=== PATIENT | male | born 1965 | race Asian ===

== ENCOUNTER 2018-05-20 01:58 | Inpatient (IN) | payer MEDICARE, OTHER ==
[~2018-05-20] VITALS: Ht 167.6 cm; Wt 86.2 kg
[2018-05-20] VITALS (21 sets, daily range): BP systolic 79–141; BP diastolic 48–70
[2018-05-20 01:53] LABS: HEMATOCRIT 21.5 % (42.0-52.0); MEAN CORPUSCULAR VOLUME 95 FL (80-99); PLATELET COUNT 179 K/UL (150-450); RED BLOOD COUNT 2.26 M/UL (4.70-6.10); RED CELL DISTRIBUTION WIDTH 13.1 % (11.6-14.8); WHITE BLOOD COUNT 13.6 K/UL (4.8-10.8)
[~2018-05-20 01:58] MED LIST: Morphine Sulfate 4mg/ml Inj (IV/IM USE ONLY) IVP ONE
[2018-05-20 02:07] LABS: ANION GAP 6 mmol/L (5-15); BLOOD UREA NITROGEN 24 mg/dL (7-18); CALCIUM 8.8 MG/DL (8.5-10.1); CARBON DIOXIDE 30 MMOL/L (21-32); CHLORIDE 103 MMOL/L (98-107); CREATININE 5.1 MG/DL (0.55-1.30); POTASSIUM 3.5 MMOL/L (3.5-5.1); SODIUM 139 MMOL/L (136-145)
[2018-05-20 02:11] LABS: ALANINE AMINOTRANSFERASE 11 U/L (12-78); ALBUMIN/GLOBULIN RATIO 0.8 (1.0-2.7); ALKALINE PHOSPHATASE 55 U/L (46-116); ASPARTATE AMINO TRANSFERASE 17 U/L (15-37); BILIRUBIN,TOTAL 0.5 MG/DL (0.2-1.0)
--- NOTE | 2018-05-20 03:28 | Diagnostic Imaging Report ---
EXAM: CT Abdomen and Pelvis Without Intravenous Contrast CLINICAL HISTORY: PAIN TECHNIQUE: Axial computed tomography images of the abdomen and pelvis without intravenous contrast. CTDI is 13.68 mGy and DLP is 1247 mGy-cm. One or more of the following dose reduction techniques were used: automated exposure control, adjustment of the mA and/or kV according to patient size, use of iterative reconstruction technique. COMPARISON: No relevant prior studies available. FINDINGS: Limitations: Absent IV and oral contrast limit evaluation. Lung bases: Right basilar airspace disease. Pleural space: Small bilateral pleural effusions, right greater than left. Mediastinum: Small hiatal hernia. ABDOMEN: Liver: Unremarkable. Gallbladder and bile ducts: Cholelithiasis. No CT evidence for acute cholecystitis. No ductal dilation. Pancreas: Unremarkable. No ductal dilation. Spleen: Unremarkable. No splenomegaly. Adrenals: Left adrenal gland appear within normal limits. Right adrenal gland is suboptimally visualized due to overall soft tissue stranding in perinephric abnormality. Kidneys and ureters: Small left renal lesions, some of which are isodense to the renal parenchyma and may reflect complex cyst. Close follow-up recommended to exclude isodense mass. Nonobstructing left renal calculus suspected. No left ureteral calculus. Right ureter is difficult to follow due to the extent of fluid and abnormality in the retroperitoneum. Complex heterogeneously hyperdense abnormality in the right kidney extending into the right perinephric space which may represent a large hemorrhagic mass. Note that in the setting of trauma, posttraumatic change can give this appearance. Some scattered rounded cystic lesions within this complex cystic mass which may reflect underlying cysts. Recommend clinical correlation and close follow-up. Few punctate calcifications in the lower right kidney which may reflect nonobstructing calculi. Stomach and bowel: Thickening of the rectosigmoid colon which may reflect under distention. Scattered diverticula in the right colon with fecaliths. Surrounding soft tissue stranding/fluid may reflect changes related to the right kidney and perinephric space rather than focal inflammatory changes/diverticulitis. Marked thickening of the descending and transverse portion of the duodenum which may reflect focal inflammatory/infectious process. In the setting of trauma, hematoma within the wall of the duodenum difficult to exclude. PELVIS: Appendix: No CT evidence for appendicitis. Bladder: Thickening of the bladder wall likely due to underdistention. No stones. Reproductive: Unremarkable as visualized. Subperitoneal space: Soft tissue stranding in the presacral space and along the right pelvic sidewall likely large hematoma extending inferiorly. ABDOMEN and PELVIS: Intraperitoneal space: Small scattered free fluid in the pelvis and upper abdomen in the samina-splenic and perihepatic distribution. Extensive soft tissue stranding along the right anterior lateral mesentery which may reflect focal mesenteric hematoma/injury. This may alternatively represent infiltrative abnormality versus edema. Recommend clinical correlation and follow-up. No free air. Bones/joints: No acute fracture. No dislocation. Soft tissues: Small fat-containing inguinal hernias bilaterally, left greater than right. Vasculature: Unremarkable. No abdominal aortic aneurysm. Lymph nodes: Unremarkable. No enlarged lymph nodes. Other findings: Suspect mild congestion. Recommend clinical correlation and close follow-up. IMPRESSION: Large complex hemorrhage/hemorrhagic mass occupying majority of the right kidney with extensive perinephric fluid/blood extending into the retroperitoneum and pelvis. Possible focal mesenteric edema/hematoma/abnormality. Recommend clinical correlation with history for trauma. Abnormal thickening in the duodenum which may reflect inflammatory/infectious process versus hematoma versus underlying infiltrative abnormality. Small free fluid seen throughout the abdomen and pelvis. Nonspecific bowel gas pattern. No free air. Small bilateral pleural effusions and right basilar airspace disease. [employer] 05/20/18 03:32 Call Doctor Regarding Above results, called Dr. Andrade on 05/20 03:32 (-08:00)
[2018-05-20] MEDS ORDERED: Morphine Sulfate 2mg/ml Inj IVP PRN (03:30)
[2018-05-20] MEDS ORDERED: Sodium Chloride 500ML 500 ML IV ONE (04:30)
[2018-05-20] MEDS: Norco 5mg/325mg tab ORAL PRN ×3 (04:33→19:43)
[2018-05-20] MEDS: D5NS 1,000 ML IV SCH ×2 (04:37→23:45)
--- NOTE | 2018-05-20 04:37 | Emergency Room Report ---
History of Present Illness General Chief Complaint: Abdominal Pain Source: Patient Present Illness [facility] This patient c/o right sided abdominal pain started suddenly ~6 pm, no trauma. Constant since onset, fairly severe, not improving. No similar history. No trauma. No vomiting, no diarrhea. Pt. is T/T/S dialysis with no complication today's dialysis. No cp, sob, no headache, no syncope. Allergies: Coded Allergies: No Known Allergies (Unverified , 05/20/18) Nursing Documentation-[facility] Past Medical History: No History, Except For Hx Diabetes: Yes Hx Dialysis: Yes - L arm shunt, T, TH, SAT Review of Systems Constitutional: Reports: see HPI Eye: Reports: no symptoms ENT: Reports: no symptoms Respiratory: Reports: no symptoms Cardiovascular: Reports: no symptoms Gastrointestinal: Reports: abdominal pain Genitourinary: Reports: no symptoms Musculoskeletal: Reports: no symptoms Skin: Reports: no symptoms Psychiatric: Reports: no symptoms Neurological: Reports: no symptoms Endocrine: Reports: no symptoms Hematologic/Lymphatic: Reports: no symptoms Allergic: Reports: no symptoms All Other Systems: negative except mentioned in HPI Physical Exam Vital Signs Date Time Temp Pulse Resp B/P (MAP) Pulse Ox O2 Delivery O2 Flow Rate FiO2 05/20/18 01:12 64 17 Room Air 05/20/18 01:15 132/67 98 05/20/18 01:59 97.5 Sp02 EP Interpretation: reviewed, normal General Appearance: normal inspection, well appearing, no apparent distress, alert, GCS 15, non-toxic Head: normocephalic, atraumatic Eyes: bilateral eye normal inspection, bilateral eye PERRL, bilateral eye EOMI ENT: normal ENT inspection, hearing grossly normal, normal pharynx, no angioedema, normal voice, moist mucus membranes Neck: normal inspection, full range of motion, supple, no meningismus, no bony tend Respiratory: normal inspection, lungs clear, normal breath sounds, no rhonchi, no respiratory distress, no retraction, no accessory muscle use, no wheezing Cardiovascular #1: normal inspection, regular rate, rhythm, no edema Gastrointestinal: normal inspection, normal bowel sounds, soft, no mass, non- distended, other - severe tenderness right lower abdomen, more diffuse than McBurney's, and no surgical signs, seems to have some right CVA tenderness too Musculoskeletal: gait/station normal, normal range of motion Neurologic: normal inspection, alert, oriented x3, responsive, motor strength/ tone normal Psychiatric: normal inspection, judgement/insight normal, memory normal Suicide Risk Assessment: Suicidal Ideation: No Had intent to initiate attempt: No Pt's plan for suicide attempt: No Has means to complete attempt: No Skin: normal inspection, normal color, no rash, warm/dry Medical Decision Making Diagnostic Impression: Primary Impression: Retroperitoneal hemorrhage Additional Impressions: ESRD (end stage renal disease) on dialysis Anemia ER Course No old labs here to compare hgb 7. While in ED patient is uncomfortable but he is able to walk to the bathroom on his own. (He does not have any urine output chronically, just bm.) CT result noted. I d/w Dr. Collazo who requested serial h/h bid and bed rest. I d/w Dr. Flores who is aware and will f/u in ICU. Surgeon Dr. Nur declined consult. Critical care time: I spent 35 minutes critical care time managing potentially life threatening conditions and coordinating care between physicians. EKG Diagnostic Results Rate: tachycardiac Rhythm Strip Diag. Results Rhythm Strip Time: 04:36 Rate: 101 Rhythm: NSR Last Vital Signs Date Time Temp Pulse Resp B/P (MAP) Pulse Ox O2 Delivery O2 Flow Rate FiO2 05/20/18 01:59 97.5 55 18 96/54 93 Room Air Status: unchanged Disposition: ADMITTED INPATIENT Condition: Serious Referrals: NOT CHOSEN IPA/,REFERRING (PCP) Angel Andrade M.D. May 20, 2018 04:36
[2018-05-20 05:47] LABS: INR 1.1 (0.9-1.1)
[2018-05-20] MEDS: NovoLOG Insulin Flexpen SUBQ SCH ×4 (06:09→20:33)
[2018-05-20 06:12] LABS: HEMATOCRIT 19.2 % (42.0-52.0); MEAN CORPUSCULAR VOLUME 96 FL (80-99); PLATELET COUNT 147 K/UL (150-450); RED BLOOD COUNT 2.01 M/UL (4.70-6.10); RED CELL DISTRIBUTION WIDTH 13.1 % (11.6-14.8); WHITE BLOOD COUNT 12.9 K/UL (4.8-10.8)
[2018-05-20 06:15] LABS: HEMOGLOBIN 6.2 G/DL (14.2-18.0)
[2018-05-20] MEDS ORDERED: Sodium Chloride 500ML 500 ML IV PRN (07:30)
--- NOTE | 2018-05-20 08:43 | History & Physical ---
History and Physical History & Physicial seen and examined. Full Dictation is completed. Baljit Flores MD May 20, 2018 08:43
--- NOTE | 2018-05-20 08:46 | General Progress Note ---
Assessment/Plan Assessment/Plan Full Dictation in progress 1- Acute Right Perinephric Hemorrhage 2- Hypovolemic Shock 3- Acute Anemia 4- Abdominal Pain secondary to #1 Plan: Ok to proceed with central line Ok to start Vaso Pressor Discussed the care with urologist, Dr Damon, continue to stabilize patient hypodynamically . No Surgical intervention at this time ID, Nephro, Endo, Critical specialist are consulted and notified Patient remains in serious medical cnd Subjective Allergies: Coded Allergies: No Known Allergies (Unverified , 05/20/18) Objective Last 24 Hour Vital Signs Date Time Temp Pulse Resp B/P (MAP) Pulse Ox O2 Delivery O2 Flow Rate FiO2 05/20/18 07:00 62 13 79/48 (58) 94 05/20/18 06:00 66 20 128/63 (84) 99 05/20/18 05:00 63 22 124/59 (80) 97 05/20/18 04:00 97.6 66 23 124/58 (80) 95 05/20/18 04:00 63 05/20/18 04:00 Nasal Cannula 2.0 05/20/18 02:47 97.5 65 18 125/67 93 Nasal Cannula 2.0 65 05/20/18 02:01 97.6 05/20/18 01:59 97.5 55 18 96/54 93 Room Air 05/20/18 01:15 64 18 132/67 98 Room Air 05/20/18 01:12 64 17 Room Air Intake and Output 05/19/18 05/20/18 18:59 06:59 Intake Total 70 ml Balance 70 ml Intake Oral 0 ml IV Total 70 ml Laboratory Tests 05/20/18 01:42: White Blood Count 13.6H, Red Blood Count 2.26L, Hemoglobin 7.0L, Hematocrit 21.5L, Mean Corpuscular Volume 95, Mean Corpuscular Hemoglobin 31.1H, Mean Corpuscular Hemoglobin Concent 32.7, Red Cell Distribution Width 13.1, Platelet Count 179, Mean Platelet Volume 10.7H, Neutrophils (%) (Auto) , Lymphocytes (%) (Auto) , Monocytes (%) (Auto) , Eosinophils (%) (Auto) , Basophils (%) (Auto) , Differential Total Cells Counted 100, Neutrophils % (Manual) 84H, Lymphocytes % (Manual) 12L, Monocytes % (Manual) 2, Eosinophils % (Manual) 2, Basophils % ( Manual) 0, Band Neutrophils 0, Platelet Estimate Adequate, Platelet Morphology Normal, Hypochromasia 2+, Sodium Level 139, Potassium Level 3.5, Chloride Level 103, Carbon Dioxide Level 30, Anion Gap 6, Blood Urea Nitrogen 24H, Creatinine 5.1H, Estimat Glomerular Filtration Rate 12.0, Glucose Level 376H, Calcium Level 8.8, Total Bilirubin 0.5, Aspartate Amino Transf (AST/SGOT) 17, Alanine Aminotransferase (ALT/SGPT) 11L, Alkaline Phosphatase 55, Total Protein 6.7, Albumin 3.0L, Globulin 3.7, Albumin/Globulin Ratio 0.8L, Lipase 375 05/20/18 05:10: White Blood Count 12.9H, Red Blood Count 2.01L, Hemoglobin 6.2*L, Hematocrit 19.2L, Mean Corpuscular Volume 96, Mean Corpuscular Hemoglobin 30.9, Mean Corpuscular Hemoglobin Concent 32.3, Red Cell Distribution Width 13.1, Platelet Count 147L, Mean Platelet Volume 10.8H, Neutrophils (%) (Auto) , Lymphocytes (% ) (Auto) , Monocytes (%) (Auto) , Eosinophils (%) (Auto) , Basophils (%) (Auto) , Differential Total Cells Counted 100, Neutrophils % (Manual) 88H, Lymphocytes % (Manual) 8L, Monocytes % (Manual) 4, Eosinophils % (Manual) 0, Basophils % ( Manual) 0, Band Neutrophils 0, Platelet Estimate DecreasedL, Platelet Morphology Normal, Hypochromasia 2+, Prothrombin Time 11.3, Prothromb Time International Ratio 1.1, Hemoglobin A1c 6.3H Height (Feet): 5 Height (Inches): 6.00 Weight (Pounds): 174 Baljit Flores MD May 20, 2018 08:46
[2018-05-20] MEDS ORDERED: Heparin 5000 units/ml inj SUBQ SCH (09:00)
--- NOTE | 2018-05-20 10:13 | Consultation ---
Consult Note Consult Note asked to eval for dialysis management This patient c/o right sided abdominal pain started suddenly ~6 pm, no trauma. Constant since onset, fairly severe, not improving. No similar history. No trauma. No vomiting, no diarrhea. Pt. is T/T/S dialysis with no complication today's dialysis. No cp, sob, no headache, no syncope. No Known Allergies (Unverified , 05/20/18) Past Medical History: No History, Except For Hx Diabetes: Yes Hx Dialysis: Yes - L arm shunt, T, TH, SAT Physical Exam Vital Signs Date Time Temp Pulse Resp B/P (MAP) Pulse Ox O2 Delivery O2 Flow Rate FiO2 05/20/18 01:12 64 17 Room Air 05/20/18 01:15 132/67 98 05/20/18 01:59 97.5 Sp02 EP Interpretation: reviewed, normal General Appearance: normal inspection, well appearing, no apparent distress, alert, GCS 15, non-toxic Head: normocephalic, atraumatic Eyes: bilateral eye normal inspection, bilateral eye PERRL, bilateral eye EOMI ENT: normal ENT inspection, hearing grossly normal, normal pharynx, no angioedema, normal voice, moist mucus membranes Neck: normal inspection, full range of motion, supple, no meningismus, no bony tend Respiratory: normal inspection, lungs clear, normal breath sounds, no rhonchi, no respiratory distress, no retraction, no accessory muscle use, no wheezing Cardiovascular #1: normal inspection, regular rate, rhythm, no edema Gastrointestinal: normal inspection, normal bowel sounds, soft, no mass, non- distended, other - severe tenderness right lower abdomen, more diffuse than McBurney's, and no surgical signs, seems to have some right CVA tenderness too Musculoskeletal: gait/station normal, normal range of motion Neurologic: normal inspection, alert, oriented x3, responsive, motor strength/ tone normal Psychiatric: normal inspection, judgement/insight normal, memory normal Suicide Risk Assessment: Suicidal Ideation: No Had intent to initiate attempt: No Pt's plan for suicide attempt: No Has means to complete attempt: No Skin: normal inspection, normal color, no rash, warm/dry Assessment/Plan hemorrhagic shock- Retro Peritoneal bleed Low BP ESRD DM HTN No Need for HD Transfuse Observe in ICU manage pain Per consultants discussed with Dm Ledesma MD May 20, 2018 10:13
--- NOTE | 2018-05-20 10:16 | Critical Care Progress Note ---
Assessment/Plan Problem List: (1) Shock (2) Diabetes (3) ESRD (end stage renal disease) on dialysis (4) Retroperitoneal hemorrhage (5) Anemia Status: stable Assessment/Plan ABG CBC q6, monitor HH, transfuse PRN Hb < 7 Monitor hemodynamics, PRN NE Place CVC Continue D5NS@50 cautiously, once luis PO will D/C HD per renal eval appreciated, no plan for operation at this time Observe off Abx for signs of an infectious process DVT Px: SCD's SSI Pain control/supportive care CCT60 Critical Care - Subjective Interval Events: 52 M h/o ESRD on HD TTS, HTN p/w acute R sided abdominal pain, Hb 7.0 --> 6.2, CT A/P with large R perinephric hemm vs hemm mass, admitted to the ICU for observation. + pain + N no V no DC no FC no CP no SOB ROS Limited/Unobtainable: Yes Condition: critical IV Access: peripheral, dialysis access - fistula EKG Rhythm: Sinus Rhythm IV Fluids: D51/2NS@50 Drips: NA I&O: Intake and Output 05/19/18 05/20/18 18:59 06:59 Intake Total 70 ml Balance 70 ml Intake Oral 0 ml IV Total 70 ml Critical Care - Objective Last 24 Hour Vital Signs Date Time Temp Pulse Resp B/P (MAP) Pulse Ox O2 Delivery O2 Flow Rate FiO2 05/20/18 07:00 62 13 79/48 (58) 94 05/20/18 06:00 66 20 128/63 (84) 99 05/20/18 05:00 63 22 124/59 (80) 97 05/20/18 04:00 97.6 66 23 124/58 (80) 95 05/20/18 04:00 63 05/20/18 04:00 Nasal Cannula 2.0 05/20/18 02:47 97.5 65 18 125/67 93 Nasal Cannula 2.0 65 05/20/18 02:01 97.6 05/20/18 01:59 97.5 55 18 96/54 93 Room Air 05/20/18 01:15 64 18 132/67 98 Room Air 05/20/18 01:12 64 17 Room Air Status: awake Condition: critical HEENT: atraumatic, normocephalic Neck: full ROM Lungs: normal breath sounds, clear Heart: normal peripheral pulses, normal rate, regular rhythm Abdomen: active bowel sounds, other - R > L diffuse TTP Extremities: no C/C/E Micro: Microbiology Date/Time Source Procedure Growth Status 05/20/18 03:07 Rectum Received Accucheck: 280 Blood Sugars: BS not controlled Bay Marte MD May 20, 2018 10:16
[2018-05-20] MEDS: Docusate 100mg cap ORAL SCH ×2 (12:21→18:18)
[2018-05-20 16:07] LABS: HEMATOCRIT 21.7 % (42.0-52.0); HEMOGLOBIN 7.5 G/DL (14.2-18.0); MEAN CORPUSCULAR VOLUME 92 FL (80-99); PLATELET COUNT 116 K/UL (150-450); RED BLOOD COUNT 2.36 M/UL (4.70-6.10); RED CELL DISTRIBUTION WIDTH 13.7 % (11.6-14.8); WHITE BLOOD COUNT 14.4 K/UL (4.8-10.8)
--- NOTE | 2018-05-20 16:15 | Consultation ---
DATE OF CONSULTATION: 05/20/2018 UROLOGY CONSULTATION CONSULTING PHYSICIAN: Ambrosio Fernandez M.D. ATTENDING/CONSULTING PHYSICIAN: Baljit Flores M.D. CHIEF COMPLAINT/HISTORY OF PRESENT ILLNESS: I was asked by Dr. Flores to evaluate this very pleasant 52-year-old Indonesian gentleman regarding a history of a right renal bleed in the setting of dialysis with significant hematocrit drop and brief instability. Briefly, the patient is a dialysis patient, who undergoes hemodialysis three times a week. He presented to the hospital with right-sided abdominal and flank pain without any preceding trauma. There is no history of anticoagulation in this patient. He has no other urologic issue or problem. A CT scan revealed a large retroperitoneal bleed. The patient was somewhat unstable and placed in the ICU for management of the same. Given the above, I was asked to evaluate the patient. PAST MEDICAL HISTORY: 1. Diabetes mellitus. 2. ESRD likely secondary to the same. PAST SURGICAL HISTORY: Left arm shunt for hemodialysis. MEDICATIONS: Please see the chart for current medications administration details. ALLERGIES: No known drug allergies. SOCIAL HISTORY: Unremarkable for tobacco, alcohol, or drug use. FAMILY HISTORY: Noncontributory. REVIEW OF SYSTEMS: A 14-system review of systems essentially unremarkable outside of what is described above. PHYSICAL EXAMINATION: GENERAL: The patient is a middle-aged Indonesian gentleman, awake, alert, and oriented x4, pleasant, no obvious distress. HEENT: NC/AT. EOMI. Oropharynx clear. NECK: Supple. Full range of motion. CHEST: Within normal limits. ABDOMEN: Soft, nontender, nondistended. EXTREMITIES: Warm and well perfused. No cyanosis, clubbing, or edema. BACK: Right CVA and flank tenderness in the setting of the bleed. NEUROLOGIC: Grossly nonfocal. GENITOURINARY: Normal male external genitalia. LABORATORY DATA: White blood cell count 12.9, hematocrit 19.2, platelets 147. PT 11.3, INR 1.1. Sodium 139, potassium 3.5, chloride 103, bicarbonate 30, BUN 24, creatinine 5.1, glucose 376, calcium 8.8. LFTs within normal limits. Lipase 375. DIAGNOSTIC IMAGING: CT scan of the abdomen and pelvis reveals large complex hemorrhage/hemorrhagic mass occupying the majority of right kidney with extensive perinephric blood and fluid extending into the retroperitoneum and pelvis. There is some possible focal mesenteric edema/hematoma. There is abnormal thickening in the duodenum. There is small free fluid throughout the abdomen and pelvis. There is no free air. The bowel gas pattern is nonspecific. ASSESSMENT AND PLAN: In summary, the patient is a 52-year-old gentleman with a history of ESRD on hemodialysis. He presents to the hospital with right kidney and retroperitoneal bleed. Physical exam reveals tenderness over the right flank consistent with the same. Laboratory data is notable for anemia in the setting of bleed and evidence of renal failure and uncontrolled diabetes. Diagnostic imaging reveals findings consistent with a bleed as described above. I discussed these findings today with the patient and the nurse at the bedside. Retroperitoneal hemorrhage is typically managed conservatively as he will eventually tamponade itself. We should support the patient with blood transfusion and supportive measures as necessary. He has already been taken off of pressors as his blood pressure has stabilized. He should be kept on bed rest and serial hematocrits should be done b.i.d. Absolutely, no anticoagulation should be used in this patient. A repeat CT scan should be done in two to three days time to assess for any change in the hematoma. If the patient remain stable at that point, we can consider getting him off of bed rest and moving him to a lower level of care. We do not typically operate on this patient as removing the pressure from the retroperitoneal bleed and whatever tamponade effect may be giving us can be dangerous and life threatening. Additionally, if any continued bleed occurs despite these conservative measures, consideration for angio embolization for the same with Interventional Radiology is a better approach to take as it is less invasive and more likely too quickly and readily identified the source of the bleeding. Thank you for allowing me to participate in the care of this nice man. Please do not hesitate to contact me with any questions that you may further have regarding his care. I will see him with you as needed. Ambrosio Fernandez M.D. DR: MIKEY JOB#: [id number] CC:
[2018-05-20] MEDS: Pantoprazole Inj IVP SCH (20:32)
--- NOTE | 2018-05-20 21:14 | History and Physical Report ---
DATE OF ADMISSION: 05/20/2018 SOURCE OF INFORMATION: The patient and EMR. HISTORY OF PRESENT ILLNESS: The patient is a pleasant 52-year-old male with a history of end-stage renal disease, on hemodialysis, who presented with pain in the right side of the tummy for the last one day. The patient reported the pain as sharp, severe. Now, the patient denies any trauma. The patient is Romanian speaking. Therefore, I received assistance from our ICU nurse for translation. At the time of my evaluation, the patient denies having any nausea or vomitus. No fever. No chills. No dizziness. No head trauma. No abnormal bleeding. The patient successfully completed the hemodialysis yesterday through the left upper extremity shunt. PAST SURGICAL HISTORY: Left arm AV graft placement. FAMILY HISTORY: Reviewed and noncontributory. SOCIAL HISTORY: The patient denies history of illicit drug abuse, smoking, or alcohol abuse. ALLERGIES: NKDA. PAST SURGICAL HISTORY: Denies. PAST MEDICAL HISTORY: End-stage renal disease, on hemodialysis and diabetes. PHYSICAL EXAMINATION: VITAL SIGNS: Blood pressure 130/80, temperature 98.2 degrees, pulse oximetry 98% on room air, and pulse rate 64. HEAD AND NECK: Atraumatic and normocephalic. CHEST: Clear to auscultation. No wheezing. No crackles. HEART: S1 and S2. Regular rate and rhythm. ABDOMEN: Tender noted. Negative for rebound tenderness. NEUROLOGIC: The patient is awake, alert, and oriented x3. PSYCHIATRIC: Mood and affect are appropriate and normal. MUSCULOSKELETAL: No gross lateralized motor deficit. LABORATORY AND DIAGNOSTIC DATA: Labs dated May 20, 2018 shows WBC 13.6, hemoglobin of 7, and platelet of 179,000. Sodium 139, potassium 3.5, BUN 24, creatinine 5.1, and glucose of 376. IMAGING: CT scan of abdomen and pelvis dated May 20, 2018 reviewed showing the right perinephric hematoma. ASSESSMENT AND PLAN: 1. Sepsis sources including, but not limited to graft infection and abdominal nonspecific infection. 2. Right-sided perinephric hemorrhage. 3. Acute anemia. 4. Diabetes type 2. 5. GI and DVT prophylaxis. PLAN OF CARE: Infectious Disease, Dr. Garcia, the urologist Dr. Fernandez, and Nephrology Dr. Lopez have already been notified and consulted. We will initiate this supportive treatment. Pending cultures have been sent secondary to the low likelihood of the active infection as a cause of this leukocytosis. I will cover with the antibiotic and we will monitor. The patient is in guarded medical condition. We will admit the patient to the ICU. Baljit Flores M.D. DR: KRISTY JOB#: [id number] CC:
[2018-05-20 22:05] LABS: HEMATOCRIT 19.3 % (42.0-52.0); MEAN CORPUSCULAR VOLUME 92 FL (80-99); PLATELET COUNT 122 K/UL (150-450); RED BLOOD COUNT 2.09 M/UL (4.70-6.10); RED CELL DISTRIBUTION WIDTH 14.5 % (11.6-14.8); WHITE BLOOD COUNT 14.8 K/UL (4.8-10.8)
[2018-05-20 22:06] LABS: HEMOGLOBIN 6.6 G/DL (14.2-18.0)
--- NOTE | 2018-05-20 22:14 | Consultation ---
DATE OF CONSULTATION: 05/20/2018 GASTROENTEROLOGY CONSULTATION CONSULTING PHYSICIAN: Eriberto Pitts M.D. REFERRING PHYSICIAN: Baljit Flores M.D. CHIEF COMPLAINT: I was asked to see this patient by Dr. Flores for evaluation of abdominal pain. HISTORY OF PRESENT ILLNESS: The patient is a pleasant 52-year-old Hungarian-speaking man who came to the emergency room due to right upper abdominal pain which was severe and acute. The patient was admitted to the hospital and subsequently transferred to intensive care unit. CT scan of the abdomen had shown right-sided large complex hemorrhagic mass occupying majority of the right kidney with extensive perinephric fluid and blood extending to the peritoneum and pelvis. There is also some focal mesenteric edema, hematoma, and also thickening of the duodenum. The patient states he has never had an endoscopy or colonoscopy before. The patient has significant degree of anemia on admission, but it is known that he is a dialysis patient and also has this acute bleeding which likely has resulted in further drop in his blood level. PAST MEDICAL HISTORY: History of diabetes, history of end-stage renal disease, on dialysis. PAST SURGICAL HISTORY: Status post left arm dialysis shunt. ALLERGIES: None. FAMILY HISTORY: Noncontributory. SOCIAL HISTORY: The patient is Hungarian-speaking and lives in [facility]. REVIEW OF SYSTEMS: Otherwise negative. MEDICATIONS: See the chart list for details. PHYSICAL EXAMINATION: GENERAL: This is a pleasant Hungarian man seen in ICU with the nurse at bedside. HEENT: Normocephalic and atraumatic. Sclerae anicteric. Oropharynx clear. NECK: Supple. CHEST: Clear to auscultation. CARDIOVASCULAR: Revealed regular rate. ABDOMEN: Soft with some right lower quadrant abdominal distention and tenderness to palpation with guarding. EXTREMITIES: Revealed no edema. LABORATORY AND DIAGNOSTIC DATA: Noted. CT scan was noted. ASSESSMENT: This patient presents with a right-sided renal hemorrhage with retroperitoneal extension. His symptoms could all be attributed to the finding on CT scan. He does have severe anemia, but this is likely partially due to his long-term renal failure and also to acute bleeding. Should there be evidence of acute gastrointestinal bleeding, then GI workup can be indicated, otherwise focus can be made at this time towards the renal site. I would defer dietary management to the surgical team. Stress ulcer prophylaxis should be given. RECOMMENDATIONS: Per above discussion and per orders written in the chart. Thank you for asking me to participate in the care of this patient. Eriberto Pitts M.D. DR: Carolyn JOB#: [id number] CC:
[2018-05-20] MEDS: Morphine Sulfate 4mg/ml Inj (IV/IM USE ONLY) IVP PRN (23:46)
[2018-05-21] VITALS (23 sets, daily range): BP systolic 64–145; BP diastolic 49–79
[2018-05-21] MEDS: Norco 5mg/325mg tab ORAL PRN ×3 (03:54→13:13)
[2018-05-21 05:54] LABS: HEMATOCRIT 21.2 % (42.0-52.0); HEMOGLOBIN 7.5 G/DL (14.2-18.0); MEAN CORPUSCULAR VOLUME 91 FL (80-99); PLATELET COUNT 123 K/UL (150-450); RED BLOOD COUNT 2.34 M/UL (4.70-6.10); RED CELL DISTRIBUTION WIDTH 14.3 % (11.6-14.8); WHITE BLOOD COUNT 17.5 K/UL (4.8-10.8)
[2018-05-21] MEDS ORDERED: LORazepam 0.5mg tab ORAL PRN (06:00)
[2018-05-21] MEDS ORDERED: Lactulose 20gm/30ml UDC ORAL SCH (06:00)
[2018-05-21] MEDS: Lactulose 20gm/30ml UDC ORAL SCH ×2 (06:12→16:55)
[2018-05-21] MEDS: NovoLOG Insulin Flexpen SUBQ SCH ×4 (06:16→21:00)
[2018-05-21 06:19] LABS: ALANINE AMINOTRANSFERASE 78 U/L (12-78); ALBUMIN 2.9 G/DL (3.4-5.0); ALBUMIN/GLOBULIN RATIO 0.7 (1.0-2.7); ALKALINE PHOSPHATASE 59 U/L (46-116); ANION GAP 12 mmol/L (5-15); ASPARTATE AMINO TRANSFERASE 115 U/L (15-37); BILIRUBIN,TOTAL 0.4 MG/DL (0.2-1.0); BLOOD UREA NITROGEN 39 mg/dL (7-18); CALCIUM 8.2 MG/DL (8.5-10.1); CARBON DIOXIDE 24 MMOL/L (21-32); CHLORIDE 101 MMOL/L (98-107); CHOLESTEROL 103 MG/DL (< 200); CREATINE KINASE 113 U/L (26-308); CREATININE 6.9 MG/DL (0.55-1.30); FERRITIN 698 NG/ML (8-388); GAMMA GLUTAMYL TRANSPEPTIDASE 5 U/L (5-85); HDL CHOLESTEROL 19 MG/DL (40-60); PHOSPHORUS 5.8 MG/DL (2.5-4.9); POTASSIUM 3.5 MMOL/L (3.5-5.1); SODIUM 137 MMOL/L (136-145); TRIGLYCERIDES 187 MG/DL (30-150)
[2018-05-21] MEDS: Docusate 100mg cap ORAL SCH ×3 (09:00→16:55)
[2018-05-21] MEDS: Pantoprazole Inj IVP SCH ×2 (09:00→21:28)
--- NOTE | 2018-05-21 09:03 | Nephrology Progress Note ---
Assessment/Plan Problem List: (1) ESRD (end stage renal disease) on dialysis (2) Retroperitoneal hemorrhage (3) Shock (4) Anemia (5) Abdominal pain (6) Diabetes Assessment hemorrhagic shock- Retro Peritoneal bleed Low BP ESRD DM HTN transfused 3 units since admit Plan HD today- no heparin Transfuse as needed Observe in ICU manage pain Per consultants discussed with RN Subjective ROS Limited/Unobtainable: No Constitutional: Reports: malaise Objective Objective Last 24 Hour Vital Signs Date Time Temp Pulse Resp B/P (MAP) Pulse Ox O2 Delivery O2 Flow Rate FiO2 05/21/18 08:00 Nasal Cannula 2.0 05/21/18 08:00 98.4 81 26 137/61 (86) 95 05/21/18 07:08 97 Nasal Cannula 2.0 28 05/21/18 07:08 Nasal Cannula 2.0 28 05/21/18 07:00 78 20 140/64 (89) 97 05/21/18 06:00 77 24 111/72 (85) 96 05/21/18 05:00 73 24 100/52 (68) 98 05/21/18 04:02 74 05/21/18 04:00 Nasal Cannula 2.0 05/21/18 04:00 98.0 74 21 138/59 (85) 98 05/21/18 03:00 74 21 145/57 (86) 98 05/21/18 02:00 74 21 145/57 (86) 98 05/21/18 01:00 73 16 116/79 (91) 100 05/21/18 00:00 Nasal Cannula 2.0 05/21/18 00:00 98.5 77 19 140/49 (79) 97 05/20/18 23:04 77 05/20/18 23:00 77 20 141/57 (85) 96 05/20/18 22:00 73 18 115/48 (70) 99 05/20/18 21:00 78 19 120/56 (77) 96 05/20/18 20:00 Nasal Cannula 2.0 05/20/18 20:00 98.1 78 20 135/70 (91) 97 05/20/18 19:45 Nasal Cannula 2.0 28 05/20/18 19:45 98 Nasal Cannula 2.0 05/20/18 19:12 74 05/20/18 19:00 68 13 131/57 (81) 99 05/20/18 18:00 65 13 108/53 (71) 99 05/20/18 17:00 62 13 116/58 (77) 99 05/20/18 16:00 66 05/20/18 16:00 98.2 68 23 112/55 (74) 95 05/20/18 16:00 Nasal Cannula 2.0 05/20/18 15:00 63 13 120/58 (78) 99 05/20/18 14:00 65 13 133/66 (88) 99 05/20/18 13:00 70 13 125/59 (81) 99 05/20/18 12:00 97.9 68 23 110/55 (73) 97 05/20/18 12:00 Nasal Cannula 2.0 05/20/18 12:00 65 05/20/18 11:15 98.0 05/20/18 11:00 68 13 120/62 (81) 99 05/20/18 10:00 65 13 127/58 (81) 99 Intake and Output 05/20/18 05/21/18 19:00 07:00 Intake Total 50 ml 850 ml Output Total 0 ml 0 ml Balance 50 ml 850 ml IV Total 50 ml 450 ml Blood Product 250 ml Other 150 ml Output Urine Total 0 ml 0 ml Laboratory Tests 05/20/18 10:51: Arterial Blood pH 7.410, Arterial Blood Partial Pressure CO2 42.8, Arterial Blood Partial Pressure O2 79.0, Arterial Blood HCO3 26.7H, Arterial Blood Oxygen Saturation 94.5L, Arterial Blood Base Excess 1.96, David Test Positive 05/20/18 15:45: White Blood Count 14.4H, Red Blood Count 2.36L, Hemoglobin 7.5L, Hematocrit 21.7L, Mean Corpuscular Volume 92, Mean Corpuscular Hemoglobin 31.6H, Mean Corpuscular Hemoglobin Concent 34.4, Red Cell Distribution Width 13.7, Platelet Count 116L, Mean Platelet Volume 9.7, Neutrophils (%) (Auto) , Lymphocytes (%) ( Auto) , Monocytes (%) (Auto) , Eosinophils (%) (Auto) , Basophils (%) (Auto) , Differential Total Cells Counted 100, Neutrophils % (Manual) 95H, Lymphocytes % (Manual) 1L, Monocytes % (Manual) 4, Eosinophils % (Manual) 0, Basophils % ( Manual) 0, Band Neutrophils 0, Platelet Estimate DecreasedL, Platelet Morphology Normal, Polychromasia 1+ 05/20/18 21:55: White Blood Count 14.8H, Red Blood Count 2.09L, Hemoglobin 6.6*L, Hematocrit 19.3L, Mean Corpuscular Volume 92, Mean Corpuscular Hemoglobin 31.8H, Mean Corpuscular Hemoglobin Concent 34.4, Red Cell Distribution Width 14.5, Platelet Count 122L, Mean Platelet Volume 9.0, Neutrophils (%) (Auto) , Lymphocytes (%) ( Auto) , Monocytes (%) (Auto) , Eosinophils (%) (Auto) , Basophils (%) (Auto) , Differential Total Cells Counted 100, Neutrophils % (Manual) 94H, Lymphocytes % (Manual) 5L, Monocytes % (Manual) 1, Eosinophils % (Manual) 0, Basophils % ( Manual) 0, Band Neutrophils 0, Platelet Estimate DecreasedL, Platelet Morphology Normal, Polychromasia 1+ 05/21/18 04:40: White Blood Count 17.5H, Red Blood Count 2.34L, Hemoglobin 7.5L, Hematocrit 21.2L, Mean Corpuscular Volume 91, Mean Corpuscular Hemoglobin 32.2H, Mean Corpuscular Hemoglobin Concent 35.6, Red Cell Distribution Width 14.3, Platelet Count 123L, Mean Platelet Volume 10.2H, Neutrophils (%) (Auto) , Lymphocytes (% ) (Auto) , Monocytes (%) (Auto) , Eosinophils (%) (Auto) , Basophils (%) (Auto) , Differential Total Cells Counted 100, Neutrophils % (Manual) 93H, Lymphocytes % (Manual) 1L, Monocytes % (Manual) 6, Eosinophils % (Manual) 0, Basophils % ( Manual) 0, Band Neutrophils 0, Platelet Estimate DecreasedL, Platelet Morphology Normal, Hypochromasia 3+, Anisocytosis 1+, Spherocytes 1+, Sodium Level 137, Potassium Level 3.5, Chloride Level 101, Carbon Dioxide Level 24, Anion Gap 12, Blood Urea Nitrogen 39H, Creatinine 6.9H, Estimat Glomerular Filtration Rate 8.4, Glucose Level 267#H, Uric Acid 5.6, Calcium Level 8.2L, Phosphorus Level 5.8H, Magnesium Level 2.3, Ferritin 698H, Total Bilirubin 0.4, Gamma Glutamyl Transpeptidase 5, Aspartate Amino Transf (AST/SGOT) 115H, Alanine Aminotransferase (ALT/SGPT) 78, Alkaline Phosphatase 59, Total Creatine Kinase 113, Troponin I 0.000, Pro-B-Type Natriuretic Peptide 29754Q, Total Protein 6.8, Albumin 2.9L, Globulin 3.9, Albumin/Globulin Ratio 0.7L, Triglycerides Level 187H, Cholesterol Level 103, LDL Cholesterol 43, HDL Cholesterol 19L, Cholesterol/HDL Ratio 5.4H, Lipase 268, Vitamin B12 Level 1189H Height (Feet): 5 Height (Inches): 6.00 Weight (Pounds): 178 General Appearance: no apparent distress Cardiovascular: normal rate Respiratory/Chest: decreased breath sounds Abdomen: distended Dm Lopez MD May 21, 2018 09:03
--- NOTE | 2018-05-21 11:06 | General Progress Note ---
Assessment/Plan Assessment/Plan S: I am ok O: appears comfortable. Denies any pain PHYSICAL EXAMINATION: HEAD AND NECK: Atraumatic and normocephalic. CHEST: Clear to auscultation. No wheezing. No crackles. HEART: S1 and S2. Regular rate and rhythm. ABDOMEN: Tender noted. Negative for rebound tenderness. NEUROLOGIC: The patient is awake, alert, and oriented x3. PSYCHIATRIC: Mood and affect are appropriate and normal. MUSCULOSKELETAL: No gross lateralized motor deficit. Meds: reviewed and reconciled, including NovoLog 5 u tid IMAGING: CT scan of abdomen and pelvis dated May 20, 2018 reviewed showing the right perinephric hematoma. ASSESSMENT AND PLAN: 1. Acute Right Perinephric Hemorrhage 3. Acute anemia. 4. Diabetes type 2. 5 Hypovolemic Shock : Stable 6. GI-DVT prophylaxia Plan: will monitor HH Notes from Urology , Nephro, Endo, Critical specialist are reviewed will start low dose Lantus, will consult Endo Patient remains in serious medical cnd Subjective Allergies: Coded Allergies: No Known Allergies (Unverified , 05/20/18) Objective Last 24 Hour Vital Signs Date Time Temp Pulse Resp B/P (MAP) Pulse Ox O2 Delivery O2 Flow Rate FiO2 05/21/18 10:00 82 22 131/56 (81) 80 05/21/18 09:00 82 22 129/57 (81) 83 05/21/18 08:00 Nasal Cannula 2.0 05/21/18 08:00 82 05/21/18 08:00 98.4 81 26 137/61 (86) 95 05/21/18 07:08 97 Nasal Cannula 2.0 28 05/21/18 07:08 Nasal Cannula 2.0 28 05/21/18 07:00 78 20 140/64 (89) 97 05/21/18 06:00 77 24 111/72 (85) 96 05/21/18 05:00 73 24 100/52 (68) 98 05/21/18 04:02 74 05/21/18 04:00 Nasal Cannula 2.0 05/21/18 04:00 98.0 74 21 138/59 (85) 98 05/21/18 03:00 74 21 145/57 (86) 98 05/21/18 02:00 74 21 145/57 (86) 98 05/21/18 01:00 73 16 116/79 (91) 100 05/21/18 00:00 Nasal Cannula 2.0 05/21/18 00:00 98.5 77 19 140/49 (79) 97 05/20/18 23:04 77 05/20/18 23:00 77 20 141/57 (85) 96 05/20/18 22:00 73 18 115/48 (70) 99 05/20/18 21:00 78 19 120/56 (77) 96 05/20/18 20:00 Nasal Cannula 2.0 05/20/18 20:00 98.1 78 20 135/70 (91) 97 05/20/18 19:45 Nasal Cannula 2.0 28 05/20/18 19:45 98 Nasal Cannula 2.0 05/20/18 19:12 74 05/20/18 19:00 68 13 131/57 (81) 99 05/20/18 18:00 65 13 108/53 (71) 99 05/20/18 17:00 62 13 116/58 (77) 99 05/20/18 16:00 66 05/20/18 16:00 98.2 68 23 112/55 (74) 95 05/20/18 16:00 Nasal Cannula 2.0 05/20/18 15:00 63 13 120/58 (78) 99 05/20/18 14:00 65 13 133/66 (88) 99 05/20/18 13:00 70 13 125/59 (81) 99 05/20/18 12:00 97.9 68 23 110/55 (73) 97 05/20/18 12:00 Nasal Cannula 2.0 05/20/18 12:00 65 05/20/18 11:15 98.0 Intake and Output 05/20/18 05/21/18 19:00 07:00 Intake Total 50 ml 850 ml Output Total 0 ml 0 ml Balance 50 ml 850 ml IV Total 50 ml 450 ml Blood Product 250 ml Other 150 ml Output Urine Total 0 ml 0 ml Laboratory Tests 05/20/18 15:45: White Blood Count 14.4H, Red Blood Count 2.36L, Hemoglobin 7.5L, Hematocrit 21.7L, Mean Corpuscular Volume 92, Mean Corpuscular Hemoglobin 31.6H, Mean Corpuscular Hemoglobin Concent 34.4, Red Cell Distribution Width 13.7, Platelet Count 116L, Mean Platelet Volume 9.7, Neutrophils (%) (Auto) , Lymphocytes (%) ( Auto) , Monocytes (%) (Auto) , Eosinophils (%) (Auto) , Basophils (%) (Auto) , Differential Total Cells Counted 100, Neutrophils % (Manual) 95H, Lymphocytes % (Manual) 1L, Monocytes % (Manual) 4, Eosinophils % (Manual) 0, Basophils % ( Manual) 0, Band Neutrophils 0, Platelet Estimate DecreasedL, Platelet Morphology Normal, Polychromasia 1+ 05/20/18 21:55: White Blood Count 14.8H, Red Blood Count 2.09L, Hemoglobin 6.6*L, Hematocrit 19.3L, Mean Corpuscular Volume 92, Mean Corpuscular Hemoglobin 31.8H, Mean Corpuscular Hemoglobin Concent 34.4, Red Cell Distribution Width 14.5, Platelet Count 122L, Mean Platelet Volume 9.0, Neutrophils (%) (Auto) , Lymphocytes (%) ( Auto) , Monocytes (%) (Auto) , Eosinophils (%) (Auto) , Basophils (%) (Auto) , Differential Total Cells Counted 100, Neutrophils % (Manual) 94H, Lymphocytes % (Manual) 5L, Monocytes % (Manual) 1, Eosinophils % (Manual) 0, Basophils % ( Manual) 0, Band Neutrophils 0, Platelet Estimate DecreasedL, Platelet Morphology Normal, Polychromasia 1+ 05/21/18 04:40: White Blood Count 17.5H, Red Blood Count 2.34L, Hemoglobin 7.5L, Hematocrit 21.2L, Mean Corpuscular Volume 91, Mean Corpuscular Hemoglobin 32.2H, Mean Corpuscular Hemoglobin Concent 35.6, Red Cell Distribution Width 14.3, Platelet Count 123L, Mean Platelet Volume 10.2H, Neutrophils (%) (Auto) , Lymphocytes (% ) (Auto) , Monocytes (%) (Auto) , Eosinophils (%) (Auto) , Basophils (%) (Auto) , Differential Total Cells Counted 100, Neutrophils % (Manual) 93H, Lymphocytes % (Manual) 1L, Monocytes % (Manual) 6, Eosinophils % (Manual) 0, Basophils % ( Manual) 0, Band Neutrophils 0, Platelet Estimate DecreasedL, Platelet Morphology Normal, Hypochromasia 3+, Anisocytosis 1+, Spherocytes 1+, Sodium Level 137, Potassium Level 3.5, Chloride Level 101, Carbon Dioxide Level 24, Anion Gap 12, Blood Urea Nitrogen 39H, Creatinine 6.9H, Estimat Glomerular Filtration Rate 8.4, Glucose Level 267#H, Uric Acid 5.6, Calcium Level 8.2L, Phosphorus Level 5.8H, Magnesium Level 2.3, Ferritin 698H, Total Bilirubin 0.4, Gamma Glutamyl Transpeptidase 5, Aspartate Amino Transf (AST/SGOT) 115H, Alanine Aminotransferase (ALT/SGPT) 78, Alkaline Phosphatase 59, Total Creatine Kinase 113, Troponin I 0.000, Pro-B-Type Natriuretic Peptide 18743I, Total Protein 6.8, Albumin 2.9L, Globulin 3.9, Albumin/Globulin Ratio 0.7L, Triglycerides Level 187H, Cholesterol Level 103, LDL Cholesterol 43, HDL Cholesterol 19L, Cholesterol/HDL Ratio 5.4H, Lipase 268, Vitamin B12 Level 1189H Height (Feet): 5 Height (Inches): 6.00 Weight (Pounds): 178 Baljit Flores MD May 21, 2018 11:06
--- NOTE | 2018-05-21 11:59 | GI Progress Note ---
Assessment/Plan Problems: (1) Retroperitoneal hemorrhage ICD Codes: R58 - Hemorrhage, not elsewhere classified SNOMED: 95501627 (2) Anemia ICD Codes: D64.9 - Anemia, unspecified SNOMED: 524034786 (3) Diabetes ICD Codes: E11.9 - Type 2 diabetes mellitus without complications SNOMED: 60178545 (4) Abdominal pain ICD Codes: R10.9 - Unspecified abdominal pain SNOMED: 22141499 (5) Shock ICD Codes: R57.9 - Shock, unspecified SNOMED: 50217538 (6) ESRD (end stage renal disease) on dialysis ICD Codes: N18.6 - End stage renal disease; Z99.2 - Dependence on renal dialysis SNOMED: 409336911 Status: unchanged Status Narrative Discussed with Dr. Mcgee. Assessment/Plan CT AP reviewed >> - Large complex hemorrhage/hemorrhagic mass occupying majority of the right kidney with extensive perinephric fluid/blood extending into the retroperitoneum and pelvis. - Possible focal mesenteric edema/hematoma/abnormality. - Abnormal thickening in the duodenum which may reflect inflammatory/ infectious process versus hematoma versus underlying infiltrative abnormality. Anemia, most likely due to chronic disease >> OB stool r/o GI bleeding diet per surgery ppi BID prn transfusions abx fu surgical recommendations fu labs The patient was seen and examined at bedside and all new and available data was reviewed in the patients chart. I agree with the above findings, impression and plan. (Patient seen earlier today. Signature stamp does not reflect patient encounter time.). - Elvis Mcgee MD Subjective Subjective limited Objective Last 24 Hour Vital Signs Date Time Temp Pulse Resp B/P (MAP) Pulse Ox O2 Delivery O2 Flow Rate FiO2 05/21/18 11:00 84 21 106/64 (78) 85 05/21/18 10:00 82 22 131/56 (81) 80 05/21/18 09:00 82 22 129/57 (81) 83 05/21/18 08:00 Nasal Cannula 2.0 05/21/18 08:00 82 05/21/18 08:00 98.4 81 26 137/61 (86) 95 05/21/18 07:08 97 Nasal Cannula 2.0 28 05/21/18 07:08 Nasal Cannula 2.0 28 05/21/18 07:00 78 20 140/64 (89) 97 05/21/18 06:00 77 24 111/72 (85) 96 05/21/18 05:00 73 24 100/52 (68) 98 05/21/18 04:02 74 05/21/18 04:00 Nasal Cannula 2.0 05/21/18 04:00 98.0 74 21 138/59 (85) 98 05/21/18 03:00 74 21 145/57 (86) 98 05/21/18 02:00 74 21 145/57 (86) 98 05/21/18 01:00 73 16 116/79 (91) 100 05/21/18 00:00 Nasal Cannula 2.0 05/21/18 00:00 98.5 77 19 140/49 (79) 97 05/20/18 23:04 77 05/20/18 23:00 77 20 141/57 (85) 96 05/20/18 22:00 73 18 115/48 (70) 99 05/20/18 21:00 78 19 120/56 (77) 96 05/20/18 20:00 Nasal Cannula 2.0 05/20/18 20:00 98.1 78 20 135/70 (91) 97 05/20/18 19:45 Nasal Cannula 2.0 28 05/20/18 19:45 98 Nasal Cannula 2.0 05/20/18 19:12 74 05/20/18 19:00 68 13 131/57 (81) 99 05/20/18 18:00 65 13 108/53 (71) 99 05/20/18 17:00 62 13 116/58 (77) 99 05/20/18 16:00 66 05/20/18 16:00 98.2 68 23 112/55 (74) 95 05/20/18 16:00 Nasal Cannula 2.0 05/20/18 15:00 63 13 120/58 (78) 99 05/20/18 14:00 65 13 133/66 (88) 99 05/20/18 13:00 70 13 125/59 (81) 99 05/20/18 12:00 97.9 68 23 110/55 (73) 97 05/20/18 12:00 Nasal Cannula 2.0 05/20/18 12:00 65 Intake and Output 05/20/18 05/21/18 19:00 07:00 Intake Total 50 ml 850 ml Output Total 0 ml 0 ml Balance 50 ml 850 ml IV Total 50 ml 450 ml Blood Product 250 ml Other 150 ml Output Urine Total 0 ml 0 ml Laboratory Tests Test 05/20/18 15:45 05/20/18 21:55 05/21/18 04:40 White Blood Count 14.4 K/UL (4.8-10.8) H 14.8 K/UL (4.8-10.8) H 17.5 K/UL (4.8-10.8) H Red Blood Count 2.36 M/UL (4.70-6.10) L 2.09 M/UL (4.70-6.10) L 2.34 M/UL (4.70-6.10) L Hemoglobin 7.5 G/DL (14.2-18.0) L 6.6 G/DL (14.2-18.0) *L 7.5 G/DL (14.2-18.0) L Hematocrit 21.7 % (42.0-52.0) L 19.3 % (42.0-52.0) L 21.2 % (42.0-52.0) L Mean Corpuscular Volume 92 FL (80-99) 92 FL (80-99) 91 FL (80-99) Mean Corpuscular Hemoglobin 31.6 PG (27.0-31.0) H 31.8 PG (27.0-31.0) H 32.2 PG (27.0-31.0) H Mean Corpuscular Hemoglobin Concent 34.4 G/DL (32.0-36.0) 34.4 G/DL (32.0-36.0) 35.6 G/DL (32.0-36.0) Red Cell Distribution Width 13.7 % (11.6-14.8) 14.5 % (11.6-14.8) 14.3 % (11.6-14.8) Platelet Count 116 K/UL (150-450) L 122 K/UL (150-450) L 123 K/UL (150-450) L Mean Platelet Volume 9.7 FL (6.5-10.1) 9.0 FL (6.5-10.1) 10.2 FL (6.5-10.1) H Neutrophils (%) (Auto) % (45.0-75.0) % (45.0-75.0) % (45.0-75.0) Lymphocytes (%) (Auto) % (20.0-45.0) % (20.0-45.0) % (20.0-45.0) Monocytes (%) (Auto) % (1.0-10.0) % (1.0-10.0) % (1.0-10.0) Eosinophils (%) (Auto) % (0.0-3.0) % (0.0-3.0) % (0.0-3.0) Basophils (%) (Auto) % (0.0-2.0) % (0.0-2.0) % (0.0-2.0) Differential Total Cells Counted 100 100 100 Neutrophils % (Manual) 95 % (45-75) H 94 % (45-75) H 93 % (45-75) H Lymphocytes % (Manual) 1 % (20-45) L 5 % (20-45) L 1 % (20-45) L Monocytes % (Manual) 4 % (1-10) 1 % (1-10) 6 % (1-10) Eosinophils % (Manual) 0 % (0-3) 0 % (0-3) 0 % (0-3) Basophils % (Manual) 0 % (0-2) 0 % (0-2) 0 % (0-2) Band Neutrophils 0 % (0-8) 0 % (0-8) 0 % (0-8) Platelet Estimate Decreased L Decreased L Decreased L Platelet Morphology Normal Normal Normal Polychromasia 1+ 1+ Hypochromasia 3+ Anisocytosis 1+ Spherocytes 1+ Sodium Level 137 MMOL/L (136-145) Potassium Level 3.5 MMOL/L (3.5-5.1) Chloride Level 101 MMOL/L (98-107) Carbon Dioxide Level 24 MMOL/L (21-32) Anion Gap 12 mmol/L (5-15) Blood Urea Nitrogen 39 mg/dL (7-18) H Creatinine 6.9 MG/DL (0.55-1.30) H Estimat Glomerular Filtration Rate 8.4 mL/min (>60) Glucose Level 267 MG/DL (74-106) #H Uric Acid 5.6 MG/DL (2.6-7.2) Calcium Level 8.2 MG/DL (8.5-10.1) L Phosphorus Level 5.8 MG/DL (2.5-4.9) H Magnesium Level 2.3 MG/DL (1.8-2.4) Ferritin 698 NG/ML (8-388) H Total Bilirubin 0.4 MG/DL (0.2-1.0) Gamma Glutamyl Transpeptidase 5 U/L (5-85) Aspartate Amino Transf (AST/SGOT) 115 U/L (15-37) H Alanine Aminotransferase (ALT/SGPT) 78 U/L (12-78) Alkaline Phosphatase 59 U/L (46-116) Total Creatine Kinase 113 U/L (26-308) Troponin I 0.000 ng/mL (0.000-0.056) Pro-B-Type Natriuretic Peptide 00867 pg/mL (0-125) H Total Protein 6.8 G/DL (6.4-8.2) Albumin 2.9 G/DL (3.4-5.0) L Globulin 3.9 g/dL Albumin/Globulin Ratio 0.7 (1.0-2.7) L Triglycerides Level 187 MG/DL (30-150) H Cholesterol Level 103 MG/DL (< 200) LDL Cholesterol 43 mg/dL (<100) HDL Cholesterol 19 MG/DL (40-60) L Cholesterol/HDL Ratio 5.4 (3.3-4.4) H Lipase 268 U/L (73-393) Vitamin B12 Level 1189 PG/ML (193-986) H Height (Feet): 5 Height (Inches): 6.00 Weight (Pounds): 178 General Appearance: alert Cardiovascular: normal rate Abdominal Exam: soft Extremities: non-tender Mansoor Allen NP May 21, 2018 11:59
[2018-05-21] MEDS ORDERED: Levemir Flexpen SUBQ SCH ×2 (12:00)
--- NOTE | 2018-05-21 13:28 | Critical Care Progress Note ---
Assessment/Plan Problem List: (1) Shock (2) Diabetes (3) ESRD (end stage renal disease) on dialysis (4) Retroperitoneal hemorrhage (5) Anemia Assessment/Plan CBC q6, monitor HH, transfuse PRN Hb < 7 Monitor hemodynamics D/C IVF HD per renal eval appreciated, no plan for operation at this time Observe off Abx for signs of an infectious process DVT Px: SCD's SSI Pain control/supportive care [id number] Tx to NICK Critical Care - Subjective Interval Events: S/P 3 U PRBC No F/C + pain + BM HD today Lobo PO ROS Limited/Unobtainable: Yes Condition: stable IV Access: peripheral, dialysis access - fistula EKG Rhythm: Sinus Rhythm IV Fluids: D5NS@50 I&O: Intake and Output 05/20/18 05/21/18 18:59 06:59 Intake Total 50 ml 800 ml Output Total 0 ml 0 ml Balance 50 ml 800 ml IV Total 50 ml 450 ml Blood Product 250 ml Other 100 ml Output Urine Total 0 ml 0 ml Critical Care - Objective Last 24 Hour Vital Signs Date Time Temp Pulse Resp B/P (MAP) Pulse Ox O2 Delivery O2 Flow Rate FiO2 05/21/18 13:00 92 25 108/69 (82) 81 05/21/18 12:00 91 22 86 05/21/18 12:00 Nasal Cannula 2.0 05/21/18 11:00 84 21 106/64 (78) 85 05/21/18 10:00 82 22 131/56 (81) 80 05/21/18 09:00 82 22 129/57 (81) 83 05/21/18 08:00 Nasal Cannula 2.0 05/21/18 08:00 82 05/21/18 08:00 98.4 81 26 137/61 (86) 95 05/21/18 07:08 97 Nasal Cannula 2.0 28 05/21/18 07:08 Nasal Cannula 2.0 28 05/21/18 07:00 78 20 140/64 (89) 97 05/21/18 06:00 77 24 111/72 (85) 96 05/21/18 05:00 73 24 100/52 (68) 98 05/21/18 04:02 74 05/21/18 04:00 Nasal Cannula 2.0 05/21/18 04:00 98.0 74 21 138/59 (85) 98 05/21/18 03:00 74 21 145/57 (86) 98 05/21/18 02:00 74 21 145/57 (86) 98 05/21/18 01:00 73 16 116/79 (91) 100 05/21/18 00:00 Nasal Cannula 2.0 05/21/18 00:00 98.5 77 19 140/49 (79) 97 05/20/18 23:04 77 05/20/18 23:00 77 20 141/57 (85) 96 05/20/18 22:00 73 18 115/48 (70) 99 05/20/18 21:00 78 19 120/56 (77) 96 05/20/18 20:00 Nasal Cannula 2.0 05/20/18 20:00 98.1 78 20 135/70 (91) 97 05/20/18 19:45 Nasal Cannula 2.0 28 05/20/18 19:45 98 Nasal Cannula 2.0 05/20/18 19:12 74 05/20/18 19:00 68 13 131/57 (81) 99 05/20/18 18:00 65 13 108/53 (71) 99 05/20/18 17:00 62 13 116/58 (77) 99 05/20/18 16:00 66 05/20/18 16:00 98.2 68 23 112/55 (74) 95 05/20/18 16:00 Nasal Cannula 2.0 05/20/18 15:00 63 13 120/58 (78) 99 05/20/18 14:00 65 13 133/66 (88) 99 Status: awake, alert Condition: improving HEENT: atraumatic, normocephalic Neck: full ROM, no JVD, no mass Lungs: normal breath sounds, clear, chest wall tender Heart: normal peripheral pulses, normal rate, regular rhythm Abdomen: soft, non-tender, active bowel sounds Extremities: edema Micro: Microbiology Date/Time Source Procedure Growth Status 05/20/18 03:07 Rectum - Preliminary Resulted Accucheck: 206 Blood Sugars: BS controlled Bay Marte MD May 21, 2018 13:28
--- NOTE | 2018-05-21 14:02 | Diagnostic Imaging Report ---
Indication:Abdominal pain Technique: Grayscale and duplex Doppler imaging of the abdomen performed. Comparison: None Findings: There is a large hematoma in the right kidney involving the central part of the kidney and the perinephric region. This is better demonstrated on CT which was also obtained. Please refer to the CT report for more information. On this examination the kidney and hematoma measures about 16 x 10 cm There are bilateral renal cysts. Pancreas and aorta are not seen well. The gallbladder is unremarkable. Bilateral pleural effusions are present. The liver and spleen are unremarkable. CBD measures 5 mm. IMPRESSION: Large heterogeneous hematoma involving the right kidney. Please refer to the CT report for more information. Bilateral renal cysts.
[2018-05-21] MEDS ORDERED: NS 500ML ONE (15:19)
[2018-05-21] MEDS ORDERED: Tubing Blood Filter IV ONE (15:19)
[2018-05-21] MEDS ORDERED: NS 275ml ONE ×2 (15:19→18:06)
[2018-05-21] MEDS ORDERED: D5 1/2NS 1000ml IV ONE (15:19)
[2018-05-21] MEDS ORDERED: Tubing IV Secondary IV ONE (18:06)
[2018-05-21] MEDS ORDERED: D5NS 1000ml IV ONE (18:06)
[2018-05-21] MEDS ORDERED: Tubing IV Blood Pump IV ONE (18:06)
--- NOTE | 2018-05-21 22:47 | Consultation ---
History of Present Illness General Date patient seen: May 21, 2018 Chief Complaint: Abdominal Pain Present Illness HPI 52-year-old male with a history of end-stage renal disease, on hemodialysis, who presented with pain in the right side of the abdomen. the pt pw anxiety and fatigue the pt has been on ativan prn the pt denied depressive sxs. no si/hi Allergies: Coded Allergies: No Known Allergies (Unverified , 05/20/18) Patient History History Provided By: Patient, Medical Record, PMD Healthcare decision maker self Resuscitation status Full Code Advanced Directive on File No Past Medical/Surgical History Past Medical/Surgical History: (1) Anemia (2) Retroperitoneal hemorrhage (3) ESRD (end stage renal disease) on dialysis (4) Diabetes (5) Shock (6) Abdominal pain Review of Systems Psychiatric: Reports: prior hx, anxiety Physical Exam General Appearance: alert, moderate distress Neurologic: oriented x 3, responsive, depressed affect Last 24 Hour Vital Signs Date Time Temp Pulse Resp B/P (MAP) Pulse Ox O2 Delivery O2 Flow Rate FiO2 05/21/18 22:00 85 15 118/63 (81) 96 05/21/18 21:00 89 18 133/58 (83) 99 05/21/18 20:00 98.7 89 16 127/53 (77) 95 05/21/18 20:00 Nasal Cannula 2.0 05/21/18 20:00 88 05/21/18 19:42 Nasal Cannula 2.0 05/21/18 19:14 96 Nasal Cannula 2.0 28 05/21/18 19:14 Nasal Cannula 2.0 28 05/21/18 19:00 90 18 130/54 (79) 97 05/21/18 19:00 93 18 130/54 (79) 95 05/21/18 18:00 88 16 129/56 (80) 95 05/21/18 17:25 Nasal Cannula 2.0 05/21/18 17:00 89 19 122/53 (76) 83 05/21/18 16:00 89 05/21/18 16:00 98.2 88 23 118/63 (81) 88 05/21/18 16:00 Nasal Cannula 2.0 05/21/18 15:00 89 18 119/58 (78) 80 05/21/18 14:00 85 16 123/54 (77) 72 05/21/18 13:00 92 25 108/69 (82) 81 05/21/18 12:00 91 05/21/18 12:00 98.0 91 22 86 05/21/18 12:00 Nasal Cannula 2.0 05/21/18 11:00 84 21 106/64 (78) 85 05/21/18 10:00 82 22 131/56 (81) 80 05/21/18 09:00 82 22 129/57 (81) 83 05/21/18 08:00 Nasal Cannula 2.0 05/21/18 08:00 82 05/21/18 08:00 98.4 81 26 137/61 (86) 95 05/21/18 07:08 97 Nasal Cannula 2.0 28 05/21/18 07:08 Nasal Cannula 2.0 28 05/21/18 07:00 78 20 140/64 (89) 97 05/21/18 06:00 77 24 111/72 (85) 96 05/21/18 05:00 73 24 100/52 (68) 98 05/21/18 04:02 74 05/21/18 04:00 Nasal Cannula 2.0 05/21/18 04:00 98.0 74 21 138/59 (85) 98 05/21/18 03:00 74 21 145/57 (86) 98 05/21/18 02:00 74 21 145/57 (86) 98 05/21/18 01:00 73 16 116/79 (91) 100 05/21/18 00:00 Nasal Cannula 2.0 05/21/18 00:00 98.5 77 19 140/49 (79) 97 05/20/18 23:04 77 05/20/18 23:00 77 20 141/57 (85) 96 Intake and Output 05/20/18 05/21/18 19:00 07:00 Intake Total 50 ml 850 ml Output Total 0 ml 0 ml Balance 50 ml 850 ml IV Total 50 ml 450 ml Blood Product 250 ml Other 150 ml Output Urine Total 0 ml 0 ml Laboratory Tests Test 05/21/18 04:40 White Blood Count 17.5 K/UL (4.8-10.8) H Red Blood Count 2.34 M/UL (4.70-6.10) L Hemoglobin 7.5 G/DL (14.2-18.0) L Hematocrit 21.2 % (42.0-52.0) L Mean Corpuscular Volume 91 FL (80-99) Mean Corpuscular Hemoglobin 32.2 PG (27.0-31.0) H Mean Corpuscular Hemoglobin Concent 35.6 G/DL (32.0-36.0) Red Cell Distribution Width 14.3 % (11.6-14.8) Platelet Count 123 K/UL (150-450) L Mean Platelet Volume 10.2 FL (6.5-10.1) H Neutrophils (%) (Auto) % (45.0-75.0) Lymphocytes (%) (Auto) % (20.0-45.0) Monocytes (%) (Auto) % (1.0-10.0) Eosinophils (%) (Auto) % (0.0-3.0) Basophils (%) (Auto) % (0.0-2.0) Differential Total Cells Counted 100 Neutrophils % (Manual) 93 % (45-75) H Lymphocytes % (Manual) 1 % (20-45) L Monocytes % (Manual) 6 % (1-10) Eosinophils % (Manual) 0 % (0-3) Basophils % (Manual) 0 % (0-2) Band Neutrophils 0 % (0-8) Platelet Estimate Decreased L Platelet Morphology Normal Hypochromasia 3+ Anisocytosis 1+ Spherocytes 1+ Sodium Level 137 MMOL/L (136-145) Potassium Level 3.5 MMOL/L (3.5-5.1) Chloride Level 101 MMOL/L (98-107) Carbon Dioxide Level 24 MMOL/L (21-32) Anion Gap 12 mmol/L (5-15) Blood Urea Nitrogen 39 mg/dL (7-18) H Creatinine 6.9 MG/DL (0.55-1.30) H Estimat Glomerular Filtration Rate 8.4 mL/min (>60) Glucose Level 267 MG/DL (74-106) #H Uric Acid 5.6 MG/DL (2.6-7.2) Calcium Level 8.2 MG/DL (8.5-10.1) L Phosphorus Level 5.8 MG/DL (2.5-4.9) H Magnesium Level 2.3 MG/DL (1.8-2.4) Ferritin 698 NG/ML (8-388) H Total Bilirubin 0.4 MG/DL (0.2-1.0) Gamma Glutamyl Transpeptidase 5 U/L (5-85) Aspartate Amino Transf (AST/SGOT) 115 U/L (15-37) H Alanine Aminotransferase (ALT/SGPT) 78 U/L (12-78) Alkaline Phosphatase 59 U/L (46-116) Total Creatine Kinase 113 U/L (26-308) Troponin I 0.000 ng/mL (0.000-0.056) Pro-B-Type Natriuretic Peptide 12393 pg/mL (0-125) H Total Protein 6.8 G/DL (6.4-8.2) Albumin 2.9 G/DL (3.4-5.0) L Globulin 3.9 g/dL Albumin/Globulin Ratio 0.7 (1.0-2.7) L Triglycerides Level 187 MG/DL (30-150) H Cholesterol Level 103 MG/DL (< 200) LDL Cholesterol 43 mg/dL (<100) HDL Cholesterol 19 MG/DL (40-60) L Cholesterol/HDL Ratio 5.4 (3.3-4.4) H Lipase 268 U/L (73-393) Vitamin B12 Level 1189 PG/ML (193-986) H Height (Feet): 5 Height (Inches): 6.00 Weight (Pounds): 178 Medications Current Medications Medications (Trade) Dose Ordered Sig/Santos Route PRN Reason Start Time Stop Time Status Last Admin Dose Admin Acetaminophen/ Hydrocodone Bitart ([place] 5/325) 1 tab TID PRN ORAL Moderate Pain (Pain Scale 4-6) 05/20/18 04:15 05/27/18 04:14 05/21/18 13:13 Dextrose (Dextrose 50%) 25 ml Q30M PRN IV Hypoglycemia 05/20/18 04:15 06/19/18 04:14 Dextrose (Dextrose 50%) 50 ml Q30M PRN IV Hypoglycemia 05/20/18 04:15 06/19/18 04:14 Docusate Sodium (Colace) 100 mg THREE TIMES A DAY ORAL 05/20/18 13:00 06/19/18 12:59 05/21/18 13:13 Insulin Aspart (NovoLOG) BEFORE MEALS AND HS SUBQ 05/20/18 06:30 06/19/18 06:29 05/21/18 16:57 Insulin Detemir (Levemir) 4 units DAILY SUBQ 05/21/18 12:00 06/20/18 11:59 05/21/18 12:53 Lactulose (Cephulac) 20 gm TWICE A DAY ORAL 05/21/18 09:00 06/20/18 05:59 05/21/18 06:12 Lorazepam (Ativan) 0.5 mg TIDPRN PRN ORAL For Anxiety 05/21/18 06:00 05/28/18 05:59 05/21/18 06:12 Morphine Sulfate (Morphine Sulfate) 3 mg QID PRN IVP Severe Pain (Pain Scale 7-10) 05/20/18 04:00 05/27/18 03:59 05/20/18 23:46 Norepinephrine Bitartrate 4 mg/ Dextrose 250 ml @ 0 mls/hr Q24H PRN IV For hypotension 05/20/18 09:00 06/19/18 08:59 Ondansetron HCl (Zofran) 4 mg TID PRN IVP Nausea & Vomiting 05/21/18 06:00 06/20/18 05:59 05/21/18 06:12 Pantoprazole (Protonix) 40 mg EVERY 12 HOURS IVP 05/20/18 21:00 06/19/18 20:59 05/21/18 21:28 Sevelamer Carbonate (Renvela) 800 mg THREE TIMES A DAY ORAL 05/21/18 13:00 06/20/18 12:59 05/21/18 13:13 Sodium Chloride 500 ml @ 999 mls/hr Q4H PRN IV SBP less than 100mmhg 05/20/18 07:30 06/19/18 07:29 Assessment/Plan Assessment/Plan anxiety d/o ativan prn provided lillie/Chris Purdy MD May 21, 2018 22:47
[2018-05-22] VITALS (12 sets, daily range): BP systolic 107–150; BP diastolic 52–74
[2018-05-22] MEDS: Morphine Sulfate 4mg/ml Inj (IV/IM USE ONLY) IVP PRN (00:05)
[2018-05-22 05:14] LABS: HEMATOCRIT 18.6 % (42.0-52.0); MEAN CORPUSCULAR VOLUME 91 FL (80-99); PLATELET COUNT 118 K/UL (150-450); RED BLOOD COUNT 2.04 M/UL (4.70-6.10); RED CELL DISTRIBUTION WIDTH 13.9 % (11.6-14.8); WHITE BLOOD COUNT 16.3 K/UL (4.8-10.8)
[2018-05-22 05:27] LABS: HEMOGLOBIN 6.3 G/DL (14.2-18.0)
[2018-05-22 06:02] LABS: % IRON SATURATION 7 % (15-50); IRON 14 ug/dL (50-175); TOTAL IRON BINDING CAPACITY 205 ug/dL (250-450)
[2018-05-22 06:04] LABS: ALANINE AMINOTRANSFERASE 60 U/L (12-78); ALBUMIN 2.8 G/DL (3.4-5.0); ALBUMIN/GLOBULIN RATIO 0.6 (1.0-2.7); ALKALINE PHOSPHATASE 60 U/L (46-116); ANION GAP 10 mmol/L (5-15); ASPARTATE AMINO TRANSFERASE 76 U/L (15-37); BILIRUBIN,TOTAL 0.5 MG/DL (0.2-1.0); BLOOD UREA NITROGEN 32 mg/dL (7-18); CALCIUM 8.3 MG/DL (8.5-10.1); CARBON DIOXIDE 30 MMOL/L (21-32); CHLORIDE 100 MMOL/L (98-107); CREATINE KINASE 225 U/L (26-308); CREATININE 5.7 MG/DL (0.55-1.30); GAMMA GLUTAMYL TRANSPEPTIDASE 6 U/L (5-85); PHOSPHORUS 5.2 MG/DL (2.5-4.9); POTASSIUM 3.6 MMOL/L (3.5-5.1); SODIUM 140 MMOL/L (136-145)
[2018-05-22] MEDS: NovoLOG Insulin Flexpen SUBQ SCH ×4 (06:26→20:58)
--- NOTE | 2018-05-22 08:00 | Cardiology Report ---
APPROVED REPORT EXAM: Two-dimensional and M-mode echocardiogram with Doppler and color Doppler. INDICATION Congestive Heart Failure M-Mode DIMENSIONS IVSd1.5 (0.7-1.1cm)Left Atrium (MM)3.6 (1.6-4.0cm) LVDd5.1 (3.5-5.6cm)Aortic Root3.4 (2.0-3.7cm) PWd1.6 (0.7-1.1cm)Aortic Cusp Exc.2.0 (1.5-2.0cm) IVSs3.2 cm LVDs1.2 (2.5-4.0cm) Normal left ventricular chamber size, systolic function and wall motion. Left ventricular ejection fraction estimated to be 65-70 %. Mild left ventricular hypertrophy by 2-D. Small pericardial effusion. Mild Left atrial enlargement. Right cardiac chamber sizes are within normal limits. Focal aortic valve sclerosis with adequate cusp excursion. Mildly Thickened mitral valve leaflets with normal excursion. Mildy Mitral annulus and aortic root calcification. Pulmonic valve not well visualized. Normal tricuspid valve structure. IVC at 1.9 cm with physiologic collapse. A color flow and spectral Doppler study was performed and revealed: No aortic insufficiency . Mild mitral regurgitation. Mitral diastolic velocities suggest reduced left ventricular relaxation c/w mild LV diastolic dysfunction (Grade I ). Mild tricuspid regurgitation. Tricuspid systolic velocities suggests peak right ventricular systolic pressure of 56 mmHg,consistent with moderate pulmonary hypertension.
[2018-05-22] MEDS ORDERED: Levemir Flexpen SUBQ SCH (09:00)
[2018-05-22] MEDS ORDERED: Morphine Sulfate 4mg/ml Inj (IV/IM USE ONLY) IVP PRN (09:00)
[2018-05-22] MEDS ORDERED: Sodium Chloride 500ML 500 ML IV PRN (09:00)
[2018-05-22] MEDS: Pantoprazole Inj IVP SCH ×2 (09:22→20:56)
[2018-05-22] MEDS: Lactulose 20gm/30ml UDC ORAL SCH ×2 (09:23→18:23)
[2018-05-22] MEDS: Docusate 100mg cap ORAL SCH ×3 (09:23→18:23)
[2018-05-22] MEDS: Levemir Flexpen SUBQ SCH (09:50)
[2018-05-22] MEDS ORDERED: Iron Sucrose 200 MG in NS 110 ML IV SCH (10:00)
--- NOTE | 2018-05-22 12:15 | Consultation ---
DATE OF CONSULTATION: 05/22/2018 ENDOCRINOLOGY CONSULTATION CONSULTING PHYSICIAN: Willard Bonds M.D. REFERRING PHYSICIAN: Baljit Flores M.D. REASON FOR CONSULTATION: Diabetes management. HISTORY OF PRESENT ILLNESS: The patient is a 52-year-old male with a history of diabetes and end-stage renal disease, on hemodialysis, who presented to the hospital with acute lower abdominal pain with radiation to the back and anemia. CT imaging revealed acute retroperitoneal bleeding, evaluated by urologist and conservative management was opted. The patient was admitted to the ICU and received transfusion. I was called to manage diabetes yesterday. He received Levemir 4 units and NovoLog sliding scale. On this morning, the glucose is 139. PAST MEDICAL HISTORY: 1. End-stage renal disease, on hemodialysis. 2. Diabetes. PAST SURGICAL HISTORY: AV graft placement. FAMILY HISTORY: Noncontributory. SOCIAL HISTORY: No smoking, alcohol, or drug use. REVIEW OF SYSTEMS: As per HPI. MEDICATIONS: Reviewed and reconciled. LABORATORY DATA: WBC 16, hemoglobin 6, hematocrit 18, and platelets of 118. PHYSICAL EXAMINATION: GENERAL: He is alert. VITAL SIGNS: Blood pressure 133/59, pulse of 86, temperature of 98, and respiratory rate of 13. HEENT: Pupils are equal and reactive to light. Sclerae are anicteric. NECK: No JVD. HEART: Regular. LUNGS: Clear. ABDOMEN: Positive for bowel sounds. EXTREMITIES: No clubbing, cyanosis, or edema. DIAGNOSES: 1. Retroperitoneal bleeding. 2. Anemia. 3. Diabetes. 4. End-stage renal disease. PLAN: 1. Conservative management in the ICU. 2. The patient is being transfused. 3. Increase Levemir to 6 units daily. 4. Continue NovoLog sliding scale low-dose. 5. We will follow the patient during hospitalization. Thank you, Dr. Flores, for the courtesy of this consultation. Willard Bonds M.D. DR: KIRK/ANDREA JOB#: [id number] CC: RUTHIE
--- NOTE | 2018-05-22 12:17 | General Progress Note ---
Assessment/Plan Assessment/Plan S: I am ok O: appears comfortable. Complains of right sided abdominal pain . PHYSICAL EXAMINATION: HEAD AND NECK: Atraumatic and normocephalic. CHEST: Clear to auscultation. No wheezing. No crackles. HEART: S1 and S2. Regular rate and rhythm. ABDOMEN: Tender noted. Negative for rebound tenderness. NEUROLOGIC: The patient is awake, alert, and oriented x3. PSYCHIATRIC: Mood and affect are appropriate and normal. MUSCULOSKELETAL: No gross lateralized motor deficit. Meds: reviewed and reconciled, including NovoLog 5 u tid IMAGING: CT scan of abdomen and pelvis dated May 20, 2018 reviewed showing the right perinephric hematoma. ASSESSMENT AND PLAN: 1. Acute Right Perinephric Hemorrhage 3. Acute anemia. 4. Diabetes type 5 Hypovolemic Shock : Stable 6. GI-DVT prophylaxis Plan: will monitor HH, Will proceed with PRBC transfusion with Hgb < 7.3 Notes from Urology , Nephro, Endo, Critical specialist are reviewed will start low dose Lantus, will consult Endo Patient remains in serious medical cnd D/w urology. Will proceed with serial imaging to monitor the size of Hematoma Subjective Allergies: Coded Allergies: No Known Allergies (Unverified , 05/20/18) Objective Last 24 Hour Vital Signs Date Time Temp Pulse Resp B/P (MAP) Pulse Ox O2 Delivery O2 Flow Rate FiO2 05/22/18 09:14 84 05/22/18 08:00 99.0 84 15 123/61 (81) 95 05/22/18 06:00 86 13 133/59 (83) 98 05/22/18 05:00 85 16 107/54 (71) 98 05/22/18 05:00 86 05/22/18 04:00 Nasal Cannula 2.0 05/22/18 04:00 98.6 76 16 142/64 (90) 98 05/22/18 03:00 79 15 117/52 (73) 96 05/22/18 02:00 80 14 138/62 (87) 95 05/22/18 01:00 90 21 131/63 (85) 97 05/22/18 00:00 99.1 89 14 109/70 (83) 95 05/22/18 00:00 90 05/22/18 00:00 Nasal Cannula 2.0 05/21/18 23:00 87 16 64/63 (63) 97 05/21/18 22:00 85 15 118/63 (81) 96 05/21/18 21:00 89 18 133/58 (83) 99 05/21/18 20:00 98.7 89 16 127/53 (77) 95 05/21/18 20:00 Nasal Cannula 2.0 05/21/18 20:00 88 05/21/18 19:42 Nasal Cannula 2.0 05/21/18 19:14 96 Nasal Cannula 2.0 28 05/21/18 19:14 Nasal Cannula 2.0 28 05/21/18 19:00 90 18 130/54 (79) 97 05/21/18 19:00 93 18 130/54 (79) 95 05/21/18 18:00 88 16 129/56 (80) 95 05/21/18 17:25 Nasal Cannula 2.0 05/21/18 17:00 89 19 122/53 (76) 83 05/21/18 16:00 89 05/21/18 16:00 98.2 88 23 118/63 (81) 88 05/21/18 16:00 Nasal Cannula 2.0 05/21/18 15:00 89 18 119/58 (78) 80 05/21/18 14:00 85 16 123/54 (77) 72 05/21/18 13:00 92 25 108/69 (82) 81 Intake and Output 05/21/18 05/22/18 19:00 07:00 Intake Total 100 ml Output Total 0 ml 1500 ml Balance 100 ml -1500 ml Other 100 ml Output Urine Total 0 ml 0 ml Hemodialysis UF 1500 ml Laboratory Tests 05/22/18 04:00: White Blood Count 16.3H, Red Blood Count 2.04L, Hemoglobin 6.3*L, Hematocrit 18.6L, Mean Corpuscular Volume 91, Mean Corpuscular Hemoglobin 30.9, Mean Corpuscular Hemoglobin Concent 33.9, Red Cell Distribution Width 13.9, Platelet Count 118L, Mean Platelet Volume 10.6H, Neutrophils (%) (Auto) , Lymphocytes (% ) (Auto) , Monocytes (%) (Auto) , Eosinophils (%) (Auto) , Basophils (%) (Auto) , Differential Total Cells Counted 100, Neutrophils % (Manual) 90H, Lymphocytes % (Manual) 6L, Monocytes % (Manual) 4, Eosinophils % (Manual) 0, Basophils % ( Manual) 0, Band Neutrophils 0, Platelet Estimate DecreasedL, Platelet Morphology Normal, Hypochromasia 4+, Anisocytosis 1+, Spherocytes 2+, Sodium Level 140, Potassium Level 3.6, Chloride Level 100, Carbon Dioxide Level 30, Anion Gap 10, Blood Urea Nitrogen 32H, Creatinine 5.7H, Estimat Glomerular Filtration Rate 10.5, Glucose Level 143#H, Calcium Level 8.3L, Phosphorus Level 5.2H, Magnesium Level 2.3, Iron Level 14L, Total Iron Binding Capacity 205L, Percent Iron Saturation 7L, Unsaturated Iron Binding 191, Total Bilirubin 0.5, Gamma Glutamyl Transpeptidase 6, Aspartate Amino Transf (AST/SGOT) 76H, Alanine Aminotransferase (ALT/SGPT) 60, Alkaline Phosphatase 60, Total Creatine Kinase 225, C-Reactive Protein, Quantitative 33.6H, Pro-B-Type Natriuretic Peptide 42264R, Total Protein 7.3, Albumin 2.8L, Globulin 4.5, Albumin/Globulin Ratio 0.6L, Folate 14.6 Height (Feet): 5 Height (Inches): 6.00 Weight (Pounds): 170 Baljit Flores MD May 22, 2018 12:17
--- NOTE | 2018-05-22 13:58 | General Progress Note ---
Assessment/Plan Status: stable, progressing Assessment/Plan anxiety d/o ativan prn provided ro/st Subjective Date patient seen: May 22, 2018 Neurologic/Psychiatric: Reports: anxiety, depressed Allergies: Coded Allergies: No Known Allergies (Unverified , 05/20/18) Subjective the pt is irritable and anxiety lost her cell phone Objective Last 24 Hour Vital Signs Date Time Temp Pulse Resp B/P (MAP) Pulse Ox O2 Delivery O2 Flow Rate FiO2 05/22/18 12:41 98.2 85 18 147/69 (95) 98 05/22/18 09:14 84 05/22/18 08:00 99.0 84 15 123/61 (81) 95 05/22/18 06:00 86 13 133/59 (83) 98 05/22/18 05:00 85 16 107/54 (71) 98 05/22/18 05:00 86 05/22/18 04:00 Nasal Cannula 2.0 05/22/18 04:00 98.6 76 16 142/64 (90) 98 05/22/18 03:00 79 15 117/52 (73) 96 05/22/18 02:00 80 14 138/62 (87) 95 05/22/18 01:00 90 21 131/63 (85) 97 05/22/18 00:00 99.1 89 14 109/70 (83) 95 05/22/18 00:00 90 05/22/18 00:00 Nasal Cannula 2.0 05/21/18 23:00 87 16 64/63 (63) 97 05/21/18 22:00 85 15 118/63 (81) 96 05/21/18 21:00 89 18 133/58 (83) 99 05/21/18 20:00 98.7 89 16 127/53 (77) 95 05/21/18 20:00 Nasal Cannula 2.0 05/21/18 20:00 88 05/21/18 19:42 Nasal Cannula 2.0 05/21/18 19:14 96 Nasal Cannula 2.0 28 05/21/18 19:14 Nasal Cannula 2.0 28 05/21/18 19:00 90 18 130/54 (79) 97 05/21/18 19:00 93 18 130/54 (79) 95 05/21/18 18:00 88 16 129/56 (80) 95 05/21/18 17:25 Nasal Cannula 2.0 05/21/18 17:00 89 19 122/53 (76) 83 05/21/18 16:00 89 05/21/18 16:00 98.2 88 23 118/63 (81) 88 05/21/18 16:00 Nasal Cannula 2.0 05/21/18 15:00 89 18 119/58 (78) 80 05/21/18 14:00 85 16 123/54 (77) 72 Intake and Output 05/21/18 05/22/18 18:59 06:59 Intake Total 200 ml Output Total 0 ml 1500 ml Balance 200 ml -1500 ml IV Total 50 ml Other 150 ml Output Urine Total 0 ml 0 ml Hemodialysis UF 1500 ml Laboratory Tests 05/22/18 04:00: White Blood Count 16.3H, Red Blood Count 2.04L, Hemoglobin 6.3*L, Hematocrit 18.6L, Mean Corpuscular Volume 91, Mean Corpuscular Hemoglobin 30.9, Mean Corpuscular Hemoglobin Concent 33.9, Red Cell Distribution Width 13.9, Platelet Count 118L, Mean Platelet Volume 10.6H, Neutrophils (%) (Auto) , Lymphocytes (% ) (Auto) , Monocytes (%) (Auto) , Eosinophils (%) (Auto) , Basophils (%) (Auto) , Differential Total Cells Counted 100, Neutrophils % (Manual) 90H, Lymphocytes % (Manual) 6L, Monocytes % (Manual) 4, Eosinophils % (Manual) 0, Basophils % ( Manual) 0, Band Neutrophils 0, Platelet Estimate DecreasedL, Platelet Morphology Normal, Hypochromasia 4+, Anisocytosis 1+, Spherocytes 2+, Sodium Level 140, Potassium Level 3.6, Chloride Level 100, Carbon Dioxide Level 30, Anion Gap 10, Blood Urea Nitrogen 32H, Creatinine 5.7H, Estimat Glomerular Filtration Rate 10.5, Glucose Level 143#H, Calcium Level 8.3L, Phosphorus Level 5.2H, Magnesium Level 2.3, Iron Level 14L, Total Iron Binding Capacity 205L, Percent Iron Saturation 7L, Unsaturated Iron Binding 191, Total Bilirubin 0.5, Gamma Glutamyl Transpeptidase 6, Aspartate Amino Transf (AST/SGOT) 76H, Alanine Aminotransferase (ALT/SGPT) 60, Alkaline Phosphatase 60, Total Creatine Kinase 225, C-Reactive Protein, Quantitative 33.6H, Pro-B-Type Natriuretic Peptide 43705P, Total Protein 7.3, Albumin 2.8L, Globulin 4.5, Albumin/Globulin Ratio 0.6L, Folate 14.6 Height (Feet): 5 Height (Inches): 6.00 Weight (Pounds): 170 General Appearance: alert, moderate distress Neurologic: oriented x 3, responsive, depressed affect Chris Driscoll MD May 22, 2018 13:58
--- NOTE | 2018-05-22 14:17 | Infectious Diseases Prog Note ---
Assessment/Plan Problems: (1) Renal hematoma, right Assessment & Plan: with extension to the retroperitoneal area , continue close monitor or H/H and serial images for follow up, watch out for abscess formation (2) Sepsis Assessment & Plan: with leukocytosis , due to the above, will send blood culture and start zosyn empirically , close monitor of WBC (3) Shock Assessment & Plan: suspect hemorrhagic due to the above, continue hydration with blood transfusion as needed , will send blood culture to rule out sepsis (4) Retroperitoneal hemorrhage Assessment & Plan: continue H/H monitoring with blood transfusion , and serial imaging for follow up, avoid anticoagulation (5) ESRD (end stage renal disease) on dialysis Assessment & Plan: on HD, renal is following (6) Diabetes Assessment & Plan: recommend tight glycemic control to keep blood glucose between 100-140 Subjective Allergies: Coded Allergies: No Known Allergies (Unverified , 05/20/18) Objective Vital Signs Last 24 Hour Vital Signs Date Time Temp Pulse Resp B/P (MAP) Pulse Ox O2 Delivery O2 Flow Rate FiO2 05/22/18 12:41 98.2 85 18 147/69 (95) 98 05/22/18 09:14 84 05/22/18 08:00 99.0 84 15 123/61 (81) 95 05/22/18 06:00 86 13 133/59 (83) 98 05/22/18 05:00 85 16 107/54 (71) 98 05/22/18 05:00 86 05/22/18 04:00 Nasal Cannula 2.0 05/22/18 04:00 98.6 76 16 142/64 (90) 98 05/22/18 03:00 79 15 117/52 (73) 96 05/22/18 02:00 80 14 138/62 (87) 95 05/22/18 01:00 90 21 131/63 (85) 97 05/22/18 00:00 99.1 89 14 109/70 (83) 95 05/22/18 00:00 90 05/22/18 00:00 Nasal Cannula 2.0 05/21/18 23:00 87 16 64/63 (63) 97 05/21/18 22:00 85 15 118/63 (81) 96 05/21/18 21:00 89 18 133/58 (83) 99 05/21/18 20:00 98.7 89 16 127/53 (77) 95 05/21/18 20:00 Nasal Cannula 2.0 05/21/18 20:00 88 05/21/18 19:42 Nasal Cannula 2.0 05/21/18 19:14 96 Nasal Cannula 2.0 28 05/21/18 19:14 Nasal Cannula 2.0 28 05/21/18 19:00 90 18 130/54 (79) 97 05/21/18 19:00 93 18 130/54 (79) 95 05/21/18 18:00 88 16 129/56 (80) 95 18 17:25 Nasal Cannula 2.0 05/21/18 17:00 89 19 122/53 (76) 83 05/21/18 16:00 89 05/21/18 16:00 98.2 88 23 118/63 (81) 88 05/21/18 16:00 Nasal Cannula 2.0 05/21/18 15:00 89 18 119/58 (78) 80 Height (Feet): 5 Height (Inches): 6.00 Weight (Pounds): 170 Microbiology Date/Time Source Procedure Growth Status 05/20/18 03:07 Nasal Nares MRSA Culture - Final NO METHICILLIN RESISTANT STAPH AUREUS... Complete 05/20/18 03:27 Rectum VRE Culture - Final NO VANCOMYCIN RESISTANT ENTEROCOCCUS ... Complete 05/20/18 03:07 Rectum - Preliminary Resulted Laboratory Tests Test 05/22/18 04:00 White Blood Count 16.3 K/UL (4.8-10.8) H Red Blood Count 2.04 M/UL (4.70-6.10) L Hemoglobin 6.3 G/DL (14.2-18.0) *L Hematocrit 18.6 % (42.0-52.0) L Mean Corpuscular Volume 91 FL (80-99) Mean Corpuscular Hemoglobin 30.9 PG (27.0-31.0) Mean Corpuscular Hemoglobin Concent 33.9 G/DL (32.0-36.0) Red Cell Distribution Width 13.9 % (11.6-14.8) Platelet Count 118 K/UL (150-450) L Mean Platelet Volume 10.6 FL (6.5-10.1) H Neutrophils (%) (Auto) % (45.0-75.0) Lymphocytes (%) (Auto) % (20.0-45.0) Monocytes (%) (Auto) % (1.0-10.0) Eosinophils (%) (Auto) % (0.0-3.0) Basophils (%) (Auto) % (0.0-2.0) Differential Total Cells Counted 100 Neutrophils % (Manual) 90 % (45-75) H Lymphocytes % (Manual) 6 % (20-45) L Monocytes % (Manual) 4 % (1-10) Eosinophils % (Manual) 0 % (0-3) Basophils % (Manual) 0 % (0-2) Band Neutrophils 0 % (0-8) Platelet Estimate Decreased L Platelet Morphology Normal Hypochromasia 4+ Anisocytosis 1+ Spherocytes 2+ Sodium Level 140 MMOL/L (136-145) Potassium Level 3.6 MMOL/L (3.5-5.1) Chloride Level 100 MMOL/L (98-107) Carbon Dioxide Level 30 MMOL/L (21-32) Anion Gap 10 mmol/L (5-15) Blood Urea Nitrogen 32 mg/dL (7-18) H Creatinine 5.7 MG/DL (0.55-1.30) H Estimat Glomerular Filtration Rate 10.5 mL/min (>60) Glucose Level 143 MG/DL (74-106) #H Calcium Level 8.3 MG/DL (8.5-10.1) L Phosphorus Level 5.2 MG/DL (2.5-4.9) H Magnesium Level 2.3 MG/DL (1.8-2.4) Iron Level 14 ug/dL (50-175) L Total Iron Binding Capacity 205 ug/dL (250-450) L Percent Iron Saturation 7 % (15-50) L Unsaturated Iron Binding 191 ug/dL (112-346) Total Bilirubin 0.5 MG/DL (0.2-1.0) Gamma Glutamyl Transpeptidase 6 U/L (5-85) Aspartate Amino Transf (AST/SGOT) 76 U/L (15-37) H Alanine Aminotransferase (ALT/SGPT) 60 U/L (12-78) Alkaline Phosphatase 60 U/L (46-116) Total Creatine Kinase 225 U/L (26-308) C-Reactive Protein, Quantitative 33.6 mg/dL (0.00-0.90) H Pro-B-Type Natriuretic Peptide 74120 pg/mL (0-125) H Total Protein 7.3 G/DL (6.4-8.2) Albumin 2.8 G/DL (3.4-5.0) L Globulin 4.5 g/dL Albumin/Globulin Ratio 0.6 (1.0-2.7) L Folate 14.6 NG/ML (8.6-58.9) Current Medications Medications (Trade) Dose Ordered Sig/Santos Route PRN Reason Start Time Stop Time Status Last Admin Dose Admin Acetaminophen/ Hydrocodone Bitart ([place] 5/325) 1 tab TIDPRN PRN ORAL Moderate Pain (Pain Scale 4-6) 05/22/18 09:00 05/29/18 08:59 Barium Sulfate (Readi-Cat 2) 450 ml NOW PRN ORAL Radiology Procedure 05/22/18 12:00 05/24/18 11:59 Dextrose (Dextrose 50%) 25 ml Q30M PRN IV Hypoglycemia 05/22/18 09:00 06/19/18 08:59 Dextrose (Dextrose 50%) 50 ml Q30M PRN IV Hypoglycemia 05/22/18 09:00 06/19/18 08:59 Docusate Sodium (Colace) 100 mg THREE TIMES A DAY ORAL 05/22/18 09:00 06/19/18 12:59 05/22/18 09:23 Epoetin Jayme (Procrit (for ESRD on dialysis)) 10,000 units MON-WED-FRI SUBQ 05/23/18 21:00 06/22/18 20:59 Insulin Aspart (NovoLOG) BEFORE MEALS AND HS SUBQ 05/22/18 11:30 06/19/18 06:29 05/22/18 12:39 Insulin Detemir (Levemir) 6 units DAILY SUBQ 05/22/18 09:00 06/20/18 11:59 05/22/18 09:50 Lactulose (Cephulac) 20 gm TWICE A DAY ORAL 05/22/18 09:00 06/20/18 05:59 05/22/18 09:23 Lorazepam (Ativan) 0.5 mg TIDPRN PRN ORAL For Anxiety 05/22/18 09:00 05/29/18 08:59 Morphine Sulfate (Morphine Sulfate) 3 mg QIDPRN PRN IVP Severe Pain (Pain Scale 7-10) 05/22/18 09:00 05/29/18 08:59 Ondansetron HCl (Zofran) 4 mg TIDPRN PRN IVP Nausea & Vomiting 05/22/18 09:00 06/21/18 08:59 Pantoprazole (Protonix) 40 mg EVERY 12 HOURS IVP 05/22/18 09:00 06/19/18 20:59 05/22/18 09:22 Sevelamer Carbonate (Renvela) 800 mg THREE TIMES A DAY ORAL 05/22/18 09:00 06/20/18 12:59 05/22/18 09:23 Sodium Chloride 500 ml @ 999 mls/hr Q4H PRN IV SBP less than 100mmhg 05/22/18 09:00 06/19/18 08:59 Rowena Garcia M.D. May 22, 2018 14:17
--- NOTE | 2018-05-22 14:22 | Pulmonology Progress Note ---
Assessment/Plan Problems: (1) Shock (2) Diabetes (3) ESRD (end stage renal disease) on dialysis (4) Retroperitoneal hemorrhage (5) Anemia Assessment/Plan Monitor CBC, transfuse as needed Monitor hemodynamics and volumes HD per renal eval appreciated, no plan for operation at this time F/U repeat CT Zosyn per ID, F/U Cx's DVT Px: SCD's SSI Pain control/supportive care Subjective Allergies: Coded Allergies: No Known Allergies (Unverified , 05/20/18) Subjective Tx to NICK Hb 6.3 getting PRBC AFVSS on 2L + flank abd pain No cough, no SOB no F/C Objective Last 24 Hour Vital Signs Date Time Temp Pulse Resp B/P (MAP) Pulse Ox O2 Delivery O2 Flow Rate FiO2 05/22/18 12:41 98.2 85 18 147/69 (95) 98 05/22/18 09:14 84 05/22/18 08:00 99.0 84 15 123/61 (81) 95 05/22/18 06:00 86 13 133/59 (83) 98 05/22/18 05:00 85 16 107/54 (71) 98 05/22/18 05:00 86 05/22/18 04:00 Nasal Cannula 2.0 05/22/18 04:00 98.6 76 16 142/64 (90) 98 05/22/18 03:00 79 15 117/52 (73) 96 05/22/18 02:00 80 14 138/62 (87) 95 05/22/18 01:00 90 21 131/63 (85) 97 05/22/18 00:00 99.1 89 14 109/70 (83) 95 05/22/18 00:00 90 05/22/18 00:00 Nasal Cannula 2.0 05/21/18 23:00 87 16 64/63 (63) 97 05/21/18 22:00 85 15 118/63 (81) 96 05/21/18 21:00 89 18 133/58 (83) 99 05/21/18 20:00 98.7 89 16 127/53 (77) 95 05/21/18 20:00 Nasal Cannula 2.0 05/21/18 20:00 88 05/21/18 19:42 Nasal Cannula 2.0 05/21/18 19:14 96 Nasal Cannula 2.0 28 05/21/18 19:14 Nasal Cannula 2.0 28 05/21/18 19:00 90 18 130/54 (79) 97 05/21/18 19:00 93 18 130/54 (79) 95 05/21/18 18:00 88 16 129/56 (80) 95 05/21/18 17:25 Nasal Cannula 2.0 05/21/18 17:00 89 19 122/53 (76) 83 05/21/18 16:00 89 05/21/18 16:00 98.2 88 23 118/63 (81) 88 05/21/18 16:00 Nasal Cannula 2.0 05/21/18 15:00 89 18 119/58 (78) 80 Intake and Output 05/21/18 05/22/18 18:59 06:59 Intake Total 200 ml Output Total 0 ml 1500 ml Balance 200 ml -1500 ml IV Total 50 ml Other 150 ml Output Urine Total 0 ml 0 ml Hemodialysis UF 1500 ml General Appearance: WD/WN, no acute distress HEENT: normocephalic, atraumatic, anicteric, mucous membranes moist Respiratory/Chest: chest wall non-tender, lungs clear, normal breath sounds, no respiratory distress, no accessory muscle use Cardiovascular: normal peripheral pulses, normal rate, regular rhythm Abdomen: normal bowel sounds, soft, non tender, no organomegaly, non distended , no mass Extremities: no cyanosis, no clubbing, no edema Microbiology Date/Time Source Procedure Growth Status 05/20/18 03:07 Nasal Nares MRSA Culture - Final NO METHICILLIN RESISTANT STAPH AUREUS... Complete 05/20/18 03:27 Rectum VRE Culture - Final NO VANCOMYCIN RESISTANT ENTEROCOCCUS ... Complete 05/20/18 03:07 Rectum - Preliminary Resulted Laboratory Tests 05/22/18 04:00: White Blood Count 16.3H, Red Blood Count 2.04L, Hemoglobin 6.3*L, Hematocrit 18.6L, Mean Corpuscular Volume 91, Mean Corpuscular Hemoglobin 30.9, Mean Corpuscular Hemoglobin Concent 33.9, Red Cell Distribution Width 13.9, Platelet Count 118L, Mean Platelet Volume 10.6H, Neutrophils (%) (Auto) , Lymphocytes (% ) (Auto) , Monocytes (%) (Auto) , Eosinophils (%) (Auto) , Basophils (%) (Auto) , Differential Total Cells Counted 100, Neutrophils % (Manual) 90H, Lymphocytes % (Manual) 6L, Monocytes % (Manual) 4, Eosinophils % (Manual) 0, Basophils % ( Manual) 0, Band Neutrophils 0, Platelet Estimate DecreasedL, Platelet Morphology Normal, Hypochromasia 4+, Anisocytosis 1+, Spherocytes 2+, Sodium Level 140, Potassium Level 3.6, Chloride Level 100, Carbon Dioxide Level 30, Anion Gap 10, Blood Urea Nitrogen 32H, Creatinine 5.7H, Estimat Glomerular Filtration Rate 10.5, Glucose Level 143#H, Calcium Level 8.3L, Phosphorus Level 5.2H, Magnesium Level 2.3, Iron Level 14L, Total Iron Binding Capacity 205L, Percent Iron Saturation 7L, Unsaturated Iron Binding 191, Total Bilirubin 0.5, Gamma Glutamyl Transpeptidase 6, Aspartate Amino Transf (AST/SGOT) 76H, Alanine Aminotransferase (ALT/SGPT) 60, Alkaline Phosphatase 60, Total Creatine Kinase 225, C-Reactive Protein, Quantitative 33.6H, Pro-B-Type Natriuretic Peptide 15008Y, Total Protein 7.3, Albumin 2.8L, Globulin 4.5, Albumin/Globulin Ratio 0.6L, Folate 14.6 Current Medications Medications (Trade) Dose Ordered Sig/Santos Route PRN Reason Start Time Stop Time Status Last Admin Dose Admin Acetaminophen/ Hydrocodone Bitart (Sandy 5/325) 1 tab TIDPRN PRN ORAL Moderate Pain (Pain Scale 4-6) 05/22/18 09:00 05/29/18 08:59 Barium Sulfate (Readi-Cat 2) 450 ml NOW PRN ORAL Radiology Procedure 05/22/18 12:00 05/24/18 11:59 Dextrose (Dextrose 50%) 25 ml Q30M PRN IV Hypoglycemia 05/22/18 09:00 06/19/18 08:59 Dextrose (Dextrose 50%) 50 ml Q30M PRN IV Hypoglycemia 05/22/18 09:00 06/19/18 08:59 Docusate Sodium (Colace) 100 mg THREE TIMES A DAY ORAL 05/22/18 09:00 06/19/18 12:59 05/22/18 09:23 Epoetin Jayme (Procrit (for ESRD on dialysis)) 10,000 units MON-MON-MON SUBQ 05/23/18 21:00 06/22/18 20:59 Insulin Aspart (NovoLOG) BEFORE MEALS AND HS SUBQ 05/22/18 11:30 06/19/18 06:29 05/22/18 12:39 Insulin Detemir (Levemir) 6 units DAILY SUBQ 05/22/18 09:00 06/20/18 11:59 05/22/18 09:50 Lactulose (Cephulac) 20 gm TWICE A DAY ORAL 05/22/18 09:00 06/20/18 05:59 05/22/18 09:23 Lorazepam (Ativan) 0.5 mg TIDPRN PRN ORAL For Anxiety 05/22/18 09:00 05/29/18 08:59 Morphine Sulfate (Morphine Sulfate) 3 mg QIDPRN PRN IVP Severe Pain (Pain Scale 7-10) 05/22/18 09:00 05/29/18 08:59 Ondansetron HCl (Zofran) 4 mg TIDPRN PRN IVP Nausea & Vomiting 05/22/18 09:00 06/21/18 08:59 Pantoprazole (Protonix) 40 mg EVERY 12 HOURS IVP 05/22/18 09:00 06/19/18 20:59 05/22/18 09:22 Piperacillin Sod/ Tazobactam Sod 2.25 gm/Dextrose 55 ml @ 110 mls/hr Q8HR IVPB 05/22/18 15:00 05/27/18 14:59 Sevelamer Carbonate (Renvela) 800 mg THREE TIMES A DAY ORAL 05/22/18 09:00 06/20/18 12:59 05/22/18 09:23 Sodium Chloride 500 ml @ 999 mls/hr Q4H PRN IV SBP less than 100mmhg 05/22/18 09:00 06/19/18 08:59 Bay Marte MD May 22, 2018 14:22
--- NOTE | 2018-05-22 15:05 | GI Progress Note ---
Assessment/Plan Problems: (1) Retroperitoneal hemorrhage ICD Codes: R58 - Hemorrhage, not elsewhere classified SNOMED: 88373353 (2) Anemia ICD Codes: D64.9 - Anemia, unspecified SNOMED: 504668288 (3) Diabetes ICD Codes: E11.9 - Type 2 diabetes mellitus without complications SNOMED: 83561544 (4) Abdominal pain ICD Codes: R10.9 - Unspecified abdominal pain SNOMED: 25479107 (5) Shock ICD Codes: R57.9 - Shock, unspecified SNOMED: 36809695 (6) ESRD (end stage renal disease) on dialysis ICD Codes: N18.6 - End stage renal disease; Z99.2 - Dependence on renal dialysis SNOMED: 138447445 Status: unchanged Status Narrative Discussed with Dr. Mcgee. Assessment/Plan CT AP reviewed >> - Large complex hemorrhage/hemorrhagic mass occupying majority of the right kidney with extensive perinephric fluid/blood extending into the retroperitoneum and pelvis. - Possible focal mesenteric edema/hematoma/abnormality. - Abnormal thickening in the duodenum which may reflect inflammatory/ infectious process versus hematoma versus underlying infiltrative abnormality. iron deficiency Anemia, most likely due to chronic disease >> OB stool r/o GI bleeding venofer diet per surgery ppi BID prn transfusions abx fu surgical recommendations fu labs The patient was seen and examined at bedside and all new and available data was reviewed in the patients chart. I agree with the above findings, impression and plan. (Patient seen earlier today. Signature stamp does not reflect patient encounter time.). - Elvis Mcgee MD Subjective Subjective limited Objective Last 24 Hour Vital Signs Date Time Temp Pulse Resp B/P (MAP) Pulse Ox O2 Delivery O2 Flow Rate FiO2 05/22/18 12:41 98.2 85 18 147/69 (95) 98 05/22/18 09:14 84 05/22/18 08:00 99.0 84 15 123/61 (81) 95 05/22/18 06:00 86 13 133/59 (83) 98 05/22/18 05:00 85 16 107/54 (71) 98 05/22/18 05:00 86 05/22/18 04:00 Nasal Cannula 2.0 05/22/18 04:00 98.6 76 16 142/64 (90) 98 05/22/18 03:00 79 15 117/52 (73) 96 11/6/18 02:00 80 14 138/62 (87) 95 05/22/18 01:00 90 21 131/63 (85) 97 05/22/18 00:00 99.1 89 14 109/70 (83) 95 05/22/18 00:00 90 05/22/18 00:00 Nasal Cannula 2.0 05/21/18 23:00 87 16 64/63 (63) 97 05/21/18 22:00 85 15 118/63 (81) 96 05/21/18 21:00 89 18 133/58 (83) 99 05/21/18 20:00 98.7 89 16 127/53 (77) 95 05/21/18 20:00 Nasal Cannula 2.0 05/21/18 20:00 88 05/21/18 19:42 Nasal Cannula 2.0 05/21/18 19:14 96 Nasal Cannula 2.0 28 05/21/18 19:14 Nasal Cannula 2.0 28 05/21/18 19:00 90 18 130/54 (79) 97 05/21/18 19:00 93 18 130/54 (79) 95 05/21/18 18:00 88 16 129/56 (80) 95 05/21/18 17:25 Nasal Cannula 2.0 05/21/18 17:00 89 19 122/53 (76) 83 05/21/18 16:00 89 05/21/18 16:00 98.2 88 23 118/63 (81) 88 05/21/18 16:00 Nasal Cannula 2.0 Intake and Output 05/21/18 05/22/18 19:00 07:00 Intake Total 100 ml 8 ml Output Total 0 ml 1500 ml Balance 100 ml -1492 ml Intake Oral 8 ml Other 100 ml Output Urine Total 0 ml 0 ml Hemodialysis UF 1500 ml Laboratory Tests Test 05/22/18 04:00 White Blood Count 16.3 K/UL (4.8-10.8) H Red Blood Count 2.04 M/UL (4.70-6.10) L Hemoglobin 6.3 G/DL (14.2-18.0) *L Hematocrit 18.6 % (42.0-52.0) L Mean Corpuscular Volume 91 FL (80-99) Mean Corpuscular Hemoglobin 30.9 PG (27.0-31.0) Mean Corpuscular Hemoglobin Concent 33.9 G/DL (32.0-36.0) Red Cell Distribution Width 13.9 % (11.6-14.8) Platelet Count 118 K/UL (150-450) L Mean Platelet Volume 10.6 FL (6.5-10.1) H Neutrophils (%) (Auto) % (45.0-75.0) Lymphocytes (%) (Auto) % (20.0-45.0) Monocytes (%) (Auto) % (1.0-10.0) Eosinophils (%) (Auto) % (0.0-3.0) Basophils (%) (Auto) % (0.0-2.0) Differential Total Cells Counted 100 Neutrophils % (Manual) 90 % (45-75) H Lymphocytes % (Manual) 6 % (20-45) L Monocytes % (Manual) 4 % (1-10) Eosinophils % (Manual) 0 % (0-3) Basophils % (Manual) 0 % (0-2) Band Neutrophils 0 % (0-8) Platelet Estimate Decreased L Platelet Morphology Normal Hypochromasia 4+ Anisocytosis 1+ Spherocytes 2+ Sodium Level 140 MMOL/L (136-145) Potassium Level 3.6 MMOL/L (3.5-5.1) Chloride Level 100 MMOL/L (98-107) Carbon Dioxide Level 30 MMOL/L (21-32) Anion Gap 10 mmol/L (5-15) Blood Urea Nitrogen 32 mg/dL (7-18) H Creatinine 5.7 MG/DL (0.55-1.30) H Estimat Glomerular Filtration Rate 10.5 mL/min (>60) Glucose Level 143 MG/DL (74-106) #H Calcium Level 8.3 MG/DL (8.5-10.1) L Phosphorus Level 5.2 MG/DL (2.5-4.9) H Magnesium Level 2.3 MG/DL (1.8-2.4) Iron Level 14 ug/dL (50-175) L Total Iron Binding Capacity 205 ug/dL (250-450) L Percent Iron Saturation 7 % (15-50) L Unsaturated Iron Binding 191 ug/dL (112-346) Total Bilirubin 0.5 MG/DL (0.2-1.0) Gamma Glutamyl Transpeptidase 6 U/L (5-85) Aspartate Amino Transf (AST/SGOT) 76 U/L (15-37) H Alanine Aminotransferase (ALT/SGPT) 60 U/L (12-78) Alkaline Phosphatase 60 U/L (46-116) Total Creatine Kinase 225 U/L (26-308) C-Reactive Protein, Quantitative 33.6 mg/dL (0.00-0.90) H Pro-B-Type Natriuretic Peptide 00056 pg/mL (0-125) H Total Protein 7.3 G/DL (6.4-8.2) Albumin 2.8 G/DL (3.4-5.0) L Globulin 4.5 g/dL Albumin/Globulin Ratio 0.6 (1.0-2.7) L Folate 14.6 NG/ML (8.6-58.9) Height (Feet): 5 Height (Inches): 6.00 Weight (Pounds): 170 General Appearance: WD/WN, no apparent distress, alert Cardiovascular: normal rate Respiratory/Chest: normal breath sounds, no respiratory distress Abdominal Exam: normal bowel sounds, non tender, soft Extremities: normal range of motion, non-tender Masnoor Allen NP May 22, 2018 15:05
--- NOTE | 2018-05-22 15:18 | Nephrology Progress Note ---
Assessment/Plan Problem List: (1) ESRD (end stage renal disease) on dialysis (2) Retroperitoneal hemorrhage (3) Shock (4) Anemia (5) Abdominal pain (6) Diabetes Assessment hemorrhagic shock- Retro Peritoneal bleed Low BP ESRD DM HTN transfused 3 units since , more if needed Plan HD 05/21- no heparin next 05/23 Transfuse as needed in [place] now manage pain Per consultants discussed with RN Subjective ROS Limited/Unobtainable: No Constitutional: Reports: malaise, weakness Objective Objective Last 24 Hour Vital Signs Date Time Temp Pulse Resp B/P (MAP) Pulse Ox O2 Delivery O2 Flow Rate FiO2 05/22/18 12:41 98.2 85 18 147/69 (95) 98 05/22/18 09:14 84 05/22/18 08:00 99.0 84 15 123/61 (81) 95 05/22/18 06:00 86 13 133/59 (83) 98 05/22/18 05:00 85 16 107/54 (71) 98 05/22/18 05:00 86 05/22/18 04:00 Nasal Cannula 2.0 05/22/18 04:00 98.6 76 16 142/64 (90) 98 05/22/18 03:00 79 15 117/52 (73) 96 05/22/18 02:00 80 14 138/62 (87) 95 05/22/18 01:00 90 21 131/63 (85) 97 05/22/18 00:00 99.1 89 14 109/70 (83) 95 05/22/18 00:00 90 05/22/18 00:00 Nasal Cannula 2.0 05/21/18 23:00 87 16 64/63 (63) 97 05/21/18 22:00 85 15 118/63 (81) 96 05/21/18 21:00 89 18 133/58 (83) 99 05/21/18 20:00 98.7 89 16 127/53 (77) 95 05/21/18 20:00 Nasal Cannula 2.0 05/21/18 20:00 88 05/21/18 19:42 Nasal Cannula 2.0 05/21/18 19:14 96 Nasal Cannula 2.0 28 05/21/18 19:14 Nasal Cannula 2.0 28 05/21/18 19:00 90 18 130/54 (79) 97 05/21/18 19:00 93 18 130/54 (79) 95 05/21/18 18:00 88 16 129/56 (80) 95 05/21/18 17:25 Nasal Cannula 2.0 05/21/18 17:00 89 19 122/53 (76) 83 05/21/18 16:00 89 05/21/18 16:00 98.2 88 23 118/63 (81) 88 05/21/18 16:00 Nasal Cannula 2.0 Intake and Output 05/21/18 05/22/18 19:00 07:00 Intake Total 100 ml 8 ml Output Total 0 ml 1500 ml Balance 100 ml -1492 ml Intake Oral 8 ml Other 100 ml Output Urine Total 0 ml 0 ml Hemodialysis UF 1500 ml Laboratory Tests 05/22/18 04:00: White Blood Count 16.3H, Red Blood Count 2.04L, Hemoglobin 6.3*L, Hematocrit 18.6L, Mean Corpuscular Volume 91, Mean Corpuscular Hemoglobin 30.9, Mean Corpuscular Hemoglobin Concent 33.9, Red Cell Distribution Width 13.9, Platelet Count 118L, Mean Platelet Volume 10.6H, Neutrophils (%) (Auto) , Lymphocytes (% ) (Auto) , Monocytes (%) (Auto) , Eosinophils (%) (Auto) , Basophils (%) (Auto) , Differential Total Cells Counted 100, Neutrophils % (Manual) 90H, Lymphocytes % (Manual) 6L, Monocytes % (Manual) 4, Eosinophils % (Manual) 0, Basophils % ( Manual) 0, Band Neutrophils 0, Platelet Estimate DecreasedL, Platelet Morphology Normal, Hypochromasia 4+, Anisocytosis 1+, Spherocytes 2+, Sodium Level 140, Potassium Level 3.6, Chloride Level 100, Carbon Dioxide Level 30, Anion Gap 10, Blood Urea Nitrogen 32H, Creatinine 5.7H, Estimat Glomerular Filtration Rate 10.5, Glucose Level 143#H, Calcium Level 8.3L, Phosphorus Level 5.2H, Magnesium Level 2.3, Iron Level 14L, Total Iron Binding Capacity 205L, Percent Iron Saturation 7L, Unsaturated Iron Binding 191, Total Bilirubin 0.5, Gamma Glutamyl Transpeptidase 6, Aspartate Amino Transf (AST/SGOT) 76H, Alanine Aminotransferase (ALT/SGPT) 60, Alkaline Phosphatase 60, Total Creatine Kinase 225, C-Reactive Protein, Quantitative 33.6H, Pro-B-Type Natriuretic Peptide 83997X, Total Protein 7.3, Albumin 2.8L, Globulin 4.5, Albumin/Globulin Ratio 0.6L, Folate 14.6 Height (Feet): 5 Height (Inches): 6.00 Weight (Pounds): 170 General Appearance: no apparent distress Cardiovascular: regular rhythm Respiratory/Chest: decreased breath sounds Abdomen: distended Dm Lopez MD May 22, 2018 15:18
[2018-05-22] MEDS: Piperacillin/Tazobactam 2.25 GM in D5W 55 ML IVPB SCH ×2 (15:34→21:03)
--- NOTE | 2018-05-22 16:41 | Diagnostic Imaging Report ---
Indication: Right kidney hematoma. Follow-up Technique: Continuous helical transaxial imaging of the abdomen and pelvis was obtained from the lung bases to the pubic symphysis. No intravenous contrast was administered. Coronal 2-D reformats were also obtained. Automatic Exposure Control was utilized. Total Dose length Product (DLP): 913.[address] Dose Index Volume (CTDIvol): 15.03 mGy Comparison: 05/20/2018 CT Findings: Large right renal hematoma again demonstrated with heterogeneous slightly hyperdense attenuation. The hematoma measures about 16 x 12 cm x 7 cm. Associated perinephric stranding with the reticulation extending throughout the retroperitoneum bilaterally noted. Some nonobstructive stones demonstrated within the kidneys. Gallstones are noted. Small right pleural effusion demonstrated. Trace left pleural effusion noted. Generalized cardiomegaly is present. Aortoiliac calcifications are again demonstrated. Generalized anasarca noted. IMPRESSION: Large right renal hematoma with perinephric and retroperitoneal extension without significant change from the previous exam done 05/20/2018. Nonobstructive stones within the kidneys. Gallstones Small right pleural effusion and trace left pleural effusion. Generalized cardiomegaly and arterial vascular disease Anasarca The CT scanner at [facility] is accredited by the [employer] and the scans are performed using dose optimization techniques as appropriate to a performed exam including Automatic Exposure control.
[2018-05-22 18:01] LABS: HEMATOCRIT 20.4 % (42.0-52.0); HEMOGLOBIN 7.2 G/DL (14.2-18.0); MEAN CORPUSCULAR VOLUME 91 FL (80-99); PLATELET COUNT 133 K/UL (150-450); RED BLOOD COUNT 2.24 M/UL (4.70-6.10); RED CELL DISTRIBUTION WIDTH 13.7 % (11.6-14.8); WHITE BLOOD COUNT 15.8 K/UL (4.8-10.8)
[2018-05-22 18:02] LABS: NEUTROPHILS % (AUTO) 86.7 % (45.0-75.0)
[2018-05-22 18:03] LABS: BASOPHILS % (AUTO) 0.4 % (0.0-2.0); EOSINOPHILS % (AUTO) 0.2 % (0.0-3.0); LYMPHOCYTES % (AUTO) 4.8 % (20.0-45.0)
--- NOTE | 2018-05-22 21:00 | Consultation ---
DATE OF CONSULTATION: 05/22/2018 INFECTIOUS DISEASE CONSULTATION CONSULTING PHYSICIAN: Rowena Garcia M.D. REQUESTING PHYSICIAN: Baljit Flores M.D. REASON FOR CONSULTATION: Sepsis, leukocytosis, perinephric fluid with hematoma, possible infection, and recommendation for antibiotics treatment. HISTORY OF PRESENT ILLNESS: The patient is a 52-year-old male with a history of end-stage renal disease, on hemodialysis and diabetes, developed sudden onset of right flank pain, Monday night after he finished hemodialysis that day. His pain was severe localized on the right flank area and sometimes radiate to the front. He had some nausea, but no vomiting. His pain was persistent 10/10 all night Monday what prompted him to come to the emergency room next day on Monday when he presented to [facility] emergency room for evaluation. The patient had a CT scan of the abdomen and pelvis, which showed right renal hematoma with extension into the retroperitoneal area, which explained the patient's symptoms. He also was found to have some leukocytosis, so he was admitted to the hospital for further observation and management. The patient received blood transfusion and he was evaluated and seen by multiple specialists including Urology. The patient's WBC continued to rise with CT scan showing perinephric fluid, which might be infected, so Infectious Disease consultation was requested for antibiotics treatment and further management. As of note, the patient is English speaker. History was mainly obtained by a nurse corrugated fastener driver at the bedside. REVIEW OF SYSTEMS: A 14-point of systems reviewed were all negative apart from the one I mentioned above in my H and P. PAST MEDICAL HISTORY: Significant for end-stage renal disease, on hemodialysis and diabetes. PAST SURGICAL HISTORY: He had left arm AV fistula placement. FAMILY HISTORY: Not contributory. SOCIAL HISTORY: The patient lives at home with family. Denied using any drugs, tobacco, or alcohol. ALLERGIES: No known drug allergy. MEDICATIONS: He is on insulin, hydrocodone, acetaminophen, lactulose, lorazepam, morphine sulfate, and pantoprazole. LABORATORY DATA: Labs showed white count of 16.3, hemoglobin of 6.3, and platelet count of 118,000. BUN of 32 and creatinine of 5.7. AST of 76 and ALT of 60. MICROBIOLOGY: MRSA screening and VRE, both are negative. IMAGING: CT scan of abdomen and pelvis without contrast on admission showed large complex hemorrhagic mass occupying majority of the right kidney with extensive perinephric fluid, blood extension into the retroperitoneum and pelvis, possible focal eccentric edema, hematoma abnormality, and abnormal thickening in the duodenum may reflect inflammatory infectious process versus hematoma versus underlying infiltrative abnormalities and right basilar airspace disease. Abdominal ultrasound showed large heterogeneous hematoma involving the right kidney. PHYSICAL EXAMINATION: VITAL SIGNS: Temperature 98.2 degrees, pulse 85, respirations 18, blood pressure 147/69, pulse ox 98% on 2 L nasal cannula. GENERAL: Middle-aged male, up in bed, awake, alert, English speaker, and not in acute distress. HEENT: Normocephalic and atraumatic. Pupils are reactive to light equally. Pale sclerae. Moist oral mucosa. No exudate. NECK: Supple. No lymphadenopathy. CARDIOVASCULAR: Regular rate and rhythm. No murmur. No gallop. LUNGS: He had diminished breathing sound on the right lower lobe with crackles. ABDOMEN: Soft, distended, obese, tender in the right posterior aspect mainly on the right flank area with rebound in the flank area, and minimal skin bruises. EXTREMITIES: No edema or cyanosis. ASSESSMENT AND RECOMMENDATIONS: 1. Renal hematoma on the right with extension into the retroperitoneal area. Continue close monitor of H and H and serial image for followup. Watch out for abscess formation. We will cover the patient empirically with Zosyn for now to prevent hematoma infection. 2. Sepsis with leukocytosis due to the above. We will send blood culture and start Zosyn empirically. Close monitor of WBC. 3. Shock suspect hemorrhagic due to the above. Continue hydration with blood transfusion as needed. We will send blood culture to rule out sepsis. 4. Retroperitoneal hemorrhage, rule out renal artery aneurysm. Continue H and H monitor with blood transfusion and serial imaging for followup. Avoid anticoagulation. Consider renal arterial ultrasound or Doppler. 5. End-stage renal disease, on hemodialysis. Renal service is following. 6. Diabetes. Recommend tight glycemic control to keep blood glucose between 100 to 140. Thank you for the consult. ID will continue to follow. Please feel free to call with any question. Rowena Garcia M.D. DR: JÚNIOR JOB#: [id number] CC:
[2018-05-23] VITALS: BP 139/74
[2018-05-23 04:00] VITALS: BP 144/79
[2018-05-23] MEDS: Piperacillin/Tazobactam 2.25 GM in D5W 55 ML IVPB SCH ×3 (05:49→21:25)
[2018-05-23 06:25] LABS: HEMOGLOBIN 8.4 G/DL (14.2-18.0); MEAN CORPUSCULAR VOLUME 90 FL (80-99); PLATELET COUNT 141 K/UL (150-450); RED BLOOD COUNT 2.78 M/UL (4.70-6.10); RED CELL DISTRIBUTION WIDTH 13.7 % (11.6-14.8); WHITE BLOOD COUNT 12.3 K/UL (4.8-10.8)
[2018-05-23 06:35] LABS: ANION GAP 15 mmol/L (5-15); BLOOD UREA NITROGEN 58 mg/dL (7-18); CALCIUM 7.8 MG/DL (8.5-10.1); CARBON DIOXIDE 24 MMOL/L (21-32); CHLORIDE 98 MMOL/L (98-107); POTASSIUM 3.9 MMOL/L (3.5-5.1); SODIUM 137 MMOL/L (136-145)
--- NOTE | 2018-05-23 06:52 | General Progress Note ---
Assessment/Plan Problem List: (1) Retroperitoneal hemorrhage ICD Codes: R58 - Hemorrhage, not elsewhere classified SNOMED: 11459938 (2) ESRD (end stage renal disease) on dialysis ICD Codes: N18.6 - End stage renal disease; Z99.2 - Dependence on renal dialysis SNOMED: 309065781 (3) Diabetes ICD Codes: E11.9 - Type 2 diabetes mellitus without complications SNOMED: 60134206 Assessment/Plan continue Levemir 6 units qam continue NISS ac / hs Subjective Allergies: Coded Allergies: No Known Allergies (Unverified , 05/20/18) All Systems: reviewed and negative except above Subjective events noted transferred out of ICU Objective Last 24 Hour Vital Signs Date Time Temp Pulse Resp B/P (MAP) Pulse Ox O2 Delivery O2 Flow Rate FiO2 05/23/18 04:30 79 05/23/18 04:00 98.1 76 18 144/79 (100) 94 05/23/18 04:00 Nasal Cannula 2.0 05/23/18 00:00 98.7 78 19 139/74 (95) 98 05/23/18 00:00 Nasal Cannula 2.0 05/23/18 00:00 79 05/22/18 20:00 Nasal Cannula 2.0 05/22/18 20:00 98.1 88 20 135/74 (94) 95 05/22/18 19:30 83 05/22/18 16:45 82 05/22/18 16:00 Nasal Cannula 2.0 05/22/18 16:00 98.9 85 16 150/72 (98) 98 05/22/18 16:00 82 05/22/18 12:41 98.2 85 18 147/69 (95) 98 05/22/18 09:14 84 05/22/18 08:00 99.0 84 15 123/61 (81) 95 Intake and Output 05/22/18 05/23/18 19:00 07:00 Intake Total 305 ml 555 ml Balance 305 ml 555 ml Intake Oral 250 ml IV Total 55 ml 55 ml Blood Product 250 ml 250 ml Laboratory Tests 05/22/18 17:50: White Blood Count 15.8H, Red Blood Count 2.24L, Hemoglobin 7.2L, Hematocrit 20.4L, Mean Corpuscular Volume 91, Mean Corpuscular Hemoglobin 32.1H, Mean Corpuscular Hemoglobin Concent 35.2, Red Cell Distribution Width 13.7, Platelet Count 133L, Mean Platelet Volume 9.8, Neutrophils (%) (Auto) 86.7H, Lymphocytes (%) (Auto) 4.8L, Monocytes (%) (Auto) 8.0, Eosinophils (%) (Auto) 0.2, Basophils (%) (Auto) 0.4 05/23/18 06:05: White Blood Count 12.3H, Red Blood Count 2.78L, Hemoglobin 8.4L, Hematocrit 25.0L, Mean Corpuscular Volume 90, Mean Corpuscular Hemoglobin 30.2, Mean Corpuscular Hemoglobin Concent 33.6, Red Cell Distribution Width 13.7, Platelet Count 141L, Mean Platelet Volume 9.1, Neutrophils (%) (Auto) , Lymphocytes (%) ( Auto) , Monocytes (%) (Auto) , Eosinophils (%) (Auto) , Basophils (%) (Auto) , Neutrophils % (Manual) [Pending], Lymphocytes % (Manual) [Pending], Platelet Estimate [Pending], Platelet Morphology [Pending], Sodium Level 137, Potassium Level 3.9, Chloride Level 98, Carbon Dioxide Level 24, Anion Gap 15, Blood Urea Nitrogen 58H, Creatinine 8.0H, Estimat Glomerular Filtration Rate 7.1, Glucose Level 127H, Calcium Level 7.8L Height (Feet): 5 Height (Inches): 6.00 Weight (Pounds): 170 General Appearance: no apparent distress Neck: normal alignment Cardiovascular: normal rate Respiratory/Chest: lungs clear Abdomen: normal bowel sounds Pelvis: normal external exam Objective Current Medications Medications (Trade) Dose Ordered Sig/Santos Route PRN Reason Start Time Stop Time Status Last Admin Dose Admin Acetaminophen/ Hydrocodone Bitart ([place] 5/325) 1 tab TIDPRN PRN ORAL Moderate Pain (Pain Scale 4-6) 05/22/18 09:00 05/29/18 08:59 Barium Sulfate (Readi-Cat 2) 450 ml NOW PRN ORAL Radiology Procedure 05/22/18 12:00 05/24/18 11:59 Dextrose (Dextrose 50%) 25 ml Q30M PRN IV Hypoglycemia 05/22/18 09:00 06/19/18 08:59 Dextrose (Dextrose 50%) 50 ml Q30M PRN IV Hypoglycemia 05/22/18 09:00 06/19/18 08:59 Docusate Sodium (Colace) 100 mg THREE TIMES A DAY ORAL 05/22/18 09:00 06/19/18 12:59 05/22/18 18:23 Epoetin Jayme (Procrit (for ESRD on dialysis)) 10,000 units MON-MON-MON SUBQ 05/23/18 21:00 06/22/18 20:59 Insulin Aspart (NovoLOG) BEFORE MEALS AND HS SUBQ 05/22/18 11:30 06/19/18 06:29 05/22/18 20:58 Insulin Detemir (Levemir) 6 units DAILY SUBQ 05/22/18 09:00 06/20/18 11:59 05/22/18 09:50 Iron Sucrose 200 mg/Sodium Chloride 120 ml @ 240 mls/hr ONCE IV 05/23/18 09:00 05/23/18 09:30 Lactulose (Cephulac) 20 gm TWICE A DAY ORAL 05/22/18 09:00 06/20/18 05:59 05/22/18 18:23 Lorazepam (Ativan) 0.5 mg TIDPRN PRN ORAL For Anxiety 05/22/18 09:00 05/29/18 08:59 Morphine Sulfate (Morphine Sulfate) 3 mg QIDPRN PRN IVP Severe Pain (Pain Scale 7-10) 05/22/18 09:00 05/29/18 08:59 Ondansetron HCl (Zofran) 4 mg TIDPRN PRN IVP Nausea & Vomiting 05/22/18 09:00 06/21/18 08:59 Pantoprazole (Protonix) 40 mg EVERY 12 HOURS IVP 05/22/18 09:00 06/19/18 20:59 05/22/18 20:56 Piperacillin Sod/ Tazobactam Sod 2.25 gm/Dextrose 55 ml @ 110 mls/hr Q8HR IVPB 05/22/18 15:00 05/27/18 14:59 05/23/18 05:49 Sevelamer Carbonate (Renvela) 800 mg THREE TIMES A DAY ORAL 05/22/18 09:00 06/20/18 12:59 05/22/18 18:23 Sodium Chloride 500 ml @ 999 mls/hr Q4H PRN IV SBP less than 100mmhg 05/22/18 09:00 06/19/18 08:59 Item Value Date Time Bedside Blood Glucose 136 mg/dl H 05/23/18 0600 Bedside Blood Glucose 144 mg/dl H 05/22/18 2058 Bedside Blood Glucose 143 mg/dl H 05/22/18 1650 Bedside Blood Glucose 175 mg/dl H 05/22/18 1239 Bedside Blood Glucose 139 mg/dl H 05/22/18 0950 Bedside Blood Glucose 139 mg/dl H 05/22/18 0630 Willard Bonds MD May 23, 2018 06:52
[2018-05-23] MEDS: NovoLOG Insulin Flexpen SUBQ SCH ×4 (06:58→21:26)
[2018-05-23 08:00] VITALS: BP 147/75
[2018-05-23] MEDS ORDERED: Iron Sucrose 200 MG in NS 110 ML IV SCH (09:00)
[2018-05-23] MEDS: Lactulose 20gm/30ml UDC ORAL SCH ×3 (09:00→17:52)
[2018-05-23] MEDS: Docusate 100mg cap ORAL SCH ×4 (09:00→17:52)
[2018-05-23] MEDS: Pantoprazole Inj IVP SCH (09:06)
[2018-05-23] MEDS: Levemir Flexpen SUBQ SCH (09:07)
--- NOTE | 2018-05-23 10:21 | General Progress Note ---
Assessment/Plan Assessment/Plan S: I am ok O: appears comfortable. Complains of right sided abdominal pain . PHYSICAL EXAMINATION: HEAD AND NECK: Atraumatic and normocephalic. CHEST: Clear to auscultation. No wheezing. No crackles. HEART: S1 and S2. Regular rate and rhythm. ABDOMEN: Tender noted. Negative for rebound tenderness. NEUROLOGIC: The patient is awake, alert, and oriented x3. PSYCHIATRIC: Mood and affect are appropriate and normal. MUSCULOSKELETAL: No gross lateralized motor deficit. Meds: reviewed and reconciled, including NovoLog 5 u tid IMAGING: CT scan of abdomen and pelvis dated May 20, 2018 reviewed showing the right perinephric hematoma. ASSESSMENT AND PLAN: 1. Acute Right Perinephric Hemorrhage 3. Acute anemia. 4. Diabetes type 5 Hypovolemic Shock : Stable 6. GI-DVT prophylaxis Plan: will monitor HH, Will proceed with PRBC transfusion with Hgb < 7.3 Notes from Urology , Nephro, Endo, Critical specialist are reviewed will start low dose Lantus, will consult Endo Patient remains in stable medical cnd Stable appearance of right perinephric hematoma by l imaging Subjective Allergies: Coded Allergies: No Known Allergies (Unverified , 05/20/18) Objective Last 24 Hour Vital Signs Date Time Temp Pulse Resp B/P (MAP) Pulse Ox O2 Delivery O2 Flow Rate FiO2 05/23/18 08:41 71 05/23/18 08:00 Nasal Cannula 2.0 05/23/18 08:00 98.2 77 18 147/75 (99) 94 05/23/18 07:18 97 Nasal Cannula 2.0 28 05/23/18 07:18 Nasal Cannula 2.0 28 05/23/18 04:30 79 05/23/18 04:00 98.1 76 18 144/79 (100) 94 05/23/18 04:00 Nasal Cannula 2.0 05/23/18 00:00 98.7 78 19 139/74 (95) 98 05/23/18 00:00 Nasal Cannula 2.0 05/23/18 00:00 79 05/22/18 20:00 Nasal Cannula 2.0 05/22/18 20:00 98.1 88 20 135/74 (94) 95 05/22/18 19:30 83 05/22/18 16:45 82 05/22/18 16:00 Nasal Cannula 2.0 05/22/18 16:00 98.9 85 16 150/72 (98) 98 05/22/18 16:00 82 05/22/18 12:41 98.2 85 18 147/69 (95) 98 Intake and Output 05/22/18 05/23/18 19:00 07:00 Intake Total 305 ml 555 ml Balance 305 ml 555 ml Intake Oral 250 ml IV Total 55 ml 55 ml Blood Product 250 ml 250 ml Laboratory Tests 05/22/18 17:50: White Blood Count 15.8H, Red Blood Count 2.24L, Hemoglobin 7.2L, Hematocrit 20.4L, Mean Corpuscular Volume 91, Mean Corpuscular Hemoglobin 32.1H, Mean Corpuscular Hemoglobin Concent 35.2, Red Cell Distribution Width 13.7, Platelet Count 133L, Mean Platelet Volume 9.8, Neutrophils (%) (Auto) 86.7H, Lymphocytes (%) (Auto) 4.8L, Monocytes (%) (Auto) 8.0, Eosinophils (%) (Auto) 0.2, Basophils (%) (Auto) 0.4 05/23/18 06:05: White Blood Count 12.3H, Red Blood Count 2.78L, Hemoglobin 8.4L, Hematocrit 25.0L, Mean Corpuscular Volume 90, Mean Corpuscular Hemoglobin 30.2, Mean Corpuscular Hemoglobin Concent 33.6, Red Cell Distribution Width 13.7, Platelet Count 141L, Mean Platelet Volume 9.1, Neutrophils (%) (Auto) , Lymphocytes (%) ( Auto) , Monocytes (%) (Auto) , Eosinophils (%) (Auto) , Basophils (%) (Auto) , Differential Total Cells Counted 100, Neutrophils % (Manual) 83H, Lymphocytes % (Manual) 11L, Monocytes % (Manual) 5, Eosinophils % (Manual) 1, Basophils % ( Manual) 0, Band Neutrophils 0, Platelet Estimate DecreasedL, Platelet Morphology Normal, Hypochromasia 1+, Sodium Level 137, Potassium Level 3.9, Chloride Level 98, Carbon Dioxide Level 24, Anion Gap 15, Blood Urea Nitrogen 58H, Creatinine 8.0H, Estimat Glomerular Filtration Rate 7.1, Glucose Level 127H , Calcium Level 7.8L Height (Feet): 5 Height (Inches): 6.00 Weight (Pounds): 195 Baljit Flores MD May 23, 2018 10:21
--- NOTE | 2018-05-23 11:39 | Pulmonology Progress Note ---
Assessment/Plan Problems: (1) Shock (2) Diabetes (3) ESRD (end stage renal disease) on dialysis (4) Retroperitoneal hemorrhage (5) Anemia Assessment/Plan Monitor CBC, transfuse as needed Monitor hemodynamics and volumes HD per renal F/U recs, no plan for operation at this time Zosyn per ID, F/U Cx's DVT Px: SCD's SSI Pain control/supportive care Subjective Allergies: Coded Allergies: No Known Allergies (Unverified , 05/20/18) Subjective CT unchanged Hb stable after PRBC AFVSS on 2L, getting HD + flank abd pain No cough, no SOB no F/C Objective Last 24 Hour Vital Signs Date Time Temp Pulse Resp B/P (MAP) Pulse Ox O2 Delivery O2 Flow Rate FiO2 05/23/18 08:41 71 05/23/18 08:00 Nasal Cannula 2.0 05/23/18 08:00 98.2 77 18 147/75 (99) 94 05/23/18 07:18 97 Nasal Cannula 2.0 28 05/23/18 07:18 Nasal Cannula 2.0 28 05/23/18 04:30 79 05/23/18 04:00 98.1 76 18 144/79 (100) 94 05/23/18 04:00 Nasal Cannula 2.0 05/23/18 00:00 98.7 78 19 139/74 (95) 98 05/23/18 00:00 Nasal Cannula 2.0 05/23/18 00:00 79 05/22/18 20:00 Nasal Cannula 2.0 05/22/18 20:00 98.1 88 20 135/74 (94) 95 05/22/18 19:30 83 05/22/18 16:45 82 05/22/18 16:00 Nasal Cannula 2.0 05/22/18 16:00 98.9 85 16 150/72 (98) 98 05/22/18 16:00 82 05/22/18 12:41 98.2 85 18 147/69 (95) 98 Intake and Output 05/22/18 05/23/18 19:00 07:00 Intake Total 305 ml 555 ml Balance 305 ml 555 ml Intake Oral 250 ml IV Total 55 ml 55 ml Blood Product 250 ml 250 ml General Appearance: WD/WN, no acute distress HEENT: normocephalic, atraumatic, anicteric, mucous membranes moist Respiratory/Chest: chest wall non-tender, lungs clear, normal breath sounds, no respiratory distress, no accessory muscle use Cardiovascular: normal peripheral pulses, normal rate, regular rhythm Abdomen: normal bowel sounds, soft, non tender, no organomegaly, non distended Extremities: no cyanosis, no clubbing, no edema Laboratory Tests 05/22/18 17:50: White Blood Count 15.8H, Red Blood Count 2.24L, Hemoglobin 7.2L, Hematocrit 20.4L, Mean Corpuscular Volume 91, Mean Corpuscular Hemoglobin 32.1H, Mean Corpuscular Hemoglobin Concent 35.2, Red Cell Distribution Width 13.7, Platelet Count 133L, Mean Platelet Volume 9.8, Neutrophils (%) (Auto) 86.7H, Lymphocytes (%) (Auto) 4.8L, Monocytes (%) (Auto) 8.0, Eosinophils (%) (Auto) 0.2, Basophils (%) (Auto) 0.4 05/23/18 06:05: White Blood Count 12.3H, Red Blood Count 2.78L, Hemoglobin 8.4L, Hematocrit 25.0L, Mean Corpuscular Volume 90, Mean Corpuscular Hemoglobin 30.2, Mean Corpuscular Hemoglobin Concent 33.6, Red Cell Distribution Width 13.7, Platelet Count 141L, Mean Platelet Volume 9.1, Neutrophils (%) (Auto) , Lymphocytes (%) ( Auto) , Monocytes (%) (Auto) , Eosinophils (%) (Auto) , Basophils (%) (Auto) , Differential Total Cells Counted 100, Neutrophils % (Manual) 83H, Lymphocytes % (Manual) 11L, Monocytes % (Manual) 5, Eosinophils % (Manual) 1, Basophils % ( Manual) 0, Band Neutrophils 0, Platelet Estimate DecreasedL, Platelet Morphology Normal, Hypochromasia 1+, Sodium Level 137, Potassium Level 3.9, Chloride Level 98, Carbon Dioxide Level 24, Anion Gap 15, Blood Urea Nitrogen 58H, Creatinine 8.0H, Estimat Glomerular Filtration Rate 7.1, Glucose Level 127H , Calcium Level 7.8L Current Medications Medications (Trade) Dose Ordered Sig/Santos Route PRN Reason Start Time Stop Time Status Last Admin Dose Admin Acetaminophen/ Hydrocodone Bitart ([place] 5/325) 1 tab TIDPRN PRN ORAL Moderate Pain (Pain Scale 4-6) 05/22/18 09:00 05/29/18 08:59 Barium Sulfate (Readi-Cat 2) 450 ml NOW PRN ORAL Radiology Procedure 05/22/18 12:00 05/24/18 11:59 Dextrose (Dextrose 50%) 25 ml Q30M PRN IV Hypoglycemia 05/22/18 09:00 06/19/18 08:59 Dextrose (Dextrose 50%) 50 ml Q30M PRN IV Hypoglycemia 05/22/18 09:00 06/19/18 08:59 Docusate Sodium (Colace) 100 mg THREE TIMES A DAY ORAL 05/22/18 09:00 06/19/18 12:59 05/22/18 18:23 Epoetin Jayme (Procrit (for ESRD on dialysis)) 10,000 units MON-MON-MON SUBQ 05/23/18 21:00 06/22/18 20:59 Insulin Aspart (NovoLOG) BEFORE MEALS AND HS SUBQ 05/22/18 11:30 06/19/18 06:29 05/23/18 06:58 Insulin Detemir (Levemir) 6 units DAILY SUBQ 05/22/18 09:00 06/20/18 11:59 05/23/18 09:07 Lactulose (Cephulac) 20 gm TWICE A DAY ORAL 05/22/18 09:00 06/20/18 05:59 05/22/18 18:23 Lorazepam (Ativan) 0.5 mg TIDPRN PRN ORAL For Anxiety 05/22/18 09:00 05/29/18 08:59 Morphine Sulfate (Morphine Sulfate) 3 mg QIDPRN PRN IVP Severe Pain (Pain Scale 7-10) 05/22/18 09:00 05/29/18 08:59 Ondansetron HCl (Zofran) 4 mg TIDPRN PRN IVP Nausea & Vomiting 05/22/18 09:00 06/21/18 08:59 Pantoprazole (Protonix) 40 mg EVERY 12 HOURS IVP 05/22/18 09:00 06/19/18 20:59 05/23/18 09:06 Piperacillin Sod/ Tazobactam Sod 2.25 gm/Dextrose 55 ml @ 110 mls/hr Q8HR IVPB 05/22/18 15:00 05/27/18 14:59 05/23/18 05:49 Sevelamer Carbonate (Renvela) 800 mg THREE TIMES A DAY ORAL 05/22/18 09:00 06/20/18 12:59 05/23/18 09:06 Sodium Chloride 500 ml @ 999 mls/hr Q4H PRN IV SBP less than 100mmhg 05/22/18 09:00 06/19/18 08:59 Bay Marte MD May 23, 2018 11:39
[2018-05-23 12:00] VITALS: BP 141/73
--- NOTE | 2018-05-23 12:22 | GI Progress Note ---
Assessment/Plan Problems: (1) Retroperitoneal hemorrhage ICD Codes: R58 - Hemorrhage, not elsewhere classified SNOMED: 14138771 (2) Anemia ICD Codes: D64.9 - Anemia, unspecified SNOMED: 407774491 (3) Diabetes ICD Codes: E11.9 - Type 2 diabetes mellitus without complications SNOMED: 70630963 (4) Abdominal pain ICD Codes: R10.9 - Unspecified abdominal pain SNOMED: 24554890 (5) Shock ICD Codes: R57.9 - Shock, unspecified SNOMED: 86177797 (6) ESRD (end stage renal disease) on dialysis ICD Codes: N18.6 - End stage renal disease; Z99.2 - Dependence on renal dialysis SNOMED: 484827166 Status: unchanged Status Narrative Discussed with Dr. Mcgee. Assessment/Plan CT AP reviewed >> Large complex hemorrhage/hemorrhagic mass occupying majority of the right kidney with extensive perinephric fluid/blood extending into the retroperitoneum and pelvis. iron deficiency Anemia, most likely due to chronic disease >> OB stool r/o GI bleeding venofer diet per surgery ppi BID prn transfusions abx fu surgical recommendations fu labs The patient was seen and examined at bedside and all new and available data was reviewed in the patients chart. I agree with the above findings, impression and plan. (Patient seen earlier today. Signature stamp does not reflect patient encounter time.). - Elvis Mcgee MD Subjective Gastrointestinal/Abdominal: Reports: abdominal pain Subjective limited Objective Last 24 Hour Vital Signs Date Time Temp Pulse Resp B/P (MAP) Pulse Ox O2 Delivery O2 Flow Rate FiO2 05/23/18 12:00 Nasal Cannula 2.0 05/23/18 08:41 71 05/23/18 08:00 Nasal Cannula 2.0 05/23/18 08:00 98.2 77 18 147/75 (99) 94 05/23/18 07:18 97 Nasal Cannula 2.0 28 05/23/18 07:18 Nasal Cannula 2.0 28 05/23/18 04:30 79 05/23/18 04:00 98.1 76 18 144/79 (100) 94 05/23/18 04:00 Nasal Cannula 2.0 05/23/18 00:00 98.7 78 19 139/74 (95) 98 05/23/18 00:00 Nasal Cannula 2.0 05/23/18 00:00 79 05/22/18 20:00 Nasal Cannula 2.0 05/22/18 20:00 98.1 88 20 135/74 (94) 95 05/22/18 19:30 83 05/22/18 16:45 82 05/22/18 16:00 Nasal Cannula 2.0 05/22/18 16:00 98.9 85 16 150/72 (98) 98 05/22/18 16:00 82 05/22/18 12:41 98.2 85 18 147/69 (95) 98 Intake and Output 05/22/18 05/23/18 19:00 07:00 Intake Total 305 ml 555 ml Balance 305 ml 555 ml Intake Oral 250 ml IV Total 55 ml 55 ml Blood Product 250 ml 250 ml Laboratory Tests Test 05/22/18 17:50 05/23/18 06:05 White Blood Count 15.8 K/UL (4.8-10.8) H 12.3 K/UL (4.8-10.8) H Red Blood Count 2.24 M/UL (4.70-6.10) L 2.78 M/UL (4.70-6.10) L Hemoglobin 7.2 G/DL (14.2-18.0) L 8.4 G/DL (14.2-18.0) L Hematocrit 20.4 % (42.0-52.0) L 25.0 % (42.0-52.0) L Mean Corpuscular Volume 91 FL (80-99) 90 FL (80-99) Mean Corpuscular Hemoglobin 32.1 PG (27.0-31.0) H 30.2 PG (27.0-31.0) Mean Corpuscular Hemoglobin Concent 35.2 G/DL (32.0-36.0) 33.6 G/DL (32.0-36.0) Red Cell Distribution Width 13.7 % (11.6-14.8) 13.7 % (11.6-14.8) Platelet Count 133 K/UL (150-450) L 141 K/UL (150-450) L Mean Platelet Volume 9.8 FL (6.5-10.1) 9.1 FL (6.5-10.1) Neutrophils (%) (Auto) 86.7 % (45.0-75.0) H % (45.0-75.0) Lymphocytes (%) (Auto) 4.8 % (20.0-45.0) L % (20.0-45.0) Monocytes (%) (Auto) 8.0 % (1.0-10.0) % (1.0-10.0) Eosinophils (%) (Auto) 0.2 % (0.0-3.0) % (0.0-3.0) Basophils (%) (Auto) 0.4 % (0.0-2.0) % (0.0-2.0) Differential Total Cells Counted 100 Neutrophils % (Manual) 83 % (45-75) H Lymphocytes % (Manual) 11 % (20-45) L Monocytes % (Manual) 5 % (1-10) Eosinophils % (Manual) 1 % (0-3) Basophils % (Manual) 0 % (0-2) Band Neutrophils 0 % (0-8) Platelet Estimate Decreased L Platelet Morphology Normal Hypochromasia 1+ Sodium Level 137 MMOL/L (136-145) Potassium Level 3.9 MMOL/L (3.5-5.1) Chloride Level 98 MMOL/L (98-107) Carbon Dioxide Level 24 MMOL/L (21-32) Anion Gap 15 mmol/L (5-15) Blood Urea Nitrogen 58 mg/dL (7-18) H Creatinine 8.0 MG/DL (0.55-1.30) H Estimat Glomerular Filtration Rate 7.1 mL/min (>60) Glucose Level 127 MG/DL (74-106) H Calcium Level 7.8 MG/DL (8.5-10.1) L Height (Feet): 5 Height (Inches): 6.00 Weight (Pounds): 195 General Appearance: no apparent distress Cardiovascular: normal rate Respiratory/Chest: normal breath sounds, no respiratory distress Abdominal Exam: normal bowel sounds, non tender, soft Extremities: non-tender Mansoor Allen [employer] HISTORIAN May 23, 2018 12:22
--- NOTE | 2018-05-23 12:50 | Nephrology Progress Note ---
Assessment/Plan Problem List: (1) ESRD (end stage renal disease) on dialysis (2) Retroperitoneal hemorrhage (3) Shock (4) Anemia (5) Abdominal pain (6) Diabetes Assessment hemorrhagic shock- Retro Peritoneal bleed Low BP ESRD DM HTN transfused 3 units since , more if needed Plan HD 05/21- no heparin next 05/23 Transfuse as needed in [facility] now manage pain Per consultants discussed with RN Subjective ROS Limited/Unobtainable: No Constitutional: Reports: malaise Objective Objective Last 24 Hour Vital Signs Date Time Temp Pulse Resp B/P (MAP) Pulse Ox O2 Delivery O2 Flow Rate FiO2 05/23/18 12:00 Nasal Cannula 2.0 05/23/18 08:41 71 05/23/18 08:00 Nasal Cannula 2.0 05/23/18 08:00 98.2 77 18 147/75 (99) 94 05/23/18 07:18 97 Nasal Cannula 2.0 28 05/23/18 07:18 Nasal Cannula 2.0 28 05/23/18 04:30 79 05/23/18 04:00 98.1 76 18 144/79 (100) 94 05/23/18 04:00 Nasal Cannula 2.0 05/23/18 00:00 98.7 78 19 139/74 (95) 98 05/23/18 00:00 Nasal Cannula 2.0 05/23/18 00:00 79 05/22/18 20:00 Nasal Cannula 2.0 05/22/18 20:00 98.1 88 20 135/74 (94) 95 05/22/18 19:30 83 05/22/18 16:45 82 05/22/18 16:00 Nasal Cannula 2.0 05/22/18 16:00 98.9 85 16 150/72 (98) 98 05/22/18 16:00 82 Intake and Output 05/22/18 05/23/18 19:00 07:00 Intake Total 305 ml 555 ml Balance 305 ml 555 ml Intake Oral 250 ml IV Total 55 ml 55 ml Blood Product 250 ml 250 ml Laboratory Tests 05/22/18 17:50: White Blood Count 15.8H, Red Blood Count 2.24L, Hemoglobin 7.2L, Hematocrit 20.4L, Mean Corpuscular Volume 91, Mean Corpuscular Hemoglobin 32.1H, Mean Corpuscular Hemoglobin Concent 35.2, Red Cell Distribution Width 13.7, Platelet Count 133L, Mean Platelet Volume 9.8, Neutrophils (%) (Auto) 86.7H, Lymphocytes (%) (Auto) 4.8L, Monocytes (%) (Auto) 8.0, Eosinophils (%) (Auto) 0.2, Basophils (%) (Auto) 0.4 05/23/18 06:05: White Blood Count 12.3H, Red Blood Count 2.78L, Hemoglobin 8.4L, Hematocrit 25.0L, Mean Corpuscular Volume 90, Mean Corpuscular Hemoglobin 30.2, Mean Corpuscular Hemoglobin Concent 33.6, Red Cell Distribution Width 13.7, Platelet Count 141L, Mean Platelet Volume 9.1, Neutrophils (%) (Auto) , Lymphocytes (%) ( Auto) , Monocytes (%) (Auto) , Eosinophils (%) (Auto) , Basophils (%) (Auto) , Differential Total Cells Counted 100, Neutrophils % (Manual) 83H, Lymphocytes % (Manual) 11L, Monocytes % (Manual) 5, Eosinophils % (Manual) 1, Basophils % ( Manual) 0, Band Neutrophils 0, Platelet Estimate DecreasedL, Platelet Morphology Normal, Hypochromasia 1+, Sodium Level 137, Potassium Level 3.9, Chloride Level 98, Carbon Dioxide Level 24, Anion Gap 15, Blood Urea Nitrogen 58H, Creatinine 8.0H, Estimat Glomerular Filtration Rate 7.1, Glucose Level 127H , Calcium Level 7.8L Height (Feet): 5 Height (Inches): 6.00 Weight (Pounds): 195 General Appearance: no apparent distress Cardiovascular: regular rhythm Respiratory/Chest: decreased breath sounds Abdomen: distended Objective no change Dm Lopez MD May 23, 2018 12:50
--- NOTE | 2018-05-23 15:45 | General Progress Note ---
Assessment/Plan Status: unchanged Assessment/Plan anxiety d/o ativan prn provided ro/st Subjective Date patient seen: May 23, 2018 Neurologic/Psychiatric: Reports: anxiety, depressed, emotional problems Allergies: Coded Allergies: No Known Allergies (Unverified , 05/20/18) Objective Last 24 Hour Vital Signs Date Time Temp Pulse Resp B/P (MAP) Pulse Ox O2 Delivery O2 Flow Rate FiO2 05/23/18 12:00 98.5 77 18 141/73 (95) 95 05/23/18 12:00 Nasal Cannula 2.0 05/23/18 12:00 88 05/23/18 08:41 71 05/23/18 08:00 Nasal Cannula 2.0 05/23/18 08:00 98.2 77 18 147/75 (99) 94 05/23/18 07:18 97 Nasal Cannula 2.0 28 05/23/18 07:18 Nasal Cannula 2.0 28 05/23/18 04:30 79 05/23/18 04:00 98.1 76 18 144/79 (100) 94 05/23/18 04:00 Nasal Cannula 2.0 05/23/18 00:00 98.7 78 19 139/74 (95) 98 05/23/18 00:00 Nasal Cannula 2.0 05/23/18 00:00 79 05/22/18 20:00 Nasal Cannula 2.0 05/22/18 20:00 98.1 88 20 135/74 (94) 95 05/22/18 19:30 83 05/22/18 16:45 82 05/22/18 16:00 Nasal Cannula 2.0 05/22/18 16:00 98.9 85 16 150/72 (98) 98 05/22/18 16:00 82 Intake and Output 05/22/18 05/23/18 19:00 07:00 Intake Total 305 ml 555 ml Balance 305 ml 555 ml Intake Oral 250 ml IV Total 55 ml 55 ml Blood Product 250 ml 250 ml Laboratory Tests 05/22/18 17:50: White Blood Count 15.8H, Red Blood Count 2.24L, Hemoglobin 7.2L, Hematocrit 20.4L, Mean Corpuscular Volume 91, Mean Corpuscular Hemoglobin 32.1H, Mean Corpuscular Hemoglobin Concent 35.2, Red Cell Distribution Width 13.7, Platelet Count 133L, Mean Platelet Volume 9.8, Neutrophils (%) (Auto) 86.7H, Lymphocytes (%) (Auto) 4.8L, Monocytes (%) (Auto) 8.0, Eosinophils (%) (Auto) 0.2, Basophils (%) (Auto) 0.4 05/23/18 06:05: White Blood Count 12.3H, Red Blood Count 2.78L, Hemoglobin 8.4L, Hematocrit 25.0L, Mean Corpuscular Volume 90, Mean Corpuscular Hemoglobin 30.2, Mean Corpuscular Hemoglobin Concent 33.6, Red Cell Distribution Width 13.7, Platelet Count 141L, Mean Platelet Volume 9.1, Neutrophils (%) (Auto) , Lymphocytes (%) ( Auto) , Monocytes (%) (Auto) , Eosinophils (%) (Auto) , Basophils (%) (Auto) , Differential Total Cells Counted 100, Neutrophils % (Manual) 83H, Lymphocytes % (Manual) 11L, Monocytes % (Manual) 5, Eosinophils % (Manual) 1, Basophils % ( Manual) 0, Band Neutrophils 0, Platelet Estimate DecreasedL, Platelet Morphology Normal, Hypochromasia 1+, Sodium Level 137, Potassium Level 3.9, Chloride Level 98, Carbon Dioxide Level 24, Anion Gap 15, Blood Urea Nitrogen 58H, Creatinine 8.0H, Estimat Glomerular Filtration Rate 7.1, Glucose Level 127H , Calcium Level 7.8L Height (Feet): 5 Height (Inches): 6.00 Weight (Pounds): 195 General Appearance: alert Neurologic: oriented x 3, responsive, depressed affect Chris Driscoll MD May 23, 2018 15:45
[2018-05-23 16:00] VITALS: BP 162/82
--- NOTE | 2018-05-23 16:27 | Infectious Diseases Prog Note ---
Assessment/Plan Problems: (1) Renal hematoma, right Assessment & Plan: with extension to the retroperitoneal area , continue close monitor or H/H and serial images for follow up, watch out for abscess formation (2) Sepsis Assessment & Plan: with leukocytosis , due to the above, await blood culture and continue zosyn empirically , close monitor of WBC (3) Shock Assessment & Plan: suspect hemorrhagic due to the above, continue hydration with blood transfusion as needed , will send blood culture to rule out sepsis (4) Retroperitoneal hemorrhage Assessment & Plan: continue H/H monitoring with blood transfusion , and serial imaging for follow up, avoid anticoagulation (5) ESRD (end stage renal disease) on dialysis Assessment & Plan: on HD, renal is following (6) Diabetes Assessment & Plan: recommend tight glycemic control to keep blood glucose between 100-140 Subjective Constitutional: Reports: no symptoms HEENT: Reports: no symptoms Respiratory: Reports: no symptoms Breasts: Reports: no symptoms Cardiovascular: Reports: no symptoms Gastrointestinal/Abdominal: Reports: bloating, other - right flank pain Genitourinary: Reports: no symptoms Neurologic: Reports: no symptoms Psychiatric: Reports: no symptoms Skin: Reports: no symptoms Endocrine: Reports: no symptoms Hematologic: Reports: no symptoms Musculoskeletal: Reports: no symptoms Allergies: Coded Allergies: No Known Allergies (Unverified , 05/20/18) Objective Vital Signs Last 24 Hour Vital Signs Date Time Temp Pulse Resp B/P (MAP) Pulse Ox O2 Delivery O2 Flow Rate FiO2 05/23/18 12:00 98.5 77 18 141/73 (95) 95 05/23/18 12:00 Nasal Cannula 2.0 05/23/18 12:00 88 05/23/18 08:41 71 05/23/18 08:00 Nasal Cannula 2.0 05/23/18 08:00 98.2 77 18 147/75 (99) 94 05/23/18 07:18 97 Nasal Cannula 2.0 28 05/23/18 07:18 Nasal Cannula 2.0 28 05/23/18 04:30 79 05/23/18 04:00 98.1 76 18 144/79 (100) 94 05/23/18 04:00 Nasal Cannula 2.0 05/23/18 00:00 98.7 78 19 139/74 (95) 98 05/23/18 00:00 Nasal Cannula 2.0 05/23/18 00:00 79 05/22/18 20:00 Nasal Cannula 2.0 05/22/18 20:00 98.1 88 20 135/74 (94) 95 05/22/18 19:30 83 05/22/18 16:45 82 Height (Feet): 5 Height (Inches): 6.00 Weight (Pounds): 195 General Appearance: WD/WN, no acute distress HEENT: normocephalic, atraumatic, anicteric, mucous membranes moist, PERRL, EOMI, pharynx normal, supple, no JVD Respiratory/Chest: chest wall non-tender, lungs clear, normal breath sounds, no respiratory distress, no accessory muscle use Cardiovascular: normal peripheral pulses, normal rate, regular rhythm, no gallop/murmur, no JVD Abdomen: normal bowel sounds, no organomegaly, no mass, no scars, distended, tender Extremities: no cyanosis, no clubbing Skin: no rash, no lesions, no ulcers Neurologic/Psychiatric: alert, oriented x 3, responsive Lymphatic: no neck adenopathy, no groin adenopathy Laboratory Tests Test 05/22/18 17:50 05/23/18 06:05 White Blood Count 15.8 K/UL (4.8-10.8) H 12.3 K/UL (4.8-10.8) H Red Blood Count 2.24 M/UL (4.70-6.10) L 2.78 M/UL (4.70-6.10) L Hemoglobin 7.2 G/DL (14.2-18.0) L 8.4 G/DL (14.2-18.0) L Hematocrit 20.4 % (42.0-52.0) L 25.0 % (42.0-52.0) L Mean Corpuscular Volume 91 FL (80-99) 90 FL (80-99) Mean Corpuscular Hemoglobin 32.1 PG (27.0-31.0) H 30.2 PG (27.0-31.0) Mean Corpuscular Hemoglobin Concent 35.2 G/DL (32.0-36.0) 33.6 G/DL (32.0-36.0) Red Cell Distribution Width 13.7 % (11.6-14.8) 13.7 % (11.6-14.8) Platelet Count 133 K/UL (150-450) L 141 K/UL (150-450) L Mean Platelet Volume 9.8 FL (6.5-10.1) 9.1 FL (6.5-10.1) Neutrophils (%) (Auto) 86.7 % (45.0-75.0) H % (45.0-75.0) Lymphocytes (%) (Auto) 4.8 % (20.0-45.0) L % (20.0-45.0) Monocytes (%) (Auto) 8.0 % (1.0-10.0) % (1.0-10.0) Eosinophils (%) (Auto) 0.2 % (0.0-3.0) % (0.0-3.0) Basophils (%) (Auto) 0.4 % (0.0-2.0) % (0.0-2.0) Differential Total Cells Counted 100 Neutrophils % (Manual) 83 % (45-75) H Lymphocytes % (Manual) 11 % (20-45) L Monocytes % (Manual) 5 % (1-10) Eosinophils % (Manual) 1 % (0-3) Basophils % (Manual) 0 % (0-2) Band Neutrophils 0 % (0-8) Platelet Estimate Decreased L Platelet Morphology Normal Hypochromasia 1+ Sodium Level 137 MMOL/L (136-145) Potassium Level 3.9 MMOL/L (3.5-5.1) Chloride Level 98 MMOL/L (98-107) Carbon Dioxide Level 24 MMOL/L (21-32) Anion Gap 15 mmol/L (5-15) Blood Urea Nitrogen 58 mg/dL (7-18) H Creatinine 8.0 MG/DL (0.55-1.30) H Estimat Glomerular Filtration Rate 7.1 mL/min (>60) Glucose Level 127 MG/DL (74-106) H Calcium Level 7.8 MG/DL (8.5-10.1) L Current Medications Medications (Trade) Dose Ordered Sig/Santos Route PRN Reason Start Time Stop Time Status Last Admin Dose Admin Acetaminophen/ Hydrocodone Bitart ([place] 5/325) 1 tab TIDPRN PRN ORAL Moderate Pain (Pain Scale 4-6) 05/22/18 09:00 11/13/18 08:59 Barium Sulfate (Readi-Cat 2) 450 ml NOW PRN ORAL Radiology Procedure 05/22/18 12:00 05/24/18 11:59 Dextrose (Dextrose 50%) 25 ml Q30M PRN IV Hypoglycemia 05/22/18 09:00 06/19/18 08:59 Dextrose (Dextrose 50%) 50 ml Q30M PRN IV Hypoglycemia 05/22/18 09:00 06/19/18 08:59 Docusate Sodium (Colace) 100 mg THREE TIMES A DAY ORAL 05/22/18 09:00 06/19/18 12:59 05/22/18 18:23 Epoetin Jayme (Procrit (for ESRD on dialysis)) 10,000 units MON-MON-MON SUBQ 05/23/18 21:00 06/22/18 20:59 Insulin Aspart (NovoLOG) BEFORE MEALS AND HS SUBQ 05/22/18 11:30 06/19/18 06:29 05/23/18 12:07 Insulin Detemir (Levemir) 6 units DAILY SUBQ 05/22/18 09:00 06/20/18 11:59 05/23/18 09:07 Lactulose (Cephulac) 20 gm TWICE A DAY ORAL 05/22/18 09:00 06/20/18 05:59 05/22/18 18:23 Lorazepam (Ativan) 0.5 mg TIDPRN PRN ORAL For Anxiety 05/22/18 09:00 05/29/18 08:59 Morphine Sulfate (Morphine Sulfate) 3 mg QIDPRN PRN IVP Severe Pain (Pain Scale 7-10) 05/22/18 09:00 05/29/18 08:59 Ondansetron HCl (Zofran) 4 mg TIDPRN PRN IVP Nausea & Vomiting 05/22/18 09:00 06/21/18 08:59 Pantoprazole (Protonix) 40 mg BID ORAL 05/23/18 18:00 06/22/18 17:59 Piperacillin Sod/ Tazobactam Sod 2.25 gm/Dextrose 55 ml @ 110 mls/hr Q8HR IVPB 05/22/18 15:00 05/27/18 14:59 05/23/18 14:03 Sevelamer Carbonate (Renvela) 1,600 mg THREE TIMES A DAY ORAL 05/23/18 13:00 06/20/18 12:59 05/23/18 12:56 Sodium Chloride 500 ml @ 999 mls/hr Q4H PRN IV SBP less than 100mmhg 05/22/18 09:00 06/19/18 08:59 Rowena Garcia M.D. May 23, 2018 16:27
[2018-05-23] MEDS ORDERED: Tubing IV Blood Pump IV ONE (16:39)
[2018-05-23] MEDS ORDERED: Tubing IV Secondary IV ONE (16:39)
[2018-05-23 20:00] VITALS: BP 164/82
[2018-05-23] MEDS: Epogen (for ESRD on dialysis) SUBQ SCH (21:25)
[2018-05-24] VITALS: BP 164/81
--- NOTE | 2018-05-24 03:16 | Progress Note ---
DATE: 05/23/2018 REASON FOR FOLLOW UP: Right retroperitoneal hematoma. I was seeing this patient to follow up with Dr. Fernandez who was concerned about hematoma in the right retroperitoneum. The patient had a CT scan yesterday which showed no extension of hematoma compared to the CT scan done on the 05/20/2018. No evidence of increasing hematoma. His hematocrit yesterday was 20 and today is 25 after one unit of blood transfusion. He is currently on dialysis because his baseline creatinine yesterday was 8. PHYSICAL EXAMINATION: ABDOMEN: Soft, and nontender. I would recommend to just continue observing patient with periodic hematocrit checks and he will need a CT scan to follow hematoma in 2 to 3 weeks if hematocrit is stable. If hematocrit continues to drop, he will need a repeat CT scan and possible embolization of the renal artery. Amado Webb M.D. DR: Franchesca JOB#: [id number] CC:
[2018-05-24 04:00] VITALS: BP 161/81
[2018-05-24 04:38] LABS: BASOPHILS % (AUTO) 0.6 % (0.0-2.0); EOSINOPHILS % (AUTO) 1.7 % (0.0-3.0); HEMATOCRIT 23.7 % (42.0-52.0); HEMOGLOBIN 8.1 G/DL (14.2-18.0); LYMPHOCYTES % (AUTO) 6.7 % (20.0-45.0); MEAN CORPUSCULAR VOLUME 90 FL (80-99); MONOCYTES % (AUTO) 7.6 % (1.0-10.0); NEUTROPHILS % (AUTO) 83.4 % (45.0-75.0); PLATELET COUNT 139 K/UL (150-450); RED BLOOD COUNT 2.62 M/UL (4.70-6.10); RED CELL DISTRIBUTION WIDTH 13.6 % (11.6-14.8); WHITE BLOOD COUNT 9.6 K/UL (4.8-10.8)
[2018-05-24 04:51] LABS: ALANINE AMINOTRANSFERASE 35 U/L (12-78); ALBUMIN 2.6 G/DL (3.4-5.0); ALBUMIN/GLOBULIN RATIO 0.5 (1.0-2.7); ALKALINE PHOSPHATASE 61 U/L (46-116); ANION GAP 12 mmol/L (5-15); ASPARTATE AMINO TRANSFERASE 31 U/L (15-37); BILIRUBIN,TOTAL 0.9 MG/DL (0.2-1.0); BLOOD UREA NITROGEN 50 mg/dL (7-18); CARBON DIOXIDE 30 MMOL/L (21-32); CHLORIDE 97 MMOL/L (98-107); CREATININE 6.8 MG/DL (0.55-1.30); POTASSIUM 3.6 MMOL/L (3.5-5.1); SODIUM 139 MMOL/L (136-145)
[2018-05-24] MEDS: Piperacillin/Tazobactam 2.25 GM in D5W 55 ML IVPB SCH ×3 (05:33→22:02)
[2018-05-24] MEDS: NovoLOG Insulin Flexpen SUBQ SCH ×4 (05:35→21:00)
--- NOTE | 2018-05-24 07:45 | General Progress Note ---
Assessment/Plan Problem List: (1) Retroperitoneal hemorrhage ICD Codes: R58 - Hemorrhage, not elsewhere classified SNOMED: 46296350 (2) ESRD (end stage renal disease) on dialysis ICD Codes: N18.6 - End stage renal disease; Z99.2 - Dependence on renal dialysis SNOMED: 328142449 (3) Diabetes ICD Codes: E11.9 - Type 2 diabetes mellitus without complications SNOMED: 57658963 Assessment/Plan continue Levemir 6 units qam continue NISS ac / hs Subjective Allergies: Coded Allergies: No Known Allergies (Unverified , 05/20/18) All Systems: reviewed and negative except above Subjective events noted glucose values are stable Objective Last 24 Hour Vital Signs Date Time Temp Pulse Resp B/P (MAP) Pulse Ox O2 Delivery O2 Flow Rate FiO2 05/24/18 04:00 97.7 90 24 161/81 (107) 92 05/24/18 04:00 Nasal Cannula 2.0 05/24/18 03:30 86 05/24/18 00:00 97.7 84 20 164/81 (108) 97 05/24/18 00:00 Nasal Cannula 2.0 05/23/18 23:20 83 05/23/18 20:00 Nasal Cannula 2.0 05/23/18 20:00 98.8 94 20 164/82 (109) 97 05/23/18 19:30 Nasal Cannula 2.0 28 05/23/18 19:30 97 Nasal Cannula 2.0 28 05/23/18 19:09 96 05/23/18 16:00 Nasal Cannula 2.0 05/23/18 16:00 98.7 71 20 162/82 (108) 99 05/23/18 16:00 94 05/23/18 12:00 98.5 77 18 141/73 (95) 95 05/23/18 12:00 Nasal Cannula 2.0 05/23/18 12:00 88 05/23/18 08:41 71 05/23/18 08:00 Nasal Cannula 2.0 05/23/18 08:00 98.2 77 18 147/75 (99) 94 Intake and Output 05/23/18 05/24/18 19:00 07:00 Intake Total 715 ml 300 ml Output Total 1000 ml Balance -285 ml 300 ml Intake Oral 660 ml 300 ml IV Total 55 ml Hemodialysis UF 1000 ml # Voids 1 Laboratory Tests 05/24/18 03:00: White Blood Count 9.6, Red Blood Count 2.62L, Hemoglobin 8.1L, Hematocrit 23.7L , Mean Corpuscular Volume 90, Mean Corpuscular Hemoglobin 30.9, Mean Corpuscular Hemoglobin Concent 34.1, Red Cell Distribution Width 13.6, Platelet Count 139L, Mean Platelet Volume 10.5H, Neutrophils (%) (Auto) 83.4H, Lymphocytes (%) (Auto) 6.7L, Monocytes (%) (Auto) 7.6, Eosinophils (%) (Auto) 1.7, Basophils (%) (Auto) 0.6, Sodium Level 139, Potassium Level 3.6, Chloride Level 97L, Carbon Dioxide Level 30, Anion Gap 12, Blood Urea Nitrogen 50H, Creatinine 6.8H, Estimat Glomerular Filtration Rate 8.6, Glucose Level 138H, Calcium Level 8.0L, Phosphorus Level 3.0, Magnesium Level 2.5H, Total Bilirubin 0.9, Aspartate Amino Transf (AST/SGOT) 31, Alanine Aminotransferase (ALT/SGPT) 35, Alkaline Phosphatase 61, Total Protein 7.6, Albumin 2.6L, Globulin 5.0, Albumin/Globulin Ratio 0.5L Height (Feet): 5 Height (Inches): 6.00 Weight (Pounds): 160 General Appearance: no apparent distress Neck: normal alignment Cardiovascular: normal rate Respiratory/Chest: lungs clear Abdomen: normal bowel sounds Pelvis: normal external exam Objective Current Medications Medications (Trade) Dose Ordered Sig/Santos Route PRN Reason Start Time Stop Time Status Last Admin Dose Admin Acetaminophen/ Hydrocodone Bitart ([place] 5/325) 1 tab TIDPRN PRN ORAL Moderate Pain (Pain Scale 4-6) 05/22/18 09:00 05/29/18 08:59 Barium Sulfate (Readi-Cat 2) 450 ml NOW PRN ORAL Radiology Procedure 05/22/18 12:00 05/24/18 11:59 Dextrose (Dextrose 50%) 25 ml Q30M PRN IV Hypoglycemia 05/22/18 09:00 06/19/18 08:59 Dextrose (Dextrose 50%) 50 ml Q30M PRN IV Hypoglycemia 05/22/18 09:00 06/19/18 08:59 Docusate Sodium (Colace) 100 mg THREE TIMES A DAY ORAL 05/22/18 09:00 06/19/18 12:59 05/22/18 18:23 Epoetin Jayme (Procrit (for ESRD on dialysis)) 10,000 units MON-MON-MON SUBQ 05/23/18 21:00 06/22/18 20:59 05/23/18 21:25 Insulin Aspart (NovoLOG) BEFORE MEALS AND HS SUBQ 05/22/18 11:30 06/19/18 06:29 05/24/18 05:35 Insulin Detemir (Levemir) 6 units DAILY SUBQ 05/22/18 09:00 06/20/18 11:59 05/23/18 09:07 Lactulose (Cephulac) 20 gm TWICE A DAY ORAL 05/22/18 09:00 06/20/18 05:59 05/22/18 18:23 Lorazepam (Ativan) 0.5 mg TIDPRN PRN ORAL For Anxiety 05/22/18 09:00 05/29/18 08:59 Morphine Sulfate (Morphine Sulfate) 3 mg QIDPRN PRN IVP Severe Pain (Pain Scale 7-10) 05/22/18 09:00 05/29/18 08:59 Ondansetron HCl (Zofran) 4 mg TIDPRN PRN IVP Nausea & Vomiting 05/22/18 09:00 06/21/18 08:59 Pantoprazole (Protonix) 40 mg BID ORAL 05/23/18 18:00 06/22/18 17:59 05/23/18 17:50 Piperacillin Sod/ Tazobactam Sod 2.25 gm/Dextrose 55 ml @ 110 mls/hr Q8HR IVPB 05/22/18 15:00 05/27/18 14:59 05/24/18 05:33 Sevelamer Carbonate (Renvela) 1,600 mg THREE TIMES A DAY ORAL 05/23/18 13:00 06/20/18 12:59 05/23/18 17:50 Sodium Chloride 500 ml @ 999 mls/hr Q4H PRN IV SBP less than 100mmhg 05/22/18 09:00 06/19/18 08:59 Item Value Date Time Bedside Blood Glucose 139 mg/dl H 05/24/18 0630 Bedside Blood Glucose 241 mg/dl H 11/7/18 2126 Bedside Blood Glucose 192 mg/dl H 05/23/18 1654 Bedside Blood Glucose 152 mg/dl H 05/23/18 1207 Bedside Blood Glucose 136 mg/dl H 05/23/18 0907 Willard Bonds MD May 24, 2018 07:45
[2018-05-24 08:00] VITALS: BP 160/78
[2018-05-24] MEDS: Lactulose 20gm/30ml UDC ORAL SCH ×4 (08:55→20:15)
[2018-05-24] MEDS: Docusate 100mg cap ORAL SCH ×3 (08:56→17:20)
[2018-05-24] MEDS: Levemir Flexpen SUBQ SCH (09:03)
--- NOTE | 2018-05-24 10:23 | Nephrology Progress Note ---
Assessment/Plan Problem List: (1) ESRD (end stage renal disease) on dialysis (2) Retroperitoneal hemorrhage (3) Shock (4) Anemia (5) Abdominal pain (6) Diabetes Assessment stable- presented with: hemorrhagic shock- Retro Peritoneal bleed Low BP ESRD DM HTN transfused 3 units since , more if needed Plan HD next 05/25 Transfuse as needed in [place] now manage pain Per consultants discussed with RN meds adjusted Subjective ROS Limited/Unobtainable: No Constitutional: Reports: malaise Objective Objective Last 24 Hour Vital Signs Date Time Temp Pulse Resp B/P (MAP) Pulse Ox O2 Delivery O2 Flow Rate FiO2 05/24/18 08:00 97.9 89 20 160/78 (105) 97 05/24/18 04:00 97.7 90 24 161/81 (107) 92 05/24/18 04:00 Nasal Cannula 2.0 05/24/18 03:30 86 05/24/18 00:00 97.7 84 20 164/81 (108) 97 05/24/18 00:00 Nasal Cannula 2.0 05/23/18 23:20 83 05/23/18 20:00 Nasal Cannula 2.0 05/23/18 20:00 98.8 94 20 164/82 (109) 97 05/23/18 19:30 Nasal Cannula 2.0 28 05/23/18 19:30 97 Nasal Cannula 2.0 28 05/23/18 19:09 96 05/23/18 16:00 Nasal Cannula 2.0 05/23/18 16:00 98.7 71 20 162/82 (108) 99 05/23/18 16:00 94 05/23/18 12:00 98.5 77 18 141/73 (95) 95 05/23/18 12:00 Nasal Cannula 2.0 05/23/18 12:00 88 Intake and Output 05/23/18 05/24/18 19:00 07:00 Intake Total 715 ml 300 ml Output Total 1000 ml Balance -285 ml 300 ml Intake Oral 660 ml 300 ml IV Total 55 ml Hemodialysis UF 1000 ml # Voids 1 Laboratory Tests 05/24/18 03:00: White Blood Count 9.6, Red Blood Count 2.62L, Hemoglobin 8.1L, Hematocrit 23.7L , Mean Corpuscular Volume 90, Mean Corpuscular Hemoglobin 30.9, Mean Corpuscular Hemoglobin Concent 34.1, Red Cell Distribution Width 13.6, Platelet Count 139L, Mean Platelet Volume 10.5H, Neutrophils (%) (Auto) 83.4H, Lymphocytes (%) (Auto) 6.7L, Monocytes (%) (Auto) 7.6, Eosinophils (%) (Auto) 1.7, Basophils (%) (Auto) 0.6, Sodium Level 139, Potassium Level 3.6, Chloride Level 97L, Carbon Dioxide Level 30, Anion Gap 12, Blood Urea Nitrogen 50H, Creatinine 6.8H, Estimat Glomerular Filtration Rate 8.6, Glucose Level 138H, Calcium Level 8.0L, Phosphorus Level 3.0, Magnesium Level 2.5H, Total Bilirubin 0.9, Aspartate Amino Transf (AST/SGOT) 31, Alanine Aminotransferase (ALT/SGPT) 35, Alkaline Phosphatase 61, Total Protein 7.6, Albumin 2.6L, Globulin 5.0, Albumin/Globulin Ratio 0.5L Height (Feet): 5 Height (Inches): 6.00 Weight (Pounds): 160 General Appearance: no apparent distress Cardiovascular: tachycardia Respiratory/Chest: decreased breath sounds Abdomen: distended Objective no change Dm Lopez MD May 24, 2018 10:23
[2018-05-24] MEDS ORDERED: Metoprolol Tartrate 12.5mg TAB ORAL SCH (10:30)
--- NOTE | 2018-05-24 10:50 | General Progress Note ---
Assessment/Plan Status: stable Assessment/Plan S: I am ok O: appears comfortable. Complains of right sided abdominal pain . PHYSICAL EXAMINATION: HEAD AND NECK: Atraumatic and normocephalic. CHEST: Clear to auscultation. No wheezing. No crackles. HEART: S1 and S2. Regular rate and rhythm. ABDOMEN: Tender noted. Negative for rebound tenderness. NEUROLOGIC: The patient is awake, alert, and oriented x3. PSYCHIATRIC: Mood and affect are appropriate and normal. MUSCULOSKELETAL: No gross lateralized motor deficit. Meds: reviewed and reconciled, including NovoLog 5 u tid IMAGING: CT scan of abdomen and pelvis dated May 20, 2018 reviewed showing the right perinephric hematoma. ASSESSMENT AND PLAN: 1. Acute Right Perinephric Hemorrhage 3. Acute anemia. 4. Diabetes type 5 Hypovolemic Shock : Stable 6. GI-DVT prophylaxis 7. HTN: uncontrolled Plan: will monitor HH, Will proceed with PRBC transfusion with Hgb < 7.3 Notes from Urology , Nephro, Endo, Critical specialist are reviewed will start low dose Lantus, Stable appearance of right perinephric hematoma by l imaging Optimization of BP meds Subjective Allergies: Coded Allergies: No Known Allergies (Unverified , 05/20/18) Objective Last 24 Hour Vital Signs Date Time Temp Pulse Resp B/P (MAP) Pulse Ox O2 Delivery O2 Flow Rate FiO2 05/24/18 08:00 97.9 89 20 160/78 (105) 97 05/24/18 04:00 97.7 90 24 161/81 (107) 92 05/24/18 04:00 Nasal Cannula 2.0 05/24/18 03:30 86 05/24/18 00:00 97.7 84 20 164/81 (108) 97 05/24/18 00:00 Nasal Cannula 2.0 05/23/18 23:20 83 05/23/18 20:00 Nasal Cannula 2.0 05/23/18 20:00 98.8 94 20 164/82 (109) 97 05/23/18 19:30 Nasal Cannula 2.0 28 05/23/18 19:30 97 Nasal Cannula 2.0 28 05/23/18 19:09 96 05/23/18 16:00 Nasal Cannula 2.0 05/23/18 16:00 98.7 71 20 162/82 (108) 99 05/23/18 16:00 94 05/23/18 12:00 98.5 77 18 141/73 (95) 95 05/23/18 12:00 Nasal Cannula 2.0 05/23/18 12:00 88 Intake and Output 05/23/18 05/24/18 19:00 07:00 Intake Total 715 ml 300 ml Output Total 1000 ml Balance -285 ml 300 ml Intake Oral 660 ml 300 ml IV Total 55 ml Hemodialysis UF 1000 ml # Voids 1 Laboratory Tests 05/24/18 03:00: White Blood Count 9.6, Red Blood Count 2.62L, Hemoglobin 8.1L, Hematocrit 23.7L , Mean Corpuscular Volume 90, Mean Corpuscular Hemoglobin 30.9, Mean Corpuscular Hemoglobin Concent 34.1, Red Cell Distribution Width 13.6, Platelet Count 139L, Mean Platelet Volume 10.5H, Neutrophils (%) (Auto) 83.4H, Lymphocytes (%) (Auto) 6.7L, Monocytes (%) (Auto) 7.6, Eosinophils (%) (Auto) 1.7, Basophils (%) (Auto) 0.6, Sodium Level 139, Potassium Level 3.6, Chloride Level 97L, Carbon Dioxide Level 30, Anion Gap 12, Blood Urea Nitrogen 50H, Creatinine 6.8H, Estimat Glomerular Filtration Rate 8.6, Glucose Level 138H, Calcium Level 8.0L, Phosphorus Level 3.0, Magnesium Level 2.5H, Total Bilirubin 0.9, Aspartate Amino Transf (AST/SGOT) 31, Alanine Aminotransferase (ALT/SGPT) 35, Alkaline Phosphatase 61, Total Protein 7.6, Albumin 2.6L, Globulin 5.0, Albumin/Globulin Ratio 0.5L Height (Feet): 5 Height (Inches): 6.00 Weight (Pounds): 160 Baljit Flores MD May 24, 2018 10:50
--- NOTE | 2018-05-24 11:56 | GI Progress Note ---
Assessment/Plan Problems: (1) Retroperitoneal hemorrhage ICD Codes: R58 - Hemorrhage, not elsewhere classified SNOMED: 77620290 (2) Anemia ICD Codes: D64.9 - Anemia, unspecified SNOMED: 640282772 (3) Diabetes ICD Codes: E11.9 - Type 2 diabetes mellitus without complications SNOMED: 09773340 (4) Abdominal pain ICD Codes: R10.9 - Unspecified abdominal pain SNOMED: 36595143 (5) Shock ICD Codes: R57.9 - Shock, unspecified SNOMED: 94248356 (6) ESRD (end stage renal disease) on dialysis ICD Codes: N18.6 - End stage renal disease; Z99.2 - Dependence on renal dialysis SNOMED: 441875334 Status: stable Status Narrative Discussed with Dr. Mcgee. Assessment/Plan CT AP reviewed >> Large complex hemorrhage/hemorrhagic mass occupying majority of the right kidney with extensive perinephric fluid/blood extending into the retroperitoneum and pelvis. iron deficiency Anemia, most likely due to chronic disease >> OB stool r/o GI bleeding venofer renal diet ppi BID prn transfusions abx fu surgical recommendations fu labs The patient was seen and examined at bedside and all new and available data was reviewed in the patients chart. I agree with the above findings, impression and plan. (Patient seen earlier today. Signature stamp does not reflect patient encounter time.). - Elvis Mcgee MD Subjective Gastrointestinal/Abdominal: Reports: abdominal pain Subjective limited Objective Last 24 Hour Vital Signs Date Time Temp Pulse Resp B/P (MAP) Pulse Ox O2 Delivery O2 Flow Rate FiO2 05/24/18 10:56 88 175/90 05/24/18 08:00 85 05/24/18 08:00 97.9 89 20 160/78 (105) 97 05/24/18 08:00 Nasal Cannula 2.0 05/24/18 04:00 97.7 90 24 161/81 (107) 92 05/24/18 04:00 Nasal Cannula 2.0 05/24/18 03:30 86 05/24/18 00:00 97.7 84 20 164/81 (108) 97 05/24/18 00:00 Nasal Cannula 2.0 05/23/18 23:20 83 05/23/18 20:00 Nasal Cannula 2.0 05/23/18 20:00 98.8 94 20 164/82 (109) 97 05/23/18 19:30 Nasal Cannula 2.0 28 05/23/18 19:30 97 Nasal Cannula 2.0 28 05/23/18 19:09 96 05/23/18 16:00 Nasal Cannula 2.0 05/23/18 16:00 98.7 71 20 162/82 (108) 99 05/23/18 16:00 94 05/23/18 12:00 98.5 77 18 141/73 (95) 95 05/23/18 12:00 Nasal Cannula 2.0 05/23/18 12:00 88 Intake and Output 05/23/18 05/24/18 19:00 07:00 Intake Total 715 ml 300 ml Output Total 1000 ml Balance -285 ml 300 ml Intake Oral 660 ml 300 ml IV Total 55 ml Hemodialysis UF 1000 ml # Voids 1 Laboratory Tests Test 05/24/18 03:00 White Blood Count 9.6 K/UL (4.8-10.8) Red Blood Count 2.62 M/UL (4.70-6.10) L Hemoglobin 8.1 G/DL (14.2-18.0) L Hematocrit 23.7 % (42.0-52.0) L Mean Corpuscular Volume 90 FL (80-99) Mean Corpuscular Hemoglobin 30.9 PG (27.0-31.0) Mean Corpuscular Hemoglobin Concent 34.1 G/DL (32.0-36.0) Red Cell Distribution Width 13.6 % (11.6-14.8) Platelet Count 139 K/UL (150-450) L Mean Platelet Volume 10.5 FL (6.5-10.1) H Neutrophils (%) (Auto) 83.4 % (45.0-75.0) H Lymphocytes (%) (Auto) 6.7 % (20.0-45.0) L Monocytes (%) (Auto) 7.6 % (1.0-10.0) Eosinophils (%) (Auto) 1.7 % (0.0-3.0) Basophils (%) (Auto) 0.6 % (0.0-2.0) Sodium Level 139 MMOL/L (136-145) Potassium Level 3.6 MMOL/L (3.5-5.1) Chloride Level 97 MMOL/L (98-107) L Carbon Dioxide Level 30 MMOL/L (21-32) Anion Gap 12 mmol/L (5-15) Blood Urea Nitrogen 50 mg/dL (7-18) H Creatinine 6.8 MG/DL (0.55-1.30) H Estimat Glomerular Filtration Rate 8.6 mL/min (>60) Glucose Level 138 MG/DL (74-106) H Calcium Level 8.0 MG/DL (8.5-10.1) L Phosphorus Level 3.0 MG/DL (2.5-4.9) Magnesium Level 2.5 MG/DL (1.8-2.4) H Total Bilirubin 0.9 MG/DL (0.2-1.0) Aspartate Amino Transf (AST/SGOT) 31 U/L (15-37) Alanine Aminotransferase (ALT/SGPT) 35 U/L (12-78) Alkaline Phosphatase 61 U/L (46-116) Total Protein 7.6 G/DL (6.4-8.2) Albumin 2.6 G/DL (3.4-5.0) L Globulin 5.0 g/dL Albumin/Globulin Ratio 0.5 (1.0-2.7) L Height (Feet): 5 Height (Inches): 6.00 Weight (Pounds): 160 General Appearance: WD/WN, no apparent distress, alert Cardiovascular: normal rate Respiratory/Chest: normal breath sounds, no respiratory distress Abdominal Exam: normal bowel sounds, non tender, soft Extremities: normal range of motion, non-tender Mansoor Allen NP May 24, 2018 11:56
[2018-05-24 12:00] VITALS: BP 167/80
[2018-05-24] MEDS ORDERED: Promethazine/DM 6.25mg/5ml ORAL PRN (12:00)
[2018-05-24] MEDS: HydrALAZINE 25mg tab ORAL PRN (12:57)
--- NOTE | 2018-05-24 14:24 | Infectious Diseases Prog Note ---
Assessment/Plan Problems: (1) Renal hematoma, right Assessment & Plan: with extension to the retroperitoneal area , continue close monitor or H/H and serial images for follow up, watch out for abscess formation (2) Sepsis Assessment & Plan: with leukocytosis , due to the above, monitor blood culture and continue zosyn empirically , close monitor of WBC (3) Shock Assessment & Plan: suspect hemorrhagic due to the above, continue hydration with blood transfusion as needed , will send blood culture to rule out sepsis (4) Retroperitoneal hemorrhage Assessment & Plan: continue H/H monitoring with blood transfusion , and serial imaging for follow up, avoid anticoagulation (5) ESRD (end stage renal disease) on dialysis Assessment & Plan: on HD, renal is following (6) Diabetes Assessment & Plan: recommend tight glycemic control to keep blood glucose between 100-140 Subjective Constitutional: Reports: no symptoms HEENT: Reports: no symptoms Respiratory: Reports: no symptoms Breasts: Reports: no symptoms Cardiovascular: Reports: no symptoms Gastrointestinal/Abdominal: Reports: other - right side mild pain Genitourinary: Reports: no symptoms Neurologic: Reports: no symptoms Psychiatric: Reports: no symptoms Skin: Reports: no symptoms Endocrine: Reports: no symptoms Hematologic: Reports: no symptoms Musculoskeletal: Reports: no symptoms Allergies: Coded Allergies: No Known Allergies (Unverified , 05/20/18) Objective Vital Signs Last 24 Hour Vital Signs Date Time Temp Pulse Resp B/P (MAP) Pulse Ox O2 Delivery O2 Flow Rate FiO2 05/24/18 12:57 167/80 05/24/18 12:00 85 05/24/18 12:00 97.9 81 21 167/80 (109) 97 05/24/18 12:00 Nasal Cannula 2.0 05/24/18 10:56 88 175/90 05/24/18 08:00 85 05/24/18 08:00 97.9 89 20 160/78 (105) 97 05/24/18 08:00 Nasal Cannula 2.0 05/24/18 04:00 97.7 90 24 161/81 (107) 92 05/24/18 04:00 Nasal Cannula 2.0 05/24/18 03:30 86 05/24/18 00:00 97.7 84 20 164/81 (108) 97 05/24/18 00:00 Nasal Cannula 2.0 05/23/18 23:20 83 05/23/18 20:00 Nasal Cannula 2.0 05/23/18 20:00 98.8 94 20 164/82 (109) 97 05/23/18 19:30 Nasal Cannula 2.0 28 05/23/18 19:30 97 Nasal Cannula 2.0 28 05/23/18 19:09 96 05/23/18 16:00 Nasal Cannula 2.0 05/23/18 16:00 98.7 71 20 162/82 (108) 99 05/23/18 16:00 94 Height (Feet): 5 Height (Inches): 6.00 Weight (Pounds): 160 General Appearance: WD/WN, no acute distress HEENT: normocephalic, atraumatic, anicteric, mucous membranes moist, PERRL Respiratory/Chest: chest wall non-tender, lungs clear, normal breath sounds, no respiratory distress, no accessory muscle use Cardiovascular: normal peripheral pulses, normal rate, regular rhythm, no gallop/murmur, no JVD Abdomen: normal bowel sounds, soft, non tender, no organomegaly, non distended , no mass, no scars Extremities: no cyanosis, no clubbing Skin: no rash, no lesions, no ulcers Neurologic/Psychiatric: alert, oriented x 3, responsive Lymphatic: no neck adenopathy, no groin adenopathy Musculoskeletal: normal muscle bulk, no effusion Microbiology Date/Time Source Procedure Growth Status 05/22/18 17:50 Blood Blood Culture - Preliminary NO GROWTH AFTER 24 HOURS Resulted Laboratory Tests Test 05/24/18 03:00 05/24/18 11:10 White Blood Count 9.6 K/UL (4.8-10.8) Red Blood Count 2.62 M/UL (4.70-6.10) L Hemoglobin 8.1 G/DL (14.2-18.0) L Hematocrit 23.7 % (42.0-52.0) L Mean Corpuscular Volume 90 FL (80-99) Mean Corpuscular Hemoglobin 30.9 PG (27.0-31.0) Mean Corpuscular Hemoglobin Concent 34.1 G/DL (32.0-36.0) Red Cell Distribution Width 13.6 % (11.6-14.8) Platelet Count 139 K/UL (150-450) L Mean Platelet Volume 10.5 FL (6.5-10.1) H Neutrophils (%) (Auto) 83.4 % (45.0-75.0) H Lymphocytes (%) (Auto) 6.7 % (20.0-45.0) L Monocytes (%) (Auto) 7.6 % (1.0-10.0) Eosinophils (%) (Auto) 1.7 % (0.0-3.0) Basophils (%) (Auto) 0.6 % (0.0-2.0) Sodium Level 139 MMOL/L (136-145) Potassium Level 3.6 MMOL/L (3.5-5.1) Chloride Level 97 MMOL/L (98-107) L Carbon Dioxide Level 30 MMOL/L (21-32) Anion Gap 12 mmol/L (5-15) Blood Urea Nitrogen 50 mg/dL (7-18) H Creatinine 6.8 MG/DL (0.55-1.30) H Estimat Glomerular Filtration Rate 8.6 mL/min (>60) Glucose Level 138 MG/DL (74-106) H Calcium Level 8.0 MG/DL (8.5-10.1) L Phosphorus Level 3.0 MG/DL (2.5-4.9) Magnesium Level 2.5 MG/DL (1.8-2.4) H Total Bilirubin 0.9 MG/DL (0.2-1.0) Aspartate Amino Transf (AST/SGOT) 31 U/L (15-37) Alanine Aminotransferase (ALT/SGPT) 35 U/L (12-78) Alkaline Phosphatase 61 U/L (46-116) Total Protein 7.6 G/DL (6.4-8.2) Albumin 2.6 G/DL (3.4-5.0) L Globulin 5.0 g/dL Albumin/Globulin Ratio 0.5 (1.0-2.7) L Stool Occult Blood Pending Current Medications Medications (Trade) Dose Ordered Sig/Santos Route PRN Reason Start Time Stop Time Status Last Admin Dose Admin Acetaminophen/ Hydrocodone Bitart ([place] 5/325) 1 tab TIDPRN PRN ORAL Moderate Pain (Pain Scale 4-6) 05/22/18 09:00 05/29/18 08:59 Dextrose (Dextrose 50%) 25 ml Q30M PRN IV Hypoglycemia 05/22/18 09:00 12/4/18 08:59 Dextrose (Dextrose 50%) 50 ml Q30M PRN IV Hypoglycemia 05/22/18 09:00 06/19/18 08:59 Docusate Sodium (Colace) 100 mg THREE TIMES A DAY ORAL 05/22/18 09:00 06/19/18 12:59 05/24/18 12:57 Epoetin Jayme (Procrit (for ESRD on dialysis)) 10,000 units MON-MON-MON SUBQ 05/23/18 21:00 06/22/18 20:59 05/23/18 21:25 Hydralazine HCl (Apresoline) 25 mg Q4H PRN ORAL BP 160 and above 05/24/18 10:30 06/23/18 10:29 05/24/18 12:57 Insulin Aspart (NovoLOG) BEFORE MEALS AND HS SUBQ 05/22/18 11:30 06/19/18 06:29 05/24/18 12:10 Insulin Detemir (Levemir) 6 units DAILY SUBQ 05/22/18 09:00 06/20/18 11:59 05/24/18 09:03 Iron Sucrose 100 mg/Sodium Chloride 55 ml @ 200 mls/hr BEDTIME IV 05/24/18 21:00 05/27/18 21:17 Lactulose (Cephulac) 20 gm TWICE A DAY ORAL 05/22/18 09:00 06/20/18 05:59 05/24/18 08:55 Lorazepam (Ativan) 0.5 mg TIDPRN PRN ORAL For Anxiety 05/22/18 09:00 05/29/18 08:59 Metoprolol Tartrate (Lopressor) 12.5 mg Q12HR ORAL 05/24/18 21:00 06/23/18 20:59 Ondansetron HCl (Zofran) 4 mg TIDPRN PRN IVP Nausea & Vomiting 05/22/18 09:00 06/21/18 08:59 Pantoprazole (Protonix) 40 mg BID ORAL 05/23/18 18:00 06/22/18 17:59 05/24/18 08:58 Piperacillin Sod/ Tazobactam Sod 2.25 gm/Dextrose 55 ml @ 110 mls/hr Q8HR IVPB 05/22/18 15:00 05/27/18 14:59 05/24/18 13:59 Promethazine HCl/ Dextromethorphan (Phenergan DM) 6.25 mg Q6H PRN ORAL For Cough 05/24/18 12:00 06/23/18 11:59 05/24/18 12:16 Sevelamer Carbonate (Renvela) 1,600 mg THREE TIMES A DAY ORAL 05/23/18 13:00 06/20/18 12:59 05/24/18 12:57 Sodium Chloride 500 ml @ 999 mls/hr Q4H PRN IV SBP less than 100mmhg 05/22/18 09:00 06/19/18 08:59 Rowena Garcia M.D. May 24, 2018 14:24
[2018-05-24] MEDS: Norco 5mg/325mg tab ORAL PRN ×2 (16:35→19:49)
[2018-05-24] MEDS ORDERED: Albuterol/Ipratropium 3ml neb HHN PRN (16:45)
--- NOTE | 2018-05-24 16:47 | Pulmonology Progress Note ---
Assessment/Plan Problems: (1) Shock (2) Diabetes (3) ESRD (end stage renal disease) on dialysis (4) Retroperitoneal hemorrhage (5) Anemia Assessment/Plan CXR PRN anti-tussives PRN HHN's Monitor CBC, transfuse as needed Monitor hemodynamics and volumes HD per renal F/U recs, no plan for operation at this time Zosyn per ID, F/U Cx's DVT Px: SCD's SSI Pain control/supportive care Subjective Allergies: Coded Allergies: No Known Allergies (Unverified , 05/20/18) Subjective HH stable AFVSS on 2L, getting HD Less flank abd pain + cough, no SOB no F/C Objective Last 24 Hour Vital Signs Date Time Temp Pulse Resp B/P (MAP) Pulse Ox O2 Delivery O2 Flow Rate FiO2 05/24/18 16:00 86 05/24/18 12:57 167/80 05/24/18 12:00 85 05/24/18 12:00 97.9 81 21 167/80 (109) 97 05/24/18 12:00 Nasal Cannula 2.0 05/24/18 10:56 88 175/90 05/24/18 08:13 Nasal Cannula 2.0 28 05/24/18 08:12 96 Nasal Cannula 2.0 28 05/24/18 08:00 85 05/24/18 08:00 97.9 89 20 160/78 (105) 97 05/24/18 08:00 Nasal Cannula 2.0 05/24/18 04:00 97.7 90 24 161/81 (107) 92 05/24/18 04:00 Nasal Cannula 2.0 05/24/18 03:30 86 05/24/18 00:00 97.7 84 20 164/81 (108) 97 05/24/18 00:00 Nasal Cannula 2.0 05/23/18 23:20 83 05/23/18 20:00 Nasal Cannula 2.0 05/23/18 20:00 98.8 94 20 164/82 (109) 97 05/23/18 19:30 Nasal Cannula 2.0 28 05/23/18 19:30 97 Nasal Cannula 2.0 28 05/23/18 19:09 96 Intake and Output 05/23/18 05/24/18 19:00 07:00 Intake Total 715 ml 300 ml Output Total 1000 ml Balance -285 ml 300 ml Intake Oral 660 ml 300 ml IV Total 55 ml Hemodialysis UF 1000 ml # Voids 1 General Appearance: WD/WN, no acute distress HEENT: normocephalic, atraumatic, anicteric, mucous membranes moist Respiratory/Chest: chest wall non-tender, lungs clear, normal breath sounds, no respiratory distress, no accessory muscle use Cardiovascular: normal peripheral pulses, normal rate, regular rhythm Abdomen: normal bowel sounds, soft, non tender, no organomegaly, non distended , no mass Extremities: no cyanosis, no clubbing, no edema Microbiology Date/Time Source Procedure Growth Status 05/22/18 17:50 Blood Blood Culture - Preliminary NO GROWTH AFTER 24 HOURS Resulted Laboratory Tests 05/24/18 03:00: White Blood Count 9.6, Red Blood Count 2.62L, Hemoglobin 8.1L, Hematocrit 23.7L , Mean Corpuscular Volume 90, Mean Corpuscular Hemoglobin 30.9, Mean Corpuscular Hemoglobin Concent 34.1, Red Cell Distribution Width 13.6, Platelet Count 139L, Mean Platelet Volume 10.5H, Neutrophils (%) (Auto) 83.4H, Lymphocytes (%) (Auto) 6.7L, Monocytes (%) (Auto) 7.6, Eosinophils (%) (Auto) 1.7, Basophils (%) (Auto) 0.6, Sodium Level 139, Potassium Level 3.6, Chloride Level 97L, Carbon Dioxide Level 30, Anion Gap 12, Blood Urea Nitrogen 50H, Creatinine 6.8H, Estimat Glomerular Filtration Rate 8.6, Glucose Level 138H, Calcium Level 8.0L, Phosphorus Level 3.0, Magnesium Level 2.5H, Total Bilirubin 0.9, Aspartate Amino Transf (AST/SGOT) 31, Alanine Aminotransferase (ALT/SGPT) 35, Alkaline Phosphatase 61, Total Protein 7.6, Albumin 2.6L, Globulin 5.0, Albumin/Globulin Ratio 0.5L 05/24/18 11:10: Stool Occult Blood [Pending] 05/24/18 15:00: Stool Occult Blood [Pending] Current Medications Medications (Trade) Dose Ordered Sig/Santos Route PRN Reason Start Time Stop Time Status Last Admin Dose Admin Acetaminophen/ Hydrocodone Bitart ([place] 5/325) 1 tab TIDPRN PRN ORAL Moderate Pain (Pain Scale 4-6) 05/22/18 09:00 05/29/18 08:59 05/24/18 16:35 Dextrose (Dextrose 50%) 25 ml Q30M PRN IV Hypoglycemia 05/22/18 09:00 06/19/18 08:59 Dextrose (Dextrose 50%) 50 ml Q30M PRN IV Hypoglycemia 05/22/18 09:00 06/19/18 08:59 Docusate Sodium (Colace) 100 mg THREE TIMES A DAY ORAL 05/22/18 09:00 06/19/18 12:59 05/24/18 12:57 Epoetin Jayme (Procrit (for ESRD on dialysis)) 10,000 units MON-MON-MON SUBQ 05/23/18 21:00 06/22/18 20:59 05/23/18 21:25 Hydralazine HCl (Apresoline) 25 mg Q4H PRN ORAL BP 160 and above 05/24/18 10:30 06/23/18 10:29 05/24/18 12:57 Insulin Aspart (NovoLOG) BEFORE MEALS AND HS SUBQ 05/22/18 11:30 06/19/18 06:29 05/24/18 12:10 Insulin Detemir (Levemir) 6 units DAILY SUBQ 05/22/18 09:00 06/20/18 11:59 05/24/18 09:03 Iron Sucrose 100 mg/Sodium Chloride 55 ml @ 200 mls/hr BEDTIME IV 05/24/18 21:00 05/27/18 21:17 Lactulose (Cephulac) 20 gm TWICE A DAY ORAL 05/22/18 09:00 06/20/18 05:59 05/24/18 08:55 Lorazepam (Ativan) 0.5 mg TIDPRN PRN ORAL For Anxiety 05/22/18 09:00 05/29/18 08:59 Metoprolol Tartrate (Lopressor) 12.5 mg Q12HR ORAL 05/24/18 21:00 06/23/18 20:59 Ondansetron HCl (Zofran) 4 mg TIDPRN PRN IVP Nausea & Vomiting 05/22/18 09:00 06/21/18 08:59 Pantoprazole (Protonix) 40 mg BID ORAL 05/23/18 18:00 06/22/18 17:59 11/8/18 08:58 Piperacillin Sod/ Tazobactam Sod 2.25 gm/Dextrose 55 ml @ 110 mls/hr Q8HR IVPB 05/22/18 15:00 05/27/18 14:59 05/24/18 13:59 Promethazine HCl/ Dextromethorphan (Phenergan DM) 6.25 mg Q6H PRN ORAL For Cough 05/24/18 12:00 06/23/18 11:59 05/24/18 12:16 Sevelamer Carbonate (Renvela) 1,600 mg THREE TIMES A DAY ORAL 05/23/18 13:00 06/20/18 12:59 05/24/18 12:57 Sodium Chloride 500 ml @ 999 mls/hr Q4H PRN IV SBP less than 100mmhg 05/22/18 09:00 06/19/18 08:59 Bay Marte MD May 24, 2018 16:47
[2018-05-24] MEDS: Morphine Sulfate 2mg/ml Inj IVP PRN ×3 (17:19→22:40)
[2018-05-24] MEDS: LORazepam 0.5mg tab ORAL PRN ×2 (18:19→22:02)
[2018-05-24 18:47] LABS: HEMATOCRIT 26.4 % (42.0-52.0); HEMOGLOBIN 9.2 G/DL (14.2-18.0); MEAN CORPUSCULAR VOLUME 92 FL (80-99); PLATELET COUNT 167 K/UL (150-450); RED BLOOD COUNT 2.87 M/UL (4.70-6.10); RED CELL DISTRIBUTION WIDTH 13.8 % (11.6-14.8); WHITE BLOOD COUNT 12.1 K/UL (4.8-10.8)
--- NOTE | 2018-05-24 19:45 | Progress Note ---
DATE: 05/24/2018 SUBJECTIVE: The patient is doing better today. Less irritable. Less anxious. Able to answer questions and interactive. He has episodes of anxiety. MENTAL STATUS EXAMINATION: The patient is alert and oriented times self, place, and situation. Mood is dysphoric, at times anxious. Affect is constricted. Congruent with mood. Thought process is concrete. Thought content, no suicidal or homicidal ideation. PLAN: We will continue to provide the patient with reality orientation and continue with the current medications. Raise the head 30 degrees to avoid aspiration. Chrsi Driscoll M.D. DR: LARY JOB#: [id number] CC:
[2018-05-24 20:00] VITALS: BP 160/83
[2018-05-24] MEDS: Metoprolol Tartrate 12.5mg TAB ORAL SCH (20:58)
[2018-05-25] VITALS: BP 143/81
[2018-05-25] MEDS: LORazepam 0.5mg tab ORAL PRN (00:47)
[2018-05-25] MEDS: Norco 5mg/325mg tab ORAL PRN ×3 (03:54→19:24)
[2018-05-25 04:00] VITALS: BP 150/86
[2018-05-25 05:04] LABS: HEMATOCRIT 24.7 % (42.0-52.0); HEMOGLOBIN 8.3 G/DL (14.2-18.0); MEAN CORPUSCULAR VOLUME 90 FL (80-99); PLATELET COUNT 219 K/UL (150-450); RED BLOOD COUNT 2.74 M/UL (4.70-6.10); RED CELL DISTRIBUTION WIDTH 13.4 % (11.6-14.8); WHITE BLOOD COUNT 18.7 K/UL (4.8-10.8)
[2018-05-25 05:38] LABS: ALANINE AMINOTRANSFERASE 32 U/L (12-78); ALBUMIN 2.8 G/DL (3.4-5.0); ALBUMIN/GLOBULIN RATIO 0.5 (1.0-2.7); ALKALINE PHOSPHATASE 60 U/L (46-116); ANION GAP 15 mmol/L (5-15); ASPARTATE AMINO TRANSFERASE 34 U/L (15-37); BILIRUBIN,TOTAL 1.7 MG/DL (0.2-1.0); BLOOD UREA NITROGEN 69 mg/dL (7-18); CALCIUM 7.6 MG/DL (8.5-10.1); CARBON DIOXIDE 28 MMOL/L (21-32); CHLORIDE 95 MMOL/L (98-107); CREATININE 8.6 MG/DL (0.55-1.30); PHOSPHORUS 3.7 MG/DL (2.5-4.9); SODIUM 137 MMOL/L (136-145)
[2018-05-25] MEDS: Piperacillin/Tazobactam 2.25 GM in D5W 55 ML IVPB SCH ×3 (05:53→21:36)
[2018-05-25 05:58] LABS: BILIRUBIN,DIRECT 0.7 MG/DL (0.0-0.3)
[2018-05-25] MEDS: NovoLOG Insulin Flexpen SUBQ SCH ×4 (06:42→21:06)
--- NOTE | 2018-05-25 07:54 | General Progress Note ---
Assessment/Plan Problem List: (1) Retroperitoneal hemorrhage ICD Codes: R58 - Hemorrhage, not elsewhere classified SNOMED: 90382666 (2) ESRD (end stage renal disease) on dialysis ICD Codes: N18.6 - End stage renal disease; Z99.2 - Dependence on renal dialysis SNOMED: 998848610 (3) Diabetes ICD Codes: E11.9 - Type 2 diabetes mellitus without complications SNOMED: 89918603 Assessment/Plan continue Levemir 6 units qam continue NISS ac / hs Subjective Allergies: Coded Allergies: No Known Allergies (Unverified , 05/20/18) All Systems: reviewed and negative except above Subjective events noted Objective Last 24 Hour Vital Signs Date Time Temp Pulse Resp B/P (MAP) Pulse Ox O2 Delivery O2 Flow Rate FiO2 05/25/18 07:40 Nasal Cannula 2.0 28 05/25/18 07:40 97 Nasal Cannula 2.0 28 05/25/18 04:00 Nasal Cannula 2.0 05/25/18 04:00 82 05/25/18 04:00 97.8 80 21 150/86 (107) 97 05/25/18 00:00 Nasal Cannula 2.0 28 05/25/18 00:00 Nasal Cannula 2.0 05/25/18 00:00 97.8 76 21 143/81 (101) 98 05/24/18 23:57 97 Nasal Cannula 2.0 28 05/24/18 20:58 85 160/83 05/24/18 20:00 97.9 84 21 160/83 (108) 98 05/24/18 20:00 87 05/24/18 20:00 Nasal Cannula 2.0 05/24/18 18:40 97.9 05/24/18 16:00 86 05/24/18 16:00 Nasal Cannula 2.0 05/24/18 12:57 167/80 05/24/18 12:00 85 05/24/18 12:00 97.9 81 21 167/80 (109) 97 05/24/18 12:00 Nasal Cannula 2.0 05/24/18 10:56 88 175/90 05/24/18 08:13 Nasal Cannula 2.0 28 05/24/18 08:12 96 Nasal Cannula 2.0 28 05/24/18 08:00 85 05/24/18 08:00 97.9 89 20 160/78 (105) 97 05/24/18 08:00 Nasal Cannula 2.0 Intake and Output 05/24/18 05/25/18 19:00 07:00 Intake Total 295 ml 310 ml Output Total 0 ml Balance 295 ml 310 ml Intake Oral 240 ml 200 ml IV Total 55 ml 110 ml Output Urine Total 0 ml # Voids 2 3 # Bowel Movements 4 1 Laboratory Tests 05/24/18 11:10: Stool Occult Blood [Pending] 05/24/18 15:00: Stool Occult Blood [Pending] 05/24/18 18:35: White Blood Count 12.1H, Red Blood Count 2.87L, Hemoglobin 9.2L, Hematocrit 26.4L, Mean Corpuscular Volume 92, Mean Corpuscular Hemoglobin 32.0H, Mean Corpuscular Hemoglobin Concent 34.8, Red Cell Distribution Width 13.8, Platelet Count 167, Mean Platelet Volume 9.3, Neutrophils (%) (Auto) , Lymphocytes (%) ( Auto) , Monocytes (%) (Auto) , Eosinophils (%) (Auto) , Basophils (%) (Auto) , Differential Total Cells Counted 100, Neutrophils % (Manual) 82H, Lymphocytes % (Manual) 8L, Monocytes % (Manual) 7, Eosinophils % (Manual) 2, Basophils % ( Manual) 1, Band Neutrophils 0, Platelet Estimate Adequate, Platelet Morphology Normal, Hypochromasia 1+, Anisocytosis 1+ 05/25/18 03:40: White Blood Count 18.7#H, Red Blood Count 2.74L, Hemoglobin 8.3L, Hematocrit 24.7L, Mean Corpuscular Volume 90, Mean Corpuscular Hemoglobin 30.3, Mean Corpuscular Hemoglobin Concent 33.5, Red Cell Distribution Width 13.4, Platelet Count 219, Mean Platelet Volume 9.5, Neutrophils (%) (Auto) , Lymphocytes (%) ( Auto) , Monocytes (%) (Auto) , Eosinophils (%) (Auto) , Basophils (%) (Auto) , Neutrophils % (Manual) [Pending], Lymphocytes % (Manual) [Pending], Platelet Estimate [Pending], Platelet Morphology [Pending], Sodium Level 137, Potassium Level 4.0, Chloride Level 95L, Carbon Dioxide Level 28, Anion Gap 15, Blood Urea Nitrogen 69H, Creatinine 8.6H, Estimat Glomerular Filtration Rate 6.6, Glucose Level 192H, Calcium Level 7.6L, Phosphorus Level 3.7, Total Bilirubin 1.7H, Direct Bilirubin 0.7H, Aspartate Amino Transf (AST/SGOT) 34, Alanine Aminotransferase (ALT/SGPT) 32, Alkaline Phosphatase 60, C-Reactive Protein, Quantitative 26.4H, Pro-B-Type Natriuretic Peptide 35308G, Total Protein 8.2, Albumin 2.8L, Globulin 5.4, Albumin/Globulin Ratio 0.5L Height (Feet): 5 Height (Inches): 6.00 Weight (Pounds): 186 General Appearance: no apparent distress Neck: normal alignment Cardiovascular: normal rate Respiratory/Chest: lungs clear Abdomen: normal bowel sounds Pelvis: normal external exam Objective Laboratory Tests Test 05/24/18 03:00 05/24/18 11:10 05/24/18 15:00 05/24/18 18:35 White Blood Count 9.6 K/UL (4.8-10.8) 12.1 K/UL (4.8-10.8) H Red Blood Count 2.62 M/UL (4.70-6.10) L 2.87 M/UL (4.70-6.10) L Hemoglobin 8.1 G/DL (14.2-18.0) L 9.2 G/DL (14.2-18.0) L Hematocrit 23.7 % (42.0-52.0) L 26.4 % (42.0-52.0) L Mean Corpuscular Volume 90 FL (80-99) 92 FL (80-99) Mean Corpuscular Hemoglobin 30.9 PG (27.0-31.0) 32.0 PG (27.0-31.0) H Mean Corpuscular Hemoglobin Concent 34.1 G/DL (32.0-36.0) 34.8 G/DL (32.0-36.0) Red Cell Distribution Width 13.6 % (11.6-14.8) 13.8 % (11.6-14.8) Platelet Count 139 K/UL (150-450) L 167 K/UL (150-450) Mean Platelet Volume 10.5 FL (6.5-10.1) H 9.3 FL (6.5-10.1) Neutrophils (%) (Auto) 83.4 % (45.0-75.0) H % (45.0-75.0) Lymphocytes (%) (Auto) 6.7 % (20.0-45.0) L % (20.0-45.0) Monocytes (%) (Auto) 7.6 % (1.0-10.0) % (1.0-10.0) Eosinophils (%) (Auto) 1.7 % (0.0-3.0) % (0.0-3.0) Basophils (%) (Auto) 0.6 % (0.0-2.0) % (0.0-2.0) Sodium Level 139 MMOL/L (136-145) Potassium Level 3.6 MMOL/L (3.5-5.1) Chloride Level 97 MMOL/L (98-107) L Carbon Dioxide Level 30 MMOL/L (21-32) Anion Gap 12 mmol/L (5-15) Blood Urea Nitrogen 50 mg/dL (7-18) H Creatinine 6.8 MG/DL (0.55-1.30) H Estimate Glomerular Filtration Rate 8.6 mL/min (>60) Glucose Level 138 MG/DL (74-106) H Calcium Level 8.0 MG/DL (8.5-10.1) L Phosphorus Level 3.0 MG/DL (2.5-4.9) Magnesium Level 2.5 MG/DL (1.8-2.4) H Total Bilirubin 0.9 MG/DL (0.2-1.0) Aspartate Amino Transferase (AST) 31 U/L (15-37) Alanine Aminotransferase (ALT) 35 U/L (12-78) Alkaline Phosphatase 61 U/L (46-116) Total Protein 7.6 G/DL (6.4-8.2) Albumin 2.6 G/DL (3.4-5.0) L Globulin 5.0 g/dL Albumin/Globulin Ratio 0.5 (1.0-2.7) L Stool Occult Blood Pending Pending Differential Total Cells Counted 100 Neutrophils % (Manual) 82 % (45-75) H Lymphocytes % (Manual) 8 % (20-45) L Monocytes % (Manual) 7 % (1-10) Eosinophils % (Manual) 2 % (0-3) Basophils % (Manual) 1 % (0-2) Band Neutrophils 0 % (0-8) Platelet Estimate Adequate Platelet Morphology Normal Hypochromasia 1+ Anisocytosis 1+ Test 05/25/18 03:40 White Blood Count 18.7 K/UL (4.8-10.8) #H Red Blood Count 2.74 M/UL (4.70-6.10) L Hemoglobin 8.3 G/DL (14.2-18.0) L Hematocrit 24.7 % (42.0-52.0) L Mean Corpuscular Volume 90 FL (80-99) Mean Corpuscular Hemoglobin 30.3 PG (27.0-31.0) Mean Corpuscular Hemoglobin Concent 33.5 G/DL (32.0-36.0) Red Cell Distribution Width 13.4 % (11.6-14.8) Platelet Count 219 K/UL (150-450) Mean Platelet Volume 9.5 FL (6.5-10.1) Neutrophils (%) (Auto) % (45.0-75.0) Lymphocytes (%) (Auto) % (20.0-45.0) Monocytes (%) (Auto) % (1.0-10.0) Eosinophils (%) (Auto) % (0.0-3.0) Basophils (%) (Auto) % (0.0-2.0) Neutrophils % (Manual) Pending Lymphocytes % (Manual) Pending Platelet Estimate Pending Platelet Morphology Pending Sodium Level 137 MMOL/L (136-145) Potassium Level 4.0 MMOL/L (3.5-5.1) Chloride Level 95 MMOL/L (98-107) L Carbon Dioxide Level 28 MMOL/L (21-32) Anion Gap 15 mmol/L (5-15) Blood Urea Nitrogen 69 mg/dL (7-18) H Creatinine 8.6 MG/DL (0.55-1.30) H Estimate Glomerular Filtration Rate 6.6 mL/min (>60) Glucose Level 192 MG/DL (74-106) H Calcium Level 7.6 MG/DL (8.5-10.1) L Phosphorus Level 3.7 MG/DL (2.5-4.9) Total Bilirubin 1.7 MG/DL (0.2-1.0) H Direct Bilirubin 0.7 MG/DL (0.0-0.3) H Aspartate Amino Transferase (AST) 34 U/L (15-37) Alanine Aminotransferase (ALT) 32 U/L (12-78) Alkaline Phosphatase 60 U/L (46-116) C-Reactive Protein, Quantitative 26.4 mg/dL (0.00-0.90) H Pro-B-Type Natriuretic Peptide 39110 pg/mL (0-125) H Total Protein 8.2 G/DL (6.4-8.2) Albumin 2.8 G/DL (3.4-5.0) L Globulin 5.4 g/dL Albumin/Globulin Ratio 0.5 (1.0-2.7) L Laboratory Tests Test 05/24/18 03:00 05/24/18 11:10 05/24/18 15:00 05/24/18 18:35 White Blood Count 9.6 K/UL (4.8-10.8) 12.1 K/UL (4.8-10.8) H Red Blood Count 2.62 M/UL (4.70-6.10) L 2.87 M/UL (4.70-6.10) L Hemoglobin 8.1 G/DL (14.2-18.0) L 9.2 G/DL (14.2-18.0) L Hematocrit 23.7 % (42.0-52.0) L 26.4 % (42.0-52.0) L Mean Corpuscular Volume 90 FL (80-99) 92 FL (80-99) Mean Corpuscular Hemoglobin 30.9 PG (27.0-31.0) 32.0 PG (27.0-31.0) H Mean Corpuscular Hemoglobin Concent 34.1 G/DL (32.0-36.0) 34.8 G/DL (32.0-36.0) Red Cell Distribution Width 13.6 % (11.6-14.8) 13.8 % (11.6-14.8) Platelet Count 139 K/UL (150-450) L 167 K/UL (150-450) Mean Platelet Volume 10.5 FL (6.5-10.1) H 9.3 FL (6.5-10.1) Neutrophils (%) (Auto) 83.4 % (45.0-75.0) H % (45.0-75.0) Lymphocytes (%) (Auto) 6.7 % (20.0-45.0) L % (20.0-45.0) Monocytes (%) (Auto) 7.6 % (1.0-10.0) % (1.0-10.0) Eosinophils (%) (Auto) 1.7 % (0.0-3.0) % (0.0-3.0) Basophils (%) (Auto) 0.6 % (0.0-2.0) % (0.0-2.0) Sodium Level 139 MMOL/L (136-145) Potassium Level 3.6 MMOL/L (3.5-5.1) Chloride Level 97 MMOL/L (98-107) L Carbon Dioxide Level 30 MMOL/L (21-32) Anion Gap 12 mmol/L (5-15) Blood Urea Nitrogen 50 mg/dL (7-18) H Creatinine 6.8 MG/DL (0.55-1.30) H Estimate Glomerular Filtration Rate 8.6 mL/min (>60) Glucose Level 138 MG/DL (74-106) H Calcium Level 8.0 MG/DL (8.5-10.1) L Phosphorus Level 3.0 MG/DL (2.5-4.9) Magnesium Level 2.5 MG/DL (1.8-2.4) H Total Bilirubin 0.9 MG/DL (0.2-1.0) Aspartate Amino Transferase (AST) 31 U/L (15-37) Alanine Aminotransferase (ALT) 35 U/L (12-78) Alkaline Phosphatase 61 U/L (46-116) Total Protein 7.6 G/DL (6.4-8.2) Albumin 2.6 G/DL (3.4-5.0) L Globulin 5.0 g/dL Albumin/Globulin Ratio 0.5 (1.0-2.7) L Stool Occult Blood Pending Pending Differential Total Cells Counted 100 Neutrophils % (Manual) 82 % (45-75) H Lymphocytes % (Manual) 8 % (20-45) L Monocytes % (Manual) 7 % (1-10) Eosinophils % (Manual) 2 % (0-3) Basophils % (Manual) 1 % (0-2) Band Neutrophils 0 % (0-8) Platelet Estimate Adequate Platelet Morphology Normal Hypochromasia 1+ Anisocytosis 1+ Test 05/25/18 03:40 White Blood Count 18.7 K/UL (4.8-10.8) #H Red Blood Count 2.74 M/UL (4.70-6.10) L Hemoglobin 8.3 G/DL (14.2-18.0) L Hematocrit 24.7 % (42.0-52.0) L Mean Corpuscular Volume 90 FL (80-99) Mean Corpuscular Hemoglobin 30.3 PG (27.0-31.0) Mean Corpuscular Hemoglobin Concent 33.5 G/DL (32.0-36.0) Red Cell Distribution Width 13.4 % (11.6-14.8) Platelet Count 219 K/UL (150-450) Mean Platelet Volume 9.5 FL (6.5-10.1) Neutrophils (%) (Auto) % (45.0-75.0) Lymphocytes (%) (Auto) % (20.0-45.0) Monocytes (%) (Auto) % (1.0-10.0) Eosinophils (%) (Auto) % (0.0-3.0) Basophils (%) (Auto) % (0.0-2.0) Neutrophils % (Manual) Pending Lymphocytes % (Manual) Pending Platelet Estimate Pending Platelet Morphology Pending Sodium Level 137 MMOL/L (136-145) Potassium Level 4.0 MMOL/L (3.5-5.1) Chloride Level 95 MMOL/L (98-107) L Carbon Dioxide Level 28 MMOL/L (21-32) Anion Gap 15 mmol/L (5-15) Blood Urea Nitrogen 69 mg/dL (7-18) H Creatinine 8.6 MG/DL (0.55-1.30) H Estimate Glomerular Filtration Rate 6.6 mL/min (>60) Glucose Level 192 MG/DL (74-106) H Calcium Level 7.6 MG/DL (8.5-10.1) L Phosphorus Level 3.7 MG/DL (2.5-4.9) Total Bilirubin 1.7 MG/DL (0.2-1.0) H Direct Bilirubin 0.7 MG/DL (0.0-0.3) H Aspartate Amino Transferase (AST) 34 U/L (15-37) Alanine Aminotransferase (ALT) 32 U/L (12-78) Alkaline Phosphatase 60 U/L (46-116) C-Reactive Protein, Quantitative 26.4 mg/dL (0.00-0.90) H Pro-B-Type Natriuretic Peptide 34627 pg/mL (0-125) H Total Protein 8.2 G/DL (6.4-8.2) Albumin 2.8 G/DL (3.4-5.0) L Globulin 5.4 g/dL Albumin/Globulin Ratio 0.5 (1.0-2.7) L Item Value Date Time Bedside Blood Glucose 218 mg/dl H 05/25/18 0642 Bedside Blood Glucose 172 mg/dl H 05/24/18 2100 Bedside Blood Glucose 161 mg/dl H 05/24/18 1652 Bedside Blood Glucose 176 mg/dl H 05/24/18 1210 Bedside Blood Glucose 139 mg/dl H 05/24/18 0630 Bedside Blood Glucose 156 mg/dl H 05/24/18 0903 Willard Bonds MD May 25, 2018 07:53
[2018-05-25 08:00] VITALS: BP 170/85
[2018-05-25] MEDS: Metoprolol Tartrate 12.5mg TAB ORAL SCH (08:13)
[2018-05-25] MEDS: Docusate 100mg cap ORAL SCH ×3 (08:14→17:04)
[2018-05-25] MEDS: Levemir Flexpen SUBQ SCH (08:14)
--- NOTE | 2018-05-25 09:00 | Nephrology Progress Note ---
Assessment/Plan Problem List: (1) ESRD (end stage renal disease) on dialysis (2) Retroperitoneal hemorrhage (3) Shock (4) Anemia (5) Abdominal pain (6) Diabetes Assessment WBC rising presented with: hemorrhagic shock- Retro Peritoneal bleed Low BP on admission ESRD DM HTN transfused 3 units since , more if needed Plan HD next 05/25 MS contin for pain control Transfuse as needed in NICK now manage pain Per consultants discussed with RN meds adjusted Subjective ROS Limited/Unobtainable: No Constitutional: Reports: malaise, other - flank pain Objective Objective Last 24 Hour Vital Signs Date Time Temp Pulse Resp B/P (MAP) Pulse Ox O2 Delivery O2 Flow Rate FiO2 05/25/18 08:13 87 170/85 05/25/18 08:00 97.0 87 20 170/85 (113) 97 05/25/18 07:40 Nasal Cannula 2.0 28 05/25/18 07:40 97 Nasal Cannula 2.0 28 05/25/18 04:00 Nasal Cannula 2.0 05/25/18 04:00 82 05/25/18 04:00 97.8 80 21 150/86 (107) 97 05/25/18 00:00 Nasal Cannula 2.0 28 05/25/18 00:00 Nasal Cannula 2.0 05/25/18 00:00 97.8 76 21 143/81 (101) 98 05/24/18 23:57 97 Nasal Cannula 2.0 28 05/24/18 20:58 85 160/83 05/24/18 20:00 97.9 84 21 160/83 (108) 98 05/24/18 20:00 87 05/24/18 20:00 Nasal Cannula 2.0 05/24/18 18:40 97.9 05/24/18 16:00 86 05/24/18 16:00 Nasal Cannula 2.0 05/24/18 12:57 167/80 05/24/18 12:00 85 05/24/18 12:00 97.9 81 21 167/80 (109) 97 05/24/18 12:00 Nasal Cannula 2.0 05/24/18 10:56 88 175/90 Intake and Output 05/24/18 05/25/18 19:00 07:00 Intake Total 295 ml 310 ml Output Total 0 ml Balance 295 ml 310 ml Intake Oral 240 ml 200 ml IV Total 55 ml 110 ml Output Urine Total 0 ml # Voids 2 3 # Bowel Movements 4 1 Laboratory Tests 05/24/18 11:10: Stool Occult Blood [Pending] 05/24/18 15:00: Stool Occult Blood [Pending] 05/24/18 18:35: White Blood Count 12.1H, Red Blood Count 2.87L, Hemoglobin 9.2L, Hematocrit 26.4L, Mean Corpuscular Volume 92, Mean Corpuscular Hemoglobin 32.0H, Mean Corpuscular Hemoglobin Concent 34.8, Red Cell Distribution Width 13.8, Platelet Count 167, Mean Platelet Volume 9.3, Neutrophils (%) (Auto) , Lymphocytes (%) ( Auto) , Monocytes (%) (Auto) , Eosinophils (%) (Auto) , Basophils (%) (Auto) , Differential Total Cells Counted 100, Neutrophils % (Manual) 82H, Lymphocytes % (Manual) 8L, Monocytes % (Manual) 7, Eosinophils % (Manual) 2, Basophils % ( Manual) 1, Band Neutrophils 0, Platelet Estimate Adequate, Platelet Morphology Normal, Hypochromasia 1+, Anisocytosis 1+ 05/25/18 03:40: White Blood Count 18.7#H, Red Blood Count 2.74L, Hemoglobin 8.3L, Hematocrit 24.7L, Mean Corpuscular Volume 90, Mean Corpuscular Hemoglobin 30.3, Mean Corpuscular Hemoglobin Concent 33.5, Red Cell Distribution Width 13.4, Platelet Count 219, Mean Platelet Volume 9.5, Neutrophils (%) (Auto) , Lymphocytes (%) ( Auto) , Monocytes (%) (Auto) , Eosinophils (%) (Auto) , Basophils (%) (Auto) , Differential Total Cells Counted 100, Neutrophils % (Manual) 92H, Lymphocytes % (Manual) 2L, Monocytes % (Manual) 6, Eosinophils % (Manual) 0, Basophils % ( Manual) 0, Band Neutrophils 0, Platelet Estimate Adequate, Platelet Morphology Normal, Hypochromasia 2+, Anisocytosis 1+, Spherocytes 1+, Sodium Level 137, Potassium Level 4.0, Chloride Level 95L, Carbon Dioxide Level 28, Anion Gap 15, Blood Urea Nitrogen 69H, Creatinine 8.6H, Estimat Glomerular Filtration Rate 6.6 , Glucose Level 192H, Calcium Level 7.6L, Phosphorus Level 3.7, Total Bilirubin 1.7H, Direct Bilirubin 0.7H, Aspartate Amino Transf (AST/SGOT) 34, Alanine Aminotransferase (ALT/SGPT) 32, Alkaline Phosphatase 60, C-Reactive Protein, Quantitative 26.4H, Pro-B-Type Natriuretic Peptide 04948R, Total Protein 8.2, Albumin 2.8L, Globulin 5.4, Albumin/Globulin Ratio 0.5L Height (Feet): 5 Height (Inches): 6.00 Weight (Pounds): 186 General Appearance: mild distress Cardiovascular: normal rate Respiratory/Chest: decreased breath sounds Abdomen: distended Objective no change Dm Lopez MD May 25, 2018 09:00
[2018-05-25] MEDS: Morphine Sulfate 2mg/ml Inj IVP PRN (09:29)
[2018-05-25] MEDS ORDERED: MS Contin 15mg tab ORAL SCH (10:00)
[2018-05-25] MEDS ORDERED: Vancomycin 1 GM in D5W 275 ML IVPB SCH (10:00)
--- NOTE | 2018-05-25 11:37 | GI Progress Note ---
Assessment/Plan Problems: (1) Retroperitoneal hemorrhage ICD Codes: R58 - Hemorrhage, not elsewhere classified SNOMED: 52770670 (2) Anemia ICD Codes: D64.9 - Anemia, unspecified SNOMED: 880154806 (3) Diabetes ICD Codes: E11.9 - Type 2 diabetes mellitus without complications SNOMED: 45938603 (4) Abdominal pain ICD Codes: R10.9 - Unspecified abdominal pain SNOMED: 49734011 (5) Shock ICD Codes: R57.9 - Shock, unspecified SNOMED: 71062014 (6) ESRD (end stage renal disease) on dialysis ICD Codes: N18.6 - End stage renal disease; Z99.2 - Dependence on renal dialysis SNOMED: 090168942 Status: stable Status Narrative Discussed with Dr. Mcgee. Assessment/Plan CT AP reviewed >> Large complex hemorrhage/hemorrhagic mass occupying majority of the right kidney with extensive perinephric fluid/blood extending into the retroperitoneum and pelvis. iron deficiency Anemia, most likely due to chronic disease >> OB stool r/o GI bleedingn pending venofer renal diet ppi BID prn transfusions abx fu surgical recommendations fu labs The patient was seen and examined at bedside and all new and available data was reviewed in the patients chart. I agree with the above findings, impression and plan. (Patient seen earlier today. Signature stamp does not reflect patient encounter time.). - Elvis Mcgee MD Subjective Subjective limited Objective Last 24 Hour Vital Signs Date Time Temp Pulse Resp B/P (MAP) Pulse Ox O2 Delivery O2 Flow Rate FiO2 05/25/18 08:13 87 170/85 05/25/18 08:00 97.0 87 20 170/85 (113) 97 05/25/18 08:00 Nasal Cannula 2.0 05/25/18 07:49 85 05/25/18 07:40 Nasal Cannula 2.0 28 05/25/18 07:40 97 Nasal Cannula 2.0 28 05/25/18 04:00 Nasal Cannula 2.0 05/25/18 04:00 82 05/25/18 04:00 97.8 80 21 150/86 (107) 97 05/25/18 00:00 Nasal Cannula 2.0 28 05/25/18 00:00 Nasal Cannula 2.0 05/25/18 00:00 97.8 76 21 143/81 (101) 98 11/8/18 23:57 97 Nasal Cannula 2.0 28 05/24/18 20:58 85 160/83 05/24/18 20:00 97.9 84 21 160/83 (108) 98 05/24/18 20:00 87 05/24/18 20:00 Nasal Cannula 2.0 05/24/18 18:40 97.9 05/24/18 16:00 86 05/24/18 16:00 Nasal Cannula 2.0 05/24/18 12:57 167/80 05/24/18 12:00 85 05/24/18 12:00 97.9 81 21 167/80 (109) 97 05/24/18 12:00 Nasal Cannula 2.0 Intake and Output 05/24/18 05/25/18 19:00 07:00 Intake Total 295 ml 310 ml Output Total 0 ml Balance 295 ml 310 ml Intake Oral 240 ml 200 ml IV Total 55 ml 110 ml Output Urine Total 0 ml # Voids 2 3 # Bowel Movements 4 1 Laboratory Tests Test 05/24/18 15:00 05/24/18 18:35 05/25/18 03:40 Stool Occult Blood Pending White Blood Count 12.1 K/UL (4.8-10.8) H 18.7 K/UL (4.8-10.8) #H Red Blood Count 2.87 M/UL (4.70-6.10) L 2.74 M/UL (4.70-6.10) L Hemoglobin 9.2 G/DL (14.2-18.0) L 8.3 G/DL (14.2-18.0) L Hematocrit 26.4 % (42.0-52.0) L 24.7 % (42.0-52.0) L Mean Corpuscular Volume 92 FL (80-99) 90 FL (80-99) Mean Corpuscular Hemoglobin 32.0 PG (27.0-31.0) H 30.3 PG (27.0-31.0) Mean Corpuscular Hemoglobin Concent 34.8 G/DL (32.0-36.0) 33.5 G/DL (32.0-36.0) Red Cell Distribution Width 13.8 % (11.6-14.8) 13.4 % (11.6-14.8) Platelet Count 167 K/UL (150-450) 219 K/UL (150-450) Mean Platelet Volume 9.3 FL (6.5-10.1) 9.5 FL (6.5-10.1) Neutrophils (%) (Auto) % (45.0-75.0) % (45.0-75.0) Lymphocytes (%) (Auto) % (20.0-45.0) % (20.0-45.0) Monocytes (%) (Auto) % (1.0-10.0) % (1.0-10.0) Eosinophils (%) (Auto) % (0.0-3.0) % (0.0-3.0) Basophils (%) (Auto) % (0.0-2.0) % (0.0-2.0) Differential Total Cells Counted 100 100 Neutrophils % (Manual) 82 % (45-75) H 92 % (45-75) H Lymphocytes % (Manual) 8 % (20-45) L 2 % (20-45) L Monocytes % (Manual) 7 % (1-10) 6 % (1-10) Eosinophils % (Manual) 2 % (0-3) 0 % (0-3) Basophils % (Manual) 1 % (0-2) 0 % (0-2) Band Neutrophils 0 % (0-8) 0 % (0-8) Platelet Estimate Adequate Adequate Platelet Morphology Normal Normal Hypochromasia 1+ 2+ Anisocytosis 1+ 1+ Spherocytes 1+ Sodium Level 137 MMOL/L (136-145) Potassium Level 4.0 MMOL/L (3.5-5.1) Chloride Level 95 MMOL/L (98-107) L Carbon Dioxide Level 28 MMOL/L (21-32) Anion Gap 15 mmol/L (5-15) Blood Urea Nitrogen 69 mg/dL (7-18) H Creatinine 8.6 MG/DL (0.55-1.30) H Estimat Glomerular Filtration Rate 6.6 mL/min (>60) Glucose Level 192 MG/DL (74-106) H Calcium Level 7.6 MG/DL (8.5-10.1) L Phosphorus Level 3.7 MG/DL (2.5-4.9) Total Bilirubin 1.7 MG/DL (0.2-1.0) H Direct Bilirubin 0.7 MG/DL (0.0-0.3) H Aspartate Amino Transf (AST/SGOT) 34 U/L (15-37) Alanine Aminotransferase (ALT/SGPT) 32 U/L (12-78) Alkaline Phosphatase 60 U/L (46-116) C-Reactive Protein, Quantitative 26.4 mg/dL (0.00-0.90) H Pro-B-Type Natriuretic Peptide 39216 pg/mL (0-125) H Total Protein 8.2 G/DL (6.4-8.2) Albumin 2.8 G/DL (3.4-5.0) L Globulin 5.4 g/dL Albumin/Globulin Ratio 0.5 (1.0-2.7) L Height (Feet): 5 Height (Inches): 6.00 Weight (Pounds): 186 General Appearance: WD/WN, no apparent distress, alert Cardiovascular: normal rate Respiratory/Chest: normal breath sounds, no respiratory distress Abdominal Exam: normal bowel sounds, non tender, soft Extremities: normal range of motion, non-tender Mansoor Allen [employer]TE[employer] TECH[employer]IAN May 25, 2018 11:37
[2018-05-25 12:00] VITALS: BP 124/82
--- NOTE | 2018-05-25 12:04 | General Progress Note ---
Assessment/Plan Assessment/Plan S: I am ok O: appears comfortable. Complains of right sided abdominal pain . PHYSICAL EXAMINATION: HEAD AND NECK: Atraumatic and normocephalic. CHEST: Clear to auscultation. No wheezing. No crackles. HEART: S1 and S2. Regular rate and rhythm. ABDOMEN: Tender noted. Negative for rebound tenderness. NEUROLOGIC: The patient is awake, alert, and oriented x3. PSYCHIATRIC: Mood and affect are appropriate and normal. MUSCULOSKELETAL: No gross lateralized motor deficit. Meds: reviewed and reconciled, including NovoLog 5 u tid IMAGING: CT scan of abdomen and pelvis dated May 20, 2018 reviewed showing the right perinephric hematoma. ASSESSMENT AND PLAN: 1. Acute Right Perinephric Hemorrhage 3. Acute anemia. 4. Diabetes type 5 Hypovolemic Shock : Stable 6. GI-DVT prophylaxis 7. HTN: uncontrolled 8. Leukocytosis: with no evidence of acute Active infection Plan: will monitor HH, Will proceed with PRBC transfusion with Hgb < 7.3 Notes from Urology , Nephro, Endo, Critical specialist are reviewed will start low dose Lantus, Stable appearance of right perinephric hematoma by l imaging Optimization of BP meds WIll monitor WBC count. Subjective Allergies: Coded Allergies: No Known Allergies (Unverified , 05/20/18) Objective Last 24 Hour Vital Signs Date Time Temp Pulse Resp B/P (MAP) Pulse Ox O2 Delivery O2 Flow Rate FiO2 05/25/18 08:13 87 170/85 05/25/18 08:00 97.0 87 20 170/85 (113) 97 05/25/18 08:00 Nasal Cannula 2.0 05/25/18 07:49 85 05/25/18 07:40 Nasal Cannula 2.0 28 05/25/18 07:40 97 Nasal Cannula 2.0 28 05/25/18 04:00 Nasal Cannula 2.0 05/25/18 04:00 82 05/25/18 04:00 97.8 80 21 150/86 (107) 97 05/25/18 00:00 Nasal Cannula 2.0 28 05/25/18 00:00 Nasal Cannula 2.0 05/25/18 00:00 97.8 76 21 143/81 (101) 98 05/24/18 23:57 97 Nasal Cannula 2.0 28 05/24/18 20:58 85 160/83 05/24/18 20:00 97.9 84 21 160/83 (108) 98 05/24/18 20:00 87 05/24/18 20:00 Nasal Cannula 2.0 05/24/18 18:40 97.9 05/24/18 16:00 86 05/24/18 16:00 Nasal Cannula 2.0 05/24/18 12:57 167/80 Intake and Output 05/24/18 05/25/18 19:00 07:00 Intake Total 295 ml 310 ml Output Total 0 ml Balance 295 ml 310 ml Intake Oral 240 ml 200 ml IV Total 55 ml 110 ml Output Urine Total 0 ml # Voids 2 3 # Bowel Movements 4 1 Laboratory Tests 05/24/18 15:00: Stool Occult Blood [Pending] 05/24/18 18:35: White Blood Count 12.1H, Red Blood Count 2.87L, Hemoglobin 9.2L, Hematocrit 26.4L, Mean Corpuscular Volume 92, Mean Corpuscular Hemoglobin 32.0H, Mean Corpuscular Hemoglobin Concent 34.8, Red Cell Distribution Width 13.8, Platelet Count 167, Mean Platelet Volume 9.3, Neutrophils (%) (Auto) , Lymphocytes (%) ( Auto) , Monocytes (%) (Auto) , Eosinophils (%) (Auto) , Basophils (%) (Auto) , Differential Total Cells Counted 100, Neutrophils % (Manual) 82H, Lymphocytes % (Manual) 8L, Monocytes % (Manual) 7, Eosinophils % (Manual) 2, Basophils % ( Manual) 1, Band Neutrophils 0, Platelet Estimate Adequate, Platelet Morphology Normal, Hypochromasia 1+, Anisocytosis 1+ 05/25/18 03:40: White Blood Count 18.7#H, Red Blood Count 2.74L, Hemoglobin 8.3L, Hematocrit 24.7L, Mean Corpuscular Volume 90, Mean Corpuscular Hemoglobin 30.3, Mean Corpuscular Hemoglobin Concent 33.5, Red Cell Distribution Width 13.4, Platelet Count 219, Mean Platelet Volume 9.5, Neutrophils (%) (Auto) , Lymphocytes (%) ( Auto) , Monocytes (%) (Auto) , Eosinophils (%) (Auto) , Basophils (%) (Auto) , Differential Total Cells Counted 100, Neutrophils % (Manual) 92H, Lymphocytes % (Manual) 2L, Monocytes % (Manual) 6, Eosinophils % (Manual) 0, Basophils % ( Manual) 0, Band Neutrophils 0, Platelet Estimate Adequate, Platelet Morphology Normal, Hypochromasia 2+, Anisocytosis 1+, Spherocytes 1+, Sodium Level 137, Potassium Level 4.0, Chloride Level 95L, Carbon Dioxide Level 28, Anion Gap 15, Blood Urea Nitrogen 69H, Creatinine 8.6H, Estimat Glomerular Filtration Rate 6.6 , Glucose Level 192H, Calcium Level 7.6L, Phosphorus Level 3.7, Total Bilirubin 1.7H, Direct Bilirubin 0.7H, Aspartate Amino Transf (AST/SGOT) 34, Alanine Aminotransferase (ALT/SGPT) 32, Alkaline Phosphatase 60, C-Reactive Protein, Quantitative 26.4H, Pro-B-Type Natriuretic Peptide 98346E, Total Protein 8.2, Albumin 2.8L, Globulin 5.4, Albumin/Globulin Ratio 0.5L Height (Feet): 5 Height (Inches): 6.00 Weight (Pounds): 186 Baljit Flores MD May 25, 2018 12:03
--- NOTE | 2018-05-25 13:45 | Pulmonology Progress Note ---
Assessment/Plan Assessment/Plan Pulmonary Progress Note Patient with: (1) Shock (2) Diabetes (3) ESRD (end stage renal disease) on dialysis (4) Retroperitoneal hemorrhage involving right kidney (5) Anemia Assessment/Plan CXR noted PRN anti-tussives PRN HHN's Monitor CBC, transfuse as needed Monitor hemodynamics and volumes HD per renal F/U recs, no plan for operation at this time Zosyn per ID, F/U Cx's DVT Px: SCD's SSI Pain control/supportive care Subjective Allergies: Coded Allergies: No Known Allergies (Unverified , 05/20/18) Subjective HH stable AFVSS on 2L, getting HD Less flank abd pain + cough, no SOB no F/C Objective Vital Signs Noted Laboratory Tests 05/24/18 03:00: White Blood Count 9.6, Red Blood Count 2.62L, Hemoglobin 8.1L, Hematocrit 23.7L , Mean Corpuscular Volume 90, Mean Corpuscular Hemoglobin 30.9, Mean Corpuscular Hemoglobin Concent 34.1, Red Cell Distribution Width 13.6, Platelet Count 139L, Mean Platelet Volume 10.5H, Neutrophils (%) (Auto) 83.4H, Lymphocytes (%) (Auto) 6.7L, Monocytes (%) (Auto) 7.6, Eosinophils (%) (Auto) 1.7, Basophils (%) (Auto) 0.6, Sodium Level 139, Potassium Level 3.6, Chloride Level 97L, Carbon Dioxide Level 30, Anion Gap 12, Blood Urea Nitrogen 50H, Creatinine 6.8H, Estimat Glomerular Filtration Rate 8.6, Glucose Level 138H, Calcium Level 8.0L, Phosphorus Level 3.0, Magnesium Level 2.5H, Total Bilirubin 0.9, Aspartate Amino Transf (AST/SGOT) 31, Alanine Aminotransferase (ALT/SGPT) 35, Alkaline Phosphatase 61, Total Protein 7.6, Albumin 2.6L, Globulin 5.0, Albumin/Globulin Ratio 0.5L 05/24/18 11:10: Stool Occult Blood [Pending] 05/24/18 15:00: Stool Occult Blood [Pending] Current Medications Medications (Trade) Dose Ordered Sig/Santos Route PRN Reason Start Time Stop Time Status Last Admin Dose Admin Acetaminophen/ Hydrocodone Bitart ([place] 5/325) 1 tab TIDPRN PRN ORAL Moderate Pain (Pain Scale 4-6) 05/22/18 09:00 05/29/18 08:59 05/24/18 16:35 Dextrose (Dextrose 50%) 25 ml Q30M PRN IV Hypoglycemia 05/22/18 09:00 06/19/18 08:59 Dextrose (Dextrose 50%) 50 ml Q30M PRN IV Hypoglycemia 05/22/18 09:00 06/19/18 08:59 Docusate Sodium (Colace) 100 mg THREE TIMES A DAY ORAL 05/22/18 09:00 06/19/18 12:59 05/24/18 12:57 Epoetin Jayme (Procrit (for ESRD on dialysis)) 10,000 units MON-MON-MON SUBQ 05/23/18 21:00 06/22/18 20:59 05/23/18 21:25 Hydralazine HCl (Apresoline) 25 mg Q4H PRN ORAL BP 160 and above 05/24/18 10:30 06/23/18 10:29 05/24/18 12:57 Insulin Aspart (NovoLOG) BEFORE MEALS AND HS SUBQ 05/22/18 11:30 06/19/18 06:29 05/24/18 12:10 Insulin Detemir (Levemir) 6 units DAILY SUBQ 05/22/18 09:00 06/20/18 11:59 05/24/18 09:03 Iron Sucrose 100 mg/Sodium Chloride 55 ml @ 200 mls/hr BEDTIME IV 05/24/18 21:00 05/27/18 21:17 Lactulose (Cephulac) 20 gm TWICE A DAY ORAL 05/22/18 09:00 06/20/18 05:59 05/24/18 08:55 Lorazepam (Ativan) 0.5 mg TIDPRN PRN ORAL For Anxiety 05/22/18 09:00 05/29/18 08:59 Metoprolol Tartrate (Lopressor) 12.5 mg Q12HR ORAL 05/24/18 21:00 06/23/18 20:59 Ondansetron HCl (Zofran) 4 mg TIDPRN PRN IVP Nausea & Vomiting 05/22/18 09:00 06/21/18 08:59 Pantoprazole (Protonix) 40 mg BID ORAL 05/23/18 18:00 06/22/18 17:59 05/24/18 08:58 Piperacillin Sod/ Tazobactam Sod 2.25 gm/Dextrose 55 ml @ 110 mls/hr Q8HR IVPB 05/22/18 15:00 05/27/18 14:59 05/24/18 13:59 Promethazine HCl/ Dextromethorphan (Phenergan DM) 6.25 mg Q6H PRN ORAL For Cough 05/24/18 12:00 06/23/18 11:59 05/24/18 12:16 Sevelamer Carbonate (Renvela) 1,600 mg THREE TIMES A DAY ORAL 05/23/18 13:00 06/20/18 12:59 05/24/18 12:57 Sodium Chloride 500 ml @ 999 mls/hr Q4H PRN IV SBP less than 100mmhg 05/22/18 09:00 06/19/18 08:59 Subjective ROS Limited/Unobtainable: No Allergies: Coded Allergies: No Known Allergies (Unverified , 05/20/18) Objective Last 24 Hour Vital Signs Date Time Temp Pulse Resp B/P (MAP) Pulse Ox O2 Delivery O2 Flow Rate FiO2 05/25/18 12:17 81 05/25/18 12:00 97.9 72 19 124/82 (96) 97 05/25/18 12:00 Nasal Cannula 2.0 05/25/18 08:13 87 170/85 05/25/18 08:00 97.0 87 20 170/85 (113) 97 05/25/18 08:00 Nasal Cannula 2.0 05/25/18 07:49 85 05/25/18 07:40 Nasal Cannula 2.0 28 05/25/18 07:40 97 Nasal Cannula 2.0 28 05/25/18 04:00 Nasal Cannula 2.0 05/25/18 04:00 82 05/25/18 04:00 97.8 80 21 150/86 (107) 97 05/25/18 00:00 Nasal Cannula 2.0 28 05/25/18 00:00 Nasal Cannula 2.0 05/25/18 00:00 97.8 76 21 143/81 (101) 98 05/24/18 23:57 97 Nasal Cannula 2.0 28 05/24/18 20:58 85 160/83 05/24/18 20:00 97.9 84 21 160/83 (108) 98 05/24/18 20:00 87 05/24/18 20:00 Nasal Cannula 2.0 05/24/18 18:40 97.9 05/24/18 16:00 86 05/24/18 16:00 Nasal Cannula 2.0 Intake and Output 05/24/18 05/25/18 19:00 07:00 Intake Total 295 ml 310 ml Output Total 0 ml Balance 295 ml 310 ml Intake Oral 240 ml 200 ml IV Total 55 ml 110 ml Output Urine Total 0 ml # Voids 2 3 # Bowel Movements 4 1 Microbiology Date/Time Source Procedure Growth Status 05/22/18 17:50 Blood Blood Culture - Preliminary NO GROWTH AFTER 48 HOURS Resulted Laboratory Tests 05/24/18 15:00: Stool Occult Blood Negative 05/24/18 18:35: White Blood Count 12.1H, Red Blood Count 2.87L, Hemoglobin 9.2L, Hematocrit 26.4L, Mean Corpuscular Volume 92, Mean Corpuscular Hemoglobin 32.0H, Mean Corpuscular Hemoglobin Concent 34.8, Red Cell Distribution Width 13.8, Platelet Count 167, Mean Platelet Volume 9.3, Neutrophils (%) (Auto) , Lymphocytes (%) ( Auto) , Monocytes (%) (Auto) , Eosinophils (%) (Auto) , Basophils (%) (Auto) , Differential Total Cells Counted 100, Neutrophils % (Manual) 82H, Lymphocytes % (Manual) 8L, Monocytes % (Manual) 7, Eosinophils % (Manual) 2, Basophils % ( Manual) 1, Band Neutrophils 0, Platelet Estimate Adequate, Platelet Morphology Normal, Hypochromasia 1+, Anisocytosis 1+ 05/25/18 03:40: White Blood Count 18.7#H, Red Blood Count 2.74L, Hemoglobin 8.3L, Hematocrit 24.7L, Mean Corpuscular Volume 90, Mean Corpuscular Hemoglobin 30.3, Mean Corpuscular Hemoglobin Concent 33.5, Red Cell Distribution Width 13.4, Platelet Count 219, Mean Platelet Volume 9.5, Neutrophils (%) (Auto) , Lymphocytes (%) ( Auto) , Monocytes (%) (Auto) , Eosinophils (%) (Auto) , Basophils (%) (Auto) , Differential Total Cells Counted 100, Neutrophils % (Manual) 92H, Lymphocytes % (Manual) 2L, Monocytes % (Manual) 6, Eosinophils % (Manual) 0, Basophils % ( Manual) 0, Band Neutrophils 0, Platelet Estimate Adequate, Platelet Morphology Normal, Hypochromasia 2+, Anisocytosis 1+, Spherocytes 1+, Sodium Level 137, Potassium Level 4.0, Chloride Level 95L, Carbon Dioxide Level 28, Anion Gap 15, Blood Urea Nitrogen 69H, Creatinine 8.6H, Estimat Glomerular Filtration Rate 6.6 , Glucose Level 192H, Calcium Level 7.6L, Phosphorus Level 3.7, Total Bilirubin 1.7H, Direct Bilirubin 0.7H, Aspartate Amino Transf (AST/SGOT) 34, Alanine Aminotransferase (ALT/SGPT) 32, Alkaline Phosphatase 60, C-Reactive Protein, Quantitative 26.4H, Pro-B-Type Natriuretic Peptide 18425C, Total Protein 8.2, Albumin 2.8L, Globulin 5.4, Albumin/Globulin Ratio 0.5L Current Medications Medications (Trade) Dose Ordered Sig/Santos Route PRN Reason Start Time Stop Time Status Last Admin Dose Admin Acetaminophen/ Hydrocodone Bitart ([place] 5/325) 1 tab Q4H PRN ORAL Moderate Pain (Pain Scale 4-6) 05/25/18 13:15 06/01/18 13:14 Albuterol/ Ipratropium (Albuterol/ Ipratropium) 3 ml Q4H PRN HHN Shortness of Breath 05/24/18 16:45 05/29/18 16:44 Dextrose (Dextrose 50%) 25 ml Q30M PRN IV Hypoglycemia 05/22/18 09:00 06/19/18 08:59 Dextrose (Dextrose 50%) 50 ml Q30M PRN IV Hypoglycemia 05/22/18 09:00 06/19/18 08:59 Docusate Sodium (Colace) 100 mg THREE TIMES A DAY ORAL 05/22/18 09:00 06/19/18 12:59 05/25/18 13:40 Epoetin Jayme (Procrit (for ESRD on dialysis)) 10,000 units MON-WED-MON SUBQ 05/23/18 21:00 06/22/18 20:59 05/23/18 21:25 Hydralazine HCl (Apresoline) 25 mg Q4H PRN ORAL BP 160 and above 05/24/18 10:30 06/23/18 10:29 05/24/18 12:57 Insulin Aspart (NovoLOG) BEFORE MEALS AND HS SUBQ 05/22/18 11:30 06/19/18 06:29 05/25/18 06:42 Insulin Detemir (Levemir) 6 units DAILY SUBQ 05/22/18 09:00 06/20/18 11:59 05/25/18 08:14 Iron Sucrose 100 mg/Sodium Chloride 55 ml @ 200 mls/hr BEDTIME IV 05/24/18 21:00 05/27/18 21:17 05/24/18 20:57 Lactulose (Cephulac) 20 gm TWICE A DAY ORAL 05/22/18 09:00 06/20/18 05:59 05/24/18 20:15 Lorazepam (Ativan) 0.5 mg TIDPRN PRN ORAL For Anxiety 05/22/18 09:00 05/29/18 08:59 05/25/18 00:47 Metoprolol Tartrate (Lopressor) 25 mg Q12HR ORAL 05/25/18 21:00 06/23/18 20:59 Morphine Sulfate (Morphine Sulfate) 1 mg Q4H PRN IVP Severe Pain (Pain Scale 7-10) 05/24/18 17:15 05/31/18 17:14 05/25/18 09:29 Ondansetron HCl (Zofran) 4 mg TIDPRN PRN IVP Nausea & Vomiting 05/22/18 09:00 06/21/18 08:59 Pantoprazole (Protonix) 40 mg BID ORAL 05/23/18 18:00 06/22/18 17:59 05/25/18 08:13 Piperacillin Sod/ Tazobactam Sod 2.25 gm/Dextrose 55 ml @ 110 mls/hr Q8HR IVPB 05/22/18 15:00 05/27/18 14:59 05/25/18 13:41 Promethazine HCl/ Dextromethorphan (Phenergan DM) 6.25 mg Q6H PRN ORAL For Cough 05/24/18 12:00 06/23/18 11:59 05/24/18 12:16 Sevelamer Carbonate (Renvela) 1,600 mg THREE TIMES A DAY ORAL 05/23/18 13:00 06/20/18 12:59 05/25/18 13:40 Sodium Chloride 500 ml @ 999 mls/hr Q4H PRN IV SBP less than 100mmhg 05/22/18 09:00 06/19/18 08:59 Tae Velazco MD May 25, 2018 13:45
--- NOTE | 2018-05-25 13:51 | Diagnostic Imaging Report ---
Indication: Abdominal pain Comparison: None Single view of the abdomen obtained Findings: Bowel gas pattern is nonspecific. No mass, ectopic calcifications, or abnormal gas collections are identified. The bones are unremarkable. Impression: No acute findings
--- NOTE | 2018-05-25 13:56 | Diagnostic Imaging Report ---
Indication: Cough Comparison: None A single view chest radiograph was obtained. Findings: Interstitial edema and prominent vascularity demonstrated. There may be a right pleural effusion. Heart is enlarged. IMPRESSION: Suspected CHF and a right pleural effusion
--- NOTE | 2018-05-25 15:06 | Infectious Diseases Prog Note ---
Assessment/Plan Problems: (1) Renal hematoma, right Assessment & Plan: with extension to the retroperitoneal area , continue close monitor of H/H and serial images for follow up, watch out for abscess formation (2) Sepsis Assessment & Plan: with leukocytosis , due to the above, will repeat blood culture and continue zosyn empirically for now will reimage the abdomen if WBC continue to rise (3) Retroperitoneal hemorrhage Assessment & Plan: continue H/H monitoring with blood transfusion , and serial imaging for follow up, avoid anticoagulation (4) ESRD (end stage renal disease) on dialysis Assessment & Plan: on HD, renal is following (5) Diabetes Assessment & Plan: recommend tight glycemic control to keep blood glucose between 100-140 Subjective Constitutional: Reports: no symptoms HEENT: Reports: no symptoms Respiratory: Reports: no symptoms Breasts: Reports: no symptoms Cardiovascular: Reports: no symptoms Gastrointestinal/Abdominal: Reports: no symptoms Genitourinary: Reports: no symptoms Neurologic: Reports: no symptoms Psychiatric: Reports: no symptoms Skin: Reports: no symptoms Endocrine: Reports: no symptoms Hematologic: Reports: no symptoms Musculoskeletal: Reports: pain Allergies: Coded Allergies: No Known Allergies (Unverified , 05/20/18) Objective Vital Signs Last 24 Hour Vital Signs Date Time Temp Pulse Resp B/P (MAP) Pulse Ox O2 Delivery O2 Flow Rate FiO2 05/25/18 12:17 81 05/25/18 12:00 97.9 72 19 124/82 (96) 97 05/25/18 12:00 Nasal Cannula 2.0 05/25/18 08:13 87 170/85 05/25/18 08:00 97.0 87 20 170/85 (113) 97 05/25/18 08:00 Nasal Cannula 2.0 05/25/18 07:49 85 05/25/18 07:40 Nasal Cannula 2.0 28 05/25/18 07:40 97 Nasal Cannula 2.0 28 05/25/18 04:00 Nasal Cannula 2.0 05/25/18 04:00 82 05/25/18 04:00 97.8 80 21 150/86 (107) 97 05/25/18 00:00 Nasal Cannula 2.0 28 05/25/18 00:00 Nasal Cannula 2.0 05/25/18 00:00 97.8 76 21 143/81 (101) 98 05/24/18 23:57 97 Nasal Cannula 2.0 28 05/24/18 20:58 85 160/83 05/24/18 20:00 97.9 84 21 160/83 (108) 98 05/24/18 20:00 87 05/24/18 20:00 Nasal Cannula 2.0 05/24/18 18:40 97.9 05/24/18 16:00 86 05/24/18 16:00 Nasal Cannula 2.0 Height (Feet): 5 Height (Inches): 6.00 Weight (Pounds): 186 General Appearance: WD/WN, no acute distress HEENT: normocephalic, atraumatic, anicteric, mucous membranes moist, PERRL Respiratory/Chest: chest wall non-tender, lungs clear, normal breath sounds, no respiratory distress, no accessory muscle use Cardiovascular: normal peripheral pulses, normal rate, regular rhythm, no gallop/murmur, no JVD Abdomen: normal bowel sounds, soft, non tender, no organomegaly, non distended , no mass, no scars Genitourinary: normal external genitalia Extremities: no cyanosis, no clubbing Skin: no rash, no lesions, no ulcers Neurologic/Psychiatric: alert, oriented x 3, responsive Lymphatic: no neck adenopathy, no groin adenopathy Musculoskeletal: normal muscle bulk, no effusion Microbiology Date/Time Source Procedure Growth Status 05/22/18 17:50 Blood Blood Culture - Preliminary NO GROWTH AFTER 48 HOURS Resulted Laboratory Tests Test 05/24/18 18:35 05/25/18 03:40 White Blood Count 12.1 K/UL (4.8-10.8) H 18.7 K/UL (4.8-10.8) #H Red Blood Count 2.87 M/UL (4.70-6.10) L 2.74 M/UL (4.70-6.10) L Hemoglobin 9.2 G/DL (14.2-18.0) L 8.3 G/DL (14.2-18.0) L Hematocrit 26.4 % (42.0-52.0) L 24.7 % (42.0-52.0) L Mean Corpuscular Volume 92 FL (80-99) 90 FL (80-99) Mean Corpuscular Hemoglobin 32.0 PG (27.0-31.0) H 30.3 PG (27.0-31.0) Mean Corpuscular Hemoglobin Concent 34.8 G/DL (32.0-36.0) 33.5 G/DL (32.0-36.0) Red Cell Distribution Width 13.8 % (11.6-14.8) 13.4 % (11.6-14.8) Platelet Count 167 K/UL (150-450) 219 K/UL (150-450) Mean Platelet Volume 9.3 FL (6.5-10.1) 9.5 FL (6.5-10.1) Neutrophils (%) (Auto) % (45.0-75.0) % (45.0-75.0) Lymphocytes (%) (Auto) % (20.0-45.0) % (20.0-45.0) Monocytes (%) (Auto) % (1.0-10.0) % (1.0-10.0) Eosinophils (%) (Auto) % (0.0-3.0) % (0.0-3.0) Basophils (%) (Auto) % (0.0-2.0) % (0.0-2.0) Differential Total Cells Counted 100 100 Neutrophils % (Manual) 82 % (45-75) H 92 % (45-75) H Lymphocytes % (Manual) 8 % (20-45) L 2 % (20-45) L Monocytes % (Manual) 7 % (1-10) 6 % (1-10) Eosinophils % (Manual) 2 % (0-3) 0 % (0-3) Basophils % (Manual) 1 % (0-2) 0 % (0-2) Band Neutrophils 0 % (0-8) 0 % (0-8) Platelet Estimate Adequate Adequate Platelet Morphology Normal Normal Hypochromasia 1+ 2+ Anisocytosis 1+ 1+ Spherocytes 1+ Sodium Level 137 MMOL/L (136-145) Potassium Level 4.0 MMOL/L (3.5-5.1) Chloride Level 95 MMOL/L (98-107) L Carbon Dioxide Level 28 MMOL/L (21-32) Anion Gap 15 mmol/L (5-15) Blood Urea Nitrogen 69 mg/dL (7-18) H Creatinine 8.6 MG/DL (0.55-1.30) H Estimat Glomerular Filtration Rate 6.6 mL/min (>60) Glucose Level 192 MG/DL (74-106) H Calcium Level 7.6 MG/DL (8.5-10.1) L Phosphorus Level 3.7 MG/DL (2.5-4.9) Total Bilirubin 1.7 MG/DL (0.2-1.0) H Direct Bilirubin 0.7 MG/DL (0.0-0.3) H Aspartate Amino Transf (AST/SGOT) 34 U/L (15-37) Alanine Aminotransferase (ALT/SGPT) 32 U/L (12-78) Alkaline Phosphatase 60 U/L (46-116) C-Reactive Protein, Quantitative 26.4 mg/dL (0.00-0.90) H Pro-B-Type Natriuretic Peptide 60646 pg/mL (0-125) H Total Protein 8.2 G/DL (6.4-8.2) Albumin 2.8 G/DL (3.4-5.0) L Globulin 5.4 g/dL Albumin/Globulin Ratio 0.5 (1.0-2.7) L Current Medications Medications (Trade) Dose Ordered Sig/Santos Route PRN Reason Start Time Stop Time Status Last Admin Dose Admin Acetaminophen/ Hydrocodone Bitart ([place] 5/325) 1 tab Q4H PRN ORAL Moderate Pain (Pain Scale 4-6) 05/25/18 13:15 06/01/18 13:14 Albuterol/ Ipratropium (Albuterol/ Ipratropium) 3 ml Q4H PRN HHN Shortness of Breath 05/24/18 16:45 05/29/18 16:44 Dextrose (Dextrose 50%) 25 ml Q30M PRN IV Hypoglycemia 05/22/18 09:00 06/19/18 08:59 Dextrose (Dextrose 50%) 50 ml Q30M PRN IV Hypoglycemia 05/22/18 09:00 06/19/18 08:59 Docusate Sodium (Colace) 100 mg THREE TIMES A DAY ORAL 05/22/18 09:00 06/19/18 12:59 05/25/18 13:40 Epoetin Jayme (Procrit (for ESRD on dialysis)) 10,000 units MON-MON-MON SUBQ 05/23/18 21:00 127/18 20:59 05/23/18 21:25 Hydralazine HCl (Apresoline) 25 mg Q4H PRN ORAL BP 160 and above 05/24/18 10:30 06/23/18 10:29 05/24/18 12:57 Insulin Aspart (NovoLOG) BEFORE MEALS AND HS SUBQ 05/22/18 11:30 06/19/18 06:29 05/25/18 13:55 Insulin Detemir (Levemir) 6 units DAILY SUBQ 05/22/18 09:00 06/20/18 11:59 05/25/18 08:14 Iron Sucrose 100 mg/Sodium Chloride 55 ml @ 200 mls/hr BEDTIME IV 05/24/18 21:00 05/27/18 21:17 05/24/18 20:57 Lactulose (Cephulac) 20 gm TWICE A DAY ORAL 05/22/18 09:00 06/20/18 05:59 05/24/18 20:15 Lorazepam (Ativan) 0.5 mg TIDPRN PRN ORAL For Anxiety 05/22/18 09:00 05/29/18 08:59 05/25/18 00:47 Metoprolol Tartrate (Lopressor) 25 mg Q12HR ORAL 05/25/18 21:00 06/23/18 20:59 Morphine Sulfate (Morphine Sulfate) 1 mg Q4H PRN IVP Severe Pain (Pain Scale 7-10) 05/24/18 17:15 05/31/18 17:14 05/25/18 09:29 Ondansetron HCl (Zofran) 4 mg TIDPRN PRN IVP Nausea & Vomiting 05/22/18 09:00 06/21/18 08:59 Pantoprazole (Protonix) 40 mg BID ORAL 05/23/18 18:00 06/22/18 17:59 05/25/18 08:13 Piperacillin Sod/ Tazobactam Sod 2.25 gm/Dextrose 55 ml @ 110 mls/hr Q8HR IVPB 05/22/18 15:00 05/27/18 14:59 05/25/18 13:41 Promethazine HCl/ Dextromethorphan (Phenergan DM) 6.25 mg Q6H PRN ORAL For Cough 05/24/18 12:00 06/23/18 11:59 05/24/18 12:16 Sevelamer Carbonate (Renvela) 1,600 mg THREE TIMES A DAY ORAL 05/23/18 13:00 06/20/18 12:59 05/25/18 13:40 Sodium Chloride 500 ml @ 999 mls/hr Q4H PRN IV SBP less than 100mmhg 05/22/18 09:00 06/19/18 08:59 Rowena Garcia M.D. May 25, 2018 15:06
[2018-05-25 16:00] VITALS: BP 155/81
[2018-05-25] MEDS: Lactulose 20gm/30ml UDC ORAL SCH (17:03)
--- NOTE | 2018-05-25 19:17 | Progress Note ---
DATE: 05/25/2018 SUBJECTIVE: The patient is doing well. He still has anxiety, however, his mood is improved. He stated that he still has right-sided abdominal pain, which has decreased. MENTAL STATUS EXAMINATION: The patient is alert and oriented times self, place, and situation he is in. Mood is dysphoric. Affect is constricted. Congruent with mood. Thought process is concrete. Thought content, no suicidal or homicidal ideation. ASSESSMENT: Anxiety disorder. PLAN: 1. We will continue the Ativan. 2. Provide the patient with reality orientation and supportive therapy. Chris Driscoll M.D. DR: LARY JOB#: [id number] CC:
[2018-05-25 20:00] VITALS: BP 156/82
[2018-05-25] MEDS: Metoprolol 25mg tab ORAL SCH (21:02)
[2018-05-25] MEDS: Epogen (for ESRD on dialysis) SUBQ SCH (21:36)
[2018-05-26] VITALS: BP 145/73
[2018-05-26] MEDS: Norco 5mg/325mg tab ORAL PRN ×4 (02:05→23:02)
[2018-05-26 04:00] VITALS: BP 153/77
[2018-05-26] MEDS: Piperacillin/Tazobactam 2.25 GM in D5W 55 ML IVPB SCH ×3 (05:28→21:32)
[2018-05-26 05:43] LABS: HEMATOCRIT 17.3 % (42.0-52.0); MEAN CORPUSCULAR VOLUME 91 FL (80-99); PLATELET COUNT 169 K/UL (150-450); RED BLOOD COUNT 1.89 M/UL (4.70-6.10); RED CELL DISTRIBUTION WIDTH 13.4 % (11.6-14.8); WHITE BLOOD COUNT 11.1 K/UL (4.8-10.8)
[2018-05-26 06:02] LABS: ALANINE AMINOTRANSFERASE 41 U/L (12-78); ALBUMIN 2.7 G/DL (3.4-5.0); ALBUMIN/GLOBULIN RATIO 0.5 (1.0-2.7); ALKALINE PHOSPHATASE 59 U/L (46-116); ANION GAP 15 mmol/L (5-15); ASPARTATE AMINO TRANSFERASE 51 U/L (15-37); BILIRUBIN,TOTAL 1.8 MG/DL (0.2-1.0); BLOOD UREA NITROGEN 56 mg/dL (7-18); CALCIUM 8.3 MG/DL (8.5-10.1); CARBON DIOXIDE 28 MMOL/L (21-32); CHLORIDE 95 MMOL/L (98-107); CREATININE 6.9 MG/DL (0.55-1.30); PHOSPHORUS 3.7 MG/DL (2.5-4.9); POTASSIUM 4.4 MMOL/L (3.5-5.1); SODIUM 138 MMOL/L (136-145)
[2018-05-26 06:09] LABS: BILIRUBIN,DIRECT 0.9 MG/DL (0.0-0.3)
[2018-05-26] MEDS: NovoLOG Insulin Flexpen SUBQ SCH ×4 (06:14→20:57)
[2018-05-26 08:00] VITALS: BP 160/70
[2018-05-26] MEDS: Docusate 100mg cap ORAL SCH ×4 (08:29→17:35)
[2018-05-26] MEDS: Lactulose 20gm/30ml UDC ORAL SCH ×3 (08:29→17:34)
[2018-05-26] MEDS: Metoprolol 25mg tab ORAL SCH ×2 (08:30→20:24)
[2018-05-26] MEDS: HydrALAZINE 25mg tab ORAL PRN ×2 (08:30→20:25)
[2018-05-26] MEDS: Levemir Flexpen SUBQ SCH (08:33)
--- NOTE | 2018-05-26 09:31 | Nephrology Progress Note ---
Assessment/Plan Problem List: (1) ESRD (end stage renal disease) on dialysis (2) Retroperitoneal hemorrhage (3) Shock (4) Anemia (5) Abdominal pain (6) Diabetes Assessment WBC rising presented with: hemorrhagic shock- Retro Peritoneal bleed Low BP on admission ESRD DM HTN transfused 3 units since , more if needed Plan HD 05/25 next 05/28 Transfuse as needed in [place] now manage pain Per consultants discussed with RN meds adjusted Subjective ROS Limited/Unobtainable: No Objective Objective Last 24 Hour Vital Signs Date Time Temp Pulse Resp B/P (MAP) Pulse Ox O2 Delivery O2 Flow Rate FiO2 05/26/18 09:00 82 05/26/18 08:30 82 160/70 05/26/18 08:30 160/70 05/26/18 08:00 98.0 82 20 160/70 (100) 97 05/26/18 06:35 97 Nasal Cannula 2.0 28 05/26/18 06:35 Nasal Cannula 2.0 28 05/26/18 04:00 97.7 80 20 153/77 (102) 96 05/26/18 04:00 Nasal Cannula 3.0 05/26/18 03:39 81 05/26/18 00:01 Nasal Cannula 2.0 28 05/26/18 00:01 96 Nasal Cannula 2.0 28 05/26/18 00:00 Nasal Cannula 3.0 05/26/18 00:00 98.6 77 20 145/73 (97) 97 05/26/18 00:00 90 05/25/18 21:02 87 155/81 05/25/18 20:00 Nasal Cannula 3.0 05/25/18 20:00 98.0 84 17 156/82 (106) 97 05/25/18 19:45 90 05/25/18 16:00 87 05/25/18 16:00 97.8 88 17 155/81 (105) 97 05/25/18 16:00 Nasal Cannula 2.0 05/25/18 12:17 81 05/25/18 12:00 97.9 72 19 124/82 (96) 97 05/25/18 12:00 Nasal Cannula 2.0 Intake and Output 05/25/18 05/26/18 19:00 07:00 Intake Total 1050.000 ml 405 ml Balance 1050.000 ml 405 ml Intake Oral 720 ml 240 ml IV Total 330.000 ml 165 ml # Voids 2 # Bowel Movements 2 2 Laboratory Tests 05/26/18 04:00: White Blood Count 11.1H, Red Blood Count 1.89L, Hemoglobin 6.0*L, Hematocrit 17.3L, Mean Corpuscular Volume 91, Mean Corpuscular Hemoglobin 32.0H, Mean Corpuscular Hemoglobin Concent 35.0, Red Cell Distribution Width 13.4, Platelet Count 169, Mean Platelet Volume 9.4, Neutrophils (%) (Auto) , Lymphocytes (%) ( Auto) , Monocytes (%) (Auto) , Eosinophils (%) (Auto) , Basophils (%) (Auto) , Differential Total Cells Counted 100, Neutrophils % (Manual) 89H, Lymphocytes % (Manual) 4L, Monocytes % (Manual) 7, Eosinophils % (Manual) 0, Basophils % ( Manual) 0, Band Neutrophils 0, Platelet Estimate Adequate, Platelet Morphology Normal, Polychromasia 1+, Hypochromasia 4+, Anisocytosis 1+, Spherocytes 2+, Sodium Level 138, Potassium Level 4.4, Chloride Level 95L, Carbon Dioxide Level 28, Anion Gap 15, Blood Urea Nitrogen 56H, Creatinine 6.9H, Estimat Glomerular Filtration Rate 8.4, Glucose Level 201H, Calcium Level 8.3L, Phosphorus Level 3.7, Magnesium Level 2.4, Total Bilirubin 1.8H, Direct Bilirubin 0.9H, Aspartate Amino Transf (AST/SGOT) 51H, Alanine Aminotransferase (ALT/SGPT) 41, Alkaline Phosphatase 59, C-Reactive Protein, Quantitative 37.9H, Pro-B-Type Natriuretic Peptide 18887Q, Total Protein 8.0, Albumin 2.7L, Globulin 5.3, Albumin/Globulin Ratio 0.5L Height (Feet): 5 Height (Inches): 6.00 Weight (Pounds): 184 General Appearance: no apparent distress Respiratory/Chest: decreased breath sounds Abdomen: distended Objective no change Dm Lopez MD May 26, 2018 09:31
--- NOTE | 2018-05-26 09:54 | General Progress Note ---
Assessment/Plan Problem List: (1) Retroperitoneal hemorrhage ICD Codes: R58 - Hemorrhage, not elsewhere classified SNOMED: 46861892 (2) Anemia ICD Codes: D64.9 - Anemia, unspecified SNOMED: 229905732 (3) ESRD (end stage renal disease) on dialysis ICD Codes: N18.6 - End stage renal disease; Z99.2 - Dependence on renal dialysis SNOMED: 382101229 (4) Diabetes ICD Codes: E11.9 - Type 2 diabetes mellitus without complications SNOMED: 70207838 (5) Abdominal pain ICD Codes: R10.9 - Unspecified abdominal pain SNOMED: 57958850 Assessment/Plan CT AP reviewed >> Large complex hemorrhage/hemorrhagic mass occupying majority of the right kidney with extensive perinephric fluid/blood extending into the retroperitoneum and pelvis. iron deficiency Anemia, most likely due to chronic disease >> OB stool r/o GI bleedingn pending venofer renal diet ppi BID prn transfusions abx fu surgical recommendations fu labs Subjective ROS Limited/Unobtainable: Yes Allergies: Coded Allergies: No Known Allergies (Unverified , 05/20/18) Subjective no event Objective Last 24 Hour Vital Signs Date Time Temp Pulse Resp B/P (MAP) Pulse Ox O2 Delivery O2 Flow Rate FiO2 05/26/18 09:00 82 05/26/18 08:30 82 160/70 05/26/18 08:30 160/70 05/26/18 08:00 98.0 82 20 160/70 (100) 97 05/26/18 06:35 97 Nasal Cannula 2.0 28 05/26/18 06:35 Nasal Cannula 2.0 28 05/26/18 04:00 97.7 80 20 153/77 (102) 96 05/26/18 04:00 Nasal Cannula 3.0 05/26/18 03:39 81 05/26/18 00:01 Nasal Cannula 2.0 28 05/26/18 00:01 96 Nasal Cannula 2.0 28 05/26/18 00:00 Nasal Cannula 3.0 05/26/18 00:00 98.6 77 20 145/73 (97) 97 05/26/18 00:00 90 05/25/18 21:02 87 155/81 05/25/18 20:00 Nasal Cannula 3.0 05/25/18 20:00 98.0 84 17 156/82 (106) 97 05/25/18 19:45 90 05/25/18 16:00 87 05/25/18 16:00 97.8 88 17 155/81 (105) 97 05/25/18 16:00 Nasal Cannula 2.0 05/25/18 12:17 81 05/25/18 12:00 97.9 72 19 124/82 (96) 97 05/25/18 12:00 Nasal Cannula 2.0 Intake and Output 05/25/18 05/26/18 19:00 07:00 Intake Total 1050.000 ml 405 ml Balance 1050.000 ml 405 ml Intake Oral 720 ml 240 ml IV Total 330.000 ml 165 ml # Voids 2 # Bowel Movements 2 2 Laboratory Tests 05/26/18 04:00: White Blood Count 11.1H, Red Blood Count 1.89L, Hemoglobin 6.0*L, Hematocrit 17.3L, Mean Corpuscular Volume 91, Mean Corpuscular Hemoglobin 32.0H, Mean Corpuscular Hemoglobin Concent 35.0, Red Cell Distribution Width 13.4, Platelet Count 169, Mean Platelet Volume 9.4, Neutrophils (%) (Auto) , Lymphocytes (%) ( Auto) , Monocytes (%) (Auto) , Eosinophils (%) (Auto) , Basophils (%) (Auto) , Differential Total Cells Counted 100, Neutrophils % (Manual) 89H, Lymphocytes % (Manual) 4L, Monocytes % (Manual) 7, Eosinophils % (Manual) 0, Basophils % ( Manual) 0, Band Neutrophils 0, Platelet Estimate Adequate, Platelet Morphology Normal, Polychromasia 1+, Hypochromasia 4+, Anisocytosis 1+, Spherocytes 2+, Sodium Level 138, Potassium Level 4.4, Chloride Level 95L, Carbon Dioxide Level 28, Anion Gap 15, Blood Urea Nitrogen 56H, Creatinine 6.9H, Estimat Glomerular Filtration Rate 8.4, Glucose Level 201H, Calcium Level 8.3L, Phosphorus Level 3.7, Magnesium Level 2.4, Total Bilirubin 1.8H, Direct Bilirubin 0.9H, Aspartate Amino Transf (AST/SGOT) 51H, Alanine Aminotransferase (ALT/SGPT) 41, Alkaline Phosphatase 59, C-Reactive Protein, Quantitative 37.9H, Pro-B-Type Natriuretic Peptide 59915C, Total Protein 8.0, Albumin 2.7L, Globulin 5.3, Albumin/Globulin Ratio 0.5L Height (Feet): 5 Height (Inches): 6.00 Weight (Pounds): 184 General Appearance: no apparent distress EENT: normal ENT inspection Cardiovascular: normal rate Respiratory/Chest: decreased breath sounds Abdomen: normal bowel sounds, non tender, soft Extremities: non-tender Elvis Mcgee MD May 26, 2018 09:54
--- NOTE | 2018-05-26 11:50 | General Progress Note ---
Assessment/Plan Assessment/Plan S: I am Dizzy and I have flank pain O: appears in No distress. Complains of right sided abdominal pain . no Nausea. No gross visible bleeding reported PHYSICAL EXAMINATION: HEAD AND NECK: Atraumatic and normocephalic. CHEST: Clear to auscultation. No wheezing. No crackles. HEART: S1 and S2. Regular rate and rhythm. ABDOMEN: Tender noted. Negative for rebound tenderness. NEUROLOGIC: The patient is awake, alert, and oriented x3. PSYCHIATRIC: Mood and affect are appropriate and normal. MUSCULOSKELETAL: No gross lateralized motor deficit. Left arm AV F/G is noted, with no erythma or tenderness Meds: reviewed and reconciled, including Lnatus 6 u qhs IMAGING: CT scan of abdomen and pelvis dated May 20, 2018 reviewed showing the right perinephric hematoma. ASSESSMENT AND PLAN: 1. Acute Right Perinephric Hemorrhage 3. Acute anemia. 4. Diabetes type 5 Hypovolemic Shock : Stable 6. GI-DVT prophylaxis 7. HTN: uncontrolled 8. Leukocytosis: with no evidence of acute Active infection Plan: will monitor HH, Will proceed with PRBC transfusion with Hgb < 7.3 Notes from Urology , Nephro, Endo, Critical specialist are reviewed Stable appearance of right perinephric hematoma by imaging Optimization of BP meds No evidence for active acute infection. Will monitor per ID Discussed the care with Dr Webb, urology. Agree for continuation of Monitoring and surveillance of Symptoms and Hgb level Serious but Stable cnd at this time Subjective Allergies: Coded Allergies: No Known Allergies (Unverified , 05/20/18) Objective Last 24 Hour Vital Signs Date Time Temp Pulse Resp B/P (MAP) Pulse Ox O2 Delivery O2 Flow Rate FiO2 05/26/18 09:00 82 05/26/18 08:30 82 160/70 05/26/18 08:30 160/70 05/26/18 08:00 98.0 82 20 160/70 (100) 97 05/26/18 06:35 97 Nasal Cannula 2.0 28 05/26/18 06:35 Nasal Cannula 2.0 28 05/26/18 04:00 97.7 80 20 153/77 (102) 96 05/26/18 04:00 Nasal Cannula 3.0 05/26/18 03:39 81 05/26/18 00:01 Nasal Cannula 2.0 28 05/26/18 00:01 96 Nasal Cannula 2.0 28 05/26/18 00:00 Nasal Cannula 3.0 05/26/18 00:00 98.6 77 20 145/73 (97) 97 05/26/18 00:00 90 05/25/18 21:02 87 155/81 05/25/18 20:00 Nasal Cannula 3.0 05/25/18 20:00 98.0 84 17 156/82 (106) 97 05/25/18 19:45 90 05/25/18 16:00 87 05/25/18 16:00 97.8 88 17 155/81 (105) 97 05/25/18 16:00 Nasal Cannula 2.0 05/25/18 12:17 81 05/25/18 12:00 97.9 72 19 124/82 (96) 97 05/25/18 12:00 Nasal Cannula 2.0 Intake and Output 05/25/18 05/26/18 19:00 07:00 Intake Total 1050.000 ml 405 ml Balance 1050.000 ml 405 ml Intake Oral 720 ml 240 ml IV Total 330.000 ml 165 ml # Voids 2 # Bowel Movements 2 2 Laboratory Tests 05/26/18 04:00: White Blood Count 11.1H, Red Blood Count 1.89L, Hemoglobin 6.0*L, Hematocrit 17.3L, Mean Corpuscular Volume 91, Mean Corpuscular Hemoglobin 32.0H, Mean Corpuscular Hemoglobin Concent 35.0, Red Cell Distribution Width 13.4, Platelet Count 169, Mean Platelet Volume 9.4, Neutrophils (%) (Auto) , Lymphocytes (%) ( Auto) , Monocytes (%) (Auto) , Eosinophils (%) (Auto) , Basophils (%) (Auto) , Differential Total Cells Counted 100, Neutrophils % (Manual) 89H, Lymphocytes % (Manual) 4L, Monocytes % (Manual) 7, Eosinophils % (Manual) 0, Basophils % ( Manual) 0, Band Neutrophils 0, Platelet Estimate Adequate, Platelet Morphology Normal, Polychromasia 1+, Hypochromasia 4+, Anisocytosis 1+, Spherocytes 2+, Sodium Level 138, Potassium Level 4.4, Chloride Level 95L, Carbon Dioxide Level 28, Anion Gap 15, Blood Urea Nitrogen 56H, Creatinine 6.9H, Estimat Glomerular Filtration Rate 8.4, Glucose Level 201H, Calcium Level 8.3L, Phosphorus Level 3.7, Magnesium Level 2.4, Total Bilirubin 1.8H, Direct Bilirubin 0.9H, Aspartate Amino Transf (AST/SGOT) 51H, Alanine Aminotransferase (ALT/SGPT) 41, Alkaline Phosphatase 59, C-Reactive Protein, Quantitative 37.9H, Pro-B-Type Natriuretic Peptide 39411I, Total Protein 8.0, Albumin 2.7L, Globulin 5.3, Albumin/Globulin Ratio 0.5L Height (Feet): 5 Height (Inches): 6.00 Weight (Pounds): 184 Baljit Flores MD May 26, 2018 11:50
[2018-05-26 11:52] VITALS: BP 158/72
[2018-05-26] MEDS ORDERED: NS 275ml ONE (13:37)
[2018-05-26] MEDS ORDERED: Tubing IV Secondary IV ONE (13:37)
[2018-05-26 16:00] VITALS: BP 160/83
--- NOTE | 2018-05-26 17:24 | Infectious Diseases Prog Note ---
Assessment/Plan Problems: (1) Renal hematoma, right Assessment & Plan: with extension to the retroperitoneal area , continue close monitor of H/H and serial images for follow up, watch out for abscess formation (2) Sepsis Assessment & Plan: with leukocytosis suspect recurrent bleeding , with drop in his H/H , repeated blood culture is pending and continue zosyn empirically for now . (3) Retroperitoneal hemorrhage Assessment & Plan: continue H/H monitoring with blood transfusion , and serial imaging for follow up, avoid anticoagulation (4) ESRD (end stage renal disease) on dialysis Assessment & Plan: on HD, renal is following (5) Diabetes Assessment & Plan: recommend tight glycemic control to keep blood glucose between 100-140 Subjective Constitutional: Reports: fatigue, other - dizziness HEENT: Reports: no symptoms Respiratory: Reports: no symptoms Breasts: Reports: no symptoms Cardiovascular: Reports: no symptoms Gastrointestinal/Abdominal: Reports: bloating, other - right side abdominal pain Genitourinary: Reports: no symptoms Neurologic: Reports: no symptoms Psychiatric: Reports: no symptoms Skin: Reports: no symptoms Endocrine: Reports: no symptoms Hematologic: Reports: no symptoms Musculoskeletal: Reports: no symptoms Allergies: Coded Allergies: No Known Allergies (Unverified , 05/20/18) Objective Vital Signs Last 24 Hour Vital Signs Date Time Temp Pulse Resp B/P (MAP) Pulse Ox O2 Delivery O2 Flow Rate FiO2 05/26/18 16:42 73 05/26/18 16:14 Nasal Cannula 3.0 05/26/18 12:00 73 05/26/18 11:59 Nasal Cannula 3.0 05/26/18 11:52 97.5 73 20 158/72 (100) 97 05/26/18 09:00 82 05/26/18 08:30 82 160/70 05/26/18 08:30 160/70 05/26/18 08:00 98.0 82 20 160/70 (100) 97 05/26/18 08:00 Nasal Cannula 3.0 05/26/18 06:35 97 Nasal Cannula 2.0 28 05/26/18 06:35 Nasal Cannula 2.0 28 05/26/18 04:00 97.7 80 20 153/77 (102) 96 05/26/18 04:00 Nasal Cannula 3.0 05/26/18 03:39 81 05/26/18 00:01 Nasal Cannula 2.0 28 05/26/18 00:01 96 Nasal Cannula 2.0 28 05/26/18 00:00 Nasal Cannula 3.0 05/26/18 00:00 98.6 77 20 145/73 (97) 97 05/26/18 00:00 90 05/25/18 21:02 87 155/81 05/25/18 20:00 Nasal Cannula 3.0 05/25/18 20:00 98.0 84 17 156/82 (106) 97 05/25/18 19:45 90 Height (Feet): 5 Height (Inches): 6.00 Weight (Pounds): 184 General Appearance: WD/WN, no acute distress HEENT: normocephalic, atraumatic, anicteric, mucous membranes moist, PERRL, EOMI, pharynx normal, supple, no JVD Respiratory/Chest: chest wall non-tender, lungs clear, normal breath sounds, no respiratory distress, no accessory muscle use Cardiovascular: normal peripheral pulses, normal rate, regular rhythm, no gallop/murmur, no JVD Abdomen: no organomegaly, non distended, no mass, no scars, hypoactive bowel sounds, tender Extremities: no cyanosis, no clubbing Skin: no rash, no lesions Neurologic/Psychiatric: alert, oriented x 3, responsive Lymphatic: no neck adenopathy, no groin adenopathy Musculoskeletal: normal muscle bulk, no effusion Laboratory Tests Test 05/26/18 04:00 White Blood Count 11.1 K/UL (4.8-10.8) H Red Blood Count 1.89 M/UL (4.70-6.10) L Hemoglobin 6.0 G/DL (14.2-18.0) *L Hematocrit 17.3 % (42.0-52.0) L Mean Corpuscular Volume 91 FL (80-99) Mean Corpuscular Hemoglobin 32.0 PG (27.0-31.0) H Mean Corpuscular Hemoglobin Concent 35.0 G/DL (32.0-36.0) Red Cell Distribution Width 13.4 % (11.6-14.8) Platelet Count 169 K/UL (150-450) Mean Platelet Volume 9.4 FL (6.5-10.1) Neutrophils (%) (Auto) % (45.0-75.0) Lymphocytes (%) (Auto) % (20.0-45.0) Monocytes (%) (Auto) % (1.0-10.0) Eosinophils (%) (Auto) % (0.0-3.0) Basophils (%) (Auto) % (0.0-2.0) Differential Total Cells Counted 100 Neutrophils % (Manual) 89 % (45-75) H Lymphocytes % (Manual) 4 % (20-45) L Monocytes % (Manual) 7 % (1-10) Eosinophils % (Manual) 0 % (0-3) Basophils % (Manual) 0 % (0-2) Band Neutrophils 0 % (0-8) Platelet Estimate Adequate Platelet Morphology Normal Polychromasia 1+ Hypochromasia 4+ Anisocytosis 1+ Spherocytes 2+ Sodium Level 138 MMOL/L (136-145) Potassium Level 4.4 MMOL/L (3.5-5.1) Chloride Level 95 MMOL/L (98-107) L Carbon Dioxide Level 28 MMOL/L (21-32) Anion Gap 15 mmol/L (5-15) Blood Urea Nitrogen 56 mg/dL (7-18) H Creatinine 6.9 MG/DL (0.55-1.30) H Estimat Glomerular Filtration Rate 8.4 mL/min (>60) Glucose Level 201 MG/DL (74-106) H Calcium Level 8.3 MG/DL (8.5-10.1) L Phosphorus Level 3.7 MG/DL (2.5-4.9) Magnesium Level 2.4 MG/DL (1.8-2.4) Total Bilirubin 1.8 MG/DL (0.2-1.0) H Direct Bilirubin 0.9 MG/DL (0.0-0.3) H Aspartate Amino Transf (AST/SGOT) 51 U/L (15-37) H Alanine Aminotransferase (ALT/SGPT) 41 U/L (12-78) Alkaline Phosphatase 59 U/L (46-116) C-Reactive Protein, Quantitative 37.9 mg/dL (0.00-0.90) H Pro-B-Type Natriuretic Peptide 05445 pg/mL (0-125) H Total Protein 8.0 G/DL (6.4-8.2) Albumin 2.7 G/DL (3.4-5.0) L Globulin 5.3 g/dL Albumin/Globulin Ratio 0.5 (1.0-2.7) L Current Medications Medications (Trade) Dose Ordered Sig/Santos Route PRN Reason Start Time Stop Time Status Last Admin Dose Admin Acetaminophen/ Hydrocodone Bitart ([place] 5/325) 1 tab Q4H PRN ORAL Moderate Pain (Pain Scale 4-6) 05/25/18 13:15 06/01/18 13:14 05/26/18 08:17 Albuterol/ Ipratropium (Albuterol/ Ipratropium) 3 ml Q4H PRN HHN Shortness of Breath 05/24/18 16:45 05/29/18 16:44 Dextrose (Dextrose 50%) 25 ml Q30M PRN IV Hypoglycemia 05/22/18 09:00 06/19/18 08:59 Dextrose (Dextrose 50%) 50 ml Q30M PRN IV Hypoglycemia 05/22/18 09:00 06/19/18 08:59 Docusate Sodium (Colace) 100 mg THREE TIMES A DAY ORAL 05/22/18 09:00 06/19/18 12:59 05/25/18 17:04 Epoetin Jayme (Procrit (for ESRD on dialysis)) 10,000 units MON-MON-MON SUBQ 05/23/18 21:00 06/22/18 20:59 05/25/18 21:36 Hydralazine HCl (Apresoline) 25 mg Q4H PRN ORAL BP 160 and above 05/24/18 10:30 06/23/18 10:29 05/26/18 08:30 Insulin Aspart (NovoLOG) BEFORE MEALS AND HS SUBQ 05/22/18 11:30 06/19/18 06:29 05/26/18 11:50 Insulin Detemir (Levemir) 6 units DAILY SUBQ 05/22/18 09:00 06/20/18 11:59 05/26/18 08:33 Iron Sucrose 100 mg/Sodium Chloride 55 ml @ 200 mls/hr BEDTIME IV 05/24/18 21:00 05/27/18 21:17 05/25/18 21:02 Lactulose (Cephulac) 20 gm TWICE A DAY ORAL 05/22/18 09:00 06/20/18 05:59 05/25/18 17:03 Lorazepam (Ativan) 0.5 mg TIDPRN PRN ORAL For Anxiety 05/22/18 09:00 05/29/18 08:59 05/25/18 00:47 Metoprolol Tartrate (Lopressor) 50 mg Q12HR ORAL 05/26/18 21:00 06/23/18 20:59 Morphine Sulfate (Morphine Sulfate) 1 mg Q4H PRN IVP Severe Pain (Pain Scale 7-10) 05/24/18 17:15 05/31/18 17:14 05/25/18 09:29 Ondansetron HCl (Zofran) 4 mg TIDPRN PRN IVP Nausea & Vomiting 05/22/18 09:00 06/21/18 08:59 Pantoprazole (Protonix) 40 mg BID ORAL 05/23/18 18:00 06/22/18 17:59 05/26/18 08:16 Piperacillin Sod/ Tazobactam Sod 2.25 gm/Dextrose 55 ml @ 110 mls/hr Q8HR IVPB 05/22/18 15:00 05/27/18 14:59 05/26/18 05:28 Promethazine HCl/ Dextromethorphan (Phenergan DM) 6.25 mg Q6H PRN ORAL For Cough 05/24/18 12:00 06/23/18 11:59 05/24/18 12:16 Sevelamer Carbonate (Renvela) 1,600 mg THREE TIMES A DAY ORAL 05/23/18 13:00 06/20/18 12:59 05/26/18 13:31 Sodium Chloride 500 ml @ 999 mls/hr Q4H PRN IV SBP less than 100mmhg 05/22/18 09:00 06/19/18 08:59 Rowena Garcia M.D. May 26, 2018 17:23
[2018-05-26 20:00] VITALS: BP 187/90
--- NOTE | 2018-05-26 20:10 | Pulmonology Progress Note ---
Assessment/Plan Assessment/Plan Pulmonary Progress Note Patient with: (1) Shock (2) Diabetes (3) ESRD (end stage renal disease) on dialysis (4) Retroperitoneal hemorrhage involving right kidney (5) Anemia Assessment/Plan CXR noted PRN anti-tussives PRN HHN's Monitor CBC, transfuse as needed Monitor hemodynamics and volumes HD per renal F/U recs, no plan for operation at this time Zosyn per ID, F/U Cx's DVT Px: SCD's SSI Pain control/supportive care Subjective Allergies: Coded Allergies: No Known Allergies (Unverified , 05/20/18) Subjective HH stable AFVSS on 2L, getting HD Less flank abd pain + cough, no SOB no F/C Objective Vital Signs Noted Laboratory Tests 05/24/18 03:00: White Blood Count 9.6, Red Blood Count 2.62L, Hemoglobin 8.1L, Hematocrit 23.7L , Mean Corpuscular Volume 90, Mean Corpuscular Hemoglobin 30.9, Mean Corpuscular Hemoglobin Concent 34.1, Red Cell Distribution Width 13.6, Platelet Count 139L, Mean Platelet Volume 10.5H, Neutrophils (%) (Auto) 83.4H, Lymphocytes (%) (Auto) 6.7L, Monocytes (%) (Auto) 7.6, Eosinophils (%) (Auto) 1.7, Basophils (%) (Auto) 0.6, Sodium Level 139, Potassium Level 3.6, Chloride Level 97L, Carbon Dioxide Level 30, Anion Gap 12, Blood Urea Nitrogen 50H, Creatinine 6.8H, Estimat Glomerular Filtration Rate 8.6, Glucose Level 138H, Calcium Level 8.0L, Phosphorus Level 3.0, Magnesium Level 2.5H, Total Bilirubin 0.9, Aspartate Amino Transf (AST/SGOT) 31, Alanine Aminotransferase (ALT/SGPT) 35, Alkaline Phosphatase 61, Total Protein 7.6, Albumin 2.6L, Globulin 5.0, Albumin/Globulin Ratio 0.5L 05/24/18 11:10: Stool Occult Blood [Pending] 05/24/18 15:00: Stool Occult Blood [Pending] Current Medications Medications (Trade) Dose Ordered Sig/Santos Route PRN Reason Start Time Stop Time Status Last Admin Dose Admin Acetaminophen/ Hydrocodone Bitart ([place] 5/325) 1 tab TIDPRN PRN ORAL Moderate Pain (Pain Scale 4-6) 05/22/18 09:00 05/29/18 08:59 05/24/18 16:35 Dextrose (Dextrose 50%) 25 ml Q30M PRN IV Hypoglycemia 05/22/18 09:00 06/19/18 08:59 Dextrose (Dextrose 50%) 50 ml Q30M PRN IV Hypoglycemia 05/22/18 09:00 06/19/18 08:59 Docusate Sodium (Colace) 100 mg THREE TIMES A DAY ORAL 05/22/18 09:00 06/19/18 12:59 05/24/18 12:57 Epoetin Jayme (Procrit (for ESRD on dialysis)) 10,000 units MON-MON-MON SUBQ 05/23/18 21:00 06/22/18 20:59 05/23/18 21:25 Hydralazine HCl (Apresoline) 25 mg Q4H PRN ORAL BP 160 and above 05/24/18 10:30 06/23/18 10:29 05/24/18 12:57 Insulin Aspart (NovoLOG) BEFORE MEALS AND HS SUBQ 05/22/18 11:30 06/19/18 06:29 05/24/18 12:10 Insulin Detemir (Levemir) 6 units DAILY SUBQ 05/22/18 09:00 06/20/18 11:59 05/24/18 09:03 Iron Sucrose 100 mg/Sodium Chloride 55 ml @ 200 mls/hr BEDTIME IV 05/24/18 21:00 05/27/18 21:17 Lactulose (Cephulac) 20 gm TWICE A DAY ORAL 05/22/18 09:00 06/20/18 05:59 05/24/18 08:55 Lorazepam (Ativan) 0.5 mg TIDPRN PRN ORAL For Anxiety 05/22/18 09:00 05/29/18 08:59 Metoprolol Tartrate (Lopressor) 12.5 mg Q12HR ORAL 05/24/18 21:00 06/23/18 20:59 Ondansetron HCl (Zofran) 4 mg TIDPRN PRN IVP Nausea & Vomiting 05/22/18 09:00 06/21/18 08:59 Pantoprazole (Protonix) 40 mg BID ORAL 05/23/18 18:00 06/22/18 17:59 05/24/18 08:58 Piperacillin Sod/ Tazobactam Sod 2.25 gm/Dextrose 55 ml @ 110 mls/hr Q8HR IVPB 05/22/18 15:00 05/27/18 14:59 05/24/18 13:59 Promethazine HCl/ Dextromethorphan (Phenergan DM) 6.25 mg Q6H PRN ORAL For Cough 05/24/18 12:00 06/23/18 11:59 05/24/18 12:16 Sevelamer Carbonate (Renvela) 1,600 mg THREE TIMES A DAY ORAL 05/23/18 13:00 06/20/18 12:59 05/24/18 12:57 Sodium Chloride 500 ml @ 999 mls/hr Q4H PRN IV SBP less than 100mmhg 05/22/18 09:00 06/19/18 08:59 Subjective ROS Limited/Unobtainable: No Allergies: Coded Allergies: No Known Allergies (Unverified , 05/20/18) Objective Last 24 Hour Vital Signs Date Time Temp Pulse Resp B/P (MAP) Pulse Ox O2 Delivery O2 Flow Rate FiO2 05/26/18 16:42 73 05/26/18 16:14 Nasal Cannula 3.0 05/26/18 16:00 97.0 79 22 160/83 (108) 96 05/26/18 12:00 73 05/26/18 11:59 Nasal Cannula 3.0 05/26/18 11:52 97.5 73 20 158/72 (100) 97 05/26/18 09:00 82 05/26/18 08:30 82 160/70 05/26/18 08:30 160/70 05/26/18 08:00 98.0 82 20 160/70 (100) 97 05/26/18 08:00 Nasal Cannula 3.0 05/26/18 06:35 97 Nasal Cannula 2.0 28 05/26/18 06:35 Nasal Cannula 2.0 28 05/26/18 04:00 97.7 80 20 153/77 (102) 96 05/26/18 04:00 Nasal Cannula 3.0 05/26/18 03:39 81 05/26/18 00:01 Nasal Cannula 2.0 28 05/26/18 00:01 96 Nasal Cannula 2.0 28 05/26/18 00:00 Nasal Cannula 3.0 05/26/18 00:00 98.6 77 20 145/73 (97) 97 05/26/18 00:00 90 05/25/18 21:02 87 155/81 Intake and Output 05/25/18 05/26/18 19:00 07:00 Intake Total 1050.000 ml 405 ml Balance 1050.000 ml 405 ml Intake Oral 720 ml 240 ml IV Total 330.000 ml 165 ml # Voids 2 # Bowel Movements 2 2 Laboratory Tests 05/26/18 04:00: White Blood Count 11.1H, Red Blood Count 1.89L, Hemoglobin 6.0*L, Hematocrit 17.3L, Mean Corpuscular Volume 91, Mean Corpuscular Hemoglobin 32.0H, Mean Corpuscular Hemoglobin Concent 35.0, Red Cell Distribution Width 13.4, Platelet Count 169, Mean Platelet Volume 9.4, Neutrophils (%) (Auto) , Lymphocytes (%) ( Auto) , Monocytes (%) (Auto) , Eosinophils (%) (Auto) , Basophils (%) (Auto) , Differential Total Cells Counted 100, Neutrophils % (Manual) 89H, Lymphocytes % (Manual) 4L, Monocytes % (Manual) 7, Eosinophils % (Manual) 0, Basophils % ( Manual) 0, Band Neutrophils 0, Platelet Estimate Adequate, Platelet Morphology Normal, Polychromasia 1+, Hypochromasia 4+, Anisocytosis 1+, Spherocytes 2+, Sodium Level 138, Potassium Level 4.4, Chloride Level 95L, Carbon Dioxide Level 28, Anion Gap 15, Blood Urea Nitrogen 56H, Creatinine 6.9H, Estimat Glomerular Filtration Rate 8.4, Glucose Level 201H, Calcium Level 8.3L, Phosphorus Level 3.7, Magnesium Level 2.4, Total Bilirubin 1.8H, Direct Bilirubin 0.9H, Aspartate Amino Transf (AST/SGOT) 51H, Alanine Aminotransferase (ALT/SGPT) 41, Alkaline Phosphatase 59, C-Reactive Protein, Quantitative 37.9H, Pro-B-Type Natriuretic Peptide [id number], Total Protein 8.0, Albumin 2.7L, Globulin 5.3, Albumin/Globulin Ratio 0.5L Current Medications Medications (Trade) Dose Ordered Sig/Santos Route PRN Reason Start Time Stop Time Status Last Admin Dose Admin Acetaminophen/ Hydrocodone Bitart ([place] 5/325) 1 tab Q4H PRN ORAL Moderate Pain (Pain Scale 4-6) 05/25/18 13:15 06/01/18 13:14 05/26/18 18:08 Albuterol/ Ipratropium (Albuterol/ Ipratropium) 3 ml Q4H PRN HHN Shortness of Breath 05/24/18 16:45 05/29/18 16:44 Dextrose (Dextrose 50%) 25 ml Q30M PRN IV Hypoglycemia 05/22/18 09:00 06/19/18 08:59 Dextrose (Dextrose 50%) 50 ml Q30M PRN IV Hypoglycemia 05/22/18 09:00 06/19/18 08:59 Docusate Sodium (Colace) 100 mg THREE TIMES A DAY ORAL 05/22/18 09:00 06/19/18 12:59 05/25/18 17:04 Epoetin Jayme (Procrit (for ESRD on dialysis)) 10,000 units MON-MON-MON SUBQ 05/23/18 21:00 06/22/18 20:59 05/25/18 21:36 Hydralazine HCl (Apresoline) 25 mg Q4H PRN ORAL BP 160 and above 05/24/18 10:30 06/23/18 10:29 05/26/18 08:30 Insulin Aspart (NovoLOG) BEFORE MEALS AND HS SUBQ 05/22/18 11:30 06/19/18 06:29 05/26/18 17:34 Insulin Detemir (Levemir) 6 units DAILY SUBQ 05/22/18 09:00 06/20/18 11:59 05/26/18 08:33 Iron Sucrose 100 mg/Sodium Chloride 55 ml @ 200 mls/hr BEDTIME IV 05/24/18 21:00 05/27/18 21:17 05/25/18 21:02 Lactulose (Cephulac) 20 gm TWICE A DAY ORAL 05/22/18 09:00 06/20/18 05:59 05/25/18 17:03 Lorazepam (Ativan) 0.5 mg TIDPRN PRN ORAL For Anxiety 05/22/18 09:00 05/29/18 08:59 05/25/18 00:47 Metoprolol Tartrate (Lopressor) 50 mg Q12HR ORAL 05/26/18 21:00 06/23/18 20:59 Morphine Sulfate (Morphine Sulfate) 1 mg Q4H PRN IVP Severe Pain (Pain Scale 7-10) 05/24/18 17:15 05/31/18 17:14 05/25/18 09:29 Ondansetron HCl (Zofran) 4 mg TIDPRN PRN IVP Nausea & Vomiting 05/22/18 09:00 06/21/18 08:59 Pantoprazole (Protonix) 40 mg BID ORAL 05/23/18 18:00 06/22/18 17:59 05/26/18 17:31 Piperacillin Sod/ Tazobactam Sod 2.25 gm/Dextrose 55 ml @ 110 mls/hr Q8HR IVPB 05/22/18 15:00 05/27/18 14:59 05/26/18 17:45 Promethazine HCl/ Dextromethorphan (Phenergan DM) 6.25 mg Q6H PRN ORAL For Cough 05/24/18 12:00 06/23/18 11:59 05/24/18 12:16 Sevelamer Carbonate (Renvela) 1,600 mg THREE TIMES A DAY ORAL 05/23/18 13:00 06/20/18 12:59 05/26/18 17:31 Sodium Chloride 500 ml @ 999 mls/hr Q4H PRN IV SBP less than 100mmhg 05/22/18 09:00 06/19/18 08:59 Tae Velazco MD May 26, 2018 20:10
[2018-05-26] MEDS: LORazepam 0.5mg tab ORAL PRN (20:25)
[2018-05-26] MEDS: Morphine Sulfate 2mg/ml Inj IVP PRN (20:26)
[2018-05-27] VITALS: BP 152/75
[2018-05-27] MEDS: Morphine Sulfate 2mg/ml Inj IVP PRN (00:02)
[2018-05-27] MEDS: Norco 5mg/325mg tab ORAL PRN (03:45)
[2018-05-27] MEDS: LORazepam 0.5mg tab ORAL PRN (03:46)
[2018-05-27 04:00] VITALS: BP 195/98
[2018-05-27] MEDS: HydrALAZINE 25mg tab ORAL PRN (04:10)
[2018-05-27 05:29] LABS: HEMATOCRIT 24.6 % (42.0-52.0); HEMOGLOBIN 8.6 G/DL (14.2-18.0); MEAN CORPUSCULAR VOLUME 90 FL (80-99); PLATELET COUNT 250 K/UL (150-450); RED BLOOD COUNT 2.73 M/UL (4.70-6.10); RED CELL DISTRIBUTION WIDTH 14.1 % (11.6-14.8)
[2018-05-27] MEDS: Piperacillin/Tazobactam 2.25 GM in D5W 55 ML IVPB SCH ×2 (05:37→14:27)
[2018-05-27] MEDS: NovoLOG Insulin Flexpen SUBQ SCH ×4 (05:38→21:09)
[2018-05-27] MEDS ORDERED: Morphine Sulfate 2mg/ml Inj IVP PRN (06:45)
[2018-05-27 08:00] VITALS: BP 152/77
[2018-05-27] MEDS: Lactulose 20gm/30ml UDC ORAL SCH ×2 (08:36→17:44)
[2018-05-27] MEDS: Docusate 100mg cap ORAL SCH ×3 (08:36→17:44)
[2018-05-27] MEDS: Metoprolol 25mg tab ORAL SCH ×2 (08:37→21:07)
[2018-05-27] MEDS: Levemir Flexpen SUBQ SCH (08:48)
--- NOTE | 2018-05-27 10:08 | General Progress Note ---
Assessment/Plan Problem List: (1) Retroperitoneal hemorrhage ICD Codes: R58 - Hemorrhage, not elsewhere classified SNOMED: 44052065 (2) Anemia ICD Codes: D64.9 - Anemia, unspecified SNOMED: 968967988 (3) ESRD (end stage renal disease) on dialysis ICD Codes: N18.6 - End stage renal disease; Z99.2 - Dependence on renal dialysis SNOMED: 513484550 (4) Diabetes ICD Codes: E11.9 - Type 2 diabetes mellitus without complications SNOMED: 32335340 (5) Abdominal pain ICD Codes: R10.9 - Unspecified abdominal pain SNOMED: 19100286 Assessment/Plan CT AP reviewed >> Large complex hemorrhage/hemorrhagic mass occupying majority of the right kidney with extensive perinephric fluid/blood extending into the retroperitoneum and pelvis. iron deficiency Anemia, most likely due to chronic disease >> OB stool r/o GI bleedingn pending venofer renal diet ppi BID prn transfusions abx fu surgical recommendations fu labs CT if WBC still elevated fu ID Subjective ROS Limited/Unobtainable: Yes Allergies: Coded Allergies: No Known Allergies (Unverified , 05/20/18) Subjective abd pain s/p blood transfusion yesterday Objective Last 24 Hour Vital Signs Date Time Temp Pulse Resp B/P (MAP) Pulse Ox O2 Delivery O2 Flow Rate FiO2 05/27/18 08:37 67 152/77 05/27/18 08:36 152/77 05/27/18 08:00 97.7 67 20 152/77 (102) 05/27/18 04:10 195/98 05/27/18 04:00 76 05/27/18 04:00 98.6 75 28 195/98 (130) 92 05/27/18 04:00 Nasal Cannula 3.0 05/27/18 00:00 74 05/27/18 00:00 Nasal Cannula 3.0 05/27/18 00:00 97.9 72 20 152/75 (100) 92 05/26/18 22:00 96 Nasal Cannula 2.0 28 05/26/18 22:00 Nasal Cannula 2.0 28 05/26/18 20:25 187/90 05/26/18 20:24 79 187/90 05/26/18 20:00 97.7 79 24 187/90 (122) 96 05/26/18 20:00 Nasal Cannula 3.0 05/26/18 19:38 81 05/26/18 16:42 73 05/26/18 16:14 Nasal Cannula 3.0 05/26/18 16:00 97.0 79 22 160/83 (108) 96 05/26/18 12:00 73 05/26/18 11:59 Nasal Cannula 3.0 05/26/18 11:52 97.5 73 20 158/72 (100) 97 Intake and Output 05/26/18 05/27/18 18:59 06:59 Intake Total 1000 ml 410 ml Balance 1000 ml 410 ml Intake Oral 500 ml 300 ml IV Total 110 ml Blood Product 500 ml # Voids 4 Laboratory Tests 05/27/18 03:44: White Blood Count 29.0#*H, Red Blood Count 2.73L, Hemoglobin 8.6#L, Hematocrit 24.6#L, Mean Corpuscular Volume 90, Mean Corpuscular Hemoglobin 31.6H, Mean Corpuscular Hemoglobin Concent 35.0, Red Cell Distribution Width 14.1, Platelet Count 250, Mean Platelet Volume 8.6, Neutrophils (%) (Auto) , Lymphocytes (%) ( Auto) , Monocytes (%) (Auto) , Eosinophils (%) (Auto) , Basophils (%) (Auto) , Differential Total Cells Counted 100, Neutrophils % (Manual) 94H, Lymphocytes % (Manual) 4L, Monocytes % (Manual) 2, Eosinophils % (Manual) 0, Basophils % ( Manual) 0, Band Neutrophils 0, Nucleated Red Blood Cells 3, Platelet Estimate Adequate, Platelet Morphology Normal, Polychromasia 2+, Hypochromasia 1+, Anisocytosis 1+ Height (Feet): 5 Height (Inches): 6.00 Weight (Pounds): 184 General Appearance: alert EENT: normal ENT inspection Neck: supple Cardiovascular: normal rate Respiratory/Chest: decreased breath sounds Abdomen: normal bowel sounds, non tender, soft Extremities: non-tender Elvis Mcgee MD May 27, 2018 10:08
[2018-05-27 10:14] LABS: HEMATOCRIT 24.2 % (42.0-52.0); HEMOGLOBIN 8.1 G/DL (14.2-18.0); MEAN CORPUSCULAR VOLUME 90 FL (80-99); PLATELET COUNT 279 K/UL (150-450); RED BLOOD COUNT 2.68 M/UL (4.70-6.10); RED CELL DISTRIBUTION WIDTH 14.3 % (11.6-14.8)
[2018-05-27 10:17] LABS: WHITE BLOOD COUNT 31.6 K/UL (4.8-10.8)
[2018-05-27] MEDS ORDERED: NS 275ml ONE (10:42)
[2018-05-27] MEDS ORDERED: Tubing IV Secondary IV ONE (10:42)
--- NOTE | 2018-05-27 11:51 | Pulmonology Progress Note ---
Assessment/Plan Assessment/Plan Pulmonary Progress Note Patient with: (1) Previous Shock (2) Diabetes (3) ESRD (end stage renal disease) on dialysis (4) Retroperitoneal hemorrhage involving right kidney (5) Anemia Assessment/Plan CXR noted PRN anti-tussives PRN HHN's Monitor CBC, transfuse as needed Monitor hemodynamics and volumes HD per renal F/U recs, no plan for operation at this time Zosyn per ID, F/U Cx's DVT Px: SCD's SSI Pain control/supportive care Subjective Allergies: Coded Allergies: No Known Allergies (Unverified , 05/20/18) Subjective HH stable AFVSS on 2L, getting HD Less flank abd pain + cough, no SOB no F/C Objective Vital Signs Noted Laboratory Tests 05/24/18 03:00: White Blood Count 9.6, Red Blood Count 2.62L, Hemoglobin 8.1L, Hematocrit 23.7L , Mean Corpuscular Volume 90, Mean Corpuscular Hemoglobin 30.9, Mean Corpuscular Hemoglobin Concent 34.1, Red Cell Distribution Width 13.6, Platelet Count 139L, Mean Platelet Volume 10.5H, Neutrophils (%) (Auto) 83.4H, Lymphocytes (%) (Auto) 6.7L, Monocytes (%) (Auto) 7.6, Eosinophils (%) (Auto) 1.7, Basophils (%) (Auto) 0.6, Sodium Level 139, Potassium Level 3.6, Chloride Level 97L, Carbon Dioxide Level 30, Anion Gap 12, Blood Urea Nitrogen 50H, Creatinine 6.8H, Estimat Glomerular Filtration Rate 8.6, Glucose Level 138H, Calcium Level 8.0L, Phosphorus Level 3.0, Magnesium Level 2.5H, Total Bilirubin 0.9, Aspartate Amino Transf (AST/SGOT) 31, Alanine Aminotransferase (ALT/SGPT) 35, Alkaline Phosphatase 61, Total Protein 7.6, Albumin 2.6L, Globulin 5.0, Albumin/Globulin Ratio 0.5L 05/24/18 11:10: Stool Occult Blood [Pending] 05/24/18 15:00: Stool Occult Blood [Pending] Current Medications Medications (Trade) Dose Ordered Sig/Santos Route PRN Reason Start Time Stop Time Status Last Admin Dose Admin Acetaminophen/ Hydrocodone Bitart ([place] 5/325) 1 tab TIDPRN PRN ORAL Moderate Pain (Pain Scale 4-6) 05/22/18 09:00 05/29/18 08:59 05/24/18 16:35 Dextrose (Dextrose 50%) 25 ml Q30M PRN IV Hypoglycemia 05/22/18 09:00 06/19/18 08:59 Dextrose (Dextrose 50%) 50 ml Q30M PRN IV Hypoglycemia 05/22/18 09:00 06/19/18 08:59 Docusate Sodium (Colace) 100 mg THREE TIMES A DAY ORAL 05/22/18 09:00 06/19/18 12:59 05/24/18 12:57 Epoetin Jayme (Procrit (for ESRD on dialysis)) 10,000 units MON-MON-MON SUBQ 05/23/18 21:00 06/22/18 20:59 05/23/18 21:25 Hydralazine HCl (Apresoline) 25 mg Q4H PRN ORAL BP 160 and above 05/24/18 10:30 06/23/18 10:29 05/24/18 12:57 Insulin Aspart (NovoLOG) BEFORE MEALS AND HS SUBQ 05/22/18 11:30 06/19/18 06:29 05/24/18 12:10 Insulin Detemir (Levemir) 6 units DAILY SUBQ 05/22/18 09:00 06/20/18 11:59 05/24/18 09:03 Iron Sucrose 100 mg/Sodium Chloride 55 ml @ 200 mls/hr BEDTIME IV 05/24/18 21:00 05/27/18 21:17 Lactulose (Cephulac) 20 gm TWICE A DAY ORAL 05/22/18 09:00 06/20/18 05:59 05/24/18 08:55 Lorazepam (Ativan) 0.5 mg TIDPRN PRN ORAL For Anxiety 05/22/18 09:00 05/29/18 08:59 Metoprolol Tartrate (Lopressor) 12.5 mg Q12HR ORAL 05/24/18 21:00 06/23/18 20:59 Ondansetron HCl (Zofran) 4 mg TIDPRN PRN IVP Nausea & Vomiting 05/22/18 09:00 06/21/18 08:59 Pantoprazole (Protonix) 40 mg BID ORAL 05/23/18 18:00 06/22/18 17:59 05/24/18 08:58 Piperacillin Sod/ Tazobactam Sod 2.25 gm/Dextrose 55 ml @ 110 mls/hr Q8HR IVPB 05/22/18 15:00 05/27/18 14:59 05/24/18 13:59 Promethazine HCl/ Dextromethorphan (Phenergan DM) 6.25 mg Q6H PRN ORAL For Cough 05/24/18 12:00 06/23/18 11:59 05/24/18 12:16 Sevelamer Carbonate (Renvela) 1,600 mg THREE TIMES A DAY ORAL 05/23/18 13:00 06/20/18 12:59 05/24/18 12:57 Sodium Chloride 500 ml @ 999 mls/hr Q4H PRN IV SBP less than 100mmhg 05/22/18 09:00 06/19/18 08:59 Subjective ROS Limited/Unobtainable: No Allergies: Coded Allergies: No Known Allergies (Unverified , 05/20/18) Objective Last 24 Hour Vital Signs Date Time Temp Pulse Resp B/P (MAP) Pulse Ox O2 Delivery O2 Flow Rate FiO2 05/27/18 08:37 67 152/77 05/27/18 08:36 152/77 05/27/18 08:00 97.7 67 20 152/77 (102) 05/27/18 08:00 Nasal Cannula 3.0 05/27/18 08:00 66 05/27/18 04:10 195/98 05/27/18 04:00 76 05/27/18 04:00 98.6 75 28 195/98 (130) 92 05/27/18 04:00 Nasal Cannula 3.0 05/27/18 00:00 74 05/27/18 00:00 Nasal Cannula 3.0 05/27/18 00:00 97.9 72 20 152/75 (100) 92 05/26/18 22:00 96 Nasal Cannula 2.0 28 05/26/18 22:00 Nasal Cannula 2.0 28 05/26/18 20:25 187/90 05/26/18 20:24 79 187/90 05/26/18 20:00 97.7 79 24 187/90 (122) 96 05/26/18 20:00 Nasal Cannula 3.0 05/26/18 19:38 81 05/26/18 16:42 73 05/26/18 16:14 Nasal Cannula 3.0 05/26/18 16:00 97.0 79 22 160/83 (108) 96 05/26/18 12:00 73 05/26/18 11:59 Nasal Cannula 3.0 05/26/18 11:52 97.5 73 20 158/72 (100) 97 Intake and Output 05/26/18 05/27/18 19:00 07:00 Intake Total 1000 ml 410 ml Balance 1000 ml 410 ml Intake Oral 500 ml 300 ml IV Total 110 ml Blood Product 500 ml # Voids 4 Microbiology Date/Time Source Procedure Growth Status 05/25/18 14:05 Blood Blood Culture - Preliminary NO GROWTH AFTER 24 HOURS Resulted 05/25/18 14:00 Blood Blood Culture - Preliminary NO GROWTH AFTER 24 HOURS Resulted Laboratory Tests 05/27/18 03:44: White Blood Count 29.0#*H, Red Blood Count 2.73L, Hemoglobin 8.6#L, Hematocrit 24.6#L, Mean Corpuscular Volume 90, Mean Corpuscular Hemoglobin 31.6H, Mean Corpuscular Hemoglobin Concent 35.0, Red Cell Distribution Width 14.1, Platelet Count 250, Mean Platelet Volume 8.6, Neutrophils (%) (Auto) , Lymphocytes (%) ( Auto) , Monocytes (%) (Auto) , Eosinophils (%) (Auto) , Basophils (%) (Auto) , Differential Total Cells Counted 100, Neutrophils % (Manual) 94H, Lymphocytes % (Manual) 4L, Monocytes % (Manual) 2, Eosinophils % (Manual) 0, Basophils % ( Manual) 0, Band Neutrophils 0, Nucleated Red Blood Cells 3, Platelet Estimate Adequate, Platelet Morphology Normal, Polychromasia 2+, Hypochromasia 1+, Anisocytosis 1+ 05/27/18 09:15: White Blood Count 31.6*H, Red Blood Count 2.68L, Hemoglobin 8.1L, Hematocrit 24.2L, Mean Corpuscular Volume 90, Mean Corpuscular Hemoglobin 30.1, Mean Corpuscular Hemoglobin Concent 33.3, Red Cell Distribution Width 14.3, Platelet Count 279, Mean Platelet Volume 9.2, Neutrophils (%) (Auto) , Lymphocytes (%) ( Auto) , Monocytes (%) (Auto) , Eosinophils (%) (Auto) , Basophils (%) (Auto) , Differential Total Cells Counted 100, Neutrophils % (Manual) 97H, Lymphocytes % (Manual) 2L, Monocytes % (Manual) 1, Eosinophils % (Manual) 0, Basophils % ( Manual) 0, Band Neutrophils 0, Nucleated Red Blood Cells 1, Platelet Estimate Adequate, Platelet Morphology Normal, Polychromasia 2+, Hypochromasia 2+, Anisocytosis 1+ Current Medications Medications (Trade) Dose Ordered Sig/[place] Route PRN Reason Start Time Stop Time Status Last Admin Dose Admin Acetaminophen/ Hydrocodone Bitart ([place] 5/325) 1 tab Q4H PRN ORAL Moderate Pain (Pain Scale 4-6) 05/25/18 13:15 06/01/18 13:14 05/27/18 03:45 Albuterol/ Ipratropium (Albuterol/ Ipratropium) 3 ml Q4H PRN HHN Shortness of Breath 05/24/18 16:45 05/29/18 16:44 Barium Sulfate (Readi-Cat 2) 450 ml NOW PRN ORAL Radiology Procedure 05/27/18 10:45 05/29/18 10:42 Clonidine HCl (Catapres Tab) 0.1 mg TID ORAL 05/27/18 09:00 06/26/18 08:59 05/27/18 08:36 Dextrose (Dextrose 50%) 25 ml Q30M PRN IV Hypoglycemia 05/22/18 09:00 06/19/18 08:59 Dextrose (Dextrose 50%) 50 ml Q30M PRN IV Hypoglycemia 05/22/18 09:00 06/19/18 08:59 Docusate Sodium (Colace) 100 mg THREE TIMES A DAY ORAL 05/22/18 09:00 06/19/18 12:59 05/27/18 08:36 Epoetin Jayme (Procrit (for ESRD on dialysis)) 10,000 units MON-MON-MON SUBQ 05/23/18 21:00 06/22/18 20:59 05/25/18 21:36 Hydralazine HCl (Apresoline) 25 mg Q4H PRN ORAL BP 160 and above 05/24/18 10:30 06/23/18 10:29 05/27/18 04:10 Insulin Aspart (NovoLOG) BEFORE MEALS AND HS SUBQ 05/22/18 11:30 06/19/18 06:29 05/27/18 05:38 Insulin Detemir (Levemir) 6 units DAILY SUBQ 05/22/18 09:00 06/20/18 11:59 05/27/18 08:48 Iron Sucrose 100 mg/Sodium Chloride 55 ml @ 200 mls/hr BEDTIME IV 05/24/18 21:00 05/27/18 21:17 05/26/18 20:23 Lactulose (Cephulac) 20 gm TWICE A DAY ORAL 05/22/18 09:00 06/20/18 05:59 05/27/18 08:36 Lorazepam (Ativan) 0.5 mg TIDPRN PRN ORAL For Anxiety 05/22/18 09:00 05/29/18 08:59 05/27/18 03:46 Metoprolol Tartrate (Lopressor) 50 mg Q12HR ORAL 05/26/18 21:00 06/23/18 20:59 05/27/18 08:37 Morphine Sulfate (Morphine Sulfate) 2 mg Q4H PRN IVP FOR SEVERE PAIN 05/27/18 06:45 06/03/18 06:44 Ondansetron HCl (Zofran) 4 mg TIDPRN PRN IVP Nausea & Vomiting 05/22/18 09:00 06/21/18 08:59 Pantoprazole (Protonix) 40 mg BID ORAL 05/23/18 18:00 06/22/18 17:59 05/27/18 08:36 Piperacillin Sod/ Tazobactam Sod 2.25 gm/Dextrose 55 ml @ 110 mls/hr Q8HR IVPB 05/22/18 15:00 05/27/18 14:59 05/27/18 05:37 Promethazine HCl/ Dextromethorphan (Phenergan DM) 6.25 mg Q6H PRN ORAL For Cough 05/24/18 12:00 06/23/18 11:59 05/24/18 12:16 Sevelamer Carbonate (Renvela) 1,600 mg THREE TIMES A DAY ORAL 05/23/18 13:00 06/20/18 12:59 05/27/18 08:37 Sodium Chloride 500 ml @ 999 mls/hr Q4H PRN IV SBP less than 100mmhg 05/22/18 09:00 06/19/18 08:59 Tae Velazco MD May 27, 2018 11:51
[2018-05-27 12:00] VITALS: BP 124/61
--- NOTE | 2018-05-27 15:01 | Nephrology Progress Note ---
Assessment/Plan Problem List: (1) ESRD (end stage renal disease) on dialysis (2) Retroperitoneal hemorrhage (3) Shock (4) Anemia (5) Abdominal pain (6) Diabetes Assessment WBC rising presented with: hemorrhagic shock- Retro Peritoneal bleed Low BP on admission ESRD DM HTN transfused 3 units since , more if needed Plan HD 05/25 next 05/28 WBCs rising Transfuse as needed in NICK now manage pain Per consultants discussed with RN meds adjusted Subjective ROS Limited/Unobtainable: No Constitutional: Reports: malaise Objective Objective Last 24 Hour Vital Signs Date Time Temp Pulse Resp B/P (MAP) Pulse Ox O2 Delivery O2 Flow Rate FiO2 05/27/18 13:22 67 05/27/18 12:42 Nasal Cannula 2.0 28 05/27/18 12:42 60 20 Nasal Cannula 2.0 28 05/27/18 12:42 95 Nasal Cannula 2.0 28 05/27/18 12:00 Nasal Cannula 3.0 05/27/18 12:00 97.4 66 21 124/61 (82) 92 05/27/18 08:37 67 152/77 05/27/18 08:36 152/77 05/27/18 08:00 97.7 67 20 152/77 (102) 05/27/18 08:00 Nasal Cannula 3.0 05/27/18 08:00 97.7 67 20 152/77 (102) 93 05/27/18 08:00 66 05/27/18 04:10 195/98 05/27/18 04:00 76 05/27/18 04:00 98.6 75 28 195/98 (130) 92 05/27/18 04:00 Nasal Cannula 3.0 05/27/18 00:00 74 05/27/18 00:00 Nasal Cannula 3.0 05/27/18 00:00 97.9 72 20 152/75 (100) 92 05/26/18 22:00 96 Nasal Cannula 2.0 28 05/26/18 22:00 Nasal Cannula 2.0 28 05/26/18 20:25 187/90 05/26/18 20:24 79 187/90 05/26/18 20:00 97.7 79 24 187/90 (122) 96 05/26/18 20:00 Nasal Cannula 3.0 05/26/18 19:38 81 05/26/18 16:42 73 05/26/18 16:14 Nasal Cannula 3.0 05/26/18 16:00 97.0 79 22 160/83 (108) 96 Intake and Output 05/26/18 05/27/18 19:00 07:00 Intake Total 1000 ml 410 ml Balance 1000 ml 410 ml Intake Oral 500 ml 300 ml IV Total 110 ml Blood Product 500 ml # Voids 4 Laboratory Tests 05/27/18 03:44: White Blood Count 29.0#*H, Red Blood Count 2.73L, Hemoglobin 8.6#L, Hematocrit 24.6#L, Mean Corpuscular Volume 90, Mean Corpuscular Hemoglobin 31.6H, Mean Corpuscular Hemoglobin Concent 35.0, Red Cell Distribution Width 14.1, Platelet Count 250, Mean Platelet Volume 8.6, Neutrophils (%) (Auto) , Lymphocytes (%) ( Auto) , Monocytes (%) (Auto) , Eosinophils (%) (Auto) , Basophils (%) (Auto) , Differential Total Cells Counted 100, Neutrophils % (Manual) 94H, Lymphocytes % (Manual) 4L, Monocytes % (Manual) 2, Eosinophils % (Manual) 0, Basophils % ( Manual) 0, Band Neutrophils 0, Nucleated Red Blood Cells 3, Platelet Estimate Adequate, Platelet Morphology Normal, Polychromasia 2+, Hypochromasia 1+, Anisocytosis 1+ 05/27/18 09:15: White Blood Count 31.6*H, Red Blood Count 2.68L, Hemoglobin 8.1L, Hematocrit 24.2L, Mean Corpuscular Volume 90, Mean Corpuscular Hemoglobin 30.1, Mean Corpuscular Hemoglobin Concent 33.3, Red Cell Distribution Width 14.3, Platelet Count 279, Mean Platelet Volume 9.2, Neutrophils (%) (Auto) , Lymphocytes (%) ( Auto) , Monocytes (%) (Auto) , Eosinophils (%) (Auto) , Basophils (%) (Auto) , Differential Total Cells Counted 100, Neutrophils % (Manual) 97H, Lymphocytes % (Manual) 2L, Monocytes % (Manual) 1, Eosinophils % (Manual) 0, Basophils % ( Manual) 0, Band Neutrophils 0, Nucleated Red Blood Cells 1, Platelet Estimate Adequate, Platelet Morphology Normal, Polychromasia 2+, Hypochromasia 2+, Anisocytosis 1+ Height (Feet): 5 Height (Inches): 6.00 Weight (Pounds): 184 General Appearance: no apparent distress Cardiovascular: regular rhythm Abdomen: other - flank pain Objective no change Dm Lopez MD May 27, 2018 15:01
[2018-05-27 16:00] VITALS: BP 143/75
--- NOTE | 2018-05-27 16:30 | Infectious Diseases Prog Note ---
Assessment/Plan Problems: (1) Leukocytosis Assessment & Plan: suspect due to recurrent bleeding which he required transfusion for yesterday . already on zosyn, doubt infectious etiology with no fever and negative cultures . will order CT abd/pelvis for follow up and to rule out any new fluid collection which might be the source, repeated blood culture is negative (2) Renal hematoma, right Assessment & Plan: with extension to the retroperitoneal area , continue close monitor of H/H and serial images for follow up, watch out for abscess formation , repeat CT abdomen in am for follow up (3) Retroperitoneal hemorrhage Assessment & Plan: continue H/H monitoring with blood transfusion , and serial imaging for follow up, avoid anticoagulation (4) ESRD (end stage renal disease) on dialysis Assessment & Plan: on HD, renal is following (5) Diabetes Assessment & Plan: recommend tight glycemic control to keep blood glucose between 100-140 Subjective Constitutional: Reports: fatigue HEENT: Reports: no symptoms Respiratory: Reports: no symptoms Breasts: Reports: no symptoms Cardiovascular: Reports: no symptoms Gastrointestinal/Abdominal: Reports: diarrhea, bloating, other - right flank pain Genitourinary: Reports: no symptoms Neurologic: Reports: no symptoms Psychiatric: Reports: no symptoms Skin: Reports: no symptoms Endocrine: Reports: no symptoms Hematologic: Reports: no symptoms Musculoskeletal: Reports: no symptoms Allergies: Coded Allergies: No Known Allergies (Unverified , 05/20/18) Subjective he has more flank pain today and discomfort, no fever or chills, no cough or SOB Objective Vital Signs Last 24 Hour Vital Signs Date Time Temp Pulse Resp B/P (MAP) Pulse Ox O2 Delivery O2 Flow Rate FiO2 05/27/18 13:22 67 05/27/18 12:42 Nasal Cannula 2.0 28 05/27/18 12:42 60 20 Nasal Cannula 2.0 28 05/27/18 12:42 95 Nasal Cannula 2.0 28 05/27/18 12:00 Nasal Cannula 3.0 05/27/18 12:00 97.4 66 21 124/61 (82) 92 05/27/18 08:37 67 152/77 05/27/18 08:36 152/77 05/27/18 08:00 97.7 67 20 152/77 (102) 05/27/18 08:00 Nasal Cannula 3.0 05/27/18 08:00 97.7 67 20 152/77 (102) 93 05/27/18 08:00 66 05/27/18 04:10 195/98 05/27/18 04:00 76 05/27/18 04:00 98.6 75 28 195/98 (130) 92 05/27/18 04:00 Nasal Cannula 3.0 05/27/18 00:00 74 05/27/18 00:00 Nasal Cannula 3.0 05/27/18 00:00 97.9 72 20 152/75 (100) 92 05/26/18 22:00 96 Nasal Cannula 2.0 28 05/26/18 22:00 Nasal Cannula 2.0 28 05/26/18 20:25 187/90 05/26/18 20:24 79 187/90 05/26/18 20:00 97.7 79 24 187/90 (122) 96 05/26/18 20:00 Nasal Cannula 3.0 05/26/18 19:38 81 05/26/18 16:42 73 Height (Feet): 5 Height (Inches): 6.00 Weight (Pounds): 184 General Appearance: WD/WN, no acute distress HEENT: normocephalic, atraumatic, anicteric, mucous membranes moist, PERRL Respiratory/Chest: chest wall non-tender, lungs clear, normal breath sounds, no respiratory distress, no accessory muscle use Breasts: no masses Cardiovascular: normal peripheral pulses, normal rate, regular rhythm, no gallop/murmur, no JVD Abdomen: no organomegaly, non distended, no mass, no scars, hypoactive bowel sounds, tender Extremities: no cyanosis, no clubbing Skin: no rash, no lesions, no ulcers Neurologic/Psychiatric: alert, oriented x 3, responsive Lymphatic: no neck adenopathy, no groin adenopathy Musculoskeletal: normal muscle bulk, no effusion Microbiology Date/Time Source Procedure Growth Status 05/25/18 14:05 Blood Blood Culture - Preliminary NO GROWTH AFTER 24 HOURS Resulted 05/25/18 14:00 Blood Blood Culture - Preliminary NO GROWTH AFTER 24 HOURS Resulted Laboratory Tests Test 05/27/18 03:44 05/27/18 09:15 White Blood Count 29.0 K/UL (4.8-10.8) #*H 31.6 K/UL (4.8-10.8) *H Red Blood Count 2.73 M/UL (4.70-6.10) L 2.68 M/UL (4.70-6.10) L Hemoglobin 8.6 G/DL (14.2-18.0) #L 8.1 G/DL (14.2-18.0) L Hematocrit 24.6 % (42.0-52.0) #L 24.2 % (42.0-52.0) L Mean Corpuscular Volume 90 FL (80-99) 90 FL (80-99) Mean Corpuscular Hemoglobin 31.6 PG (27.0-31.0) H 30.1 PG (27.0-31.0) Mean Corpuscular Hemoglobin Concent 35.0 G/DL (32.0-36.0) 33.3 G/DL (32.0-36.0) Red Cell Distribution Width 14.1 % (11.6-14.8) 14.3 % (11.6-14.8) Platelet Count 250 K/UL (150-450) 279 K/UL (150-450) Mean Platelet Volume 8.6 FL (6.5-10.1) 9.2 FL (6.5-10.1) Neutrophils (%) (Auto) % (45.0-75.0) % (45.0-75.0) Lymphocytes (%) (Auto) % (20.0-45.0) % (20.0-45.0) Monocytes (%) (Auto) % (1.0-10.0) % (1.0-10.0) Eosinophils (%) (Auto) % (0.0-3.0) % (0.0-3.0) Basophils (%) (Auto) % (0.0-2.0) % (0.0-2.0) Differential Total Cells Counted 100 100 Neutrophils % (Manual) 94 % (45-75) H 97 % (45-75) H Lymphocytes % (Manual) 4 % (20-45) L 2 % (20-45) L Monocytes % (Manual) 2 % (1-10) 1 % (1-10) Eosinophils % (Manual) 0 % (0-3) 0 % (0-3) Basophils % (Manual) 0 % (0-2) 0 % (0-2) Band Neutrophils 0 % (0-8) 0 % (0-8) Nucleated Red Blood Cells 3 /100 WBC 1 /100 WBC Platelet Estimate Adequate Adequate Platelet Morphology Normal Normal Polychromasia 2+ 2+ Hypochromasia 1+ 2+ Anisocytosis 1+ 1+ Current Medications Medications (Trade) Dose Ordered Sig/[place]ant[place] Route PRN Reason Start Time Stop Time Status Last Admin Dose Admin Acetaminophen/ Hydrocodone Bitart ([place] 5/325) 1 tab Q4H PRN ORAL Moderate Pain (Pain Scale 4-6) 05/25/18 13:15 06/01/18 13:14 05/27/18 03:45 Albuterol/ Ipratropium (Albuterol/ Ipratropium) 3 ml Q4H PRN HHN Shortness of Breath 05/24/18 16:45 05/29/18 16:44 Barium Sulfate (Readi-Cat 2) 450 ml NOW PRN ORAL Radiology Procedure 05/27/18 10:45 05/29/18 10:42 Clonidine HCl (Catapres Tab) 0.1 mg TID ORAL 05/27/18 09:00 06/26/18 08:59 05/27/18 08:36 Dextrose (Dextrose 50%) 25 ml Q30M PRN IV Hypoglycemia 05/22/18 09:00 06/19/18 08:59 Dextrose (Dextrose 50%) 50 ml Q30M PRN IV Hypoglycemia 05/22/18 09:00 06/19/18 08:59 Docusate Sodium (Colace) 100 mg THREE TIMES A DAY ORAL 05/22/18 09:00 06/19/18 12:59 05/27/18 12:56 Epoetin Jayme (Procrit (for ESRD on dialysis)) 10,000 units MON-WED-MON SUBQ 05/23/18 21:00 06/22/18 20:59 05/25/18 21:36 Hydralazine HCl (Apresoline) 25 mg Q4H PRN ORAL BP 160 and above 05/24/18 10:30 06/23/18 10:29 05/27/18 04:10 Insulin Aspart (NovoLOG) BEFORE MEALS AND HS SUBQ 05/22/18 11:30 06/19/18 06:29 05/27/18 12:41 Insulin Detemir (Levemir) 6 units DAILY SUBQ 05/22/18 09:00 06/20/18 11:59 05/27/18 08:48 Iron Sucrose 100 mg/Sodium Chloride 55 ml @ 200 mls/hr BEDTIME IV 05/24/18 21:00 05/27/18 21:17 05/26/18 20:23 Lactulose (Cephulac) 20 gm TWICE A DAY ORAL 05/22/18 09:00 06/20/18 05:59 05/27/18 08:36 Lorazepam (Ativan) 0.5 mg TIDPRN PRN ORAL For Anxiety 05/22/18 09:00 05/29/18 08:59 05/27/18 03:46 Metoprolol Tartrate (Lopressor) 50 mg Q12HR ORAL 05/26/18 21:00 06/23/18 20:59 05/27/18 08:37 Morphine Sulfate (Morphine Sulfate) 2 mg Q4H PRN IVP FOR SEVERE PAIN 05/27/18 06:45 06/03/18 06:44 Ondansetron HCl (Zofran) 4 mg TIDPRN PRN IVP Nausea & Vomiting 05/22/18 09:00 06/21/18 08:59 Pantoprazole (Protonix) 40 mg BID ORAL 05/23/18 18:00 06/22/18 17:59 05/27/18 08:36 Promethazine HCl/ Dextromethorphan (Phenergan DM) 6.25 mg Q6H PRN ORAL For Cough 05/24/18 12:00 06/23/18 11:59 05/24/18 12:16 Sevelamer Carbonate (Renvela) 1,600 mg THREE TIMES A DAY ORAL 05/23/18 13:00 06/20/18 12:59 05/27/18 12:56 Sodium Chloride 500 ml @ 999 mls/hr Q4H PRN IV SBP less than 100mmhg 05/22/18 09:00 06/19/18 08:59 Rowena Garcia M.D. 11, 2018 16:30
[2018-05-27 20:00] VITALS: BP 137/82
[2018-05-28] VITALS: BP 136/63
[2018-05-28] MEDS: Norco 5mg/325mg tab ORAL PRN ×2 (01:03→21:02)
[2018-05-28 04:00] VITALS: BP 150/75
[2018-05-28] MEDS: NovoLOG Insulin Flexpen SUBQ SCH ×6 (06:30→21:04)
--- NOTE | 2018-05-28 06:52 | General Progress Note ---
Assessment/Plan Problem List: (1) Retroperitoneal hemorrhage ICD Codes: R58 - Hemorrhage, not elsewhere classified SNOMED: 61492852 (2) ESRD (end stage renal disease) on dialysis ICD Codes: N18.6 - End stage renal disease; Z99.2 - Dependence on renal dialysis SNOMED: 354131964 (3) Diabetes ICD Codes: E11.9 - Type 2 diabetes mellitus without complications SNOMED: 19581324 Assessment/Plan change Levemir to 9 units qhs add Novolog 3 units ac tid continue NISS ac / hs Subjective Allergies: Coded Allergies: No Known Allergies (Unverified , 05/20/18) All Systems: reviewed and negative except above Subjective events noted glucose values are elevated forgetful NPO for CT Objective Last 24 Hour Vital Signs Date Time Temp Pulse Resp B/P (MAP) Pulse Ox O2 Delivery O2 Flow Rate FiO2 05/28/18 04:00 60 05/28/18 04:00 Nasal Cannula 3.0 05/28/18 04:00 97.8 65 20 150/75 (100) 96 05/28/18 00:00 Nasal Cannula 3.0 05/28/18 00:00 97.9 60 20 136/63 (87) 96 05/28/18 00:00 56 05/27/18 21:07 70 137/82 05/27/18 21:01 Nasal Cannula 2.0 28 05/27/18 21:01 96 Nasal Cannula 2.0 28 05/27/18 20:00 66 05/27/18 20:00 97.7 70 22 137/82 (100) 96 05/27/18 20:00 Nasal Cannula 3.0 05/27/18 17:39 143/75 05/27/18 16:00 97.8 62 22 143/75 (97) 96 05/27/18 16:00 64 05/27/18 16:00 Nasal Cannula 3.0 05/27/18 13:22 67 05/27/18 12:42 Nasal Cannula 2.0 28 05/27/18 12:42 60 20 Nasal Cannula 2.0 28 05/27/18 12:42 95 Nasal Cannula 2.0 28 05/27/18 12:00 Nasal Cannula 3.0 05/27/18 12:00 97.4 66 21 124/61 (82) 92 05/27/18 08:37 67 152/77 05/27/18 08:36 152/77 05/27/18 08:00 97.7 67 20 152/77 (102) 05/27/18 08:00 Nasal Cannula 3.0 05/27/18 08:00 97.7 67 20 152/77 (102) 93 05/27/18 08:00 66 Intake and Output 05/27/18 05/28/18 18:59 06:59 Intake Total 395 ml 55 ml Balance 395 ml 55 ml Intake Oral 340 ml IV Total 55 ml 55 ml Laboratory Tests 05/27/18 09:15: White Blood Count 31.6*H, Red Blood Count 2.68L, Hemoglobin 8.1L, Hematocrit 24.2L, Mean Corpuscular Volume 90, Mean Corpuscular Hemoglobin 30.1, Mean Corpuscular Hemoglobin Concent 33.3, Red Cell Distribution Width 14.3, Platelet Count 279, Mean Platelet Volume 9.2, Neutrophils (%) (Auto) , Lymphocytes (%) ( Auto) , Monocytes (%) (Auto) , Eosinophils (%) (Auto) , Basophils (%) (Auto) , Differential Total Cells Counted 100, Neutrophils % (Manual) 97H, Lymphocytes % (Manual) 2L, Monocytes % (Manual) 1, Eosinophils % (Manual) 0, Basophils % ( Manual) 0, Band Neutrophils 0, Nucleated Red Blood Cells 1, Platelet Estimate Adequate, Platelet Morphology Normal, Polychromasia 2+, Hypochromasia 2+, Anisocytosis 1+ Height (Feet): 5 Height (Inches): 6.00 Weight (Pounds): 184 General Appearance: no apparent distress Neck: normal alignment Cardiovascular: normal rate Respiratory/Chest: decreased breath sounds Abdomen: normal bowel sounds Pelvis: normal external exam Objective Item Value Date Time Bedside Blood Glucose 235 mg/dl H 05/28/18 0630 Bedside Blood Glucose 235 mg/dl H 05/27/18 2109 Bedside Blood Glucose 227 mg/dl H 05/27/18 1738 Bedside Blood Glucose 336 mg/dl H 05/27/18 1241 Bedside Blood Glucose 275 mg/dl H 05/27/18 0848 Bedside Blood Glucose 275 mg/dl H 05/27/18 0630 Willard Bonds MD May 28, 2018 06:52
[2018-05-28 08:00] VITALS: BP 154/74
[2018-05-28] MEDS: Lactulose 20gm/30ml UDC ORAL SCH ×2 (08:54→18:00)
[2018-05-28] MEDS: Docusate 100mg cap ORAL SCH ×3 (08:55→18:06)
[2018-05-28] MEDS: Metoprolol 25mg tab ORAL SCH ×2 (08:55→21:01)
[2018-05-28 09:14] LABS: HEMATOCRIT 20.8 % (42.0-52.0); HEMOGLOBIN 7.2 G/DL (14.2-18.0); MEAN CORPUSCULAR VOLUME 91 FL (80-99); PLATELET COUNT 263 K/UL (150-450); RED BLOOD COUNT 2.29 M/UL (4.70-6.10); RED CELL DISTRIBUTION WIDTH 13.7 % (11.6-14.8); WHITE BLOOD COUNT 18.1 K/UL (4.8-10.8)
[2018-05-28 09:45] LABS: ALANINE AMINOTRANSFERASE 69 U/L (12-78); ALBUMIN 2.6 G/DL (3.4-5.0); ALBUMIN/GLOBULIN RATIO 0.5 (1.0-2.7); ALKALINE PHOSPHATASE 78 U/L (46-116); ANION GAP 16 mmol/L (5-15); ASPARTATE AMINO TRANSFERASE 64 U/L (15-37); BILIRUBIN,DIRECT 0.8 MG/DL (0.0-0.3); BILIRUBIN,TOTAL 1.6 MG/DL (0.2-1.0); BLOOD UREA NITROGEN 101 mg/dL (7-18); CALCIUM 7.6 MG/DL (8.5-10.1); CARBON DIOXIDE 25 MMOL/L (21-32); CHLORIDE 95 MMOL/L (98-107); PHOSPHORUS 4.1 MG/DL (2.5-4.9); POTASSIUM 5.5 MMOL/L (3.5-5.1); SODIUM 136 MMOL/L (136-145)
--- NOTE | 2018-05-28 10:09 | General Progress Note ---
Assessment/Plan Assessment/Plan S: I am Dizzy and I have flank pain O: appears in No distress. Complains of right sided abdominal pain . no Nausea. No gross visible bleeding reported PHYSICAL EXAMINATION: HEAD AND NECK: Atraumatic and normocephalic. CHEST: Clear to auscultation. No wheezing. No crackles. HEART: S1 and S2. Regular rate and rhythm. ABDOMEN: Tender noted. Negative for rebound tenderness. NEUROLOGIC: The patient is awake, alert, and oriented x3. PSYCHIATRIC: Mood and affect are appropriate and normal. MUSCULOSKELETAL: No gross lateralized motor deficit. Left arm AV F/G is noted, with no erythma or tenderness Meds: reviewed and reconciled, including Lnatus 9 u qhs plus Fixed meal time insulin IMAGING: CT scan of abdomen and pelvis dated May 20, 2018 reviewed showing the right perinephric hematoma. the repeat CT is pending ASSESSMENT AND PLAN: 1. Acute Right Perinephric Hemorrhage 3. Acute anemia. 4. Diabetes type 5 Hypovolemic Shock : Stable 6. GI-DVT prophylaxis 7. HTN: uncontrolled 8. Leukocytosis: with no evidence of acute Active infection Plan: will monitor HH, Will proceed with PRBC transfusion with Hgb < 7.3 Notes from Urology , Nephro, Endo, Critical specialist are reviewed Stable appearance of right perinephric hematoma by imaging Optimization of BP meds No evidence for active acute infection. Will monitor per ID Discussed the care with Dr Webb, urology. Agree for continuation of Monitoring and surveillance of Symptoms and Hgb level and repeat of Abd CT on Monday Serious but Stable cnd at this time Subjective Allergies: Coded Allergies: No Known Allergies (Unverified , 05/20/18) Objective Last 24 Hour Vital Signs Date Time Temp Pulse Resp B/P (MAP) Pulse Ox O2 Delivery O2 Flow Rate FiO2 05/28/18 08:56 154/79 05/28/18 08:55 67 154/79 05/28/18 08:45 Nasal Cannula 2.0 28 05/28/18 08:45 94 Nasal Cannula 2.0 28 05/28/18 08:00 Nasal Cannula 3.0 05/28/18 04:00 60 05/28/18 04:00 Nasal Cannula 3.0 05/28/18 04:00 97.8 65 20 150/75 (100) 96 05/28/18 00:00 Nasal Cannula 3.0 05/28/18 00:00 97.9 60 20 136/63 (87) 96 05/28/18 00:00 56 05/27/18 21:07 70 137/82 05/27/18 21:01 Nasal Cannula 2.0 28 05/27/18 21:01 96 Nasal Cannula 2.0 28 05/27/18 20:00 66 05/27/18 20:00 97.7 70 22 137/82 (100) 96 05/27/18 20:00 Nasal Cannula 3.0 05/27/18 17:39 143/75 05/27/18 16:00 97.8 62 22 143/75 (97) 96 05/27/18 16:00 64 05/27/18 16:00 Nasal Cannula 3.0 05/27/18 13:22 67 05/27/18 12:42 Nasal Cannula 2.0 28 05/27/18 12:42 60 20 Nasal Cannula 2.0 28 05/27/18 12:42 95 Nasal Cannula 2.0 28 05/27/18 12:00 Nasal Cannula 3.0 05/27/18 12:00 97.4 66 21 124/61 (82) 92 Intake and Output 05/27/18 05/28/18 18:59 06:59 Intake Total 395 ml 55 ml Balance 395 ml 55 ml Intake Oral 340 ml IV Total 55 ml 55 ml Laboratory Tests 05/28/18 09:05: White Blood Count 18.1H, Red Blood Count 2.29L, Hemoglobin 7.2L, Hematocrit 20.8L, Mean Corpuscular Volume 91, Mean Corpuscular Hemoglobin 31.3H, Mean Corpuscular Hemoglobin Concent 34.6, Red Cell Distribution Width 13.7, Platelet Count 263, Mean Platelet Volume 8.5, Neutrophils (%) (Auto) , Lymphocytes (%) ( Auto) , Monocytes (%) (Auto) , Eosinophils (%) (Auto) , Basophils (%) (Auto) , Neutrophils % (Manual) [Pending], Lymphocytes % (Manual) [Pending], Platelet Estimate [Pending], Platelet Morphology [Pending], Sodium Level 136, Potassium Level 5.5H, Chloride Level 95L, Carbon Dioxide Level 25, Anion Gap 16H, Blood Urea Nitrogen 101H, Creatinine 10.0H, Estimat Glomerular Filtration Rate 5.5, Glucose Level 220H, Calcium Level 7.6L, Phosphorus Level 4.1, Total Bilirubin 1.6H, Direct Bilirubin 0.8H, Aspartate Amino Transf (AST/SGOT) 64H, Alanine Aminotransferase (ALT/SGPT) 69, Alkaline Phosphatase 78, Total Protein 7.7, Albumin 2.6L, Globulin 5.1, Albumin/Globulin Ratio 0.5L Height (Feet): 5 Height (Inches): 6.00 Weight (Pounds): 184 Baljit Flores MD May 28, 2018 10:09
[2018-05-28 12:00] VITALS: BP 161/81
--- NOTE | 2018-05-28 12:14 | GI Progress Note ---
Assessment/Plan Problems: (1) Retroperitoneal hemorrhage ICD Codes: R58 - Hemorrhage, not elsewhere classified SNOMED: 40629280 (2) Anemia ICD Codes: D64.9 - Anemia, unspecified SNOMED: 480192588 (3) Diabetes ICD Codes: E11.9 - Type 2 diabetes mellitus without complications SNOMED: 43842054 (4) Abdominal pain ICD Codes: R10.9 - Unspecified abdominal pain SNOMED: 86618161 (5) Shock ICD Codes: R57.9 - Shock, unspecified SNOMED: 60699047 (6) ESRD (end stage renal disease) on dialysis ICD Codes: N18.6 - End stage renal disease; Z99.2 - Dependence on renal dialysis SNOMED: 085880377 Status: stable Status Narrative Discussed with Dr. Mcgee. Assessment/Plan CT AP reviewed >> Large complex hemorrhage/hemorrhagic mass occupying majority of the right kidney with extensive perinephric fluid/blood extending into the retroperitoneum and pelvis. iron deficiency OB stool negative x2 Anemia, most likely due to chronic disease venofer renal diet ppi BID prn transfusions abx fu surgical recommendations fu labs The patient was seen and examined at bedside and all new and available data was reviewed in the patients chart. I agree with the above findings, impression and plan. (Patient seen earlier today. Signature stamp does not reflect patient encounter time.). - Elvis Mcgee MD Subjective Subjective limited Objective Last 24 Hour Vital Signs Date Time Temp Pulse Resp B/P (MAP) Pulse Ox O2 Delivery O2 Flow Rate FiO2 05/28/18 08:56 154/79 05/28/18 08:55 67 154/79 05/28/18 08:45 Nasal Cannula 2.0 28 05/28/18 08:45 94 Nasal Cannula 2.0 28 05/28/18 08:00 Nasal Cannula 3.0 05/28/18 08:00 64 05/28/18 08:00 97.9 67 20 154/74 (100) 93 05/28/18 04:00 60 05/28/18 04:00 Nasal Cannula 3.0 05/28/18 04:00 97.8 65 20 150/75 (100) 96 05/28/18 00:00 Nasal Cannula 3.0 05/28/18 00:00 97.9 60 20 136/63 (87) 96 05/28/18 00:00 56 05/27/18 21:07 70 137/82 05/27/18 21:01 Nasal Cannula 2.0 28 05/27/18 21:01 96 Nasal Cannula 2.0 28 05/27/18 20:00 66 05/27/18 20:00 97.7 70 22 137/82 (100) 96 05/27/18 20:00 Nasal Cannula 3.0 05/27/18 17:39 143/75 05/27/18 16:00 97.8 62 22 143/75 (97) 96 05/27/18 16:00 64 05/27/18 16:00 Nasal Cannula 3.0 05/27/18 13:22 67 05/27/18 12:42 Nasal Cannula 2.0 28 05/27/18 12:42 60 20 Nasal Cannula 2.0 28 05/27/18 12:42 95 Nasal Cannula 2.0 28 Intake and Output 05/27/18 05/28/18 18:59 06:59 Intake Total 395 ml 55 ml Balance 395 ml 55 ml Intake Oral 340 ml IV Total 55 ml 55 ml Laboratory Tests Test 05/28/18 09:05 White Blood Count 18.1 K/UL (4.8-10.8) H Red Blood Count 2.29 M/UL (4.70-6.10) L Hemoglobin 7.2 G/DL (14.2-18.0) L Hematocrit 20.8 % (42.0-52.0) L Mean Corpuscular Volume 91 FL (80-99) Mean Corpuscular Hemoglobin 31.3 PG (27.0-31.0) H Mean Corpuscular Hemoglobin Concent 34.6 G/DL (32.0-36.0) Red Cell Distribution Width 13.7 % (11.6-14.8) Platelet Count 263 K/UL (150-450) Mean Platelet Volume 8.5 FL (6.5-10.1) Neutrophils (%) (Auto) % (45.0-75.0) Lymphocytes (%) (Auto) % (20.0-45.0) Monocytes (%) (Auto) % (1.0-10.0) Eosinophils (%) (Auto) % (0.0-3.0) Basophils (%) (Auto) % (0.0-2.0) Differential Total Cells Counted 100 Neutrophils % (Manual) 89 % (45-75) H Lymphocytes % (Manual) 7 % (20-45) L Monocytes % (Manual) 3 % (1-10) Eosinophils % (Manual) 0 % (0-3) Basophils % (Manual) 0 % (0-2) Band Neutrophils 1 % (0-8) Nucleated Red Blood Cells 1 /100 WBC Platelet Estimate Adequate Platelet Morphology Normal Hypochromasia 1+ Sodium Level 136 MMOL/L (136-145) Potassium Level 5.5 MMOL/L (3.5-5.1) H Chloride Level 95 MMOL/L (98-107) L Carbon Dioxide Level 25 MMOL/L (21-32) Anion Gap 16 mmol/L (5-15) H Blood Urea Nitrogen 101 mg/dL (7-18) H Creatinine 10.0 MG/DL (0.55-1.30) H Estimat Glomerular Filtration Rate 5.5 mL/min (>60) Glucose Level 220 MG/DL (74-106) H Calcium Level 7.6 MG/DL (8.5-10.1) L Phosphorus Level 4.1 MG/DL (2.5-4.9) Total Bilirubin 1.6 MG/DL (0.2-1.0) H Direct Bilirubin 0.8 MG/DL (0.0-0.3) H Aspartate Amino Transf (AST/SGOT) 64 U/L (15-37) H Alanine Aminotransferase (ALT/SGPT) 69 U/L (12-78) Alkaline Phosphatase 78 U/L (46-116) Total Protein 7.7 G/DL (6.4-8.2) Albumin 2.6 G/DL (3.4-5.0) L Globulin 5.1 g/dL Albumin/Globulin Ratio 0.5 (1.0-2.7) L Height (Feet): 5 Height (Inches): 6.00 Weight (Pounds): 184 General Appearance: WD/WN, no apparent distress, alert Cardiovascular: normal rate Respiratory/Chest: normal breath sounds, no respiratory distress Abdominal Exam: normal bowel sounds, non tender, soft Extremities: normal range of motion, non-tender Mansoor Allen EMT/DISPATCHER May 28, 2018 12:14
--- NOTE | 2018-05-28 12:46 | Nephrology Progress Note ---
Assessment/Plan Problem List: (1) ESRD (end stage renal disease) on dialysis (2) Retroperitoneal hemorrhage (3) Shock (4) Anemia (5) Abdominal pain (6) Diabetes Assessment WBC rising presented with: hemorrhagic shock- Retro Peritoneal bleed Low BP on admission ESRD DM HTN transfused 3 units since , more if needed Plan HD 05/25 next 05/28 WBCs rising Transfuse as needed in [facility] now manage pain Per consultants / Urologist discussed with RN meds adjusted Subjective ROS Limited/Unobtainable: No Constitutional: Reports: malaise Objective Objective Last 24 Hour Vital Signs Date Time Temp Pulse Resp B/P (MAP) Pulse Ox O2 Delivery O2 Flow Rate FiO2 05/28/18 12:00 97.5 60 20 161/81 (107) 100 05/28/18 12:00 Nasal Cannula 3.0 05/28/18 08:56 154/79 05/28/18 08:55 67 154/79 05/28/18 08:45 Nasal Cannula 2.0 28 05/28/18 08:45 94 Nasal Cannula 2.0 28 05/28/18 08:00 Nasal Cannula 3.0 05/28/18 08:00 64 05/28/18 08:00 97.9 67 20 154/74 (100) 93 05/28/18 04:00 60 05/28/18 04:00 Nasal Cannula 3.0 05/28/18 04:00 97.8 65 20 150/75 (100) 96 05/28/18 00:00 Nasal Cannula 3.0 05/28/18 00:00 97.9 60 20 136/63 (87) 96 05/28/18 00:00 56 05/27/18 21:07 70 137/82 05/27/18 21:01 Nasal Cannula 2.0 28 05/27/18 21:01 96 Nasal Cannula 2.0 28 05/27/18 20:00 66 05/27/18 20:00 97.7 70 22 137/82 (100) 96 05/27/18 20:00 Nasal Cannula 3.0 05/27/18 17:39 143/75 05/27/18 16:00 97.8 62 22 143/75 (97) 96 05/27/18 16:00 64 05/27/18 16:00 Nasal Cannula 3.0 05/27/18 13:22 67 Intake and Output 05/27/18 05/28/18 18:59 06:59 Intake Total 395 ml 55 ml Balance 395 ml 55 ml Intake Oral 340 ml IV Total 55 ml 55 ml Laboratory Tests 05/28/18 09:05: White Blood Count 18.1H, Red Blood Count 2.29L, Hemoglobin 7.2L, Hematocrit 20.8L, Mean Corpuscular Volume 91, Mean Corpuscular Hemoglobin 31.3H, Mean Corpuscular Hemoglobin Concent 34.6, Red Cell Distribution Width 13.7, Platelet Count 263, Mean Platelet Volume 8.5, Neutrophils (%) (Auto) , Lymphocytes (%) ( Auto) , Monocytes (%) (Auto) , Eosinophils (%) (Auto) , Basophils (%) (Auto) , Differential Total Cells Counted 100, Neutrophils % (Manual) 89H, Lymphocytes % (Manual) 7L, Monocytes % (Manual) 3, Eosinophils % (Manual) 0, Basophils % ( Manual) 0, Band Neutrophils 1, Nucleated Red Blood Cells 1, Platelet Estimate Adequate, Platelet Morphology Normal, Hypochromasia 1+, Sodium Level 136, Potassium Level 5.5H, Chloride Level 95L, Carbon Dioxide Level 25, Anion Gap 16H , Blood Urea Nitrogen 101H, Creatinine 10.0H, Estimat Glomerular Filtration Rate 5.5, Glucose Level 220H, Calcium Level 7.6L, Phosphorus Level 4.1, Total Bilirubin 1.6H, Direct Bilirubin 0.8H, Aspartate Amino Transf (AST/SGOT) 64H, Alanine Aminotransferase (ALT/SGPT) 69, Alkaline Phosphatase 78, Total Protein 7.7, Albumin 2.6L, Globulin 5.1, Albumin/Globulin Ratio 0.5L Height (Feet): 5 Height (Inches): 6.00 Weight (Pounds): 184 General Appearance: no apparent distress Cardiovascular: normal rate Respiratory/Chest: decreased breath sounds Abdomen: other - flank pain Objective no change Dm Lopez MD May 28, 2018 12:46
--- NOTE | 2018-05-28 15:06 | Pulmonology Progress Note ---
Assessment/Plan Assessment/Plan Pulmonary Progress Note Patient with: (1) Previous Shock (2) Diabetes (3) ESRD (end stage renal disease) on dialysis (4) Retroperitoneal hemorrhage involving right kidney (5) Anemia persists Assessment/Plan No new complaints CXR noted PRN anti-tussives PRN HHN's Monitor CBC, transfuse as needed Monitor hemodynamics and volumes HD per renal F/U recs, no plan for operation at this time Zosyn per ID, F/U Cx's DVT Px: SCD's SSI Pain control/supportive care Subjective Allergies: Coded Allergies: No Known Allergies (Unverified , 05/20/18) Subjective HH stable AFVSS on 2L, getting HD Less flank abd pain + cough, no SOB no F/C Objective Vital Signs Noted Laboratory Tests 05/24/18 03:00: White Blood Count 9.6, Red Blood Count 2.62L, Hemoglobin 8.1L, Hematocrit 23.7L , Mean Corpuscular Volume 90, Mean Corpuscular Hemoglobin 30.9, Mean Corpuscular Hemoglobin Concent 34.1, Red Cell Distribution Width 13.6, Platelet Count 139L, Mean Platelet Volume 10.5H, Neutrophils (%) (Auto) 83.4H, Lymphocytes (%) (Auto) 6.7L, Monocytes (%) (Auto) 7.6, Eosinophils (%) (Auto) 1.7, Basophils (%) (Auto) 0.6, Sodium Level 139, Potassium Level 3.6, Chloride Level 97L, Carbon Dioxide Level 30, Anion Gap 12, Blood Urea Nitrogen 50H, Creatinine 6.8H, Estimat Glomerular Filtration Rate 8.6, Glucose Level 138H, Calcium Level 8.0L, Phosphorus Level 3.0, Magnesium Level 2.5H, Total Bilirubin 0.9, Aspartate Amino Transf (AST/SGOT) 31, Alanine Aminotransferase (ALT/SGPT) 35, Alkaline Phosphatase 61, Total Protein 7.6, Albumin 2.6L, Globulin 5.0, Albumin/Globulin Ratio 0.5L 05/24/18 11:10: Stool Occult Blood [Pending] 05/24/18 15:00: Stool Occult Blood [Pending] Current Medications Medications (Trade) Dose Ordered Sig/Santos Route PRN Reason Start Time Stop Time Status Last Admin Dose Admin Acetaminophen/ Hydrocodone Bitart (Five Points 5/325) 1 tab TIDPRN PRN ORAL Moderate Pain (Pain Scale 4-6) 05/22/18 09:00 05/29/18 08:59 05/24/18 16:35 Dextrose (Dextrose 50%) 25 ml Q30M PRN IV Hypoglycemia 05/22/18 09:00 06/19/18 08:59 Dextrose (Dextrose 50%) 50 ml Q30M PRN IV Hypoglycemia 05/22/18 09:00 06/19/18 08:59 Docusate Sodium (Colace) 100 mg THREE TIMES A DAY ORAL 05/22/18 09:00 06/19/18 12:59 05/24/18 12:57 Epoetin Jayme (Procrit (for ESRD on dialysis)) 10,000 units MON-MON-MON SUBQ 05/23/18 21:00 06/22/18 20:59 05/23/18 21:25 Hydralazine HCl (Apresoline) 25 mg Q4H PRN ORAL BP 160 and above 05/24/18 10:30 06/23/18 10:29 05/24/18 12:57 Insulin Aspart (NovoLOG) BEFORE MEALS AND HS SUBQ 05/22/18 11:30 06/19/18 06:29 05/24/18 12:10 Insulin Detemir (Levemir) 6 units DAILY SUBQ 05/22/18 09:00 06/20/18 11:59 05/24/18 09:03 Iron Sucrose 100 mg/Sodium Chloride 55 ml @ 200 mls/hr BEDTIME IV 05/24/18 21:00 05/27/18 21:17 Lactulose (Cephulac) 20 gm TWICE A DAY ORAL 05/22/18 09:00 06/20/18 05:59 05/24/18 08:55 Lorazepam (Ativan) 0.5 mg TIDPRN PRN ORAL For Anxiety 05/22/18 09:00 05/29/18 08:59 Metoprolol Tartrate (Lopressor) 12.5 mg Q12HR ORAL 05/24/18 21:00 06/23/18 20:59 Ondansetron HCl (Zofran) 4 mg TIDPRN PRN IVP Nausea & Vomiting 05/22/18 09:00 06/21/18 08:59 Pantoprazole (Protonix) 40 mg BID ORAL 05/23/18 18:00 06/22/18 17:59 05/24/18 08:58 Piperacillin Sod/ Tazobactam Sod 2.25 gm/Dextrose 55 ml @ 110 mls/hr Q8HR IVPB 05/22/18 15:00 05/27/18 14:59 05/24/18 13:59 Promethazine HCl/ Dextromethorphan (Phenergan DM) 6.25 mg Q6H PRN ORAL For Cough 05/24/18 12:00 06/23/18 11:59 05/24/18 12:16 Sevelamer Carbonate (Renvela) 1,600 mg THREE TIMES A DAY ORAL 05/23/18 13:00 06/20/18 12:59 05/24/18 12:57 Sodium Chloride 500 ml @ 999 mls/hr Q4H PRN IV SBP less than 100mmhg 05/22/18 09:00 06/19/18 08:59 Subjective ROS Limited/Unobtainable: No Allergies: Coded Allergies: No Known Allergies (Unverified , 05/20/18) Objective Last 24 Hour Vital Signs Date Time Temp Pulse Resp B/P (MAP) Pulse Ox O2 Delivery O2 Flow Rate FiO2 05/28/18 13:00 161/81 05/28/18 12:00 97.5 60 20 161/81 (107) 100 05/28/18 12:00 59 05/28/18 12:00 Nasal Cannula 3.0 05/28/18 08:56 154/79 05/28/18 08:55 67 154/79 05/28/18 08:45 Nasal Cannula 2.0 28 05/28/18 08:45 94 Nasal Cannula 2.0 28 05/28/18 08:00 Nasal Cannula 3.0 05/28/18 08:00 64 05/28/18 08:00 97.9 67 20 154/74 (100) 93 05/28/18 04:00 60 05/28/18 04:00 Nasal Cannula 3.0 05/28/18 04:00 97.8 65 20 150/75 (100) 96 05/28/18 00:00 Nasal Cannula 3.0 05/28/18 00:00 97.9 60 20 136/63 (87) 96 05/28/18 00:00 56 05/27/18 21:07 70 137/82 05/27/18 21:01 Nasal Cannula 2.0 28 05/27/18 21:01 96 Nasal Cannula 2.0 28 05/27/18 20:00 66 05/27/18 20:00 97.7 70 22 137/82 (100) 96 05/27/18 20:00 Nasal Cannula 3.0 05/27/18 17:39 143/75 05/27/18 16:00 97.8 62 22 143/75 (97) 96 05/27/18 16:00 64 05/27/18 16:00 Nasal Cannula 3.0 Intake and Output 05/27/18 05/28/18 19:00 07:00 Intake Total 395 ml 55 ml Balance 395 ml 55 ml Intake Oral 340 ml IV Total 55 ml 55 ml Laboratory Tests 05/28/18 09:05: White Blood Count 18.1H, Red Blood Count 2.29L, Hemoglobin 7.2L, Hematocrit 20.8L, Mean Corpuscular Volume 91, Mean Corpuscular Hemoglobin 31.3H, Mean Corpuscular Hemoglobin Concent 34.6, Red Cell Distribution Width 13.7, Platelet Count 263, Mean Platelet Volume 8.5, Neutrophils (%) (Auto) , Lymphocytes (%) ( Auto) , Monocytes (%) (Auto) , Eosinophils (%) (Auto) , Basophils (%) (Auto) , Differential Total Cells Counted 100, Neutrophils % (Manual) 89H, Lymphocytes % (Manual) 7L, Monocytes % (Manual) 3, Eosinophils % (Manual) 0, Basophils % ( Manual) 0, Band Neutrophils 1, Nucleated Red Blood Cells 1, Platelet Estimate Adequate, Platelet Morphology Normal, Hypochromasia 1+, Sodium Level 136, Potassium Level 5.5H, Chloride Level 95L, Carbon Dioxide Level 25, Anion Gap 16H , Blood Urea Nitrogen 101H, Creatinine 10.0H, Estimat Glomerular Filtration Rate 5.5, Glucose Level 220H, Calcium Level 7.6L, Phosphorus Level 4.1, Total Bilirubin 1.6H, Direct Bilirubin 0.8H, Aspartate Amino Transf (AST/SGOT) 64H, Alanine Aminotransferase (ALT/SGPT) 69, Alkaline Phosphatase 78, Total Protein 7.7, Albumin 2.6L, Globulin 5.1, Albumin/Globulin Ratio 0.5L Current Medications Medications (Trade) Dose Ordered Sig/Santos Route PRN Reason Start Time Stop Time Status Last Admin Dose Admin Acetaminophen/ Hydrocodone Bitart (Five Points 5/325) 1 tab Q4H PRN ORAL Moderate Pain (Pain Scale 4-6) 05/25/18 13:15 06/01/18 13:14 05/28/18 01:03 Albuterol/ Ipratropium (Albuterol/ Ipratropium) 3 ml Q4H PRN HHN Shortness of Breath 05/24/18 16:45 05/29/18 16:44 Barium Sulfate (Readi-Cat 2) 450 ml NOW PRN ORAL Radiology Procedure 05/27/18 10:45 05/29/18 10:42 Clonidine HCl (Catapres Tab) 0.1 mg TID ORAL 05/27/18 09:00 06/26/18 08:59 05/27/18 08:36 Dextrose (Dextrose 50%) 25 ml Q30M PRN IV Hypoglycemia 05/28/18 07:00 06/27/18 06:59 Dextrose (Dextrose 50%) 50 ml Q30M PRN IV Hypoglycemia 05/28/18 07:00 06/27/18 06:59 Docusate Sodium (Colace) 100 mg THREE TIMES A DAY ORAL 05/22/18 09:00 06/19/18 12:59 05/28/18 13:12 Epoetin Jayme (Procrit (for ESRD on dialysis)) 10,000 units MON-WED-FRI SUBQ 05/23/18 21:00 06/22/18 20:59 05/25/18 21:36 Hydralazine HCl (Apresoline) 25 mg Q4H PRN ORAL BP 160 and above 05/24/18 10:30 06/23/18 10:29 05/27/18 04:10 Insulin Aspart (NovoLOG) BEFORE MEALS AND HS SUBQ 05/22/18 11:30 06/19/18 06:29 05/28/18 12:04 Insulin Aspart (NovoLOG) 3 units NOVOTIAC SUBQ 05/28/18 11:50 06/27/18 11:49 05/28/18 12:05 Insulin Detemir (Levemir) 9 units QHS SUBQ 05/28/18 21:00 06/20/18 11:59 Lactulose (Cephulac) 20 gm TWICE A DAY ORAL 05/22/18 09:00 06/20/18 05:59 05/28/18 08:54 Lorazepam (Ativan) 0.5 mg TIDPRN PRN ORAL For Anxiety 05/22/18 09:00 05/29/18 08:59 05/27/18 03:46 Metoprolol Tartrate (Lopressor) 50 mg Q12HR ORAL 05/26/18 21:00 06/23/18 20:59 05/28/18 08:55 Morphine Sulfate (Morphine Sulfate) 2 mg Q4H PRN IVP FOR SEVERE PAIN 05/27/18 06:45 06/03/18 06:44 Ondansetron HCl (Zofran) 4 mg TIDPRN PRN IVP Nausea & Vomiting 05/22/18 09:00 06/21/18 08:59 Pantoprazole (Protonix) 40 mg BID ORAL 05/23/18 18:00 06/22/18 17:59 05/28/18 08:55 Promethazine HCl/ Dextromethorphan (Phenergan DM) 6.25 mg Q6H PRN ORAL For Cough 05/24/18 12:00 06/23/18 11:59 05/24/18 12:16 Sevelamer Carbonate (Renvela) 1,600 mg THREE TIMES A DAY ORAL 05/23/18 13:00 06/20/18 12:59 05/28/18 13:12 Sodium Chloride 500 ml @ 999 mls/hr Q4H PRN IV SBP less than 100mmhg 05/22/18 09:00 06/19/18 08:59 Tae Velazco MD May 28, 2018 15:06
[2018-05-28 16:00] VITALS: BP 159/79
--- NOTE | 2018-05-28 17:12 | Infectious Diseases Prog Note ---
Assessment/Plan Problems: (1) Leukocytosis Assessment & Plan: suspect due to recurrent bleeding which he required transfusion for , S/P zosyn for 6 days , doubt infectious etiology with no fever and negative cultures . await CT abd/pelvis for follow up and to rule out any new fluid collection which might be the source, repeated blood culture is negative. monitor off antibiotics (2) Renal hematoma, right Assessment & Plan: with extension to the retroperitoneal area , continue close monitor of H/H and serial images for follow up, watch out for abscess formation , repeat CT abdomen in am for follow up (3) Retroperitoneal hemorrhage Assessment & Plan: continue H/H monitoring with blood transfusion , and serial imaging for follow up, avoid anticoagulation (4) ESRD (end stage renal disease) on dialysis Assessment & Plan: on HD, renal is following (5) Diabetes Assessment & Plan: recommend tight glycemic control to keep blood glucose between 100-140 Subjective Constitutional: Reports: no symptoms HEENT: Reports: no symptoms Respiratory: Reports: no symptoms Breasts: Reports: no symptoms Cardiovascular: Reports: no symptoms Gastrointestinal/Abdominal: Reports: bloating, other - FLANK PAIN Genitourinary: Reports: no symptoms Neurologic: Reports: no symptoms Psychiatric: Reports: no symptoms Skin: Reports: no symptoms Endocrine: Reports: no symptoms Hematologic: Reports: no symptoms Musculoskeletal: Reports: no symptoms Allergies: Coded Allergies: No Known Allergies (Unverified , 05/20/18) Subjective he has more flank pain today and discomfort, no fever or chills, no cough or SOB Objective Vital Signs Last 24 Hour Vital Signs Date Time Temp Pulse Resp B/P (MAP) Pulse Ox O2 Delivery O2 Flow Rate FiO2 05/28/18 16:00 Nasal Cannula 3.0 05/28/18 13:00 161/81 05/28/18 12:00 97.5 60 20 161/81 (107) 100 05/28/18 12:00 59 05/28/18 12:00 Nasal Cannula 3.0 05/28/18 08:56 154/79 05/28/18 08:55 67 154/79 05/28/18 08:45 Nasal Cannula 2.0 28 05/28/18 08:45 94 Nasal Cannula 2.0 28 05/28/18 08:00 Nasal Cannula 3.0 05/28/18 08:00 64 05/28/18 08:00 97.9 67 20 154/74 (100) 93 05/28/18 04:00 60 05/28/18 04:00 Nasal Cannula 3.0 05/28/18 04:00 97.8 65 20 150/75 (100) 96 05/28/18 00:00 Nasal Cannula 3.0 05/28/18 00:00 97.9 60 20 136/63 (87) 96 05/28/18 00:00 56 05/27/18 21:07 70 137/82 05/27/18 21:01 Nasal Cannula 2.0 28 05/27/18 21:01 96 Nasal Cannula 2.0 28 05/27/18 20:00 66 05/27/18 20:00 97.7 70 22 137/82 (100) 96 05/27/18 20:00 Nasal Cannula 3.0 05/27/18 17:39 143/75 Height (Feet): 5 Height (Inches): 6.00 Weight (Pounds): 184 General Appearance: WD/WN, no acute distress HEENT: normocephalic, atraumatic, anicteric, mucous membranes moist, PERRL, pharynx normal, supple, no JVD Respiratory/Chest: chest wall non-tender, lungs clear, normal breath sounds, no respiratory distress, no accessory muscle use Breasts: no masses Cardiovascular: normal peripheral pulses, normal rate, regular rhythm, no gallop/murmur, no JVD Abdomen: normal bowel sounds, soft, non tender, no organomegaly, non distended , no mass, no scars Extremities: no cyanosis, no clubbing Skin: no rash, no lesions, no ulcers Neurologic/Psychiatric: alert, responsive Lymphatic: no neck adenopathy, no groin adenopathy Musculoskeletal: normal muscle bulk Laboratory Tests Test 05/28/18 09:05 White Blood Count 18.1 K/UL (4.8-10.8) H Red Blood Count 2.29 M/UL (4.70-6.10) L Hemoglobin 7.2 G/DL (14.2-18.0) L Hematocrit 20.8 % (42.0-52.0) L Mean Corpuscular Volume 91 FL (80-99) Mean Corpuscular Hemoglobin 31.3 PG (27.0-31.0) H Mean Corpuscular Hemoglobin Concent 34.6 G/DL (32.0-36.0) Red Cell Distribution Width 13.7 % (11.6-14.8) Platelet Count 263 K/UL (150-450) Mean Platelet Volume 8.5 FL (6.5-10.1) Neutrophils (%) (Auto) % (45.0-75.0) Lymphocytes (%) (Auto) % (20.0-45.0) Monocytes (%) (Auto) % (1.0-10.0) Eosinophils (%) (Auto) % (0.0-3.0) Basophils (%) (Auto) % (0.0-2.0) Differential Total Cells Counted 100 Neutrophils % (Manual) 89 % (45-75) H Lymphocytes % (Manual) 7 % (20-45) L Monocytes % (Manual) 3 % (1-10) Eosinophils % (Manual) 0 % (0-3) Basophils % (Manual) 0 % (0-2) Band Neutrophils 1 % (0-8) Nucleated Red Blood Cells 1 /100 WBC Platelet Estimate Adequate Platelet Morphology Normal Hypochromasia 1+ Sodium Level 136 MMOL/L (136-145) Potassium Level 5.5 MMOL/L (3.5-5.1) H Chloride Level 95 MMOL/L (98-107) L Carbon Dioxide Level 25 MMOL/L (21-32) Anion Gap 16 mmol/L (5-15) H Blood Urea Nitrogen 101 mg/dL (7-18) H Creatinine 10.0 MG/DL (0.55-1.30) H Estimat Glomerular Filtration Rate 5.5 mL/min (>60) Glucose Level 220 MG/DL (74-106) H Calcium Level 7.6 MG/DL (8.5-10.1) L Phosphorus Level 4.1 MG/DL (2.5-4.9) Total Bilirubin 1.6 MG/DL (0.2-1.0) H Direct Bilirubin 0.8 MG/DL (0.0-0.3) H Aspartate Amino Transf (AST/SGOT) 64 U/L (15-37) H Alanine Aminotransferase (ALT/SGPT) 69 U/L (12-78) Alkaline Phosphatase 78 U/L (46-116) Total Protein 7.7 G/DL (6.4-8.2) Albumin 2.6 G/DL (3.4-5.0) L Globulin 5.1 g/dL Albumin/Globulin Ratio 0.5 (1.0-2.7) L Current Medications Medications (Trade) Dose Ordered Sig/Santos Route PRN Reason Start Time Stop Time Status Last Admin Dose Admin Acetaminophen/ Hydrocodone Bitart (Gravel Switch 5/325) 1 tab Q4H PRN ORAL Moderate Pain (Pain Scale 4-6) 05/25/18 13:15 06/01/18 13:14 05/28/18 01:03 Albuterol/ Ipratropium (Albuterol/ Ipratropium) 3 ml Q4H PRN HHN Shortness of Breath 05/24/18 16:45 05/29/18 16:44 Barium Sulfate (Readi-Cat 2) 450 ml NOW PRN ORAL Radiology Procedure 05/27/18 10:45 05/29/18 10:42 Clonidine HCl (Catapres Tab) 0.1 mg TID ORAL 05/27/18 09:00 06/26/18 08:59 05/27/18 08:36 Dextrose (Dextrose 50%) 25 ml Q30M PRN IV Hypoglycemia 05/28/18 07:00 06/27/18 06:59 Dextrose (Dextrose 50%) 50 ml Q30M PRN IV Hypoglycemia 05/28/18 07:00 06/27/18 06:59 Docusate Sodium (Colace) 100 mg THREE TIMES A DAY ORAL 05/22/18 09:00 06/19/18 12:59 05/28/18 13:12 Epoetin Jayme (Procrit (for ESRD on dialysis)) 10,000 units MON-MON-MON SUBQ 05/23/18 21:00 06/22/18 20:59 05/25/18 21:36 Hydralazine HCl (Apresoline) 25 mg Q4H PRN ORAL BP 160 and above 05/24/18 10:30 06/23/18 10:29 05/27/18 04:10 Insulin Aspart (NovoLOG) BEFORE MEALS AND HS SUBQ 05/22/18 11:30 06/19/18 06:29 05/28/18 12:04 Insulin Aspart (NovoLOG) 3 units NOVOTIAC SUBQ 05/28/18 11:50 06/27/18 11:49 05/28/18 12:05 Insulin Detemir (Levemir) 9 units QHS SUBQ 05/28/18 21:00 06/20/18 11:59 Lactulose (Cephulac) 20 gm TWICE A DAY ORAL 05/22/18 09:00 06/20/18 05:59 05/28/18 08:54 Lorazepam (Ativan) 0.5 mg TIDPRN PRN ORAL For Anxiety 05/22/18 09:00 05/29/18 08:59 05/27/18 03:46 Metoprolol Tartrate (Lopressor) 50 mg Q12HR ORAL 05/26/18 21:00 06/23/18 20:59 05/28/18 08:55 Morphine Sulfate (Morphine Sulfate) 2 mg Q4H PRN IVP FOR SEVERE PAIN 05/27/18 06:45 06/03/18 06:44 Ondansetron HCl (Zofran) 4 mg TIDPRN PRN IVP Nausea & Vomiting 05/22/18 09:00 06/21/18 08:59 Pantoprazole (Protonix) 40 mg BID ORAL 05/23/18 18:00 06/22/18 17:59 05/28/18 08:55 Promethazine HCl/ Dextromethorphan (Phenergan DM) 6.25 mg Q6H PRN ORAL For Cough 05/24/18 12:00 06/23/18 11:59 05/24/18 12:16 Sevelamer Carbonate (Renvela) 1,600 mg THREE TIMES A DAY ORAL 05/23/18 13:00 06/20/18 12:59 05/28/18 13:12 Sodium Chloride 500 ml @ 999 mls/hr Q4H PRN IV SBP less than 100mmhg 05/22/18 09:00 06/19/18 08:59 Rowena Garcia M.D. 12, 2018 17:11
[2018-05-28] MEDS ORDERED: Zolpidem 5mg tab ORAL PRN (19:45)
[2018-05-28 20:00] VITALS: BP 147/72
[2018-05-28] MEDS ORDERED: Levemir Flexpen SUBQ SCH (21:00)
[2018-05-28] MEDS: Epogen (for ESRD on dialysis) SUBQ SCH (21:02)
--- NOTE | 2018-05-28 21:35 | Urology Progress Note ---
Assessment/Plan Assessment/Plan RP hematoma 2/2 renal bleed Slowed but not stopped after conservative measures CT A/P today with expanding hematoma and Hct continues to drift downward D/W pt extensively and with Dr. Flores Needs IR embolization of kidney for same. Subjective Date patient seen: May 28, 2018 Time patient seen: 21:33 ROS Limited/Unobtainable: No Allergies: Coded Allergies: No Known Allergies (Unverified , 05/20/18) All Systems: reviewed and negative except above Objective Last 24 Hour Vital Signs Date Time Temp Pulse Resp B/P (MAP) Pulse Ox O2 Delivery O2 Flow Rate FiO2 05/28/18 21:01 72 147/72 05/28/18 20:00 98.1 72 20 147/72 (97) 98 05/28/18 18:00 155/79 05/28/18 16:00 Nasal Cannula 3.0 05/28/18 16:00 70 05/28/18 16:00 98.1 67 20 159/79 (105) 97 05/28/18 13:00 161/81 05/28/18 12:00 97.5 60 20 161/81 (107) 100 05/28/18 12:00 59 05/28/18 12:00 Nasal Cannula 3.0 05/28/18 08:56 154/79 05/28/18 08:55 67 154/79 05/28/18 08:45 Nasal Cannula 2.0 28 05/28/18 08:45 94 Nasal Cannula 2.0 28 05/28/18 08:00 Nasal Cannula 3.0 05/28/18 08:00 64 05/28/18 08:00 97.9 67 20 154/74 (100) 93 05/28/18 04:00 60 05/28/18 04:00 Nasal Cannula 3.0 05/28/18 04:00 97.8 65 20 150/75 (100) 96 05/28/18 00:00 Nasal Cannula 3.0 05/28/18 00:00 97.9 60 20 136/63 (87) 96 05/28/18 00:00 56 Intake and Output 05/27/18 05/28/18 19:00 07:00 Intake Total 395 ml 55 ml Balance 395 ml 55 ml Intake Oral 340 ml IV Total 55 ml 55 ml Laboratory Tests 05/28/18 09:05: White Blood Count 18.1H, Red Blood Count 2.29L, Hemoglobin 7.2L, Hematocrit 20.8L, Mean Corpuscular Volume 91, Mean Corpuscular Hemoglobin 31.3H, Mean Corpuscular Hemoglobin Concent 34.6, Red Cell Distribution Width 13.7, Platelet Count 263, Mean Platelet Volume 8.5, Neutrophils (%) (Auto) , Lymphocytes (%) ( Auto) , Monocytes (%) (Auto) , Eosinophils (%) (Auto) , Basophils (%) (Auto) , Differential Total Cells Counted 100, Neutrophils % (Manual) 89H, Lymphocytes % (Manual) 7L, Monocytes % (Manual) 3, Eosinophils % (Manual) 0, Basophils % ( Manual) 0, Band Neutrophils 1, Nucleated Red Blood Cells 1, Platelet Estimate Adequate, Platelet Morphology Normal, Hypochromasia 1+, Sodium Level 136, Potassium Level 5.5H, Chloride Level 95L, Carbon Dioxide Level 25, Anion Gap 16H , Blood Urea Nitrogen 101H, Creatinine 10.0H, Estimat Glomerular Filtration Rate 5.5, Glucose Level 220H, Calcium Level 7.6L, Phosphorus Level 4.1, Total Bilirubin 1.6H, Direct Bilirubin 0.8H, Aspartate Amino Transf (AST/SGOT) 64H, Alanine Aminotransferase (ALT/SGPT) 69, Alkaline Phosphatase 78, Total Protein 7.7, Albumin 2.6L, Globulin 5.1, Albumin/Globulin Ratio 0.5L Height (Feet): 5 Height (Inches): 6.00 Weight (Pounds): 184 General Appearance: WD/WN, no apparent distress EENT: PERRL/EOMI Neck: supple Abdomen: non tender, soft Genitourinary/Rectal: normal genital exam Extremities: normal range of motion, non-tender Edema: no edema noted Leg (L), no edema noted Leg (R) Neurologic: oriented x 3 Ambrosio Fernandez M.D. May 28, 2018 21:35
--- NOTE | 2018-05-28 22:50 | General Progress Note ---
Assessment/Plan Status: stable, progressing Assessment/Plan anxiety d/o ativan prn provided ro/st Subjective Date patient seen: May 28, 2018 Neurologic/Psychiatric: Reports: anxiety, depressed Allergies: Coded Allergies: No Known Allergies (Unverified , 05/20/18) Objective Last 24 Hour Vital Signs Date Time Temp Pulse Resp B/P (MAP) Pulse Ox O2 Delivery O2 Flow Rate FiO2 05/28/18 21:01 72 147/72 05/28/18 20:35 Nasal Cannula 2.0 28 05/28/18 20:35 98 Nasal Cannula 2.0 28 05/28/18 20:00 80 05/28/18 20:00 Nasal Cannula 3.0 05/28/18 20:00 98.1 72 20 147/72 (97) 98 05/28/18 18:00 155/79 05/28/18 16:00 Nasal Cannula 3.0 05/28/18 16:00 70 05/28/18 16:00 98.1 67 20 159/79 (105) 97 05/28/18 13:00 161/81 05/28/18 12:00 97.5 60 20 161/81 (107) 100 05/28/18 12:00 59 05/28/18 12:00 Nasal Cannula 3.0 05/28/18 08:56 154/79 05/28/18 08:55 67 154/79 05/28/18 08:45 Nasal Cannula 2.0 28 05/28/18 08:45 94 Nasal Cannula 2.0 28 05/28/18 08:00 Nasal Cannula 3.0 05/28/18 08:00 64 05/28/18 08:00 97.9 67 20 154/74 (100) 93 05/28/18 04:00 60 05/28/18 04:00 Nasal Cannula 3.0 05/28/18 04:00 97.8 65 20 150/75 (100) 96 05/28/18 00:00 Nasal Cannula 3.0 05/28/18 00:00 97.9 60 20 136/63 (87) 96 05/28/18 00:00 56 Intake and Output 05/27/18 05/28/18 19:00 07:00 Intake Total 395 ml 55 ml Balance 395 ml 55 ml Intake Oral 340 ml IV Total 55 ml 55 ml Laboratory Tests 05/28/18 09:05: White Blood Count 18.1H, Red Blood Count 2.29L, Hemoglobin 7.2L, Hematocrit 20.8L, Mean Corpuscular Volume 91, Mean Corpuscular Hemoglobin 31.3H, Mean Corpuscular Hemoglobin Concent 34.6, Red Cell Distribution Width 13.7, Platelet Count 263, Mean Platelet Volume 8.5, Neutrophils (%) (Auto) , Lymphocytes (%) ( Auto) , Monocytes (%) (Auto) , Eosinophils (%) (Auto) , Basophils (%) (Auto) , Differential Total Cells Counted 100, Neutrophils % (Manual) 89H, Lymphocytes % (Manual) 7L, Monocytes % (Manual) 3, Eosinophils % (Manual) 0, Basophils % ( Manual) 0, Band Neutrophils 1, Nucleated Red Blood Cells 1, Platelet Estimate Adequate, Platelet Morphology Normal, Hypochromasia 1+, Sodium Level 136, Potassium Level 5.5H, Chloride Level 95L, Carbon Dioxide Level 25, Anion Gap 16H , Blood Urea Nitrogen 101H, Creatinine 10.0H, Estimat Glomerular Filtration Rate 5.5, Glucose Level 220H, Calcium Level 7.6L, Phosphorus Level 4.1, Total Bilirubin 1.6H, Direct Bilirubin 0.8H, Aspartate Amino Transf (AST/SGOT) 64H, Alanine Aminotransferase (ALT/SGPT) 69, Alkaline Phosphatase 78, Total Protein 7.7, Albumin 2.6L, Globulin 5.1, Albumin/Globulin Ratio 0.5L Height (Feet): 5 Height (Inches): 6.00 Weight (Pounds): 184 General Appearance: no apparent distress, alert Neurologic: alert, responsive, depressed affect Chris Driscoll MD May 28, 2018 22:50
--- NOTE | 2018-05-28 22:53 | Psych Consult Progress Note ---
Psych Consult Progress Note Consult 05/27/18 anxiety d/o ativan prn provided ro/st Vital Signs Last 24 Hour Vital Signs Date Time Temp Pulse Resp B/P (MAP) Pulse Ox O2 Delivery O2 Flow Rate FiO2 05/28/18 21:01 72 147/72 05/28/18 20:35 Nasal Cannula 2.0 28 05/28/18 20:35 98 Nasal Cannula 2.0 28 05/28/18 20:00 80 05/28/18 20:00 Nasal Cannula 3.0 05/28/18 20:00 98.1 72 20 147/72 (97) 98 05/28/18 18:00 155/79 05/28/18 16:00 Nasal Cannula 3.0 05/28/18 16:00 70 05/28/18 16:00 98.1 67 20 159/79 (105) 97 05/28/18 13:00 161/81 05/28/18 12:00 97.5 60 20 161/81 (107) 100 05/28/18 12:00 59 05/28/18 12:00 Nasal Cannula 3.0 05/28/18 08:56 154/79 05/28/18 08:55 67 154/79 05/28/18 08:45 Nasal Cannula 2.0 28 05/28/18 08:45 94 Nasal Cannula 2.0 28 05/28/18 08:00 Nasal Cannula 3.0 05/28/18 08:00 64 05/28/18 08:00 97.9 67 20 154/74 (100) 93 05/28/18 04:00 60 05/28/18 04:00 Nasal Cannula 3.0 05/28/18 04:00 97.8 65 20 150/75 (100) 96 05/28/18 00:00 Nasal Cannula 3.0 05/28/18 00:00 97.9 60 20 136/63 (87) 96 05/28/18 00:00 56 Labs Laboratory Tests Test 05/28/18 09:05 White Blood Count 18.1 K/UL (4.8-10.8) H Red Blood Count 2.29 M/UL (4.70-6.10) L Hemoglobin 7.2 G/DL (14.2-18.0) L Hematocrit 20.8 % (42.0-52.0) L Mean Corpuscular Volume 91 FL (80-99) Mean Corpuscular Hemoglobin 31.3 PG (27.0-31.0) H Mean Corpuscular Hemoglobin Concent 34.6 G/DL (32.0-36.0) Red Cell Distribution Width 13.7 % (11.6-14.8) Platelet Count 263 K/UL (150-450) Mean Platelet Volume 8.5 FL (6.5-10.1) Neutrophils (%) (Auto) % (45.0-75.0) Lymphocytes (%) (Auto) % (20.0-45.0) Monocytes (%) (Auto) % (1.0-10.0) Eosinophils (%) (Auto) % (0.0-3.0) Basophils (%) (Auto) % (0.0-2.0) Differential Total Cells Counted 100 Neutrophils % (Manual) 89 % (45-75) H Lymphocytes % (Manual) 7 % (20-45) L Monocytes % (Manual) 3 % (1-10) Eosinophils % (Manual) 0 % (0-3) Basophils % (Manual) 0 % (0-2) Band Neutrophils 1 % (0-8) Nucleated Red Blood Cells 1 /100 WBC Platelet Estimate Adequate Platelet Morphology Normal Hypochromasia 1+ Sodium Level 136 MMOL/L (136-145) Potassium Level 5.5 MMOL/L (3.5-5.1) H Chloride Level 95 MMOL/L (98-107) L Carbon Dioxide Level 25 MMOL/L (21-32) Anion Gap 16 mmol/L (5-15) H Blood Urea Nitrogen 101 mg/dL (7-18) H Creatinine 10.0 MG/DL (0.55-1.30) H Estimat Glomerular Filtration Rate 5.5 mL/min (>60) Glucose Level 220 MG/DL (74-106) H Calcium Level 7.6 MG/DL (8.5-10.1) L Phosphorus Level 4.1 MG/DL (2.5-4.9) Total Bilirubin 1.6 MG/DL (0.2-1.0) H Direct Bilirubin 0.8 MG/DL (0.0-0.3) H Aspartate Amino Transf (AST/SGOT) 64 U/L (15-37) H Alanine Aminotransferase (ALT/SGPT) 69 U/L (12-78) Alkaline Phosphatase 78 U/L (46-116) Total Protein 7.7 G/DL (6.4-8.2) Albumin 2.6 G/DL (3.4-5.0) L Globulin 5.1 g/dL Albumin/Globulin Ratio 0.5 (1.0-2.7) L Medications Current Medications Medications (Trade) Dose Ordered Sig/Santos Route PRN Reason Start Time Stop Time Status Last Admin Dose Admin Acetaminophen/ Hydrocodone Bitart (Delta 5/325) 1 tab Q4H PRN ORAL Moderate Pain (Pain Scale 4-6) 05/25/18 13:15 06/01/18 13:14 05/28/18 21:02 Albuterol/ Ipratropium (Albuterol/ Ipratropium) 3 ml Q4H PRN HHN Shortness of Breath 05/24/18 16:45 05/29/18 16:44 Barium Sulfate (Readi-Cat 2) 450 ml NOW PRN ORAL Radiology Procedure 05/27/18 10:45 05/29/18 10:42 Clonidine HCl (Catapres Tab) 0.1 mg TID ORAL 05/27/18 09:00 06/26/18 08:59 05/27/18 08:36 Dextrose (Dextrose 50%) 25 ml Q30M PRN IV Hypoglycemia 05/28/18 07:00 06/27/18 06:59 Dextrose (Dextrose 50%) 50 ml Q30M PRN IV Hypoglycemia 05/28/18 07:00 06/27/18 06:59 Docusate Sodium (Colace) 100 mg THREE TIMES A DAY ORAL 05/22/18 09:00 06/19/18 12:59 05/28/18 18:06 Epoetin Jayme (Procrit (for ESRD on dialysis)) 10,000 units MON-WED-FRI SUBQ 05/23/18 21:00 06/22/18 20:59 05/28/18 21:02 Hydralazine HCl (Apresoline) 25 mg Q4H PRN ORAL BP 160 and above 05/24/18 10:30 06/23/18 10:29 05/27/18 04:10 Insulin Aspart (NovoLOG) BEFORE MEALS AND HS SUBQ 05/22/18 11:30 06/19/18 06:29 05/28/18 21:04 Insulin Aspart (NovoLOG) 3 units NOVOTIAC SUBQ 05/28/18 11:50 06/27/18 11:49 05/28/18 17:18 Insulin Detemir (Levemir) 9 units QHS SUBQ 05/28/18 21:00 06/20/18 11:59 05/28/18 21:04 Lactulose (Cephulac) 20 gm TWICE A DAY ORAL 05/22/18 09:00 06/20/18 05:59 05/28/18 08:54 Lorazepam (Ativan) 0.5 mg TIDPRN PRN ORAL For Anxiety 05/22/18 09:00 05/29/18 08:59 05/27/18 03:46 Metoprolol Tartrate (Lopressor) 50 mg Q12HR ORAL 05/26/18 21:00 06/23/18 20:59 05/28/18 21:01 Morphine Sulfate (Morphine Sulfate) 2 mg Q4H PRN IVP FOR SEVERE PAIN 05/27/18 06:45 06/03/18 06:44 Ondansetron HCl (Zofran) 4 mg TIDPRN PRN IVP Nausea & Vomiting 05/22/18 09:00 06/21/18 08:59 Pantoprazole (Protonix) 40 mg BID ORAL 05/23/18 18:00 06/22/18 17:59 05/28/18 18:06 Promethazine HCl/ Dextromethorphan (Phenergan DM) 6.25 mg Q6H PRN ORAL For Cough 05/24/18 12:00 06/23/18 11:59 05/24/18 12:16 Sevelamer Carbonate (Renvela) 1,600 mg THREE TIMES A DAY ORAL 05/23/18 13:00 06/20/18 12:59 05/28/18 18:06 Sodium Chloride 500 ml @ 999 mls/hr Q4H PRN IV SBP less than 100mmhg 05/22/18 09:00 06/19/18 08:59 Zolpidem Tartrate (Ambien) 5 mg HSPRN PRN ORAL Insomnia 05/28/18 19:45 06/04/18 19:44 05/28/18 21:02 Chris Driscoll MD May 28, 2018 22:53
[2018-05-29] VITALS (7 sets, daily range): BP systolic 150–165; BP diastolic 68–91
[2018-05-29] MEDS ORDERED: Promethazine/DM 6.25mg/5ml ORAL PRN
[2018-05-29] MEDS ORDERED: Albuterol/Ipratropium 3ml neb HHN PRN (00:45)
[2018-05-29] MEDS ORDERED: Sodium Chloride 500ML 500 ML IV PRN (01:00)
[2018-05-29 06:11] LABS: MEAN CORPUSCULAR VOLUME 91 FL (80-99); PLATELET COUNT 277 K/UL (150-450); RED CELL DISTRIBUTION WIDTH 14.6 % (11.6-14.8); WHITE BLOOD COUNT 16.7 K/UL (4.8-10.8)
--- NOTE | 2018-05-29 06:26 | General Progress Note ---
Assessment/Plan Problem List: (1) Retroperitoneal hemorrhage ICD Codes: R58 - Hemorrhage, not elsewhere classified SNOMED: 42186723 (2) ESRD (end stage renal disease) on dialysis ICD Codes: N18.6 - End stage renal disease; Z99.2 - Dependence on renal dialysis SNOMED: 407179913 (3) Diabetes ICD Codes: E11.9 - Type 2 diabetes mellitus without complications SNOMED: 05093101 Assessment/Plan continue Levemir 9 units qhs continue Novolog 3 units ac tid continue NISS ac / hs Subjective Allergies: Coded Allergies: No Known Allergies (Unverified , 05/20/18) All Systems: reviewed and negative except above Subjective events noted Objective Last 24 Hour Vital Signs Date Time Temp Pulse Resp B/P (MAP) Pulse Ox O2 Delivery O2 Flow Rate FiO2 05/29/18 04:00 98.8 64 18 153/73 (99) 98 05/29/18 04:00 Nasal Cannula 3.0 05/29/18 00:00 Nasal Cannula 3.0 05/29/18 00:00 98.5 69 20 157/79 (105) 97 05/28/18 21:01 72 147/72 05/28/18 20:35 Nasal Cannula 2.0 28 05/28/18 20:35 98 Nasal Cannula 2.0 28 05/28/18 20:00 80 05/28/18 20:00 Nasal Cannula 3.0 05/28/18 20:00 98.1 72 20 147/72 (97) 98 05/28/18 18:00 155/79 05/28/18 16:00 Nasal Cannula 3.0 05/28/18 16:00 70 05/28/18 16:00 98.1 67 20 159/79 (105) 97 05/28/18 13:00 161/81 05/28/18 12:00 97.5 60 20 161/81 (107) 100 05/28/18 12:00 59 05/28/18 12:00 Nasal Cannula 3.0 05/28/18 08:56 154/79 05/28/18 08:55 67 154/79 05/28/18 08:45 Nasal Cannula 2.0 28 05/28/18 08:45 94 Nasal Cannula 2.0 28 05/28/18 08:00 Nasal Cannula 3.0 05/28/18 08:00 64 05/28/18 08:00 97.9 67 20 154/74 (100) 93 Intake and Output 05/28/18 05/29/18 19:00 07:00 Intake Total 240 ml Output Total 2000 ml Balance -1760 ml Intake Oral 240 ml Hemodialysis UF 2000 ml # Voids 1 # Bowel Movements 1 Laboratory Tests 05/28/18 09:05: White Blood Count 18.1H, Red Blood Count 2.29L, Hemoglobin 7.2L, Hematocrit 20.8L, Mean Corpuscular Volume 91, Mean Corpuscular Hemoglobin 31.3H, Mean Corpuscular Hemoglobin Concent 34.6, Red Cell Distribution Width 13.7, Platelet Count 263, Mean Platelet Volume 8.5, Neutrophils (%) (Auto) , Lymphocytes (%) ( Auto) , Monocytes (%) (Auto) , Eosinophils (%) (Auto) , Basophils (%) (Auto) , Differential Total Cells Counted 100, Neutrophils % (Manual) 89H, Lymphocytes % (Manual) 7L, Monocytes % (Manual) 3, Eosinophils % (Manual) 0, Basophils % ( Manual) 0, Band Neutrophils 1, Nucleated Red Blood Cells 1, Platelet Estimate Adequate, Platelet Morphology Normal, Hypochromasia 1+, Sodium Level 136, Potassium Level 5.5H, Chloride Level 95L, Carbon Dioxide Level 25, Anion Gap 16H , Blood Urea Nitrogen 101H, Creatinine 10.0H, Estimat Glomerular Filtration Rate 5.5, Glucose Level 220H, Calcium Level 7.6L, Phosphorus Level 4.1, Total Bilirubin 1.6H, Direct Bilirubin 0.8H, Aspartate Amino Transf (AST/SGOT) 64H, Alanine Aminotransferase (ALT/SGPT) 69, Alkaline Phosphatase 78, Total Protein 7.7, Albumin 2.6L, Globulin 5.1, Albumin/Globulin Ratio 0.5L 05/29/18 05:50: White Blood Count [Pending], Red Blood Count [Pending], Hemoglobin [Pending], Hematocrit [Pending], Mean Corpuscular Volume [Pending], Mean Corpuscular Hemoglobin [Pending], Mean Corpuscular Hemoglobin Concent [Pending], Red Cell Distribution Width [Pending], Platelet Count [Pending], Mean Platelet Volume [ Pending], Neutrophils (%) (Auto) [Pending], Lymphocytes (%) (Auto) [Pending], Monocytes (%) (Auto) [Pending], Eosinophils (%) (Auto) [Pending], Basophils (%) (Auto) [Pending], Sodium Level [Pending], Potassium Level [Pending], Chloride Level [Pending], Carbon Dioxide Level [Pending], Blood Urea Nitrogen [Pending], Creatinine [Pending], Estimat Glomerular Filtration Rate [Pending], Glucose Level [Pending], Calcium Level [Pending] Height (Feet): 5 Height (Inches): 6.00 Weight (Pounds): 184 General Appearance: no apparent distress Neck: normal alignment Cardiovascular: normal rate Respiratory/Chest: lungs clear Abdomen: normal bowel sounds Objective Item Value Date Time Bedside Blood Glucose 196 mg/dl H 05/28/18 2104 Bedside Blood Glucose 181 mg/dl H 05/28/18 1718 Bedside Blood Glucose 203 mg/dl H 05/28/18 1205 Bedside Blood Glucose 235 mg/dl H 05/28/18 0630 Current Medications Medications (Trade) Dose Ordered Sig/Santos Route PRN Reason Start Time Stop Time Status Last Admin Dose Admin Acetaminophen/ Hydrocodone Bitart ([place] 5/325) 1 tab Q4H PRN ORAL Moderate Pain (Pain Scale 4-6) 05/29/18 01:15 06/01/18 13:14 Albuterol/ Ipratropium (Albuterol/ Ipratropium) 3 ml Q4H PRN HHN Shortness of Breath 05/29/18 00:45 05/29/18 16:44 Clonidine HCl (Catapres Tab) 0.1 mg TID ORAL 05/29/18 09:00 06/26/18 08:59 Dextrose (Dextrose 50%) 25 ml Q30M PRN IV Hypoglycemia 05/28/18 23:30 06/27/18 06:59 Dextrose (Dextrose 50%) 50 ml Q30M PRN IV Hypoglycemia 05/28/18 23:30 06/27/18 06:59 Docusate Sodium (Colace) 100 mg THREE TIMES A DAY ORAL 05/29/18 09:00 06/19/18 12:59 Epoetin Jayme (Procrit (for ESRD on dialysis)) 10,000 units MON-MON-MON SUBQ 05/30/18 21:00 06/22/18 20:59 UNV Hydralazine HCl (Apresoline) 25 mg Q4H PRN ORAL BP 160 and above 05/29/18 02:30 06/23/18 10:29 Insulin Aspart (NovoLOG) BEFORE MEALS AND HS SUBQ 05/29/18 06:30 06/19/18 06:29 Insulin Aspart (NovoLOG) 3 units NOVOTIAC SUBQ 05/29/18 06:30 06/27/18 11:49 Insulin Detemir (Levemir) 9 units QHS SUBQ 05/29/18 21:00 06/20/18 11:59 Lactulose (Cephulac) 20 gm TWICE A DAY ORAL 05/29/18 09:00 06/20/18 05:59 Lorazepam (Ativan) 0.5 mg TIDPRN PRN ORAL For Anxiety 05/29/18 09:00 06/05/18 08:59 Metoprolol Tartrate (Lopressor) 50 mg Q12HR ORAL 05/29/18 09:00 06/23/18 20:59 Morphine Sulfate (Morphine Sulfate) 2 mg Q4H PRN IVP FOR SEVERE PAIN 05/29/18 02:45 06/03/18 06:44 Ondansetron HCl (Zofran) 4 mg TIDPRN PRN IVP Nausea & Vomiting 05/29/18 09:00 06/21/18 08:59 Pantoprazole (Protonix) 40 mg BID ORAL 05/29/18 09:00 06/22/18 17:59 Promethazine HCl/ Dextromethorphan (Phenergan DM) 6.25 mg Q6H PRN ORAL For Cough 05/29/18 00:00 06/23/18 11:59 Sevelamer Carbonate (Renvela) 1,600 mg THREE TIMES A DAY ORAL 05/29/18 09:00 06/20/18 12:59 Sodium Chloride 500 ml @ 999 mls/hr Q4H PRN IV SBP less than 100mmhg 05/29/18 01:00 06/19/18 08:59 Zolpidem Tartrate (Ambien) 5 mg HSPRN PRN ORAL Insomnia 05/29/18 19:45 06/04/18 19:44 Willard Bonds MD May 29, 2018 06:26
[2018-05-29] MEDS: NovoLOG Insulin Flexpen SUBQ SCH ×7 (06:30→21:31)
[2018-05-29 06:32] LABS: HEMOGLOBIN 6.9 G/DL (14.2-18.0)
[2018-05-29 07:05] LABS: ANION GAP 14 mmol/L (5-15); BLOOD UREA NITROGEN 78 mg/dL (7-18); CALCIUM 7.6 MG/DL (8.5-10.1); CARBON DIOXIDE 27 MMOL/L (21-32); CHLORIDE 97 MMOL/L (98-107); CREATININE 8.4 MG/DL (0.55-1.30); POTASSIUM 4.5 MMOL/L (3.5-5.1); SODIUM 138 MMOL/L (136-145)
[2018-05-29] MEDS ORDERED: LORazepam 0.5mg tab ORAL PRN (09:00)
[2018-05-29] MEDS: Metoprolol Tartrate 50mg tab ORAL SCH ×2 (09:43→20:30)
[2018-05-29] MEDS: Docusate 100mg cap ORAL SCH ×3 (09:43→17:14)
[2018-05-29] MEDS: Lactulose 20gm/30ml UDC ORAL SCH ×2 (09:45→17:21)
--- NOTE | 2018-05-29 10:22 | Diagnostic Imaging Report ---
Indication: Reason For Exam: ABD PAIN Technique: Spiral acquisitions obtained through the abdomen and pelvis. No oral contrast utilized, per emergency room physician request No IV contrast utilized, per referring physician request.. Multiplanar reconstructions were generated. Total dose length product 160 mGycm. CTDIvol(s) 14 mGy. Dose reduction achieved using automated exposure control Comparison: 05/22/2018 Findings: Again demonstrated is a large hematoma in the expected region of the right kidney. Although the right renal sinus and collecting system structures are recognizable, no normal recognizable renal parenchyma is visible. The hematoma currently measures 15 cm AP by 12 cm transverse by 22 cm craniocaudad, previously 12 x 11 x 17 cm. In particular, there appears to be markedly increased blood inferiorly. Blood is also seen dissecting into the surrounding soft tissues. Extent of the dissecting blood appears similar to the previous exam. Calcifications are seen the right renal sinus which may be arterial or calyceal The left kidney again demonstrates sinus calcifications which may be arterial or calyceal. Multiple subcentimeter low-attenuation lesions are seen in the renal parenchyma which are too small to characterize. There is increased free intraperitoneal fluid. This appears to be nonbloody as it demonstrates fluid attenuation. There is decreased presacral edema. There is diverticulosis of the ascending colon. Small bowel loops are nondilated and contrast is seen throughout most small bowel and all of the colon. No free intraperitoneal gas is demonstrated. Normal appendix Lack of IV contrast limits assessment of the other solid organs. The gallbladder contains gallstones. The liver, bile ducts, pancreas, spleen, adrenals are unremarkable. No retroperitoneal or mesenteric mass or adenopathy. There is a small fat-containing left inguinal hernia. No pelvic mass or adenopathy. Again demonstrated is diffuse edema of the subcutaneous fat. The included portions of the lower thorax demonstrate a moderate sized right pleural effusion and atelectasis of much of the right lower lobe. There is improved aeration of the left lower lobe and decreased left pleural fluid. The heart remains mildly enlarged. Mild gynecomastia is incidentally noted. There are degenerative changes of both hips. The bones are otherwise unremarkable Impression: Since 05/22/2018, interim increase size of previously demonstrated large perinephric hematoma Bilateral renal sinus could ulcerations, may reflect nonobstructive stones and/or arterial calcifications. No evidence of hydronephrosis Increased ascites fluid Persistent mild anasarca Slightly increased right pleural effusion and persistent right lower lobe atelectasis and consolidation. Improved left basilar aeration and left pleural fluid Cardiomegaly, also previously described Subcentimeter low-attenuation left renal lesions, too small to characterize, most likely benign simple cysts Decreased presacral edema Colonic diverticulosis. No evidence of diverticulitis Cholelithiasis Other findings as noted, including mild gynecomastia, small fat-containing left inguinal hernia. This agrees with the preliminary interpretation provided overnight by [facility] teleradiology service. The CT scanner at [facility] is accredited by the [employer] and the scans are performed using protocols designed to limit radiation exposure to as low as reasonably achievable to attain images of sufficient resolution adequate for diagnostic evaluation.
[2018-05-29] MEDS: HydrALAZINE 25mg tab ORAL PRN (10:48)
[2018-05-29] MEDS: Norco 5mg/325mg tab ORAL PRN (12:24)
--- NOTE | 2018-05-29 12:52 | Nephrology Progress Note ---
Assessment/Plan Problem List: (1) ESRD (end stage renal disease) on dialysis (2) Retroperitoneal hemorrhage (3) Shock (4) Anemia (5) Abdominal pain (6) Diabetes Assessment being transfused again WBC 16.7 presented with: hemorrhagic shock- Retro Peritoneal bleed Low BP on admission ESRD DM HTN transfused 3 units since , more if needed Plan HD 05/28 next 05/30 WBCs lower Transfuse as needed, currently receiving blood in [facility] now manage pain Per consultants / Urologist discussed with RN meds adjusted Subjective ROS Limited/Unobtainable: No Constitutional: Reports: malaise Objective Objective Last 24 Hour Vital Signs Date Time Temp Pulse Resp B/P (MAP) Pulse Ox O2 Delivery O2 Flow Rate FiO2 05/29/18 12:23 97.3 63 16 150/68 (95) 95 05/29/18 10:55 Room Air 05/29/18 10:48 160/80 05/29/18 09:43 69 151/75 05/29/18 09:43 151/75 05/29/18 09:26 97 Nasal Cannula 2.0 28 05/29/18 09:26 Nasal Cannula 2.0 28 05/29/18 09:00 Room Air 05/29/18 08:49 97.5 69 16 151/75 (100) 93 05/29/18 04:00 98.8 64 18 153/73 (99) 98 05/29/18 04:00 Nasal Cannula 3.0 05/29/18 00:00 Nasal Cannula 3.0 05/29/18 00:00 98.5 69 20 157/79 (105) 97 05/28/18 21:01 72 147/72 05/28/18 20:35 Nasal Cannula 2.0 28 05/28/18 20:35 98 Nasal Cannula 2.0 28 05/28/18 20:00 80 05/28/18 20:00 Nasal Cannula 3.0 05/28/18 20:00 98.1 72 20 147/72 (97) 98 05/28/18 18:00 155/79 05/28/18 16:00 Nasal Cannula 3.0 05/28/18 16:00 70 05/28/18 16:00 98.1 67 20 159/79 (105) 97 05/28/18 13:00 161/81 Intake and Output 05/28/18 05/29/18 18:59 06:59 Intake Total 240 ml Output Total 2000 ml Balance -1760 ml Intake Oral 240 ml Hemodialysis UF 2000 ml # Voids 1 1 # Bowel Movements 1 Laboratory Tests 05/29/18 05:50: White Blood Count 16.7H, Red Blood Count 2.20L, Hemoglobin 6.9*L, Hematocrit 20.0L, Mean Corpuscular Volume 91, Mean Corpuscular Hemoglobin 31.3H, Mean Corpuscular Hemoglobin Concent 34.4, Red Cell Distribution Width 14.6, Platelet Count 277, Mean Platelet Volume 7.7, Neutrophils (%) (Auto) , Lymphocytes (%) ( Auto) , Monocytes (%) (Auto) , Eosinophils (%) (Auto) , Basophils (%) (Auto) , Differential Total Cells Counted 100, Neutrophils % (Manual) 74, Lymphocytes % ( Manual) 11L, Monocytes % (Manual) 6, Eosinophils % (Manual) 8H, Basophils % ( Manual) 1, Band Neutrophils 0, Nucleated Red Blood Cells 8, Platelet Estimate DecreasedL, Platelet Morphology Normal, Polychromasia 1+, Hypochromasia 4+, Anisocytosis 1+, Spherocytes 2+, Sodium Level 138, Potassium Level 4.5, Chloride Level 97L, Carbon Dioxide Level 27, Anion Gap 14, Blood Urea Nitrogen 78H, Creatinine 8.4H, Estimat Glomerular Filtration Rate 6.7, Glucose Level 139H , Calcium Level 7.6L Height (Feet): 5 Height (Inches): 6.00 Weight (Pounds): 177 General Appearance: no apparent distress Cardiovascular: normal rate Respiratory/Chest: lungs clear Abdomen: distended Objective no change Dm Lopez MD May 29, 2018 12:52
--- NOTE | 2018-05-29 14:41 | GI Progress Note ---
Assessment/Plan Problems: (1) Retroperitoneal hemorrhage ICD Codes: R58 - Hemorrhage, not elsewhere classified SNOMED: 67405503 (2) Anemia ICD Codes: D64.9 - Anemia, unspecified SNOMED: 161813206 (3) Diabetes ICD Codes: E11.9 - Type 2 diabetes mellitus without complications SNOMED: 84611711 (4) Abdominal pain ICD Codes: R10.9 - Unspecified abdominal pain SNOMED: 59371975 (5) Shock ICD Codes: R57.9 - Shock, unspecified SNOMED: 27883615 (6) ESRD (end stage renal disease) on dialysis ICD Codes: N18.6 - End stage renal disease; Z99.2 - Dependence on renal dialysis SNOMED: 189706378 Status: stable Status Narrative Discussed with Dr. Mcgee. Assessment/Plan CT AP reviewed >> Large complex hemorrhage/hemorrhagic mass occupying majority of the right kidney with extensive perinephric fluid/blood extending into the retroperitoneum and pelvis. iron deficiency OB stool negative x2 Anemia, most likely due to chronic disease venofer renal diet ppi BID prn transfusions abx fu surgical recommendations fu labs The patient was seen and examined at bedside and all new and available data was reviewed in the patients chart. I agree with the above findings, impression and plan. (Patient seen earlier today. Signature stamp does not reflect patient encounter time.). - Elvis Mcgee MD Subjective Subjective limited Objective Last 24 Hour Vital Signs Date Time Temp Pulse Resp B/P (MAP) Pulse Ox O2 Delivery O2 Flow Rate FiO2 05/29/18 14:00 150/68 05/29/18 12:23 97.3 63 16 150/68 (95) 95 05/29/18 10:55 Room Air 05/29/18 10:48 160/80 05/29/18 09:43 69 151/75 05/29/18 09:43 151/75 05/29/18 09:26 97 Nasal Cannula 2.0 28 05/29/18 09:26 Nasal Cannula 2.0 28 05/29/18 09:00 Room Air 05/29/18 08:49 97.5 69 16 151/75 (100) 93 05/29/18 04:00 98.8 64 18 153/73 (99) 98 05/29/18 04:00 Nasal Cannula 3.0 11/13/18 00:00 Nasal Cannula 3.0 05/29/18 00:00 98.5 69 20 157/79 (105) 97 05/28/18 21:01 72 147/72 05/28/18 20:35 Nasal Cannula 2.0 28 05/28/18 20:35 98 Nasal Cannula 2.0 28 05/28/18 20:00 80 05/28/18 20:00 Nasal Cannula 3.0 05/28/18 20:00 98.1 72 20 147/72 (97) 98 05/28/18 18:00 155/79 05/28/18 16:00 Nasal Cannula 3.0 05/28/18 16:00 70 05/28/18 16:00 98.1 67 20 159/79 (105) 97 Intake and Output 05/28/18 05/29/18 18:59 06:59 Intake Total 240 ml Output Total 2000 ml Balance -1760 ml Intake Oral 240 ml Hemodialysis UF 2000 ml # Voids 1 1 # Bowel Movements 1 Laboratory Tests Test 05/29/18 05:50 White Blood Count 16.7 K/UL (4.8-10.8) H Red Blood Count 2.20 M/UL (4.70-6.10) L Hemoglobin 6.9 G/DL (14.2-18.0) *L Hematocrit 20.0 % (42.0-52.0) L Mean Corpuscular Volume 91 FL (80-99) Mean Corpuscular Hemoglobin 31.3 PG (27.0-31.0) H Mean Corpuscular Hemoglobin Concent 34.4 G/DL (32.0-36.0) Red Cell Distribution Width 14.6 % (11.6-14.8) Platelet Count 277 K/UL (150-450) Mean Platelet Volume 7.7 FL (6.5-10.1) Neutrophils (%) (Auto) % (45.0-75.0) Lymphocytes (%) (Auto) % (20.0-45.0) Monocytes (%) (Auto) % (1.0-10.0) Eosinophils (%) (Auto) % (0.0-3.0) Basophils (%) (Auto) % (0.0-2.0) Differential Total Cells Counted 100 Neutrophils % (Manual) 74 % (45-75) Lymphocytes % (Manual) 11 % (20-45) L Monocytes % (Manual) 6 % (1-10) Eosinophils % (Manual) 8 % (0-3) H Basophils % (Manual) 1 % (0-2) Band Neutrophils 0 % (0-8) Nucleated Red Blood Cells 8 /100 WBC Platelet Estimate Decreased L Platelet Morphology Normal Polychromasia 1+ Hypochromasia 4+ Anisocytosis 1+ Spherocytes 2+ Sodium Level 138 MMOL/L (136-145) Potassium Level 4.5 MMOL/L (3.5-5.1) Chloride Level 97 MMOL/L (98-107) L Carbon Dioxide Level 27 MMOL/L (21-32) Anion Gap 14 mmol/L (5-15) Blood Urea Nitrogen 78 mg/dL (7-18) H Creatinine 8.4 MG/DL (0.55-1.30) H Estimat Glomerular Filtration Rate 6.7 mL/min (>60) Glucose Level 139 MG/DL (74-106) H Calcium Level 7.6 MG/DL (8.5-10.1) L Height (Feet): 5 Height (Inches): 6.00 Weight (Pounds): 177 General Appearance: WD/WN, no apparent distress, alert Cardiovascular: normal rate Respiratory/Chest: normal breath sounds, no respiratory distress Abdominal Exam: normal bowel sounds, non tender, soft Extremities: normal range of motion, non-tender Mansoor Allen ELEVATOR E[employer]OR May 29, 2018 14:41
--- NOTE | 2018-05-29 14:48 | Pulmonology Progress Note ---
Assessment/Plan Assessment/Plan Pulmonary Progress Note Patient with: (1) Previous Shock (2) Diabetes (3) ESRD (end stage renal disease) on dialysis (4) Retroperitoneal hemorrhage involving right kidney (5) Anemia persists Assessment/Plan No new complaints CXR noted PRN anti-tussives PRN HHN's Monitor CBC, transfuse as needed Monitor hemodynamics and volumes HD per renal F/U recs, no plan for operation at this time Zosyn per ID, F/U Cx's DVT Px: SCD's SSI Pain control/supportive care Subjective Allergies: Coded Allergies: No Known Allergies (Unverified , 05/20/18) Subjective HH stable AFVSS on 2L, getting HD Less flank abd pain + cough, no SOB no F/C Objective Vital Signs Noted Laboratory Tests 05/24/18 03:00: White Blood Count 9.6, Red Blood Count 2.62L, Hemoglobin 8.1L, Hematocrit 23.7L , Mean Corpuscular Volume 90, Mean Corpuscular Hemoglobin 30.9, Mean Corpuscular Hemoglobin Concent 34.1, Red Cell Distribution Width 13.6, Platelet Count 139L, Mean Platelet Volume 10.5H, Neutrophils (%) (Auto) 83.4H, Lymphocytes (%) (Auto) 6.7L, Monocytes (%) (Auto) 7.6, Eosinophils (%) (Auto) 1.7, Basophils (%) (Auto) 0.6, Sodium Level 139, Potassium Level 3.6, Chloride Level 97L, Carbon Dioxide Level 30, Anion Gap 12, Blood Urea Nitrogen 50H, Creatinine 6.8H, Estimat Glomerular Filtration Rate 8.6, Glucose Level 138H, Calcium Level 8.0L, Phosphorus Level 3.0, Magnesium Level 2.5H, Total Bilirubin 0.9, Aspartate Amino Transf (AST/SGOT) 31, Alanine Aminotransferase (ALT/SGPT) 35, Alkaline Phosphatase 61, Total Protein 7.6, Albumin 2.6L, Globulin 5.0, Albumin/Globulin Ratio 0.5L 05/24/18 11:10: Stool Occult Blood [Pending] 05/24/18 15:00: Stool Occult Blood [Pending] Current Medications Medications (Trade) Dose Ordered Sig/Santos Route PRN Reason Start Time Stop Time Status Last Admin Dose Admin Acetaminophen/ Hydrocodone Bitart ([place] 5/325) 1 tab TIDPRN PRN ORAL Moderate Pain (Pain Scale 4-6) 05/22/18 09:00 05/29/18 08:59 05/24/18 16:35 Dextrose (Dextrose 50%) 25 ml Q30M PRN IV Hypoglycemia 05/22/18 09:00 06/19/18 08:59 Dextrose (Dextrose 50%) 50 ml Q30M PRN IV Hypoglycemia 05/22/18 09:00 06/19/18 08:59 Docusate Sodium (Colace) 100 mg THREE TIMES A DAY ORAL 05/22/18 09:00 06/19/18 12:59 05/24/18 12:57 Epoetin Jayme (Procrit (for ESRD on dialysis)) 10,000 units MON-MON-MON SUBQ 05/23/18 21:00 06/22/18 20:59 05/23/18 21:25 Hydralazine HCl (Apresoline) 25 mg Q4H PRN ORAL BP 160 and above 05/24/18 10:30 06/23/18 10:29 05/24/18 12:57 Insulin Aspart (NovoLOG) BEFORE MEALS AND HS SUBQ 05/22/18 11:30 06/19/18 06:29 05/24/18 12:10 Insulin Detemir (Levemir) 6 units DAILY SUBQ 05/22/18 09:00 06/20/18 11:59 05/24/18 09:03 Iron Sucrose 100 mg/Sodium Chloride 55 ml @ 200 mls/hr BEDTIME IV 05/24/18 21:00 05/27/18 21:17 Lactulose (Cephulac) 20 gm TWICE A DAY ORAL 05/22/18 09:00 06/20/18 05:59 05/24/18 08:55 Lorazepam (Ativan) 0.5 mg TIDPRN PRN ORAL For Anxiety 05/22/18 09:00 05/29/18 08:59 Metoprolol Tartrate (Lopressor) 12.5 mg Q12HR ORAL 05/24/18 21:00 06/23/18 20:59 Ondansetron HCl (Zofran) 4 mg TIDPRN PRN IVP Nausea & Vomiting 05/22/18 09:00 06/21/18 08:59 Pantoprazole (Protonix) 40 mg BID ORAL 05/23/18 18:00 06/22/18 17:59 05/24/18 08:58 Piperacillin Sod/ Tazobactam Sod 2.25 gm/Dextrose 55 ml @ 110 mls/hr Q8HR IVPB 05/22/18 15:00 05/27/18 14:59 05/24/18 13:59 Promethazine HCl/ Dextromethorphan (Phenergan DM) 6.25 mg Q6H PRN ORAL For Cough 05/24/18 12:00 06/23/18 11:59 05/24/18 12:16 Sevelamer Carbonate (Renvela) 1,600 mg THREE TIMES A DAY ORAL 05/23/18 13:00 06/20/18 12:59 05/24/18 12:57 Sodium Chloride 500 ml @ 999 mls/hr Q4H PRN IV SBP less than 100mmhg 05/22/18 09:00 06/19/18 08:59 Subjective ROS Limited/Unobtainable: No Allergies: Coded Allergies: No Known Allergies (Unverified , 05/20/18) Objective Last 24 Hour Vital Signs Date Time Temp Pulse Resp B/P (MAP) Pulse Ox O2 Delivery O2 Flow Rate FiO2 05/29/18 14:00 150/68 05/29/18 12:23 97.3 63 16 150/68 (95) 95 05/29/18 10:55 Room Air 05/29/18 10:48 160/80 05/29/18 09:43 69 151/75 05/29/18 09:43 151/75 05/29/18 09:26 97 Nasal Cannula 2.0 28 05/29/18 09:26 Nasal Cannula 2.0 28 05/29/18 09:00 Room Air 05/29/18 08:49 97.5 69 16 151/75 (100) 93 05/29/18 04:00 98.8 64 18 153/73 (99) 98 05/29/18 04:00 Nasal Cannula 3.0 05/29/18 00:00 Nasal Cannula 3.0 05/29/18 00:00 98.5 69 20 157/79 (105) 97 05/28/18 21:01 72 147/72 05/28/18 20:35 Nasal Cannula 2.0 28 11/12/18 20:35 98 Nasal Cannula 2.0 28 05/28/18 20:00 80 05/28/18 20:00 Nasal Cannula 3.0 05/28/18 20:00 98.1 72 20 147/72 (97) 98 05/28/18 18:00 155/79 05/28/18 16:00 Nasal Cannula 3.0 05/28/18 16:00 70 05/28/18 16:00 98.1 67 20 159/79 (105) 97 Intake and Output 05/28/18 05/29/18 18:59 06:59 Intake Total 240 ml Output Total 2000 ml Balance -1760 ml Intake Oral 240 ml Hemodialysis UF 2000 ml # Voids 1 1 # Bowel Movements 1 Laboratory Tests 05/29/18 05:50: White Blood Count 16.7H, Red Blood Count 2.20L, Hemoglobin 6.9*L, Hematocrit 20.0L, Mean Corpuscular Volume 91, Mean Corpuscular Hemoglobin 31.3H, Mean Corpuscular Hemoglobin Concent 34.4, Red Cell Distribution Width 14.6, Platelet Count 277, Mean Platelet Volume 7.7, Neutrophils (%) (Auto) , Lymphocytes (%) ( Auto) , Monocytes (%) (Auto) , Eosinophils (%) (Auto) , Basophils (%) (Auto) , Differential Total Cells Counted 100, Neutrophils % (Manual) 74, Lymphocytes % ( Manual) 11L, Monocytes % (Manual) 6, Eosinophils % (Manual) 8H, Basophils % ( Manual) 1, Band Neutrophils 0, Nucleated Red Blood Cells 8, Platelet Estimate DecreasedL, Platelet Morphology Normal, Polychromasia 1+, Hypochromasia 4+, Anisocytosis 1+, Spherocytes 2+, Sodium Level 138, Potassium Level 4.5, Chloride Level 97L, Carbon Dioxide Level 27, Anion Gap 14, Blood Urea Nitrogen 78H, Creatinine 8.4H, Estimat Glomerular Filtration Rate 6.7, Glucose Level 139H , Calcium Level 7.6L Current Medications Medications (Trade) Dose Ordered Sig/Santos Route PRN Reason Start Time Stop Time Status Last Admin Dose Admin Acetaminophen/ Hydrocodone Bitart ([place] 5/325) 1 tab Q4H PRN ORAL Moderate Pain (Pain Scale 4-6) 05/29/18 01:15 06/01/18 13:14 05/29/18 12:24 Albuterol/ Ipratropium (Albuterol/ Ipratropium) 3 ml Q4H PRN HHN Shortness of Breath 05/29/18 00:45 05/29/18 16:44 Clonidine HCl (Catapres Tab) 0.1 mg Q8HR ORAL 05/29/18 14:00 06/28/18 13:59 Dextrose (Dextrose 50%) 25 ml Q30M PRN IV Hypoglycemia 05/28/18 23:30 06/27/18 06:59 Dextrose (Dextrose 50%) 50 ml Q30M PRN IV Hypoglycemia 05/28/18 23:30 06/27/18 06:59 Docusate Sodium (Colace) 100 mg THREE TIMES A DAY ORAL 05/29/18 09:00 06/19/18 12:59 05/29/18 13:30 Epoetin Jayme (Procrit (for ESRD on dialysis)) 10,000 units MON-MON-MON SUBQ 05/30/18 21:00 06/22/18 20:59 Hydralazine HCl (Apresoline) 25 mg Q4H PRN ORAL BP 160 and above 05/29/18 02:30 06/23/18 10:29 05/29/18 10:48 Insulin Aspart (NovoLOG) BEFORE MEALS AND HS SUBQ 05/29/18 06:30 06/19/18 06:29 05/29/18 11:38 Insulin Aspart (NovoLOG) 3 units NOVOTIAC SUBQ 05/29/18 06:30 06/27/18 11:49 05/29/18 11:40 Insulin Detemir (Levemir) 9 units QHS SUBQ 05/29/18 21:00 06/20/18 11:59 Lactulose (Cephulac) 20 gm TWICE A DAY ORAL 05/29/18 09:00 06/20/18 05:59 Lorazepam (Ativan) 0.5 mg TIDPRN PRN ORAL For Anxiety 05/29/18 09:00 06/05/18 08:59 Metoprolol Tartrate (Lopressor) 50 mg Q12HR ORAL 05/29/18 09:00 06/23/18 20:59 05/29/18 09:43 Morphine Sulfate (Morphine Sulfate) 2 mg Q4H PRN IVP FOR SEVERE PAIN 05/29/18 02:45 06/03/18 06:44 Ondansetron HCl (Zofran) 4 mg TIDPRN PRN IVP Nausea & Vomiting 05/29/18 09:00 06/21/18 08:59 Pantoprazole (Protonix) 40 mg BID ORAL 05/29/18 09:00 06/22/18 17:59 05/29/18 09:44 Promethazine HCl/ Dextromethorphan (Phenergan DM) 6.25 mg Q6H PRN ORAL For Cough 05/29/18 00:00 06/23/18 11:59 Sevelamer Carbonate (Renvela) 1,600 mg THREE TIMES A DAY ORAL 05/29/18 09:00 06/20/18 12:59 05/29/18 13:31 Sodium Chloride 500 ml @ 999 mls/hr Q4H PRN IV SBP less than 100mmhg 05/29/18 01:00 06/19/18 08:59 Zolpidem Tartrate (Ambien) 5 mg HSPRN PRN ORAL Insomnia 05/29/18 19:45 06/04/18 19:44 Tae Velazco MD May 29, 2018 14:48
--- NOTE | 2018-05-29 15:46 | Progress Note ---
DATE: 05/29/2018 SUBJECTIVE: The patient is stable at baseline. No behavior issues, and complains of anxiety and depression. Poor memory. The patient is concerned about the medical condition. Sleep and appetite is adequate. The patient is still anemic. MENTAL STATUS EXAMINATION: Alert and oriented times self, place, and situation. Mood is anxious and dysphoric. Affect is constricted. Congruent with mood. Thought process is concrete. Thought content, no suicidal or homicidal ideation. No delusions. No AVH. Insight and judgment is fair. ASSESSMENT: 1. Anxiety disorder. 2. Dysphoria. PLAN: The patient will be continued on current medication. Reluctant to take SSRI. Provide the patient with supportive therapy and reality orientation. Crhis Driscoll M.D. DR: Adriano JOB#: [id number] CC:
--- NOTE | 2018-05-29 15:53 | General Progress Note ---
Assessment/Plan Assessment/Plan S: I am ok and my flank pain O: appears in No distress. Complains of mild right sided abdominal pain . no Nausea. No gross visible bleeding reported PHYSICAL EXAMINATION: HEAD AND NECK: Atraumatic and normocephalic. CHEST: Clear to auscultation. No wheezing. No crackles. HEART: S1 and S2. Regular rate and rhythm. ABDOMEN: Tender noted. Negative for rebound tenderness. NEUROLOGIC: The patient is awake, alert, and oriented x3. PSYCHIATRIC: Mood and affect are appropriate and normal. MUSCULOSKELETAL: No gross lateralized motor deficit. Left arm AV F/G is noted, with no erythma or tenderness Meds: reviewed and reconciled, including Lnatus 9 u qhs plus Fixed meal time insulin IMAGING: CT scan of abdomen and pelvis dated May 28, 2018 reviewed showing intervan incraese in the right perinephric hematoma. the repeat CT is pending ASSESSMENT AND PLAN: 1. Acute Right Perinephric Hemorrhage 3. Acute anemia. 4. Diabetes type 5 Hypovolemic Shock : Stable 6. GI-DVT prophylaxis 7. HTN: uncontrolled 8. Leukocytosis: with no evidence of acute Active infection Plan: will monitor HH, Will proceed with PRBC transfusion with Hgb < 7.3 Notes from Urology , Nephro, Endo, Critical specialist are reviewed Stable appearance of right perinephric hematoma by imaging Optimization of BP meds No evidence for active acute infection. Will monitor per ID Discussed the care with Dr Damon , urology. Serious but Stable cnd at this time D/w urology. In view of continued decline in Hgb level and interval increase in Hematoma. Agreed to transfer to higher level of care. Subjective Allergies: Coded Allergies: No Known Allergies (Unverified , 05/20/18) Objective Last 24 Hour Vital Signs Date Time Temp Pulse Resp B/P (MAP) Pulse Ox O2 Delivery O2 Flow Rate FiO2 05/29/18 14:00 150/68 05/29/18 12:23 97.3 63 16 150/68 (95) 95 05/29/18 10:55 Room Air 05/29/18 10:48 160/80 05/29/18 09:43 69 151/75 05/29/18 09:43 151/75 05/29/18 09:26 97 Nasal Cannula 2.0 28 05/29/18 09:26 Nasal Cannula 2.0 28 05/29/18 09:00 Room Air 05/29/18 08:49 97.5 69 16 151/75 (100) 93 05/29/18 04:00 98.8 64 18 153/73 (99) 98 05/29/18 04:00 Nasal Cannula 3.0 05/29/18 00:00 Nasal Cannula 3.0 05/29/18 00:00 98.5 69 20 157/79 (105) 97 05/28/18 21:01 72 147/72 05/28/18 20:35 Nasal Cannula 2.0 28 05/28/18 20:35 98 Nasal Cannula 2.0 28 05/28/18 20:00 80 05/28/18 20:00 Nasal Cannula 3.0 05/28/18 20:00 98.1 72 20 147/72 (97) 98 05/28/18 18:00 155/79 05/28/18 16:00 Nasal Cannula 3.0 05/28/18 16:00 70 05/28/18 16:00 98.1 67 20 159/79 (105) 97 Intake and Output 05/28/18 05/29/18 18:59 06:59 Intake Total 240 ml Output Total 2000 ml Balance -1760 ml Intake Oral 240 ml Hemodialysis UF 2000 ml # Voids 1 1 # Bowel Movements 1 Laboratory Tests 05/29/18 05:50: White Blood Count 16.7H, Red Blood Count 2.20L, Hemoglobin 6.9*L, Hematocrit 20.0L, Mean Corpuscular Volume 91, Mean Corpuscular Hemoglobin 31.3H, Mean Corpuscular Hemoglobin Concent 34.4, Red Cell Distribution Width 14.6, Platelet Count 277, Mean Platelet Volume 7.7, Neutrophils (%) (Auto) , Lymphocytes (%) ( Auto) , Monocytes (%) (Auto) , Eosinophils (%) (Auto) , Basophils (%) (Auto) , Differential Total Cells Counted 100, Neutrophils % (Manual) 74, Lymphocytes % ( Manual) 11L, Monocytes % (Manual) 6, Eosinophils % (Manual) 8H, Basophils % ( Manual) 1, Band Neutrophils 0, Nucleated Red Blood Cells 8, Platelet Estimate DecreasedL, Platelet Morphology Normal, Polychromasia 1+, Hypochromasia 4+, Anisocytosis 1+, Spherocytes 2+, Sodium Level 138, Potassium Level 4.5, Chloride Level 97L, Carbon Dioxide Level 27, Anion Gap 14, Blood Urea Nitrogen 78H, Creatinine 8.4H, Estimat Glomerular Filtration Rate 6.7, Glucose Level 139H , Calcium Level 7.6L Height (Feet): 5 Height (Inches): 6.00 Weight (Pounds): 177 Baljit Flores MD May 29, 2018 15:53
--- NOTE | 2018-05-29 17:28 | Infectious Diseases Prog Note ---
Assessment/Plan Problems: (1) Leukocytosis Assessment & Plan: suspect due to recurrent bleeding which he required multiple transfusion for , S/P zosyn for 6 days , doubt infectious etiology with no fever and negative cultures . repeated CT abd/pelvis for follow up yesterday showed expansion of the hematoma which explain his anemia and leukocytosis , no new fluid collection , repeated blood culture is negative. monitor off antibiotics for now, transfer to higher level of care facility for arterial embolization at [place] (2) Renal hematoma, right Assessment & Plan: with extension to the retroperitoneal area , continue close monitor of H/H and serial images for follow up, watch out for abscess formation , repeat CT abdomen in am for follow up (3) Retroperitoneal hemorrhage Assessment & Plan: continue H/H monitoring with blood transfusion , and serial imaging for follow up, avoid anticoagulation (4) ESRD (end stage renal disease) on dialysis Assessment & Plan: on HD, renal is following (5) Diabetes Assessment & Plan: recommend tight glycemic control to keep blood glucose between 100-140 Subjective Constitutional: Reports: no symptoms HEENT: Reports: no symptoms Respiratory: Reports: no symptoms Breasts: Reports: no symptoms Cardiovascular: Reports: no symptoms Gastrointestinal/Abdominal: Reports: bloating, other - right flank pain Genitourinary: Reports: no symptoms Neurologic: Reports: no symptoms Psychiatric: Reports: no symptoms Skin: Reports: no symptoms Endocrine: Reports: no symptoms Hematologic: Reports: no symptoms Musculoskeletal: Reports: no symptoms Allergies: Coded Allergies: No Known Allergies (Unverified , 05/20/18) Subjective he has more flank pain today and discomfort, no fever or chills, no cough or SOB Objective Vital Signs Last 24 Hour Vital Signs Date Time Temp Pulse Resp B/P (MAP) Pulse Ox O2 Delivery O2 Flow Rate FiO2 05/29/18 15:51 98.8 69 18 160/72 (101) 94 05/29/18 14:00 150/68 05/29/18 12:23 97.3 63 16 150/68 (95) 95 05/29/18 10:55 Room Air 05/29/18 10:48 160/80 05/29/18 09:43 69 151/75 05/29/18 09:43 151/75 05/29/18 09:26 97 Nasal Cannula 2.0 28 05/29/18 09:26 Nasal Cannula 2.0 28 05/29/18 09:00 Room Air 05/29/18 08:49 97.5 69 16 151/75 (100) 93 05/29/18 04:00 98.8 64 18 153/73 (99) 98 05/29/18 04:00 Nasal Cannula 3.0 05/29/18 00:00 Nasal Cannula 3.0 05/29/18 00:00 98.5 69 20 157/79 (105) 97 05/28/18 21:01 72 147/72 05/28/18 20:35 Nasal Cannula 2.0 28 05/28/18 20:35 98 Nasal Cannula 2.0 28 05/28/18 20:00 80 05/28/18 20:00 Nasal Cannula 3.0 05/28/18 20:00 98.1 72 20 147/72 (97) 98 05/28/18 18:00 155/79 Height (Feet): 5 Height (Inches): 6.00 Weight (Pounds): 177 General Appearance: WD/WN, no acute distress HEENT: normocephalic, atraumatic, anicteric, mucous membranes moist, PERRL Respiratory/Chest: chest wall non-tender, lungs clear, normal breath sounds, no respiratory distress, no accessory muscle use Breasts: no masses Cardiovascular: normal peripheral pulses, normal rate, regular rhythm, no gallop/murmur, no JVD Abdomen: normal bowel sounds, no organomegaly, non distended, no mass, no scars , tender Genitourinary: normal external genitalia Extremities: no cyanosis, no clubbing Skin: no rash, no lesions, no ulcers Neurologic/Psychiatric: alert, oriented x 3, responsive, normal mood/affect Lymphatic: no neck adenopathy, no groin adenopathy Musculoskeletal: normal muscle bulk, no effusion Laboratory Tests Test 05/29/18 05:50 White Blood Count 16.7 K/UL (4.8-10.8) H Red Blood Count 2.20 M/UL (4.70-6.10) L Hemoglobin 6.9 G/DL (14.2-18.0) *L Hematocrit 20.0 % (42.0-52.0) L Mean Corpuscular Volume 91 FL (80-99) Mean Corpuscular Hemoglobin 31.3 PG (27.0-31.0) H Mean Corpuscular Hemoglobin Concent 34.4 G/DL (32.0-36.0) Red Cell Distribution Width 14.6 % (11.6-14.8) Platelet Count 277 K/UL (150-450) Mean Platelet Volume 7.7 FL (6.5-10.1) Neutrophils (%) (Auto) % (45.0-75.0) Lymphocytes (%) (Auto) % (20.0-45.0) Monocytes (%) (Auto) % (1.0-10.0) Eosinophils (%) (Auto) % (0.0-3.0) Basophils (%) (Auto) % (0.0-2.0) Differential Total Cells Counted 100 Neutrophils % (Manual) 74 % (45-75) Lymphocytes % (Manual) 11 % (20-45) L Monocytes % (Manual) 6 % (1-10) Eosinophils % (Manual) 8 % (0-3) H Basophils % (Manual) 1 % (0-2) Band Neutrophils 0 % (0-8) Nucleated Red Blood Cells 8 /100 WBC Platelet Estimate Decreased L Platelet Morphology Normal Polychromasia 1+ Hypochromasia 4+ Anisocytosis 1+ Spherocytes 2+ Sodium Level 138 MMOL/L (136-145) Potassium Level 4.5 MMOL/L (3.5-5.1) Chloride Level 97 MMOL/L (98-107) L Carbon Dioxide Level 27 MMOL/L (21-32) Anion Gap 14 mmol/L (5-15) Blood Urea Nitrogen 78 mg/dL (7-18) H Creatinine 8.4 MG/DL (0.55-1.30) H Estimat Glomerular Filtration Rate 6.7 mL/min (>60) Glucose Level 139 MG/DL (74-106) H Calcium Level 7.6 MG/DL (8.5-10.1) L Current Medications Medications (Trade) Dose Ordered Sig/Santos Route PRN Reason Start Time Stop Time Status Last Admin Dose Admin Acetaminophen/ Hydrocodone Bitart ([place] 5/325) 1 tab Q4H PRN ORAL Moderate Pain (Pain Scale 4-6) 05/29/18 01:15 06/01/18 13:14 05/29/18 12:24 Clonidine HCl (Catapres Tab) 0.1 mg Q8HR ORAL 05/29/18 14:00 06/28/18 13:59 Dextrose (Dextrose 50%) 25 ml Q30M PRN IV Hypoglycemia 05/28/18 23:30 06/27/18 06:59 Dextrose (Dextrose 50%) 50 ml Q30M PRN IV Hypoglycemia 05/28/18 23:30 06/27/18 06:59 Docusate Sodium (Colace) 100 mg THREE TIMES A DAY ORAL 05/29/18 09:00 06/19/18 12:59 05/29/18 17:14 Epoetin Jayme (Procrit (for ESRD on dialysis)) 10,000 units MON-MON-MON SUBQ 05/30/18 21:00 06/22/18 20:59 Hydralazine HCl (Apresoline) 25 mg Q4H PRN ORAL BP 160 and above 05/29/18 02:30 06/23/18 10:29 05/29/18 10:48 Insulin Aspart (NovoLOG) BEFORE MEALS AND HS SUBQ 05/29/18 06:30 06/19/18 06:29 05/29/18 17:21 Insulin Aspart (NovoLOG) 3 units NOVOTIAC SUBQ 05/29/18 06:30 06/27/18 11:49 05/29/18 17:20 Insulin Detemir (Levemir) 9 units QHS SUBQ 05/29/18 21:00 06/20/18 11:59 Lactulose (Cephulac) 20 gm TWICE A DAY ORAL 05/29/18 09:00 06/20/18 05:59 Lorazepam (Ativan) 0.5 mg TIDPRN PRN ORAL For Anxiety 05/29/18 09:00 06/05/18 08:59 Metoprolol Tartrate (Lopressor) 50 mg Q12HR ORAL 05/29/18 09:00 06/23/18 20:59 05/29/18 09:43 Morphine Sulfate (Morphine Sulfate) 2 mg Q4H PRN IVP FOR SEVERE PAIN 05/29/18 02:45 06/03/18 06:44 Ondansetron HCl (Zofran) 4 mg TIDPRN PRN IVP Nausea & Vomiting 05/29/18 09:00 06/21/18 08:59 Pantoprazole (Protonix) 40 mg BID ORAL 05/29/18 09:00 06/22/18 17:59 11/13/18 17:14 Promethazine HCl/ Dextromethorphan (Phenergan DM) 6.25 mg Q6H PRN ORAL For Cough 05/29/18 00:00 06/23/18 11:59 Sevelamer Carbonate (Renvela) 1,600 mg THREE TIMES A DAY ORAL 05/29/18 09:00 06/20/18 12:59 05/29/18 17:14 Sodium Chloride 500 ml @ 999 mls/hr Q4H PRN IV SBP less than 100mmhg 05/29/18 01:00 06/19/18 08:59 Zolpidem Tartrate (Ambien) 5 mg HSPRN PRN ORAL Insomnia 05/29/18 19:45 06/04/18 19:44 Rowena Garcia M.D. May 29, 2018 17:28
--- NOTE | 2018-05-29 17:30 | Infectious Diseases Prog Note ---
Assessment/Plan Problems: (1) Leukocytosis Assessment & Plan: suspect due to recurrent bleeding which he required multiple transfusion for , S/P zosyn for 6 days , doubt infectious etiology with no fever and negative cultures . CT abd/pelvis yesterday showed increasing in the size of the right side hematoma , which is most likely the source , repeated blood culture is negative. monitor off antibiotics. (2) Renal hematoma, right Assessment & Plan: with extension to the retroperitoneal area , continue close monitor of H/H and serial images for follow up, watch out for abscess formation. CT abd/pelvis yesterday showed increasing in the size of the right side hematoma. (3) Retroperitoneal hemorrhage Assessment & Plan: continue H/H monitoring with blood transfusion , and serial imaging for follow up, avoid anticoagulation (4) ESRD (end stage renal disease) on dialysis Assessment & Plan: on HD, renal is following (5) Diabetes Assessment & Plan: recommend tight glycemic control to keep blood glucose between 100-140 Subjective Constitutional: Reports: no symptoms HEENT: Reports: no symptoms Respiratory: Reports: no symptoms Breasts: Reports: no symptoms Cardiovascular: Reports: no symptoms Gastrointestinal/Abdominal: Reports: bloating, other - right flank pain Genitourinary: Reports: no symptoms Neurologic: Reports: no symptoms Psychiatric: Reports: no symptoms Skin: Reports: no symptoms Endocrine: Reports: no symptoms Hematologic: Reports: no symptoms Musculoskeletal: Reports: no symptoms Allergies: Coded Allergies: No Known Allergies (Unverified , 05/20/18) Subjective he has mild flank pain today and discomfort, no fever or chills, no cough or SOB , getting blood transfusion Objective Vital Signs Last 24 Hour Vital Signs Date Time Temp Pulse Resp B/P (MAP) Pulse Ox O2 Delivery O2 Flow Rate FiO2 05/29/18 15:51 98.8 69 18 160/72 (101) 94 05/29/18 14:00 150/68 05/29/18 12:23 97.3 63 16 150/68 (95) 95 05/29/18 10:55 Room Air 05/29/18 10:48 160/80 05/29/18 09:43 69 151/75 05/29/18 09:43 151/75 05/29/18 09:26 97 Nasal Cannula 2.0 28 05/29/18 09:26 Nasal Cannula 2.0 28 05/29/18 09:00 Room Air 05/29/18 08:49 97.5 69 16 151/75 (100) 93 05/29/18 04:00 98.8 64 18 153/73 (99) 98 05/29/18 04:00 Nasal Cannula 3.0 05/29/18 00:00 Nasal Cannula 3.0 05/29/18 00:00 98.5 69 20 157/79 (105) 97 05/28/18 21:01 72 147/72 05/28/18 20:35 Nasal Cannula 2.0 28 05/28/18 20:35 98 Nasal Cannula 2.0 28 05/28/18 20:00 80 05/28/18 20:00 Nasal Cannula 3.0 05/28/18 20:00 98.1 72 20 147/72 (97) 98 05/28/18 18:00 155/79 Height (Feet): 5 Height (Inches): 6.00 Weight (Pounds): 177 General Appearance: WD/WN, no acute distress HEENT: normocephalic, atraumatic, anicteric, mucous membranes moist, PERRL Respiratory/Chest: chest wall non-tender, lungs clear, normal breath sounds, no respiratory distress, no accessory muscle use Cardiovascular: normal peripheral pulses, normal rate, regular rhythm, no gallop/murmur, no JVD Abdomen: normal bowel sounds, soft, non tender, no organomegaly, non distended , no mass, no scars Extremities: no cyanosis, no clubbing Skin: no rash, no lesions, no ulcers Neurologic/Psychiatric: alert, oriented x 3, responsive Lymphatic: no neck adenopathy, no groin adenopathy Musculoskeletal: normal muscle bulk, no effusion Laboratory Tests Test 05/29/18 05:50 White Blood Count 16.7 K/UL (4.8-10.8) H Red Blood Count 2.20 M/UL (4.70-6.10) L Hemoglobin 6.9 G/DL (14.2-18.0) *L Hematocrit 20.0 % (42.0-52.0) L Mean Corpuscular Volume 91 FL (80-99) Mean Corpuscular Hemoglobin 31.3 PG (27.0-31.0) H Mean Corpuscular Hemoglobin Concent 34.4 G/DL (32.0-36.0) Red Cell Distribution Width 14.6 % (11.6-14.8) Platelet Count 277 K/UL (150-450) Mean Platelet Volume 7.7 FL (6.5-10.1) Neutrophils (%) (Auto) % (45.0-75.0) Lymphocytes (%) (Auto) % (20.0-45.0) Monocytes (%) (Auto) % (1.0-10.0) Eosinophils (%) (Auto) % (0.0-3.0) Basophils (%) (Auto) % (0.0-2.0) Differential Total Cells Counted 100 Neutrophils % (Manual) 74 % (45-75) Lymphocytes % (Manual) 11 % (20-45) L Monocytes % (Manual) 6 % (1-10) Eosinophils % (Manual) 8 % (0-3) H Basophils % (Manual) 1 % (0-2) Band Neutrophils 0 % (0-8) Nucleated Red Blood Cells 8 /100 WBC Platelet Estimate Decreased L Platelet Morphology Normal Polychromasia 1+ Hypochromasia 4+ Anisocytosis 1+ Spherocytes 2+ Sodium Level 138 MMOL/L (136-145) Potassium Level 4.5 MMOL/L (3.5-5.1) Chloride Level 97 MMOL/L (98-107) L Carbon Dioxide Level 27 MMOL/L (21-32) Anion Gap 14 mmol/L (5-15) Blood Urea Nitrogen 78 mg/dL (7-18) H Creatinine 8.4 MG/DL (0.55-1.30) H Estimat Glomerular Filtration Rate 6.7 mL/min (>60) Glucose Level 139 MG/DL (74-106) H Calcium Level 7.6 MG/DL (8.5-10.1) L Current Medications Medications (Trade) Dose Ordered Sig/Santos Route PRN Reason Start Time Stop Time Status Last Admin Dose Admin Acetaminophen/ Hydrocodone Bitart ([place] 5/325) 1 tab Q4H PRN ORAL Moderate Pain (Pain Scale 4-6) 05/29/18 01:15 06/01/18 13:14 05/29/18 12:24 Albuterol/ Ipratropium (Albuterol/ Ipratropium) 3 ml Q4H PRN HHN Shortness of Breath 05/29/18 00:45 05/29/18 16:44 Clonidine HCl (Catapres Tab) 0.1 mg Q8HR ORAL 05/29/18 14:00 06/28/18 13:59 Dextrose (Dextrose 50%) 25 ml Q30M PRN IV Hypoglycemia 05/28/18 23:30 06/27/18 06:59 Dextrose (Dextrose 50%) 50 ml Q30M PRN IV Hypoglycemia 05/28/18 23:30 06/27/18 06:59 Docusate Sodium (Colace) 100 mg THREE TIMES A DAY ORAL 05/29/18 09:00 06/19/18 12:59 05/29/18 13:30 Epoetin Jayme (Procrit (for ESRD on dialysis)) 10,000 units MON-MON-MON SUBQ 05/30/18 21:00 06/22/18 20:59 Hydralazine HCl (Apresoline) 25 mg Q4H PRN ORAL BP 160 and above 05/29/18 02:30 06/23/18 10:29 05/29/18 10:48 Insulin Aspart (NovoLOG) BEFORE MEALS AND HS SUBQ 05/29/18 06:30 06/19/18 06:29 05/29/18 11:38 Insulin Aspart (NovoLOG) 3 units NOVOTIAC SUBQ 05/29/18 06:30 06/27/18 11:49 05/29/18 11:40 Insulin Detemir (Levemir) 9 units QHS SUBQ 05/29/18 21:00 06/20/18 11:59 Lactulose (Cephulac) 20 gm TWICE A DAY ORAL 05/29/18 09:00 06/20/18 05:59 Lorazepam (Ativan) 0.5 mg TIDPRN PRN ORAL For Anxiety 05/29/18 09:00 06/05/18 08:59 Metoprolol Tartrate (Lopressor) 50 mg Q12HR ORAL 05/29/18 09:00 06/23/18 20:59 05/29/18 09:43 Morphine Sulfate (Morphine Sulfate) 2 mg Q4H PRN IVP FOR SEVERE PAIN 05/29/18 02:45 06/03/18 06:44 Ondansetron HCl (Zofran) 4 mg TIDPRN PRN IVP Nausea & Vomiting 05/29/18 09:00 06/21/18 08:59 Pantoprazole (Protonix) 40 mg BID ORAL 05/29/18 09:00 06/22/18 17:59 05/29/18 09:44 Promethazine HCl/ Dextromethorphan (Phenergan DM) 6.25 mg Q6H PRN ORAL For Cough 05/29/18 00:00 06/23/18 11:59 Sevelamer Carbonate (Renvela) 1,600 mg THREE TIMES A DAY ORAL 05/29/18 09:00 06/20/18 12:59 05/29/18 13:31 Sodium Chloride 500 ml @ 999 mls/hr Q4H PRN IV SBP less than 100mmhg 05/29/18 01:00 06/19/18 08:59 Zolpidem Tartrate (Ambien) 5 mg HSPRN PRN ORAL Insomnia 05/29/18 19:45 06/04/18 19:44 Rowena Garcia M.D. May 29, 2018 17:30
[2018-05-29] MEDS ORDERED: Levemir Flexpen SUBQ SCH (21:00)
[2018-05-30] VITALS (7 sets, daily range): BP systolic 149–176; BP diastolic 69–89
[2018-05-30] MEDS: Zolpidem 5mg tab ORAL PRN (00:22)
[2018-05-30] MEDS: NovoLOG Insulin Flexpen SUBQ SCH ×7 (05:58→20:36)
[2018-05-30 06:33] LABS: BASOPHILS % (AUTO) 0.6 % (0.0-2.0); HEMATOCRIT 26.2 % (42.0-52.0); LYMPHOCYTES % (AUTO) 8.9 % (20.0-45.0); MEAN CORPUSCULAR VOLUME 90 FL (80-99); MONOCYTES % (AUTO) 5.9 % (1.0-10.0); NEUTROPHILS % (AUTO) 78.7 % (45.0-75.0); PLATELET COUNT 270 K/UL (150-450); RED BLOOD COUNT 2.89 M/UL (4.70-6.10); RED CELL DISTRIBUTION WIDTH 15.2 % (11.6-14.8); WHITE BLOOD COUNT 14.3 K/UL (4.8-10.8)
--- NOTE | 2018-05-30 06:56 | General Progress Note ---
Assessment/Plan Problem List: (1) Retroperitoneal hemorrhage ICD Codes: R58 - Hemorrhage, not elsewhere classified SNOMED: 52565773 (2) ESRD (end stage renal disease) on dialysis ICD Codes: N18.6 - End stage renal disease; Z99.2 - Dependence on renal dialysis SNOMED: 746239571 (3) Diabetes ICD Codes: E11.9 - Type 2 diabetes mellitus without complications SNOMED: 46764819 Assessment/Plan increase Levemir to 12 units qhs continue Novolog 3 units ac tid continue NISS ac / hs Subjective Allergies: Coded Allergies: No Known Allergies (Unverified , 05/20/18) All Systems: reviewed and negative except above Subjective events noted Objective Last 24 Hour Vital Signs Date Time Temp Pulse Resp B/P (MAP) Pulse Ox O2 Delivery O2 Flow Rate FiO2 05/30/18 05:59 149/74 05/30/18 04:00 98.4 61 17 149/74 (99) 97 05/30/18 00:00 98.0 66 18 150/78 (102) 96 05/29/18 22:00 155/81 05/29/18 21:50 155/81 (105) 05/29/18 21:00 Room Air 05/29/18 20:30 68 165/91 05/29/18 20:00 98.2 68 18 165/91 (115) 94 05/29/18 19:58 Nasal Cannula 2.0 28 05/29/18 19:58 98 Nasal Cannula 2.0 28 05/29/18 15:51 98.8 69 18 160/72 (101) 94 05/29/18 14:00 150/68 05/29/18 12:23 97.3 63 16 150/68 (95) 95 05/29/18 10:55 Room Air 05/29/18 10:48 160/80 05/29/18 09:43 69 151/75 05/29/18 09:43 151/75 05/29/18 09:26 97 Nasal Cannula 2.0 28 05/29/18 09:26 Nasal Cannula 2.0 28 05/29/18 09:00 Room Air 05/29/18 08:49 97.5 69 16 151/75 (100) 93 Intake and Output 05/29/18 05/30/18 19:00 07:00 Intake Total 240 ml 120 ml Balance 240 ml 120 ml Intake Oral 240 ml 120 ml # Bowel Movements 1 Laboratory Tests 05/30/18 05:20: White Blood Count 14.3H, Red Blood Count 2.89L, Hemoglobin 9.0#L, Hematocrit 26.2#L, Mean Corpuscular Volume 90, Mean Corpuscular Hemoglobin 31.1H, Mean Corpuscular Hemoglobin Concent 34.4, Red Cell Distribution Width 15.2H, Platelet Count 270, Mean Platelet Volume 8.5, Neutrophils (%) (Auto) 78.7H, Lymphocytes (%) (Auto) 8.9L, Monocytes (%) (Auto) 5.9, Eosinophils (%) (Auto) 6.0H, Basophils (%) (Auto) 0.6, Sodium Level [Pending], Potassium Level [Pending ], Chloride Level [Pending], Carbon Dioxide Level [Pending], Blood Urea Nitrogen [Pending], Creatinine [Pending], Estimat Glomerular Filtration Rate [ Pending], Glucose Level [Pending], Calcium Level [Pending] Height (Feet): 5 Height (Inches): 6.00 Weight (Pounds): 179 General Appearance: no apparent distress Neck: normal alignment Cardiovascular: normal rate Respiratory/Chest: lungs clear Abdomen: normal bowel sounds Objective Current Medications Medications (Trade) Dose Ordered Sig/Santos Route PRN Reason Start Time Stop Time Status Last Admin Dose Admin Acetaminophen/ Hydrocodone Bitart ([place] 5/325) 1 tab Q4H PRN ORAL Moderate Pain (Pain Scale 4-6) 05/29/18 01:15 06/01/18 13:14 05/29/18 12:24 Clonidine HCl (Catapres Tab) 0.1 mg Q8HR ORAL 05/29/18 14:00 06/28/18 13:59 Dextrose (Dextrose 50%) 25 ml Q30M PRN IV Hypoglycemia 05/28/18 23:30 06/27/18 06:59 Dextrose (Dextrose 50%) 50 ml Q30M PRN IV Hypoglycemia 05/28/18 23:30 06/27/18 06:59 Docusate Sodium (Colace) 100 mg THREE TIMES A DAY ORAL 05/29/18 09:00 06/19/18 12:59 05/29/18 17:14 Epoetin Jayme (Procrit (for ESRD on dialysis)) 10,000 units MON-MON-MON SUBQ 05/30/18 21:00 06/22/18 20:59 Hydralazine HCl (Apresoline) 25 mg Q4H PRN ORAL BP 160 and above 05/29/18 02:30 06/23/18 10:29 05/29/18 10:48 Insulin Aspart (NovoLOG) BEFORE MEALS AND HS SUBQ 05/29/18 06:30 06/19/18 06:29 05/30/18 05:58 Insulin Aspart (NovoLOG) 3 units NOVOTIAC SUBQ 05/29/18 06:30 06/27/18 11:49 05/30/18 05:59 Insulin Detemir (Levemir) 9 units QHS SUBQ 05/29/18 21:00 06/20/18 11:59 05/29/18 21:31 Lactulose (Cephulac) 20 gm TWICE A DAY ORAL 05/29/18 09:00 06/20/18 05:59 Lorazepam (Ativan) 0.5 mg TIDPRN PRN ORAL For Anxiety 05/29/18 09:00 06/05/18 08:59 Metoprolol Tartrate (Lopressor) 50 mg Q12HR ORAL 05/29/18 09:00 06/23/18 20:59 05/29/18 20:30 Morphine Sulfate (Morphine Sulfate) 2 mg Q4H PRN IVP FOR SEVERE PAIN 05/29/18 02:45 06/03/18 06:44 Ondansetron HCl (Zofran) 4 mg TIDPRN PRN IVP Nausea & Vomiting 05/29/18 09:00 06/21/18 08:59 Pantoprazole (Protonix) 40 mg BID ORAL 05/29/18 09:00 06/22/18 17:59 05/29/18 17:14 Promethazine HCl/ Dextromethorphan (Phenergan DM) 6.25 mg Q6H PRN ORAL For Cough 05/29/18 00:00 06/23/18 11:59 Sevelamer Carbonate (Renvela) 1,600 mg THREE TIMES A DAY ORAL 05/29/18 09:00 06/20/18 12:59 05/29/18 17:14 Sodium Chloride 500 ml @ 999 mls/hr Q4H PRN IV SBP less than 100mmhg 05/29/18 01:00 06/19/18 08:59 Zolpidem Tartrate (Ambien) 5 mg HSPRN PRN ORAL Insomnia 05/29/18 19:45 06/04/18 19:44 05/30/18 00:22 Item Value Date Time Bedside Blood Glucose 203 mg/dl H 05/30/18 0630 Bedside Blood Glucose 233 mg/dl H 05/29/18 2131 Bedside Blood Glucose 169 mg/dl H 05/29/18 1721 Bedside Blood Glucose 157 mg/dl H 05/29/18 1140 Bedside Blood Glucose 128 mg/dl H 05/29/18 0638 Willard Bonds MD May 30, 2018 06:56
[2018-05-30 07:22] LABS: ANION GAP 16 mmol/L (5-15); CARBON DIOXIDE 26 MMOL/L (21-32); CHLORIDE 96 MMOL/L (98-107); POTASSIUM 5.1 MMOL/L (3.5-5.1); SODIUM 137 MMOL/L (136-145)
[2018-05-30 07:41] LABS: BLOOD UREA NITROGEN 93 mg/dL (7-18); CALCIUM 7.3 MG/DL (8.5-10.1); CREATININE 9.9 MG/DL (0.55-1.30)
[2018-05-30] MEDS: Lactulose 20gm/30ml UDC ORAL SCH ×2 (08:43→17:34)
[2018-05-30] MEDS: Docusate 100mg cap ORAL SCH ×3 (08:43→17:34)
[2018-05-30] MEDS: Metoprolol Tartrate 50mg tab ORAL SCH ×2 (08:44→20:28)
--- NOTE | 2018-05-30 09:10 | General Progress Note ---
Assessment/Plan Assessment/Plan S: I am ok and my flank pain O: appears in No distress. Complains of mild right sided abdominal pain . no Nausea. No gross visible bleeding reported PHYSICAL EXAMINATION: HEAD AND NECK: Atraumatic and normocephalic. CHEST: Clear to auscultation. No wheezing. No crackles. HEART: S1 and S2. Regular rate and rhythm. ABDOMEN: Tender noted. Negative for rebound tenderness. NEUROLOGIC: The patient is awake, alert, and oriented x3. PSYCHIATRIC: Mood and affect are appropriate and normal. MUSCULOSKELETAL: No gross lateralized motor deficit. Left arm AV F/G is noted, with no erythma or tenderness Meds: reviewed and reconciled, including Lnatus 9 u qhs plus Fixed meal time insulin IMAGING: CT scan of abdomen and pelvis dated May 28, 2018 reviewed showing intervan incraese in the right perinephric hematoma. the repeat CT is pending ASSESSMENT AND PLAN: 1. Acute Right Perinephric Hemorrhage 3. Acute anemia. 4. Diabetes type 5 Hypovolemic Shock : Stable 6. GI-DVT prophylaxis 7. HTN: uncontrolled 8. Leukocytosis: with no evidence of acute Active infection Plan: will monitor HH, Will proceed with PRBC transfusion with Hgb < 7.3 Notes from Urology , Nephro, Endo, Critical specialist are reviewed Stable appearance of right perinephric hematoma by imaging Optimization of BP meds No evidence for active acute infection. Will monitor per ID Discussed the care with Dr Damon , urology. Serious but Stable cnd at this time D/w urology. In view of continued decline in Hgb level and interval increase in Hematoma. Agreed to transfer to higher level of care. will monitor HH in the interim Subjective Allergies: Coded Allergies: No Known Allergies (Unverified , 05/20/18) Objective Last 24 Hour Vital Signs Date Time Temp Pulse Resp B/P (MAP) Pulse Ox O2 Delivery O2 Flow Rate FiO2 05/30/18 08:44 65 155/79 05/30/18 08:00 97.2 65 17 155/79 (104) 96 05/30/18 05:59 149/74 05/30/18 04:00 98.4 61 17 149/74 (99) 97 05/30/18 00:00 98.0 66 18 150/78 (102) 96 05/29/18 22:00 155/81 05/29/18 21:50 155/81 (105) 05/29/18 21:00 Room Air 05/29/18 20:30 68 165/91 05/29/18 20:00 98.2 68 18 165/91 (115) 94 05/29/18 19:58 Nasal Cannula 2.0 28 05/29/18 19:58 98 Nasal Cannula 2.0 28 05/29/18 15:51 98.8 69 18 160/72 (101) 94 05/29/18 14:00 150/68 05/29/18 12:23 97.3 63 16 150/68 (95) 95 05/29/18 10:55 Room Air 05/29/18 10:48 160/80 05/29/18 09:43 69 151/75 05/29/18 09:43 151/75 05/29/18 09:26 97 Nasal Cannula 2.0 28 05/29/18 09:26 Nasal Cannula 2.0 28 Intake and Output 05/29/18 05/30/18 19:00 07:00 Intake Total 240 ml 120 ml Balance 240 ml 120 ml Intake Oral 240 ml 120 ml # Bowel Movements 1 Laboratory Tests 05/30/18 05:20: White Blood Count 14.3H, Red Blood Count 2.89L, Hemoglobin 9.0#L, Hematocrit 26.2#L, Mean Corpuscular Volume 90, Mean Corpuscular Hemoglobin 31.1H, Mean Corpuscular Hemoglobin Concent 34.4, Red Cell Distribution Width 15.2H, Platelet Count 270, Mean Platelet Volume 8.5, Neutrophils (%) (Auto) 78.7H, Lymphocytes (%) (Auto) 8.9L, Monocytes (%) (Auto) 5.9, Eosinophils (%) (Auto) 6.0H, Basophils (%) (Auto) 0.6, Sodium Level 137, Potassium Level 5.1, Chloride Level 96L, Carbon Dioxide Level 26, Anion Gap 16H, Blood Urea Nitrogen 93H, Creatinine 9.9H, Estimat Glomerular Filtration Rate 5.6, Glucose Level 226H, Calcium Level 7.3L Height (Feet): 5 Height (Inches): 6.00 Weight (Pounds): 179 Baljit Flores MD May 30, 2018 09:10
--- NOTE | 2018-05-30 11:21 | Nephrology Progress Note ---
Assessment/Plan Problem List: (1) ESRD (end stage renal disease) on dialysis (2) Retroperitoneal hemorrhage (3) Shock (4) Anemia (5) Abdominal pain (6) Diabetes Assessment WBC lower presented with: hemorrhagic shock- Retro Peritoneal bleed Low BP on admission ESRD DM HTN transfused multiple times Plan HD 05/28 next 05/30 WBCs lower Transfuse as needed, manage pain Per consultants / Urologist discussed with RN meds adjusted Subjective ROS Limited/Unobtainable: No Constitutional: Reports: malaise Objective Objective Last 24 Hour Vital Signs Date Time Temp Pulse Resp B/P (MAP) Pulse Ox O2 Delivery O2 Flow Rate FiO2 05/30/18 09:00 Room Air 05/30/18 08:44 65 155/79 05/30/18 08:00 97.2 65 17 155/79 (104) 96 05/30/18 05:59 149/74 05/30/18 04:00 98.4 61 17 149/74 (99) 97 05/30/18 00:00 98.0 66 18 150/78 (102) 96 05/29/18 22:00 155/81 05/29/18 21:50 155/81 (105) 05/29/18 21:00 Room Air 05/29/18 20:30 68 165/91 05/29/18 20:00 98.2 68 18 165/91 (115) 94 05/29/18 19:58 Nasal Cannula 2.0 28 05/29/18 19:58 98 Nasal Cannula 2.0 28 05/29/18 15:51 98.8 69 18 160/72 (101) 94 05/29/18 14:00 150/68 05/29/18 12:23 97.3 63 16 150/68 (95) 95 Intake and Output 05/29/18 05/30/18 19:00 07:00 Intake Total 240 ml 120 ml Balance 240 ml 120 ml Intake Oral 240 ml 120 ml # Bowel Movements 1 Laboratory Tests 05/30/18 05:20: White Blood Count 14.3H, Red Blood Count 2.89L, Hemoglobin 9.0#L, Hematocrit 26.2#L, Mean Corpuscular Volume 90, Mean Corpuscular Hemoglobin 31.1H, Mean Corpuscular Hemoglobin Concent 34.4, Red Cell Distribution Width 15.2H, Platelet Count 270, Mean Platelet Volume 8.5, Neutrophils (%) (Auto) 78.7H, Lymphocytes (%) (Auto) 8.9L, Monocytes (%) (Auto) 5.9, Eosinophils (%) (Auto) 6.0H, Basophils (%) (Auto) 0.6, Sodium Level 137, Potassium Level 5.1, Chloride Level 96L, Carbon Dioxide Level 26, Anion Gap 16H, Blood Urea Nitrogen 93H, Creatinine 9.9H, Estimat Glomerular Filtration Rate 5.6, Glucose Level 226H, Calcium Level 7.3L Height (Feet): 5 Height (Inches): 6.00 Weight (Pounds): 179 Cardiovascular: regular rhythm Respiratory/Chest: decreased breath sounds Abdomen: distended Objective no change Dm Lopez MD May 30, 2018 11:21
--- NOTE | 2018-05-30 11:46 | GI Progress Note ---
Assessment/Plan Problems: (1) Retroperitoneal hemorrhage ICD Codes: R58 - Hemorrhage, not elsewhere classified SNOMED: 81883590 (2) Anemia ICD Codes: D64.9 - Anemia, unspecified SNOMED: 146544728 (3) Diabetes ICD Codes: E11.9 - Type 2 diabetes mellitus without complications SNOMED: 94467953 (4) Abdominal pain ICD Codes: R10.9 - Unspecified abdominal pain SNOMED: 04211499 (5) Shock ICD Codes: R57.9 - Shock, unspecified SNOMED: 20261027 (6) ESRD (end stage renal disease) on dialysis ICD Codes: N18.6 - End stage renal disease; Z99.2 - Dependence on renal dialysis SNOMED: 536117451 Status: stable, progressing Status Narrative Discussed with Dr. Mcgee. Assessment/Plan CT AP reviewed >> Large complex hemorrhage/hemorrhagic mass occupying majority of the right kidney with extensive perinephric fluid/blood extending into the retroperitoneum and pelvis. iron deficiency OB stool negative x2 Anemia, most likely due to chronic disease venofer renal diet ppi BID prn transfusions abx fu surgical recommendations fu labs The patient was seen and examined at bedside and all new and available data was reviewed in the patients chart. I agree with the above findings, impression and plan. (Patient seen earlier today. Signature stamp does not reflect patient encounter time.). - Elvis Mcgee MD Subjective Subjective limited Objective Last 24 Hour Vital Signs Date Time Temp Pulse Resp B/P (MAP) Pulse Ox O2 Delivery O2 Flow Rate FiO2 05/30/18 09:00 Room Air 05/30/18 08:44 65 155/79 05/30/18 08:00 97.2 65 17 155/79 (104) 96 05/30/18 05:59 149/74 05/30/18 04:00 98.4 61 17 149/74 (99) 97 05/30/18 00:00 98.0 66 18 150/78 (102) 96 05/29/18 22:00 155/81 05/29/18 21:50 155/81 (105) 05/29/18 21:00 Room Air 05/29/18 20:30 68 165/91 05/29/18 20:00 98.2 68 18 165/91 (115) 94 05/29/18 19:58 Nasal Cannula 2.0 28 05/29/18 19:58 98 Nasal Cannula 2.0 28 05/29/18 15:51 98.8 69 18 160/72 (101) 94 05/29/18 14:00 150/68 05/29/18 12:23 97.3 63 16 150/68 (95) 95 Intake and Output 05/29/18 05/30/18 19:00 07:00 Intake Total 240 ml 120 ml Balance 240 ml 120 ml Intake Oral 240 ml 120 ml # Bowel Movements 1 Laboratory Tests Test 05/30/18 05:20 White Blood Count 14.3 K/UL (4.8-10.8) H Red Blood Count 2.89 M/UL (4.70-6.10) L Hemoglobin 9.0 G/DL (14.2-18.0) #L Hematocrit 26.2 % (42.0-52.0) #L Mean Corpuscular Volume 90 FL (80-99) Mean Corpuscular Hemoglobin 31.1 PG (27.0-31.0) H Mean Corpuscular Hemoglobin Concent 34.4 G/DL (32.0-36.0) Red Cell Distribution Width 15.2 % (11.6-14.8) H Platelet Count 270 K/UL (150-450) Mean Platelet Volume 8.5 FL (6.5-10.1) Neutrophils (%) (Auto) 78.7 % (45.0-75.0) H Lymphocytes (%) (Auto) 8.9 % (20.0-45.0) L Monocytes (%) (Auto) 5.9 % (1.0-10.0) Eosinophils (%) (Auto) 6.0 % (0.0-3.0) H Basophils (%) (Auto) 0.6 % (0.0-2.0) Sodium Level 137 MMOL/L (136-145) Potassium Level 5.1 MMOL/L (3.5-5.1) Chloride Level 96 MMOL/L (98-107) L Carbon Dioxide Level 26 MMOL/L (21-32) Anion Gap 16 mmol/L (5-15) H Blood Urea Nitrogen 93 mg/dL (7-18) H Creatinine 9.9 MG/DL (0.55-1.30) H Estimat Glomerular Filtration Rate 5.6 mL/min (>60) Glucose Level 226 MG/DL (74-106) H Calcium Level 7.3 MG/DL (8.5-10.1) L C-Reactive Protein, Quantitative 15.5 mg/dL (0.00-0.90) H Height (Feet): 5 Height (Inches): 6.00 Weight (Pounds): 179 General Appearance: WD/WN, no apparent distress, alert Cardiovascular: normal rate Respiratory/Chest: normal breath sounds, no respiratory distress Abdominal Exam: normal bowel sounds, non tender, soft Extremities: normal range of motion, non-tender Mansoor Allen NP May 30, 2018 11:46
[2018-05-30] MEDS: HydrALAZINE 25mg tab ORAL PRN ×2 (12:07→17:44)
--- NOTE | 2018-05-30 15:00 | General Progress Note ---
Assessment/Plan Status: stable, progressing Assessment/Plan anxiety d/o ativan prn provided ro/st Subjective Neurologic/Psychiatric: Reports: anxiety, depressed Allergies: Coded Allergies: No Known Allergies (Unverified , 05/20/18) Objective Last 24 Hour Vital Signs Date Time Temp Pulse Resp B/P (MAP) Pulse Ox O2 Delivery O2 Flow Rate FiO2 05/30/18 14:25 189/89 05/30/18 12:07 170/92 05/30/18 12:00 97.0 66 17 159/89 (112) 99 05/30/18 09:00 Room Air 05/30/18 08:44 65 155/79 05/30/18 08:00 97.2 65 17 155/79 (104) 96 05/30/18 05:59 149/74 05/30/18 04:00 98.4 61 17 149/74 (99) 97 05/30/18 00:00 98.0 66 18 150/78 (102) 96 05/29/18 22:00 155/81 05/29/18 21:50 155/81 (105) 05/29/18 21:00 Room Air 05/29/18 20:30 68 165/91 05/29/18 20:00 98.2 68 18 165/91 (115) 94 05/29/18 19:58 Nasal Cannula 2.0 28 05/29/18 19:58 98 Nasal Cannula 2.0 28 05/29/18 15:51 98.8 69 18 160/72 (101) 94 Intake and Output 05/29/18 05/30/18 19:00 07:00 Intake Total 240 ml 120 ml Balance 240 ml 120 ml Intake Oral 240 ml 120 ml # Bowel Movements 1 Laboratory Tests 05/30/18 05:20: White Blood Count 14.3H, Red Blood Count 2.89L, Hemoglobin 9.0#L, Hematocrit 26.2#L, Mean Corpuscular Volume 90, Mean Corpuscular Hemoglobin 31.1H, Mean Corpuscular Hemoglobin Concent 34.4, Red Cell Distribution Width 15.2H, Platelet Count 270, Mean Platelet Volume 8.5, Neutrophils (%) (Auto) 78.7H, Lymphocytes (%) (Auto) 8.9L, Monocytes (%) (Auto) 5.9, Eosinophils (%) (Auto) 6.0H, Basophils (%) (Auto) 0.6, Sodium Level 137, Potassium Level 5.1, Chloride Level 96L, Carbon Dioxide Level 26, Anion Gap 16H, Blood Urea Nitrogen 93H, Creatinine 9.9H, Estimat Glomerular Filtration Rate 5.6, Glucose Level 226H, Calcium Level 7.3L, C-Reactive Protein, Quantitative 15.5H Height (Feet): 5 Height (Inches): 6.00 Weight (Pounds): 179 General Appearance: no apparent distress, alert Neurologic: oriented x 3, responsive, depressed affect Chris Driscoll MD May 30, 2018 15:00
--- NOTE | 2018-05-30 16:11 | Pulmonology Progress Note ---
Assessment/Plan Assessment/Plan Pulmonary Progress Note Patient with: (1) Previous Shock (2) Diabetes (3) ESRD (end stage renal disease) on dialysis (4) Retroperitoneal hemorrhage involving right kidney (5) Anemia persists Assessment/Plan No new complaints CXR noted PRN anti-tussives PRN HHN's Monitor CBC, transfuse as needed Monitor hemodynamics and volumes HD per renal F/U recs, no plan for operation at this time Zosyn per ID, F/U Cx's DVT Px: SCD's SSI Pain control/supportive care Subjective Allergies: Coded Allergies: No Known Allergies (Unverified , 05/20/18) Subjective HH stable AFVSS on 2L, getting HD Less flank abd pain + cough, no SOB no F/C Objective Vital Signs Noted Laboratory Tests 05/24/18 03:00: White Blood Count 9.6, Red Blood Count 2.62L, Hemoglobin 8.1L, Hematocrit 23.7L , Mean Corpuscular Volume 90, Mean Corpuscular Hemoglobin 30.9, Mean Corpuscular Hemoglobin Concent 34.1, Red Cell Distribution Width 13.6, Platelet Count 139L, Mean Platelet Volume 10.5H, Neutrophils (%) (Auto) 83.4H, Lymphocytes (%) (Auto) 6.7L, Monocytes (%) (Auto) 7.6, Eosinophils (%) (Auto) 1.7, Basophils (%) (Auto) 0.6, Sodium Level 139, Potassium Level 3.6, Chloride Level 97L, Carbon Dioxide Level 30, Anion Gap 12, Blood Urea Nitrogen 50H, Creatinine 6.8H, Estimat Glomerular Filtration Rate 8.6, Glucose Level 138H, Calcium Level 8.0L, Phosphorus Level 3.0, Magnesium Level 2.5H, Total Bilirubin 0.9, Aspartate Amino Transf (AST/SGOT) 31, Alanine Aminotransferase (ALT/SGPT) 35, Alkaline Phosphatase 61, Total Protein 7.6, Albumin 2.6L, Globulin 5.0, Albumin/Globulin Ratio 0.5L 05/24/18 11:10: Stool Occult Blood [Pending] 05/24/18 15:00: Stool Occult Blood [Pending] Current Medications Medications (Trade) Dose Ordered Sig/Santos Route PRN Reason Start Time Stop Time Status Last Admin Dose Admin Acetaminophen/ Hydrocodone Bitart ([place] 5/325) 1 tab TIDPRN PRN ORAL Moderate Pain (Pain Scale 4-6) 05/22/18 09:00 05/29/18 08:59 05/24/18 16:35 Dextrose (Dextrose 50%) 25 ml Q30M PRN IV Hypoglycemia 05/22/18 09:00 06/19/18 08:59 Dextrose (Dextrose 50%) 50 ml Q30M PRN IV Hypoglycemia 05/22/18 09:00 06/19/18 08:59 Docusate Sodium (Colace) 100 mg THREE TIMES A DAY ORAL 05/22/18 09:00 06/19/18 12:59 05/24/18 12:57 Epoetin Jayme (Procrit (for ESRD on dialysis)) 10,000 units MON-MON-MON SUBQ 05/23/18 21:00 06/22/18 20:59 05/23/18 21:25 Hydralazine HCl (Apresoline) 25 mg Q4H PRN ORAL BP 160 and above 05/24/18 10:30 06/23/18 10:29 05/24/18 12:57 Insulin Aspart (NovoLOG) BEFORE MEALS AND HS SUBQ 05/22/18 11:30 06/19/18 06:29 05/24/18 12:10 Insulin Detemir (Levemir) 6 units DAILY SUBQ 05/22/18 09:00 06/20/18 11:59 05/24/18 09:03 Iron Sucrose 100 mg/Sodium Chloride 55 ml @ 200 mls/hr BEDTIME IV 05/24/18 21:00 05/27/18 21:17 Lactulose (Cephulac) 20 gm TWICE A DAY ORAL 05/22/18 09:00 06/20/18 05:59 05/24/18 08:55 Lorazepam (Ativan) 0.5 mg TIDPRN PRN ORAL For Anxiety 05/22/18 09:00 05/29/18 08:59 Metoprolol Tartrate (Lopressor) 12.5 mg Q12HR ORAL 05/24/18 21:00 06/23/18 20:59 Ondansetron HCl (Zofran) 4 mg TIDPRN PRN IVP Nausea & Vomiting 05/22/18 09:00 06/21/18 08:59 Pantoprazole (Protonix) 40 mg BID ORAL 05/23/18 18:00 06/22/18 17:59 05/24/18 08:58 Piperacillin Sod/ Tazobactam Sod 2.25 gm/Dextrose 55 ml @ 110 mls/hr Q8HR IVPB 05/22/18 15:00 05/27/18 14:59 05/24/18 13:59 Promethazine HCl/ Dextromethorphan (Phenergan DM) 6.25 mg Q6H PRN ORAL For Cough 05/24/18 12:00 06/23/18 11:59 05/24/18 12:16 Sevelamer Carbonate (Renvela) 1,600 mg THREE TIMES A DAY ORAL 05/23/18 13:00 06/20/18 12:59 05/24/18 12:57 Sodium Chloride 500 ml @ 999 mls/hr Q4H PRN IV SBP less than 100mmhg 05/22/18 09:00 06/19/18 08:59 Subjective ROS Limited/Unobtainable: No Allergies: Coded Allergies: No Known Allergies (Unverified , 05/20/18) Objective Last 24 Hour Vital Signs Date Time Temp Pulse Resp B/P (MAP) Pulse Ox O2 Delivery O2 Flow Rate FiO2 05/30/18 14:25 189/89 05/30/18 12:07 170/92 05/30/18 12:00 97.0 66 17 159/89 (112) 99 05/30/18 09:00 Room Air 05/30/18 08:44 65 155/79 05/30/18 08:00 97.2 65 17 155/79 (104) 96 05/30/18 05:59 149/74 05/30/18 04:00 98.4 61 17 149/74 (99) 97 05/30/18 00:00 98.0 66 18 150/78 (102) 96 05/29/18 22:00 155/81 05/29/18 21:50 155/81 (105) 05/29/18 21:00 Room Air 05/29/18 20:30 68 165/91 05/29/18 20:00 98.2 68 18 165/91 (115) 94 05/29/18 19:58 Nasal Cannula 2.0 28 05/29/18 19:58 98 Nasal Cannula 2.0 28 Intake and Output 05/29/18 05/30/18 18:59 06:59 Intake Total 240 ml 120 ml Balance 240 ml 120 ml Intake Oral 240 ml 120 ml # Bowel Movements 1 Laboratory Tests 05/30/18 05:20: White Blood Count 14.3H, Red Blood Count 2.89L, Hemoglobin 9.0#L, Hematocrit 26.2#L, Mean Corpuscular Volume 90, Mean Corpuscular Hemoglobin 31.1H, Mean Corpuscular Hemoglobin Concent 34.4, Red Cell Distribution Width 15.2H, Platelet Count 270, Mean Platelet Volume 8.5, Neutrophils (%) (Auto) 78.7H, Lymphocytes (%) (Auto) 8.9L, Monocytes (%) (Auto) 5.9, Eosinophils (%) (Auto) 6.0H, Basophils (%) (Auto) 0.6, Sodium Level 137, Potassium Level 5.1, Chloride Level 96L, Carbon Dioxide Level 26, Anion Gap 16H, Blood Urea Nitrogen 93H, Creatinine 9.9H, Estimat Glomerular Filtration Rate 5.6, Glucose Level 226H, Calcium Level 7.3L, C-Reactive Protein, Quantitative 15.5H Current Medications Medications (Trade) Dose Ordered Sig/Santos Route PRN Reason Start Time Stop Time Status Last Admin Dose Admin Acetaminophen/ Hydrocodone Bitart ([place] 5/325) 1 tab Q4H PRN ORAL Moderate Pain (Pain Scale 4-6) 05/29/18 01:15 06/01/18 13:14 05/29/18 12:24 Clonidine HCl (Catapres Tab) 0.1 mg Q8HR ORAL 05/29/18 14:00 06/28/18 13:59 05/30/18 14:25 Dextrose (Dextrose 50%) 25 ml Q30M PRN IV Hypoglycemia 05/28/18 23:30 06/27/18 06:59 Dextrose (Dextrose 50%) 50 ml Q30M PRN IV Hypoglycemia 05/28/18 23:30 06/27/18 06:59 Docusate Sodium (Colace) 100 mg THREE TIMES A DAY ORAL 05/29/18 09:00 06/19/18 12:59 05/30/18 12:06 Epoetin Jayme (Procrit (for ESRD on dialysis)) 10,000 units MON-MON-MON SUBQ 05/30/18 21:00 06/22/18 20:59 Hydralazine HCl (Apresoline) 25 mg Q4H PRN ORAL BP 160 and above 05/29/18 02:30 06/23/18 10:29 05/30/18 12:07 Insulin Aspart (NovoLOG) BEFORE MEALS AND HS SUBQ 05/29/18 06:30 06/19/18 06:29 05/30/18 11:52 Insulin Aspart (NovoLOG) 3 units NOVOTIAC SUBQ 05/29/18 06:30 06/27/18 11:49 05/30/18 11:52 Insulin Detemir (Levemir) 12 units QHS SUBQ 05/30/18 21:00 06/20/18 11:59 Lactulose (Cephulac) 20 gm TWICE A DAY ORAL 05/29/18 09:00 06/20/18 05:59 05/30/18 08:43 Lorazepam (Ativan) 0.5 mg TIDPRN PRN ORAL For Anxiety 05/29/18 09:00 06/05/18 08:59 Metoprolol Tartrate (Lopressor) 50 mg Q12HR ORAL 05/29/18 09:00 06/23/18 20:59 05/29/18 20:30 Morphine Sulfate (Morphine Sulfate) 2 mg Q4H PRN IVP FOR SEVERE PAIN 05/29/18 02:45 06/03/18 06:44 Ondansetron HCl (Zofran) 4 mg TIDPRN PRN IVP Nausea & Vomiting 05/29/18 09:00 06/21/18 08:59 Pantoprazole (Protonix) 40 mg BID ORAL 05/29/18 09:00 06/22/18 17:59 05/30/18 08:43 Promethazine HCl/ Dextromethorphan (Phenergan DM) 6.25 mg Q6H PRN ORAL For Cough 05/29/18 00:00 06/23/18 11:59 Sevelamer Carbonate (Renvela) 1,600 mg THREE TIMES A DAY ORAL 05/29/18 09:00 06/20/18 12:59 05/30/18 12:06 Sodium Chloride 500 ml @ 999 mls/hr Q4H PRN IV SBP less than 100mmhg 05/29/18 01:00 06/19/18 08:59 Zolpidem Tartrate (Ambien) 5 mg HSPRN PRN ORAL Insomnia 05/29/18 19:45 06/04/18 19:44 05/30/18 00:22 Tae Velazco MD May 30, 2018 16:11
--- NOTE | 2018-05-30 16:44 | Infectious Diseases Prog Note ---
Assessment/Plan Problems: (1) Leukocytosis Assessment & Plan: suspect due to recurrent bleeding which he required multiple transfusion for , S/P zosyn for 6 days , doubt infectious etiology with no fever and negative cultures . CT abd/pelvis yesterday showed increasing in the size of the right side hematoma , which is most likely the source , repeated blood culture is negative. monitor off antibiotics. (2) Renal hematoma, right Assessment & Plan: with extension to the retroperitoneal area , continue close monitor of H/H and serial images for follow up, watch out for abscess formation. CT abd/pelvis yesterday showed increasing in the size of the right side hematoma. will need arterial embolization by IR, pending transfer to [facility] (3) Retroperitoneal hemorrhage Assessment & Plan: continue H/H monitoring with blood transfusion , and serial imaging for follow up, avoid anticoagulation (4) ESRD (end stage renal disease) on dialysis Assessment & Plan: on HD, renal is following (5) Diabetes Assessment & Plan: recommend tight glycemic control to keep blood glucose between 100-140 Subjective Constitutional: Reports: no symptoms HEENT: Reports: no symptoms Respiratory: Reports: no symptoms Breasts: Reports: no symptoms Cardiovascular: Reports: no symptoms Gastrointestinal/Abdominal: Reports: bloating, other - right flank pain Genitourinary: Reports: no symptoms Neurologic: Reports: no symptoms Psychiatric: Reports: no symptoms Skin: Reports: no symptoms Endocrine: Reports: no symptoms Hematologic: Reports: no symptoms Musculoskeletal: Reports: no symptoms Allergies: Coded Allergies: No Known Allergies (Unverified , 05/20/18) Subjective he has mild flank pain today and discomfort, no fever or chills, no cough or SOB , getting blood transfusion Objective Vital Signs Last 24 Hour Vital Signs Date Time Temp Pulse Resp B/P (MAP) Pulse Ox O2 Delivery O2 Flow Rate FiO2 05/30/18 16:00 98.1 74 18 169/75 (106) 95 05/30/18 14:25 189/89 05/30/18 12:07 170/92 05/30/18 12:00 97.0 66 17 159/89 (112) 99 05/30/18 09:00 Room Air 05/30/18 08:44 65 155/79 05/30/18 08:00 97.2 65 17 155/79 (104) 96 05/30/18 05:59 149/74 05/30/18 04:00 98.4 61 17 149/74 (99) 97 05/30/18 00:00 98.0 66 18 150/78 (102) 96 05/29/18 22:00 155/81 05/29/18 21:50 155/81 (105) 05/29/18 21:00 Room Air 05/29/18 20:30 68 165/91 05/29/18 20:00 98.2 68 18 165/91 (115) 94 05/29/18 19:58 Nasal Cannula 2.0 28 05/29/18 19:58 98 Nasal Cannula 2.0 28 Height (Feet): 5 Height (Inches): 6.00 Weight (Pounds): 179 General Appearance: WD/WN, no acute distress HEENT: normocephalic, atraumatic, anicteric, mucous membranes moist Respiratory/Chest: chest wall non-tender, lungs clear, normal breath sounds, no respiratory distress, no accessory muscle use Cardiovascular: normal peripheral pulses, normal rate, regular rhythm, no gallop/murmur, no JVD Abdomen: normal bowel sounds, soft, non tender, no organomegaly, non distended , no mass, no scars Extremities: no cyanosis, no clubbing Skin: no rash, no lesions, no ulcers Neurologic/Psychiatric: alert, oriented x 3, responsive Lymphatic: no neck adenopathy, no groin adenopathy Musculoskeletal: normal muscle bulk, no effusion Laboratory Tests Test 05/30/18 05:20 White Blood Count 14.3 K/UL (4.8-10.8) H Red Blood Count 2.89 M/UL (4.70-6.10) L Hemoglobin 9.0 G/DL (14.2-18.0) #L Hematocrit 26.2 % (42.0-52.0) #L Mean Corpuscular Volume 90 FL (80-99) Mean Corpuscular Hemoglobin 31.1 PG (27.0-31.0) H Mean Corpuscular Hemoglobin Concent 34.4 G/DL (32.0-36.0) Red Cell Distribution Width 15.2 % (11.6-14.8) H Platelet Count 270 K/UL (150-450) Mean Platelet Volume 8.5 FL (6.5-10.1) Neutrophils (%) (Auto) 78.7 % (45.0-75.0) H Lymphocytes (%) (Auto) 8.9 % (20.0-45.0) L Monocytes (%) (Auto) 5.9 % (1.0-10.0) Eosinophils (%) (Auto) 6.0 % (0.0-3.0) H Basophils (%) (Auto) 0.6 % (0.0-2.0) Sodium Level 137 MMOL/L (136-145) Potassium Level 5.1 MMOL/L (3.5-5.1) Chloride Level 96 MMOL/L (98-107) L Carbon Dioxide Level 26 MMOL/L (21-32) Anion Gap 16 mmol/L (5-15) H Blood Urea Nitrogen 93 mg/dL (7-18) H Creatinine 9.9 MG/DL (0.55-1.30) H Estimat Glomerular Filtration Rate 5.6 mL/min (>60) Glucose Level 226 MG/DL (74-106) H Calcium Level 7.3 MG/DL (8.5-10.1) L C-Reactive Protein, Quantitative 15.5 mg/dL (0.00-0.90) H Current Medications Medications (Trade) Dose Ordered Sig/Santos Route PRN Reason Start Time Stop Time Status Last Admin Dose Admin Acetaminophen/ Hydrocodone Bitart ([place] 5/325) 1 tab Q4H PRN ORAL Moderate Pain (Pain Scale 4-6) 05/29/18 01:15 06/01/18 13:14 05/29/18 12:24 Clonidine HCl (Catapres Tab) 0.1 mg Q8HR ORAL 05/29/18 14:00 06/28/18 13:59 05/30/18 14:25 Dextrose (Dextrose 50%) 25 ml Q30M PRN IV Hypoglycemia 05/28/18 23:30 06/27/18 06:59 Dextrose (Dextrose 50%) 50 ml Q30M PRN IV Hypoglycemia 05/28/18 23:30 06/27/18 06:59 Docusate Sodium (Colace) 100 mg THREE TIMES A DAY ORAL 05/29/18 09:00 06/19/18 12:59 05/30/18 12:06 Epoetin Jayme (Procrit (for ESRD on dialysis)) 10,000 units MON-MON-MON SUBQ 05/30/18 21:00 06/22/18 20:59 Hydralazine HCl (Apresoline) 25 mg Q4H PRN ORAL BP 160 and above 05/29/18 02:30 06/23/18 10:29 05/30/18 12:07 Insulin Aspart (NovoLOG) BEFORE MEALS AND HS SUBQ 05/29/18 06:30 06/19/18 06:29 05/30/18 16:15 Insulin Aspart (NovoLOG) 3 units NOVOTIAC SUBQ 05/29/18 06:30 06/27/18 11:49 05/30/18 16:15 Insulin Detemir (Levemir) 12 units QHS SUBQ 05/30/18 21:00 06/20/18 11:59 Lactulose (Cephulac) 20 gm TWICE A DAY ORAL 05/29/18 09:00 06/20/18 05:59 05/30/18 08:43 Lorazepam (Ativan) 0.5 mg TIDPRN PRN ORAL For Anxiety 05/29/18 09:00 06/05/18 08:59 Metoprolol Tartrate (Lopressor) 50 mg Q12HR ORAL 05/29/18 09:00 06/23/18 20:59 05/29/18 20:30 Morphine Sulfate (Morphine Sulfate) 2 mg Q4H PRN IVP FOR SEVERE PAIN 05/29/18 02:45 06/03/18 06:44 Ondansetron HCl (Zofran) 4 mg TIDPRN PRN IVP Nausea & Vomiting 05/29/18 09:00 06/21/18 08:59 Pantoprazole (Protonix) 40 mg BID ORAL 05/29/18 09:00 06/22/18 17:59 05/30/18 08:43 Promethazine HCl/ Dextromethorphan (Phenergan DM) 6.25 mg Q6H PRN ORAL For Cough 05/29/18 00:00 06/23/18 11:59 Sevelamer Carbonate (Renvela) 1,600 mg THREE TIMES A DAY ORAL 05/29/18 09:00 06/20/18 12:59 05/30/18 12:06 Sodium Chloride 500 ml @ 999 mls/hr Q4H PRN IV SBP less than 100mmhg 05/29/18 01:00 06/19/18 08:59 Zolpidem Tartrate (Ambien) 5 mg HSPRN PRN ORAL Insomnia 05/29/18 19:45 06/04/18 19:44 05/30/18 00:22 Rowena Garcia M.D. May 30, 2018 16:44
[2018-05-30] MEDS: Levemir Flexpen SUBQ SCH (20:37)
[2018-05-30] MEDS: Epogen (for ESRD on dialysis) SUBQ SCH (21:38)
[2018-05-31] VITALS (9 sets, daily range): BP systolic 151–193; BP diastolic 72–92
[2018-05-31] MEDS: HydrALAZINE 25mg tab ORAL PRN ×4 (00:18→16:55)
[2018-05-31] MEDS: Zolpidem 5mg tab ORAL PRN (00:23)
[2018-05-31] MEDS: NovoLOG Insulin Flexpen SUBQ SCH ×7 (05:56→21:06)
[2018-05-31 06:37] LABS: BASOPHILS % (AUTO) 0.3 % (0.0-2.0); EOSINOPHILS % (AUTO) 4.6 % (0.0-3.0); HEMATOCRIT 27.4 % (42.0-52.0); HEMOGLOBIN 9.3 G/DL (14.2-18.0); LYMPHOCYTES % (AUTO) 7.1 % (20.0-45.0); MEAN CORPUSCULAR VOLUME 93 FL (80-99); MONOCYTES % (AUTO) 6.1 % (1.0-10.0); NEUTROPHILS % (AUTO) 81.9 % (45.0-75.0); PLATELET COUNT 254 K/UL (150-450); RED BLOOD COUNT 2.94 M/UL (4.70-6.10); RED CELL DISTRIBUTION WIDTH 19.4 % (11.6-14.8); WHITE BLOOD COUNT 12.7 K/UL (4.8-10.8)
[2018-05-31 07:14] LABS: ALANINE AMINOTRANSFERASE 39 U/L (12-78); ALBUMIN 2.4 G/DL (3.4-5.0); ALBUMIN/GLOBULIN RATIO 0.5 (1.0-2.7); ALKALINE PHOSPHATASE 106 U/L (46-116); ANION GAP 8 mmol/L (5-15); ASPARTATE AMINO TRANSFERASE 34 U/L (15-37); BILIRUBIN,TOTAL 1.3 MG/DL (0.2-1.0); BLOOD UREA NITROGEN 62 mg/dL (7-18); CALCIUM 7.5 MG/DL (8.5-10.1); CARBON DIOXIDE 30 MMOL/L (21-32); CHLORIDE 99 MMOL/L (98-107); PHOSPHORUS 3.7 MG/DL (2.5-4.9); POTASSIUM 4.5 MMOL/L (3.5-5.1); SODIUM 137 MMOL/L (136-145)
[2018-05-31 07:21] LABS: BILIRUBIN,DIRECT 0.7 MG/DL (0.0-0.3)
--- NOTE | 2018-05-31 08:17 | General Progress Note ---
Assessment/Plan Problem List: (1) Retroperitoneal hemorrhage ICD Codes: R58 - Hemorrhage, not elsewhere classified SNOMED: 23804518 (2) ESRD (end stage renal disease) on dialysis ICD Codes: N18.6 - End stage renal disease; Z99.2 - Dependence on renal dialysis SNOMED: 253500884 (3) Diabetes ICD Codes: E11.9 - Type 2 diabetes mellitus without complications SNOMED: 10460812 Assessment/Plan continue Levemir 12 units qhs continue Novolog 3 units ac tid continue NISS ac / hs Subjective Allergies: Coded Allergies: No Known Allergies (Unverified , 05/20/18) All Systems: reviewed and negative except above Subjective events noted Objective Last 24 Hour Vital Signs Date Time Temp Pulse Resp B/P (MAP) Pulse Ox O2 Delivery O2 Flow Rate FiO2 05/31/18 08:11 97.7 71 18 161/82 (108) 94 05/31/18 06:00 151/79 05/31/18 05:10 151/79 (103) 05/31/18 04:35 166/74 05/31/18 04:00 97.7 69 18 166/74 (104) 94 05/31/18 00:50 152/72 (98) 05/31/18 00:18 168/80 05/31/18 00:00 97.3 70 17 168/80 (109) 94 05/30/18 21:39 158/69 05/30/18 21:10 158/69 (98) 05/30/18 21:00 Room Air 05/30/18 20:28 71 170/82 05/30/18 20:00 97.1 71 18 170/81 (110) 96 05/30/18 17:44 167/83 05/30/18 16:00 98.1 74 18 169/75 (106) 95 05/30/18 14:25 189/89 05/30/18 12:07 170/92 05/30/18 12:00 97.0 66 17 159/89 (112) 99 05/30/18 09:00 Room Air 05/30/18 08:44 65 155/79 Intake and Output 05/30/18 05/31/18 19:00 07:00 Intake Total 558 ml 120 ml Balance 558 ml 120 ml Intake Oral 558 ml 120 ml # Voids 1 Laboratory Tests 05/31/18 06:20: White Blood Count 12.7H, Red Blood Count 2.94L, Hemoglobin 9.3L, Hematocrit 27.4L, Mean Corpuscular Volume 93, Mean Corpuscular Hemoglobin 31.5H, Mean Corpuscular Hemoglobin Concent 33.8, Red Cell Distribution Width 19.4H, Platelet Count 254, Mean Platelet Volume 8.1, Neutrophils (%) (Auto) 81.9H, Lymphocytes (%) (Auto) 7.1L, Monocytes (%) (Auto) 6.1, Eosinophils (%) (Auto) 4.6H, Basophils (%) (Auto) 0.3, Sodium Level 137, Potassium Level 4.5, Chloride Level 99, Carbon Dioxide Level 30, Anion Gap 8, Blood Urea Nitrogen 62H, Creatinine 8.0H, Estimat Glomerular Filtration Rate 7.1, Glucose Level 146H, Uric Acid 6.9, Calcium Level 7.5L, Phosphorus Level 3.7, Magnesium Level 2.6H, Total Bilirubin 1.3H, Direct Bilirubin 0.7H, Aspartate Amino Transf (AST/SGOT) 34, Alanine Aminotransferase (ALT/SGPT) 39, Alkaline Phosphatase 106, Total Protein 7.4, Albumin 2.4L, Globulin 5.0, Albumin/Globulin Ratio 0.5L Height (Feet): 5 Height (Inches): 6.00 Weight (Pounds): 181 General Appearance: no apparent distress Neck: normal alignment Cardiovascular: normal rate Respiratory/Chest: lungs clear Abdomen: normal bowel sounds Objective Current Medications Medications (Trade) Dose Ordered Sig/Santos Route PRN Reason Start Time Stop Time Status Last Admin Dose Admin Acetaminophen/ Hydrocodone Bitart ([place] 5/325) 1 tab Q4H PRN ORAL Moderate Pain (Pain Scale 4-6) 05/29/18 01:15 06/01/18 13:14 05/29/18 12:24 Clonidine HCl (Catapres Tab) 0.1 mg Q8HR ORAL 05/29/18 14:00 06/28/18 13:59 05/30/18 14:25 Dextrose (Dextrose 50%) 25 ml Q30M PRN IV Hypoglycemia 05/28/18 23:30 06/27/18 06:59 Dextrose (Dextrose 50%) 50 ml Q30M PRN IV Hypoglycemia 05/28/18 23:30 06/27/18 06:59 Docusate Sodium (Colace) 100 mg THREE TIMES A DAY ORAL 05/29/18 09:00 06/19/18 12:59 05/30/18 17:34 Epoetin Jayme (Procrit (for ESRD on dialysis)) 10,000 units MON-MON-MON SUBQ 05/30/18 21:00 06/22/18 20:59 05/30/18 21:38 Hydralazine HCl (Apresoline) 25 mg Q4H PRN ORAL BP 160 and above 05/29/18 02:30 06/23/18 10:29 05/31/18 04:35 Insulin Aspart (NovoLOG) BEFORE MEALS AND HS SUBQ 05/29/18 06:30 06/19/18 06:29 05/31/18 05:56 Insulin Aspart (NovoLOG) 3 units NOVOTIAC SUBQ 05/29/18 06:30 06/27/18 11:49 05/31/18 05:56 Insulin Detemir (Levemir) 12 units QHS SUBQ 05/30/18 21:00 06/20/18 11:59 05/30/18 20:37 Lactulose (Cephulac) 20 gm TWICE A DAY ORAL 05/29/18 09:00 06/20/18 05:59 05/30/18 17:34 Lorazepam (Ativan) 0.5 mg TIDPRN PRN ORAL For Anxiety 05/29/18 09:00 06/05/18 08:59 Metoprolol Tartrate (Lopressor) 50 mg Q12HR ORAL 05/29/18 09:00 06/23/18 20:59 05/30/18 20:28 Morphine Sulfate (Morphine Sulfate) 2 mg Q4H PRN IVP FOR SEVERE PAIN 05/29/18 02:45 06/03/18 06:44 Ondansetron HCl (Zofran) 4 mg TIDPRN PRN IVP Nausea & Vomiting 05/29/18 09:00 06/21/18 08:59 Pantoprazole (Protonix) 40 mg BID ORAL 05/29/18 09:00 06/22/18 17:59 05/30/18 17:34 Promethazine HCl/ Dextromethorphan (Phenergan DM) 6.25 mg Q6H PRN ORAL For Cough 05/29/18 00:00 06/23/18 11:59 Sevelamer Carbonate (Renvela) 1,600 mg THREE TIMES A DAY ORAL 05/29/18 09:00 06/20/18 12:59 05/30/18 17:34 Sodium Chloride 500 ml @ 999 mls/hr Q4H PRN IV SBP less than 100mmhg 05/29/18 01:00 06/19/18 08:59 Zolpidem Tartrate (Ambien) 5 mg HSPRN PRN ORAL Insomnia 05/29/18 19:45 06/04/18 19:44 05/31/18 00:23 Item Value Date Time Bedside Blood Glucose 135 mg/dl H 05/31/18 0630 Bedside Blood Glucose 252 mg/dl H 05/30/18 2100 Bedside Blood Glucose 168 mg/dl H 05/30/18 1630 Bedside Blood Glucose 126 mg/dl H 05/30/18 1152 Bedside Blood Glucose 203 mg/dl H 05/30/18 0630 Willard Bonds MD May 31, 2018 08:17
[2018-05-31] MEDS: Docusate 100mg cap ORAL SCH ×3 (08:43→17:26)
[2018-05-31] MEDS: Lactulose 20gm/30ml UDC ORAL SCH ×2 (08:43→17:26)
[2018-05-31] MEDS: Metoprolol Tartrate 50mg tab ORAL SCH ×2 (08:44→20:43)
--- NOTE | 2018-05-31 12:31 | Nephrology Progress Note ---
Assessment/Plan Problem List: (1) ESRD (end stage renal disease) on dialysis (2) Retroperitoneal hemorrhage (3) Shock (4) Anemia (5) Abdominal pain (6) Diabetes Assessment WBC lower presented with: hemorrhagic shock- Retro Peritoneal bleed Low BP on admission ESRD DM HTN transfused multiple times Plan HD next 06/01 WBCs lower Transfuse as needed, manage pain Per consultants / Urologist discussed with RN meds adjusted Subjective ROS Limited/Unobtainable: No Objective Objective Last 24 Hour Vital Signs Date Time Temp Pulse Resp B/P (MAP) Pulse Ox O2 Delivery O2 Flow Rate FiO2 05/31/18 11:39 192/95 05/31/18 09:00 Nasal Cannula 2.0 05/31/18 08:44 71 161/82 05/31/18 08:11 97.7 71 18 161/82 (108) 94 05/31/18 06:00 151/79 05/31/18 05:10 151/79 (103) 05/31/18 04:35 166/74 05/31/18 04:00 97.7 69 18 166/74 (104) 94 05/31/18 00:50 152/72 (98) 05/31/18 00:18 168/80 05/31/18 00:00 97.3 70 17 168/80 (109) 94 05/30/18 21:39 158/69 05/30/18 21:10 158/69 (98) 05/30/18 21:00 Room Air 05/30/18 20:28 71 170/82 05/30/18 20:00 97.1 71 18 170/81 (110) 96 05/30/18 17:44 167/83 05/30/18 16:00 98.1 74 18 169/75 (106) 95 05/30/18 14:25 189/89 Intake and Output 05/30/18 05/31/18 19:00 07:00 Intake Total 558 ml 120 ml Balance 558 ml 120 ml Intake Oral 558 ml 120 ml # Voids 1 Laboratory Tests 05/31/18 06:20: White Blood Count 12.7H, Red Blood Count 2.94L, Hemoglobin 9.3L, Hematocrit 27.4L, Mean Corpuscular Volume 93, Mean Corpuscular Hemoglobin 31.5H, Mean Corpuscular Hemoglobin Concent 33.8, Red Cell Distribution Width 19.4H, Platelet Count 254, Mean Platelet Volume 8.1, Neutrophils (%) (Auto) 81.9H, Lymphocytes (%) (Auto) 7.1L, Monocytes (%) (Auto) 6.1, Eosinophils (%) (Auto) 4.6H, Basophils (%) (Auto) 0.3, Sodium Level 137, Potassium Level 4.5, Chloride Level 99, Carbon Dioxide Level 30, Anion Gap 8, Blood Urea Nitrogen 62H, Creatinine 8.0H, Estimat Glomerular Filtration Rate 7.1, Glucose Level 146H, Uric Acid 6.9, Calcium Level 7.5L, Phosphorus Level 3.7, Magnesium Level 2.6H, Total Bilirubin 1.3H, Direct Bilirubin 0.7H, Aspartate Amino Transf (AST/SGOT) 34, Alanine Aminotransferase (ALT/SGPT) 39, Alkaline Phosphatase 106, Total Protein 7.4, Albumin 2.4L, Globulin 5.0, Albumin/Globulin Ratio 0.5L Height (Feet): 5 Height (Inches): 6.00 Weight (Pounds): 181 General Appearance: no apparent distress Objective no change Dm Lopez MD May 31, 2018 12:31
--- NOTE | 2018-05-31 13:16 | General Progress Note ---
Assessment/Plan Assessment/Plan S: I am ok and my flank pain is ok O: appears in No distress. Complains of mild right sided abdominal pain . no Nausea. No gross visible bleeding reported PHYSICAL EXAMINATION: HEAD AND NECK: Atraumatic and normocephalic. CHEST: Clear to auscultation. No wheezing. No crackles. HEART: S1 and S2. Regular rate and rhythm. ABDOMEN: Tender noted. Negative for rebound tenderness. NEUROLOGIC: The patient is awake, alert, and oriented x3. PSYCHIATRIC: Mood and affect are appropriate and normal. MUSCULOSKELETAL: No gross lateralized motor deficit. Left arm AV F/G is noted, with no erythma or tenderness Meds: reviewed and reconciled, including Lnatus 9 u qhs plus Fixed meal time insulin IMAGING: CT scan of abdomen and pelvis dated May 28, 2018 reviewed showing intervan incraese in the right perinephric hematoma. the repeat CT is pending ASSESSMENT AND PLAN: 1. Acute Right Perinephric Hemorrhage 3. Acute anemia. 4. Diabetes type 5 Hypovolemic Shock : Stable 6. GI-DVT prophylaxis 7. HTN: uncontrolled 8. Leukocytosis: with no evidence of acute Active infection Plan: will monitor HH, Will proceed with PRBC transfusion with Hgb < 7.3 Notes from Urology , Nephro, Endo, Critical specialist are reviewed Stable appearance of right perinephric hematoma by imaging Optimization of BP meds No evidence for active acute infection. Will monitor per ID Discussed the care with Dr Damon , urology. Serious but Stable cnd at this time D/w urology. In view of continued decline in Hgb level and interval increase in Hematoma. Agreed to transfer to higher level of care. will monitor HH in the interim CM for followup on Accepting Higher Level of care Subjective Allergies: Coded Allergies: No Known Allergies (Unverified , 05/20/18) Objective Last 24 Hour Vital Signs Date Time Temp Pulse Resp B/P (MAP) Pulse Ox O2 Delivery O2 Flow Rate FiO2 05/31/18 12:33 97.4 70 21 193/92 (125) 97 05/31/18 11:39 192/95 05/31/18 09:00 Nasal Cannula 2.0 05/31/18 08:44 71 161/82 05/31/18 08:11 97.7 71 18 161/82 (108) 94 11/15/18 06:00 151/79 05/31/18 05:10 151/79 (103) 05/31/18 04:35 166/74 05/31/18 04:00 97.7 69 18 166/74 (104) 94 05/31/18 00:50 152/72 (98) 05/31/18 00:18 168/80 05/31/18 00:00 97.3 70 17 168/80 (109) 94 05/30/18 21:39 158/69 05/30/18 21:10 158/69 (98) 05/30/18 21:00 Room Air 05/30/18 20:28 71 170/82 05/30/18 20:00 97.1 71 18 170/81 (110) 96 05/30/18 17:44 167/83 05/30/18 16:00 98.1 74 18 169/75 (106) 95 05/30/18 14:25 189/89 Intake and Output 05/30/18 05/31/18 19:00 07:00 Intake Total 558 ml 120 ml Balance 558 ml 120 ml Intake Oral 558 ml 120 ml # Voids 1 Laboratory Tests 05/31/18 06:20: White Blood Count 12.7H, Red Blood Count 2.94L, Hemoglobin 9.3L, Hematocrit 27.4L, Mean Corpuscular Volume 93, Mean Corpuscular Hemoglobin 31.5H, Mean Corpuscular Hemoglobin Concent 33.8, Red Cell Distribution Width 19.4H, Platelet Count 254, Mean Platelet Volume 8.1, Neutrophils (%) (Auto) 81.9H, Lymphocytes (%) (Auto) 7.1L, Monocytes (%) (Auto) 6.1, Eosinophils (%) (Auto) 4.6H, Basophils (%) (Auto) 0.3, Sodium Level 137, Potassium Level 4.5, Chloride Level 99, Carbon Dioxide Level 30, Anion Gap 8, Blood Urea Nitrogen 62H, Creatinine 8.0H, Estimat Glomerular Filtration Rate 7.1, Glucose Level 146H, Uric Acid 6.9, Calcium Level 7.5L, Phosphorus Level 3.7, Magnesium Level 2.6H, Total Bilirubin 1.3H, Direct Bilirubin 0.7H, Aspartate Amino Transf (AST/SGOT) 34, Alanine Aminotransferase (ALT/SGPT) 39, Alkaline Phosphatase 106, Total Protein 7.4, Albumin 2.4L, Globulin 5.0, Albumin/Globulin Ratio 0.5L Height (Feet): 5 Height (Inches): 6.00 Weight (Pounds): 181 Baljit Flores MD May 31, 2018 13:16
--- NOTE | 2018-05-31 14:56 | Pulmonology Progress Note ---
Assessment/Plan Assessment/Plan Pulmonary Progress Note Patient with: (1) Previous Shock (2) Diabetes (3) ESRD (end stage renal disease) on dialysis (4) Retroperitoneal hemorrhage involving right kidney (5) Anemia persists Assessment/Plan No new complaints CXR noted PRN anti-tussives PRN HHN's Monitor CBC, transfuse as needed Monitor hemodynamics and volumes HD per renal F/U recs, no plan for operation at this time Zosyn per ID, F/U Cx's DVT Px: SCD's SSI Pain control/supportive care Subjective Allergies: Coded Allergies: No Known Allergies (Unverified , 05/20/18) Subjective HH stable AFVSS on 2L, getting HD Less flank abd pain + cough, no SOB no F/C Objective Vital Signs Noted Laboratory Tests 05/24/18 03:00: White Blood Count 9.6, Red Blood Count 2.62L, Hemoglobin 8.1L, Hematocrit 23.7L , Mean Corpuscular Volume 90, Mean Corpuscular Hemoglobin 30.9, Mean Corpuscular Hemoglobin Concent 34.1, Red Cell Distribution Width 13.6, Platelet Count 139L, Mean Platelet Volume 10.5H, Neutrophils (%) (Auto) 83.4H, Lymphocytes (%) (Auto) 6.7L, Monocytes (%) (Auto) 7.6, Eosinophils (%) (Auto) 1.7, Basophils (%) (Auto) 0.6, Sodium Level 139, Potassium Level 3.6, Chloride Level 97L, Carbon Dioxide Level 30, Anion Gap 12, Blood Urea Nitrogen 50H, Creatinine 6.8H, Estimat Glomerular Filtration Rate 8.6, Glucose Level 138H, Calcium Level 8.0L, Phosphorus Level 3.0, Magnesium Level 2.5H, Total Bilirubin 0.9, Aspartate Amino Transf (AST/SGOT) 31, Alanine Aminotransferase (ALT/SGPT) 35, Alkaline Phosphatase 61, Total Protein 7.6, Albumin 2.6L, Globulin 5.0, Albumin/Globulin Ratio 0.5L 05/24/18 11:10: Stool Occult Blood [Pending] 05/24/18 15:00: Stool Occult Blood [Pending] Current Medications Medications (Trade) Dose Ordered Sig/Santos Route PRN Reason Start Time Stop Time Status Last Admin Dose Admin Acetaminophen/ Hydrocodone Bitart ([place] 5/325) 1 tab TIDPRN PRN ORAL Moderate Pain (Pain Scale 4-6) 05/22/18 09:00 05/29/18 08:59 05/24/18 16:35 Dextrose (Dextrose 50%) 25 ml Q30M PRN IV Hypoglycemia 05/22/18 09:00 06/19/18 08:59 Dextrose (Dextrose 50%) 50 ml Q30M PRN IV Hypoglycemia 05/22/18 09:00 06/19/18 08:59 Docusate Sodium (Colace) 100 mg THREE TIMES A DAY ORAL 05/22/18 09:00 06/19/18 12:59 05/24/18 12:57 Epoetin Jayme (Procrit (for ESRD on dialysis)) 10,000 units MON-MON-MON SUBQ 05/23/18 21:00 06/22/18 20:59 05/23/18 21:25 Hydralazine HCl (Apresoline) 25 mg Q4H PRN ORAL BP 160 and above 05/24/18 10:30 06/23/18 10:29 05/24/18 12:57 Insulin Aspart (NovoLOG) BEFORE MEALS AND HS SUBQ 05/22/18 11:30 06/19/18 06:29 05/24/18 12:10 Insulin Detemir (Levemir) 6 units DAILY SUBQ 05/22/18 09:00 06/20/18 11:59 05/24/18 09:03 Iron Sucrose 100 mg/Sodium Chloride 55 ml @ 200 mls/hr BEDTIME IV 05/24/18 21:00 05/27/18 21:17 Lactulose (Cephulac) 20 gm TWICE A DAY ORAL 05/22/18 09:00 06/20/18 05:59 05/24/18 08:55 Lorazepam (Ativan) 0.5 mg TIDPRN PRN ORAL For Anxiety 05/22/18 09:00 05/29/18 08:59 Metoprolol Tartrate (Lopressor) 12.5 mg Q12HR ORAL 05/24/18 21:00 06/23/18 20:59 Ondansetron HCl (Zofran) 4 mg TIDPRN PRN IVP Nausea & Vomiting 05/22/18 09:00 06/21/18 08:59 Pantoprazole (Protonix) 40 mg BID ORAL 05/23/18 18:00 06/22/18 17:59 05/24/18 08:58 Piperacillin Sod/ Tazobactam Sod 2.25 gm/Dextrose 55 ml @ 110 mls/hr Q8HR IVPB 05/22/18 15:00 05/27/18 14:59 05/24/18 13:59 Promethazine HCl/ Dextromethorphan (Phenergan DM) 6.25 mg Q6H PRN ORAL For Cough 05/24/18 12:00 06/23/18 11:59 05/24/18 12:16 Sevelamer Carbonate (Renvela) 1,600 mg THREE TIMES A DAY ORAL 05/23/18 13:00 06/20/18 12:59 05/24/18 12:57 Sodium Chloride 500 ml @ 999 mls/hr Q4H PRN IV SBP less than 100mmhg 05/22/18 09:00 06/19/18 08:59 Subjective ROS Limited/Unobtainable: No Allergies: Coded Allergies: No Known Allergies (Unverified , 05/20/18) Objective Last 24 Hour Vital Signs Date Time Temp Pulse Resp B/P (MAP) Pulse Ox O2 Delivery O2 Flow Rate FiO2 05/31/18 14:00 158/72 05/31/18 12:33 97.4 70 21 193/92 (125) 97 05/31/18 11:39 192/95 05/31/18 09:00 Nasal Cannula 2.0 05/31/18 08:44 71 161/82 05/31/18 08:11 97.7 71 18 161/82 (108) 94 05/31/18 06:00 151/79 05/31/18 05:10 151/79 (103) 05/31/18 04:35 166/74 05/31/18 04:00 97.7 69 18 166/74 (104) 94 05/31/18 00:50 152/72 (98) 05/31/18 00:18 168/80 05/31/18 00:00 97.3 70 17 168/80 (109) 94 05/30/18 21:39 158/69 05/30/18 21:10 158/69 (98) 05/30/18 21:00 Room Air 05/30/18 20:28 71 170/82 05/30/18 20:00 97.1 71 18 170/81 (110) 96 05/30/18 17:44 167/83 05/30/18 16:00 98.1 74 18 169/75 (106) 95 Intake and Output 05/30/18 05/31/18 19:00 07:00 Intake Total 558 ml 120 ml Balance 558 ml 120 ml Intake Oral 558 ml 120 ml # Voids 1 Laboratory Tests 05/31/18 06:20: White Blood Count 12.7H, Red Blood Count 2.94L, Hemoglobin 9.3L, Hematocrit 27.4L, Mean Corpuscular Volume 93, Mean Corpuscular Hemoglobin 31.5H, Mean Corpuscular Hemoglobin Concent 33.8, Red Cell Distribution Width 19.4H, Platelet Count 254, Mean Platelet Volume 8.1, Neutrophils (%) (Auto) 81.9H, Lymphocytes (%) (Auto) 7.1L, Monocytes (%) (Auto) 6.1, Eosinophils (%) (Auto) 4.6H, Basophils (%) (Auto) 0.3, Sodium Level 137, Potassium Level 4.5, Chloride Level 99, Carbon Dioxide Level 30, Anion Gap 8, Blood Urea Nitrogen 62H, Creatinine 8.0H, Estimat Glomerular Filtration Rate 7.1, Glucose Level 146H, Uric Acid 6.9, Calcium Level 7.5L, Phosphorus Level 3.7, Magnesium Level 2.6H, Total Bilirubin 1.3H, Direct Bilirubin 0.7H, Aspartate Amino Transf (AST/SGOT) 34, Alanine Aminotransferase (ALT/SGPT) 39, Alkaline Phosphatase 106, Total Protein 7.4, Albumin 2.4L, Globulin 5.0, Albumin/Globulin Ratio 0.5L Current Medications Medications (Trade) Dose Ordered Sig/Santos Route PRN Reason Start Time Stop Time Status Last Admin Dose Admin Acetaminophen/ Hydrocodone Bitart ([place] 5/325) 1 tab Q4H PRN ORAL Moderate Pain (Pain Scale 4-6) 05/29/18 01:15 06/01/18 13:14 05/29/18 12:24 Clonidine HCl (Catapres Tab) 0.1 mg Q8HR ORAL 05/29/18 14:00 06/28/18 13:59 05/30/18 14:25 Dextrose (Dextrose 50%) 25 ml Q30M PRN IV Hypoglycemia 05/28/18 23:30 06/27/18 06:59 Dextrose (Dextrose 50%) 50 ml Q30M PRN IV Hypoglycemia 05/28/18 23:30 06/27/18 06:59 Docusate Sodium (Colace) 100 mg THREE TIMES A DAY ORAL 05/29/18 09:00 06/19/18 12:59 05/31/18 12:07 Epoetin Jayme (Procrit (for ESRD on dialysis)) 10,000 units MON-MON-MON SUBQ 05/30/18 21:00 06/22/18 20:59 05/30/18 21:38 Hydralazine HCl (Apresoline) 25 mg Q4H PRN ORAL BP 160 and above 05/29/18 02:30 06/23/18 10:29 05/31/18 11:39 Insulin Aspart (NovoLOG) BEFORE MEALS AND HS SUBQ 05/29/18 06:30 06/19/18 06:29 05/31/18 11:41 Insulin Aspart (NovoLOG) 3 units NOVOTIAC SUBQ 05/29/18 06:30 06/27/18 11:49 05/31/18 11:42 Insulin Detemir (Levemir) 12 units QHS SUBQ 05/30/18 21:00 06/20/18 11:59 05/30/18 20:37 Lactulose (Cephulac) 20 gm TWICE A DAY ORAL 05/29/18 09:00 06/20/18 05:59 05/31/18 08:43 Lorazepam (Ativan) 0.5 mg TIDPRN PRN ORAL For Anxiety 05/29/18 09:00 06/05/18 08:59 Metoprolol Tartrate (Lopressor) 50 mg Q12HR ORAL 05/29/18 09:00 06/23/18 20:59 05/31/18 08:44 Morphine Sulfate (Morphine Sulfate) 2 mg Q4H PRN IVP FOR SEVERE PAIN 05/29/18 02:45 06/03/18 06:44 Ondansetron HCl (Zofran) 4 mg TIDPRN PRN IVP Nausea & Vomiting 05/29/18 09:00 06/21/18 08:59 Pantoprazole (Protonix) 40 mg BID ORAL 05/29/18 09:00 06/22/18 17:59 05/31/18 08:43 Promethazine HCl/ Dextromethorphan (Phenergan DM) 6.25 mg Q6H PRN ORAL For Cough 05/29/18 00:00 06/23/18 11:59 Sevelamer Carbonate (Renvela) 1,600 mg THREE TIMES A DAY ORAL 05/29/18 09:00 06/20/18 12:59 05/31/18 12:07 Sodium Chloride 500 ml @ 999 mls/hr Q4H PRN IV SBP less than 100mmhg 05/29/18 01:00 06/19/18 08:59 Zolpidem Tartrate (Ambien) 5 mg HSPRN PRN ORAL Insomnia 05/29/18 19:45 06/04/18 19:44 05/31/18 00:23 Tae Velazco MD May 31, 2018 14:56
--- NOTE | 2018-05-31 14:57 | GI Progress Note ---
Assessment/Plan Problems: (1) Retroperitoneal hemorrhage ICD Codes: R58 - Hemorrhage, not elsewhere classified SNOMED: 96324425 (2) Anemia ICD Codes: D64.9 - Anemia, unspecified SNOMED: 951184627 (3) Diabetes ICD Codes: E11.9 - Type 2 diabetes mellitus without complications SNOMED: 54849772 (4) Abdominal pain ICD Codes: R10.9 - Unspecified abdominal pain SNOMED: 48334076 (5) Shock ICD Codes: R57.9 - Shock, unspecified SNOMED: 01674240 (6) ESRD (end stage renal disease) on dialysis ICD Codes: N18.6 - End stage renal disease; Z99.2 - Dependence on renal dialysis SNOMED: 995380597 Status: stable Status Narrative Discussed with Dr. Mcgee. Assessment/Plan CT AP reviewed >> Large complex hemorrhage/hemorrhagic mass occupying majority of the right kidney with extensive perinephric fluid/blood extending into the retroperitoneum and pelvis. iron deficiency OB stool negative x2 Anemia, most likely due to chronic disease venofer renal diet ppi BID prn transfusions abx fu surgical recommendations fu labs The patient was seen and examined at bedside and all new and available data was reviewed in the patients chart. I agree with the above findings, impression and plan. (Patient seen earlier today. Signature stamp does not reflect patient encounter time.). - Elvis Mcgee MD Subjective Subjective limited Objective Last 24 Hour Vital Signs Date Time Temp Pulse Resp B/P (MAP) Pulse Ox O2 Delivery O2 Flow Rate FiO2 05/31/18 14:00 158/72 05/31/18 12:33 97.4 70 21 193/92 (125) 97 05/31/18 11:39 192/95 05/31/18 09:00 Nasal Cannula 2.0 05/31/18 08:44 71 161/82 05/31/18 08:11 97.7 71 18 161/82 (108) 94 05/31/18 06:00 151/79 05/31/18 05:10 151/79 (103) 05/31/18 04:35 166/74 05/31/18 04:00 97.7 69 18 166/74 (104) 94 05/31/18 00:50 152/72 (98) 05/31/18 00:18 168/80 05/31/18 00:00 97.3 70 17 168/80 (109) 94 05/30/18 21:39 158/69 05/30/18 21:10 158/69 (98) 05/30/18 21:00 Room Air 05/30/18 20:28 71 170/82 05/30/18 20:00 97.1 71 18 170/81 (110) 96 05/30/18 17:44 167/83 05/30/18 16:00 98.1 74 18 169/75 (106) 95 Intake and Output 05/30/18 05/31/18 19:00 07:00 Intake Total 558 ml 120 ml Balance 558 ml 120 ml Intake Oral 558 ml 120 ml # Voids 1 Laboratory Tests Test 05/31/18 06:20 White Blood Count 12.7 K/UL (4.8-10.8) H Red Blood Count 2.94 M/UL (4.70-6.10) L Hemoglobin 9.3 G/DL (14.2-18.0) L Hematocrit 27.4 % (42.0-52.0) L Mean Corpuscular Volume 93 FL (80-99) Mean Corpuscular Hemoglobin 31.5 PG (27.0-31.0) H Mean Corpuscular Hemoglobin Concent 33.8 G/DL (32.0-36.0) Red Cell Distribution Width 19.4 % (11.6-14.8) H Platelet Count 254 K/UL (150-450) Mean Platelet Volume 8.1 FL (6.5-10.1) Neutrophils (%) (Auto) 81.9 % (45.0-75.0) H Lymphocytes (%) (Auto) 7.1 % (20.0-45.0) L Monocytes (%) (Auto) 6.1 % (1.0-10.0) Eosinophils (%) (Auto) 4.6 % (0.0-3.0) H Basophils (%) (Auto) 0.3 % (0.0-2.0) Sodium Level 137 MMOL/L (136-145) Potassium Level 4.5 MMOL/L (3.5-5.1) Chloride Level 99 MMOL/L (98-107) Carbon Dioxide Level 30 MMOL/L (21-32) Anion Gap 8 mmol/L (5-15) Blood Urea Nitrogen 62 mg/dL (7-18) H Creatinine 8.0 MG/DL (0.55-1.30) H Estimat Glomerular Filtration Rate 7.1 mL/min (>60) Glucose Level 146 MG/DL (74-106) H Uric Acid 6.9 MG/DL (2.6-7.2) Calcium Level 7.5 MG/DL (8.5-10.1) L Phosphorus Level 3.7 MG/DL (2.5-4.9) Magnesium Level 2.6 MG/DL (1.8-2.4) H Total Bilirubin 1.3 MG/DL (0.2-1.0) H Direct Bilirubin 0.7 MG/DL (0.0-0.3) H Aspartate Amino Transf (AST/SGOT) 34 U/L (15-37) Alanine Aminotransferase (ALT/SGPT) 39 U/L (12-78) Alkaline Phosphatase 106 U/L (46-116) Total Protein 7.4 G/DL (6.4-8.2) Albumin 2.4 G/DL (3.4-5.0) L Globulin 5.0 g/dL Albumin/Globulin Ratio 0.5 (1.0-2.7) L Height (Feet): 5 Height (Inches): 6.00 Weight (Pounds): 181 General Appearance: WD/WN, no apparent distress, alert Cardiovascular: normal rate Respiratory/Chest: normal breath sounds, no respiratory distress Abdominal Exam: normal bowel sounds, non tender, soft Extremities: normal range of motion, non-tender Mansoor Allen [employer] May 31, 2018 14:57
--- NOTE | 2018-05-31 17:45 | Infectious Diseases Prog Note ---
Assessment/Plan Problems: (1) Leukocytosis Assessment & Plan: suspect due to recurrent bleeding which he required multiple transfusion for , S/P zosyn for 6 days , doubt infectious etiology with no fever and negative cultures . CT abd/pelvis yesterday showed increasing in the size of the right side hematoma , which is most likely the source , repeated blood culture is negative. monitor off antibiotics. (2) Renal hematoma, right Assessment & Plan: with extension to the retroperitoneal area , continue close monitor of H/H and serial images for follow up, watch out for abscess formation. CT abd/pelvis yesterday showed increasing in the size of the right side hematoma. will need arterial embolization by IR, pending transfer to [facility] (3) Retroperitoneal hemorrhage Assessment & Plan: continue H/H monitoring with blood transfusion , and serial imaging for follow up, avoid anticoagulation (4) ESRD (end stage renal disease) on dialysis Assessment & Plan: on HD, renal is following (5) Diabetes Assessment & Plan: recommend tight glycemic control to keep blood glucose between 100-140 Subjective Constitutional: Reports: no symptoms HEENT: Reports: no symptoms Respiratory: Reports: no symptoms Breasts: Reports: no symptoms Cardiovascular: Reports: no symptoms Gastrointestinal/Abdominal: Reports: no symptoms Genitourinary: Reports: no symptoms Neurologic: Reports: no symptoms Psychiatric: Reports: no symptoms Skin: Reports: no symptoms Endocrine: Reports: no symptoms Hematologic: Reports: no symptoms Musculoskeletal: Reports: no symptoms Allergies: Coded Allergies: No Known Allergies (Unverified , 05/20/18) Subjective he has mild flank pain today and discomfort, no fever or chills, no cough or SOB , getting blood transfusion Objective Vital Signs Last 24 Hour Vital Signs Date Time Temp Pulse Resp B/P (MAP) Pulse Ox O2 Delivery O2 Flow Rate FiO2 05/31/18 16:55 174/91 05/31/18 15:51 97.9 70 20 174/91 (118) 97 05/31/18 14:00 158/72 05/31/18 12:33 97.4 70 21 193/92 (125) 97 05/31/18 11:39 192/95 05/31/18 09:00 Nasal Cannula 2.0 05/31/18 08:44 71 161/82 05/31/18 08:11 97.7 71 18 161/82 (108) 94 05/31/18 06:00 151/79 05/31/18 05:10 151/79 (103) 05/31/18 04:35 166/74 05/31/18 04:00 97.7 69 18 166/74 (104) 94 05/31/18 00:50 152/72 (98) 05/31/18 00:18 168/80 05/31/18 00:00 97.3 70 17 168/80 (109) 94 05/30/18 21:39 158/69 05/30/18 21:10 158/69 (98) 05/30/18 21:00 Room Air 05/30/18 20:28 71 170/82 05/30/18 20:00 97.1 71 18 170/81 (110) 96 05/30/18 17:44 167/83 Height (Feet): 5 Height (Inches): 6.00 Weight (Pounds): 181 General Appearance: WD/WN, no acute distress HEENT: normocephalic, atraumatic, anicteric, mucous membranes moist Respiratory/Chest: chest wall non-tender, lungs clear, normal breath sounds, no respiratory distress, no accessory muscle use Cardiovascular: normal peripheral pulses, normal rate, regular rhythm, no gallop/murmur, no JVD Abdomen: normal bowel sounds, soft, non tender, no organomegaly, non distended , no mass, no scars Genitourinary: normal external genitalia Extremities: no cyanosis, no clubbing Skin: no rash, no lesions, no ulcers Neurologic/Psychiatric: alert, oriented x 3, responsive Lymphatic: no neck adenopathy, no groin adenopathy Musculoskeletal: normal muscle bulk, no effusion Laboratory Tests Test 05/31/18 06:20 White Blood Count 12.7 K/UL (4.8-10.8) H Red Blood Count 2.94 M/UL (4.70-6.10) L Hemoglobin 9.3 G/DL (14.2-18.0) L Hematocrit 27.4 % (42.0-52.0) L Mean Corpuscular Volume 93 FL (80-99) Mean Corpuscular Hemoglobin 31.5 PG (27.0-31.0) H Mean Corpuscular Hemoglobin Concent 33.8 G/DL (32.0-36.0) Red Cell Distribution Width 19.4 % (11.6-14.8) H Platelet Count 254 K/UL (150-450) Mean Platelet Volume 8.1 FL (6.5-10.1) Neutrophils (%) (Auto) 81.9 % (45.0-75.0) H Lymphocytes (%) (Auto) 7.1 % (20.0-45.0) L Monocytes (%) (Auto) 6.1 % (1.0-10.0) Eosinophils (%) (Auto) 4.6 % (0.0-3.0) H Basophils (%) (Auto) 0.3 % (0.0-2.0) Sodium Level 137 MMOL/L (136-145) Potassium Level 4.5 MMOL/L (3.5-5.1) Chloride Level 99 MMOL/L (98-107) Carbon Dioxide Level 30 MMOL/L (21-32) Anion Gap 8 mmol/L (5-15) Blood Urea Nitrogen 62 mg/dL (7-18) H Creatinine 8.0 MG/DL (0.55-1.30) H Estimat Glomerular Filtration Rate 7.1 mL/min (>60) Glucose Level 146 MG/DL (74-106) H Uric Acid 6.9 MG/DL (2.6-7.2) Calcium Level 7.5 MG/DL (8.5-10.1) L Phosphorus Level 3.7 MG/DL (2.5-4.9) Magnesium Level 2.6 MG/DL (1.8-2.4) H Total Bilirubin 1.3 MG/DL (0.2-1.0) H Direct Bilirubin 0.7 MG/DL (0.0-0.3) H Aspartate Amino Transf (AST/SGOT) 34 U/L (15-37) Alanine Aminotransferase (ALT/SGPT) 39 U/L (12-78) Alkaline Phosphatase 106 U/L (46-116) Total Protein 7.4 G/DL (6.4-8.2) Albumin 2.4 G/DL (3.4-5.0) L Globulin 5.0 g/dL Albumin/Globulin Ratio 0.5 (1.0-2.7) L Current Medications Medications (Trade) Dose Ordered Sig/Santos Route PRN Reason Start Time Stop Time Status Last Admin Dose Admin Acetaminophen/ Hydrocodone Bitart ([place] 5/325) 1 tab Q4H PRN ORAL Moderate Pain (Pain Scale 4-6) 05/29/18 01:15 06/01/18 13:14 05/29/18 12:24 Clonidine HCl (Catapres Tab) 0.1 mg Q8HR ORAL 05/29/18 14:00 06/28/18 13:59 05/30/18 14:25 Dextrose (Dextrose 50%) 25 ml Q30M PRN IV Hypoglycemia 05/28/18 23:30 06/27/18 06:59 Dextrose (Dextrose 50%) 50 ml Q30M PRN IV Hypoglycemia 05/28/18 23:30 06/27/18 06:59 Docusate Sodium (Colace) 100 mg THREE TIMES A DAY ORAL 05/29/18 09:00 06/19/18 12:59 05/31/18 17:26 Epoetin Jayme (Procrit (for ESRD on dialysis)) 10,000 units MON-MON-MON SUBQ 05/30/18 21:00 06/22/18 20:59 05/30/18 21:38 Hydralazine HCl (Apresoline) 25 mg Q4H PRN ORAL BP 160 and above 05/29/18 02:30 06/23/18 10:29 05/31/18 16:55 Insulin Aspart (NovoLOG) BEFORE MEALS AND HS SUBQ 05/29/18 06:30 06/19/18 06:29 05/31/18 16:57 Insulin Aspart (NovoLOG) 3 units NOVOTIAC SUBQ 05/29/18 06:30 06/27/18 11:49 05/31/18 16:56 Insulin Detemir (Levemir) 12 units QHS SUBQ 05/30/18 21:00 06/20/18 11:59 05/30/18 20:37 Lactulose (Cephulac) 20 gm TWICE A DAY ORAL 05/29/18 09:00 06/20/18 05:59 05/31/18 17:26 Lorazepam (Ativan) 0.5 mg TIDPRN PRN ORAL For Anxiety 05/29/18 09:00 06/05/18 08:59 Metoprolol Tartrate (Lopressor) 50 mg Q12HR ORAL 05/29/18 09:00 06/23/18 20:59 05/31/18 08:44 Morphine Sulfate (Morphine Sulfate) 2 mg Q4H PRN IVP FOR SEVERE PAIN 05/29/18 02:45 06/03/18 06:44 Ondansetron HCl (Zofran) 4 mg TIDPRN PRN IVP Nausea & Vomiting 05/29/18 09:00 06/21/18 08:59 Pantoprazole (Protonix) 40 mg BID ORAL 05/29/18 09:00 06/22/18 17:59 05/31/18 17:26 Promethazine HCl/ Dextromethorphan (Phenergan DM) 6.25 mg Q6H PRN ORAL For Cough 05/29/18 00:00 06/23/18 11:59 Sevelamer Carbonate (Renvela) 1,600 mg THREE TIMES A DAY ORAL 05/29/18 09:00 06/20/18 12:59 05/31/18 17:26 Sodium Chloride 500 ml @ 999 mls/hr Q4H PRN IV SBP less than 100mmhg 05/29/18 01:00 06/19/18 08:59 Zolpidem Tartrate (Ambien) 5 mg HSPRN PRN ORAL Insomnia 05/29/18 19:45 06/04/18 19:44 05/31/18 00:23 Rowena Garcia M.D. May 31, 2018 17:45
--- NOTE | 2018-05-31 19:59 | General Progress Note ---
Assessment/Plan Status: stable, progressing Assessment/Plan anxiety d/o ativan prn provided ro/st Subjective Neurologic/Psychiatric: Reports: anxiety, depressed, emotional problems Allergies: Coded Allergies: No Known Allergies (Unverified , 05/20/18) Objective Last 24 Hour Vital Signs Date Time Temp Pulse Resp B/P (MAP) Pulse Ox O2 Delivery O2 Flow Rate FiO2 05/31/18 16:55 174/91 05/31/18 15:51 97.9 70 20 174/91 (118) 97 05/31/18 14:00 158/72 05/31/18 12:33 97.4 70 21 193/92 (125) 97 05/31/18 11:39 192/95 05/31/18 09:00 Nasal Cannula 2.0 05/31/18 08:44 71 161/82 05/31/18 08:11 97.7 71 18 161/82 (108) 94 05/31/18 06:00 151/79 05/31/18 05:10 151/79 (103) 05/31/18 04:35 166/74 05/31/18 04:00 97.7 69 18 166/74 (104) 94 05/31/18 00:50 152/72 (98) 05/31/18 00:18 168/80 05/31/18 00:00 97.3 70 17 168/80 (109) 94 05/30/18 21:39 158/69 05/30/18 21:10 158/69 (98) 05/30/18 21:00 Room Air 05/30/18 20:28 71 170/82 05/30/18 20:00 97.1 71 18 170/81 (110) 96 Intake and Output 05/30/18 05/31/18 18:59 06:59 Intake Total 558 ml 120 ml Balance 558 ml 120 ml Intake Oral 558 ml 120 ml # Voids 1 Laboratory Tests 05/31/18 06:20: White Blood Count 12.7H, Red Blood Count 2.94L, Hemoglobin 9.3L, Hematocrit 27.4L, Mean Corpuscular Volume 93, Mean Corpuscular Hemoglobin 31.5H, Mean Corpuscular Hemoglobin Concent 33.8, Red Cell Distribution Width 19.4H, Platelet Count 254, Mean Platelet Volume 8.1, Neutrophils (%) (Auto) 81.9H, Lymphocytes (%) (Auto) 7.1L, Monocytes (%) (Auto) 6.1, Eosinophils (%) (Auto) 4.6H, Basophils (%) (Auto) 0.3, Sodium Level 137, Potassium Level 4.5, Chloride Level 99, Carbon Dioxide Level 30, Anion Gap 8, Blood Urea Nitrogen 62H, Creatinine 8.0H, Estimat Glomerular Filtration Rate 7.1, Glucose Level 146H, Uric Acid 6.9, Calcium Level 7.5L, Phosphorus Level 3.7, Magnesium Level 2.6H, Total Bilirubin 1.3H, Direct Bilirubin 0.7H, Aspartate Amino Transf (AST/SGOT) 34, Alanine Aminotransferase (ALT/SGPT) 39, Alkaline Phosphatase 106, Total Protein 7.4, Albumin 2.4L, Globulin 5.0, Albumin/Globulin Ratio 0.5L Height (Feet): 5 Height (Inches): 6.00 Weight (Pounds): 181 General Appearance: no apparent distress, alert Neurologic: oriented x 3, responsive, depressed affect Chris Driscoll MD May 31, 2018 19:59
[2018-05-31] MEDS: Levemir Flexpen SUBQ SCH (21:04)
[2018-05-31] MEDS: Norco 5mg/325mg tab ORAL PRN (21:09)
--- NOTE | 2018-05-31 22:51 | Urology Progress Note ---
Assessment/Plan Status: doing well, stable Assessment/Plan RP hematoma 2/2 renal bleed Prev slowed but not stopped after conservative measures Hct has improved and stablized now. Still awaiting transfer for consideration of angioembolization but may not be needed if continues improvement. D/W pt Subjective Date patient seen: May 31, 2018 Time patient seen: 22:48 ROS Limited/Unobtainable: No Allergies: Coded Allergies: No Known Allergies (Unverified , 05/20/18) All Systems: reviewed and negative except above Objective Last 24 Hour Vital Signs Date Time Temp Pulse Resp B/P (MAP) Pulse Ox O2 Delivery O2 Flow Rate FiO2 05/31/18 22:20 72 171/91 (117) 05/31/18 22:00 171/91 05/31/18 21:39 97.7 05/31/18 20:43 72 181/91 05/31/18 20:11 97.7 72 19 181/91 (121) 92 05/31/18 16:55 174/91 05/31/18 15:51 97.9 70 20 174/91 (118) 97 05/31/18 14:00 158/72 05/31/18 12:33 97.4 70 21 193/92 (125) 97 05/31/18 11:39 192/95 05/31/18 09:00 Nasal Cannula 2.0 05/31/18 08:44 71 161/82 05/31/18 08:11 97.7 71 18 161/82 (108) 94 05/31/18 06:00 151/79 05/31/18 05:10 151/79 (103) 05/31/18 04:35 166/74 05/31/18 04:00 97.7 69 18 166/74 (104) 94 05/31/18 00:50 152/72 (98) 05/31/18 00:18 168/80 05/31/18 00:00 97.3 70 17 168/80 (109) 94 Intake and Output 05/30/18 05/31/18 18:59 06:59 Intake Total 558 ml 120 ml Balance 558 ml 120 ml Intake Oral 558 ml 120 ml # Voids 1 Laboratory Tests 05/31/18 06:20: White Blood Count 12.7H, Red Blood Count 2.94L, Hemoglobin 9.3L, Hematocrit 27.4L, Mean Corpuscular Volume 93, Mean Corpuscular Hemoglobin 31.5H, Mean Corpuscular Hemoglobin Concent 33.8, Red Cell Distribution Width 19.4H, Platelet Count 254, Mean Platelet Volume 8.1, Neutrophils (%) (Auto) 81.9H, Lymphocytes (%) (Auto) 7.1L, Monocytes (%) (Auto) 6.1, Eosinophils (%) (Auto) 4.6H, Basophils (%) (Auto) 0.3, Sodium Level 137, Potassium Level 4.5, Chloride Level 99, Carbon Dioxide Level 30, Anion Gap 8, Blood Urea Nitrogen 62H, Creatinine 8.0H, Estimat Glomerular Filtration Rate 7.1, Glucose Level 146H, Uric Acid 6.9, Calcium Level 7.5L, Phosphorus Level 3.7, Magnesium Level 2.6H, Total Bilirubin 1.3H, Direct Bilirubin 0.7H, Aspartate Amino Transf (AST/SGOT) 34, Alanine Aminotransferase (ALT/SGPT) 39, Alkaline Phosphatase 106, Total Protein 7.4, Albumin 2.4L, Globulin 5.0, Albumin/Globulin Ratio 0.5L Height (Feet): 5 Height (Inches): 6.00 Weight (Pounds): 181 General Appearance: WD/WN, no apparent distress EENT: PERRL/EOMI Neck: supple Respiratory/Chest: chest wall non-tender Abdomen: normal bowel sounds, non tender, soft Extremities: normal range of motion Neurologic: no motor/sensory deficits, alert, oriented x 3 Ambrosio Fernandez M.D. May 31, 2018 22:51
[2018-06-01 00:08] VITALS: BP 172/83
[2018-06-01] MEDS: Morphine Sulfate 2mg/ml Inj IVP PRN (00:18)
[2018-06-01] MEDS: HydrALAZINE 25mg tab ORAL PRN ×3 (00:19→14:04)
[2018-06-01 01:52] VITALS: BP 155/82
[2018-06-01 04:26] VITALS: BP 170/87
[2018-06-01] MEDS: NovoLOG Insulin Flexpen SUBQ SCH ×7 (06:15→21:52)
[2018-06-01 06:41] LABS: BASOPHILS % (AUTO) 0.6 % (0.0-2.0); EOSINOPHILS % (AUTO) 6.7 % (0.0-3.0); HEMATOCRIT 26.9 % (42.0-52.0); LYMPHOCYTES % (AUTO) 6.3 % (20.0-45.0); MEAN CORPUSCULAR VOLUME 95 FL (80-99); MONOCYTES % (AUTO) 6.8 % (1.0-10.0); NEUTROPHILS % (AUTO) 79.7 % (45.0-75.0); PLATELET COUNT 233 K/UL (150-450); RED BLOOD COUNT 2.83 M/UL (4.70-6.10); RED CELL DISTRIBUTION WIDTH 19.4 % (11.6-14.8); WHITE BLOOD COUNT 11.3 K/UL (4.8-10.8)
--- NOTE | 2018-06-01 06:48 | General Progress Note ---
Assessment/Plan Problem List: (1) Retroperitoneal hemorrhage ICD Codes: R58 - Hemorrhage, not elsewhere classified SNOMED: 32354071 (2) ESRD (end stage renal disease) on dialysis ICD Codes: N18.6 - End stage renal disease; Z99.2 - Dependence on renal dialysis SNOMED: 279631667 (3) Diabetes ICD Codes: E11.9 - Type 2 diabetes mellitus without complications SNOMED: 10157207 Assessment/Plan continue Levemir 12 units qhs continue Novolog 3 units ac tid continue NISS ac / hs Subjective Allergies: Coded Allergies: No Known Allergies (Unverified , 05/20/18) All Systems: reviewed and negative except above Subjective events noted Objective Last 24 Hour Vital Signs Date Time Temp Pulse Resp B/P (MAP) Pulse Ox O2 Delivery O2 Flow Rate FiO2 06/01/18 06:11 171/88 06/01/18 05:10 171/88 06/01/18 04:26 97.3 68 18 170/87 (114) 98 06/01/18 01:52 71 155/82 (106) 06/01/18 00:48 98.1 06/01/18 00:19 172/83 06/01/18 00:08 98.1 86 19 172/83 (112) 95 05/31/18 22:48 Room Air 05/31/18 22:20 72 171/91 (117) 05/31/18 22:00 171/91 05/31/18 21:39 97.7 05/31/18 20:43 72 181/91 05/31/18 20:11 97.7 72 19 181/91 (121) 92 05/31/18 16:55 174/91 05/31/18 15:51 97.9 70 20 174/91 (118) 97 05/31/18 14:00 158/72 05/31/18 12:33 97.4 70 21 193/92 (125) 97 05/31/18 11:39 192/95 05/31/18 09:00 Nasal Cannula 2.0 05/31/18 08:44 71 161/82 05/31/18 08:11 97.7 71 18 161/82 (108) 94 Intake and Output 05/31/18 06/01/18 19:00 07:00 Intake Total 480 ml 240 ml Balance 480 ml 240 ml Intake Oral 480 ml 240 ml # Voids 1 1 # Bowel Movements 1 Laboratory Tests 06/01/18 04:58: White Blood Count [Pending], Red Blood Count [Pending], Hemoglobin [Pending], Hematocrit [Pending], Mean Corpuscular Volume [Pending], Mean Corpuscular Hemoglobin [Pending], Mean Corpuscular Hemoglobin Concent [Pending], Red Cell Distribution Width [Pending], Platelet Count [Pending], Mean Platelet Volume [ Pending], Neutrophils (%) (Auto) [Pending], Lymphocytes (%) (Auto) [Pending], Monocytes (%) (Auto) [Pending], Eosinophils (%) (Auto) [Pending], Basophils (%) (Auto) [Pending], Sodium Level [Pending], Potassium Level [Pending], Chloride Level [Pending], Carbon Dioxide Level [Pending], Blood Urea Nitrogen [Pending], Creatinine [Pending], Estimat Glomerular Filtration Rate [Pending], Glucose Level [Pending], Calcium Level [Pending], Phosphorus Level [Pending], Magnesium Level [Pending] Height (Feet): 5 Height (Inches): 6.00 Weight (Pounds): 172 General Appearance: no apparent distress Neck: normal alignment Cardiovascular: normal rate Respiratory/Chest: lungs clear Abdomen: normal bowel sounds Objective Current Medications Medications (Trade) Dose Ordered Sig/Santos Route PRN Reason Start Time Stop Time Status Last Admin Dose Admin Acetaminophen/ Hydrocodone Bitart ([place] 5/325) 1 tab Q4H PRN ORAL Moderate Pain (Pain Scale 4-6) 05/29/18 01:15 06/01/18 13:14 05/31/18 21:09 Clonidine HCl (Catapres Tab) 0.1 mg Q8HR ORAL 05/29/18 14:00 06/28/18 13:59 05/30/18 14:25 Dextrose (Dextrose 50%) 25 ml Q30M PRN IV Hypoglycemia 05/28/18 23:30 06/27/18 06:59 Dextrose (Dextrose 50%) 50 ml Q30M PRN IV Hypoglycemia 05/28/18 23:30 06/27/18 06:59 Docusate Sodium (Colace) 100 mg THREE TIMES A DAY ORAL 05/29/18 09:00 06/19/18 12:59 05/31/18 17:26 Epoetin Jayme (Procrit (for ESRD on dialysis)) 10,000 units MON-MON-MON SUBQ 05/30/18 21:00 06/22/18 20:59 05/30/18 21:38 Hydralazine HCl (Apresoline) 25 mg Q4H PRN ORAL BP 160 and above 05/29/18 02:30 06/23/18 10:29 06/01/18 06:11 Insulin Aspart (NovoLOG) BEFORE MEALS AND HS SUBQ 05/29/18 06:30 06/19/18 06:29 06/01/18 06:15 Insulin Aspart (NovoLOG) 3 units NOVOTIAC SUBQ 05/29/18 06:30 06/27/18 11:49 06/01/18 06:15 Insulin Detemir (Levemir) 12 units QHS SUBQ 05/30/18 21:00 06/20/18 11:59 05/31/18 21:04 Lactulose (Cephulac) 20 gm TWICE A DAY ORAL 05/29/18 09:00 06/20/18 05:59 05/31/18 17:26 Lorazepam (Ativan) 0.5 mg TIDPRN PRN ORAL For Anxiety 05/29/18 09:00 06/05/18 08:59 Metoprolol Tartrate (Lopressor) 50 mg Q12HR ORAL 05/29/18 09:00 06/23/18 20:59 05/31/18 20:43 Morphine Sulfate (Morphine Sulfate) 2 mg Q4H PRN IVP FOR SEVERE PAIN 05/29/18 02:45 06/03/18 06:44 06/01/18 00:18 Ondansetron HCl (Zofran) 4 mg TIDPRN PRN IVP Nausea & Vomiting 05/29/18 09:00 06/21/18 08:59 Pantoprazole (Protonix) 40 mg BID ORAL 05/29/18 09:00 06/22/18 17:59 05/31/18 17:26 Promethazine HCl/ Dextromethorphan (Phenergan DM) 6.25 mg Q6H PRN ORAL For Cough 05/29/18 00:00 06/23/18 11:59 Sevelamer Carbonate (Renvela) 1,600 mg THREE TIMES A DAY ORAL 05/29/18 09:00 06/20/18 12:59 05/31/18 17:26 Sodium Chloride 500 ml @ 999 mls/hr Q4H PRN IV SBP less than 100mmhg 05/29/18 01:00 06/19/18 08:59 Zolpidem Tartrate (Ambien) 5 mg HSPRN PRN ORAL Insomnia 05/29/18 19:45 06/04/18 19:44 05/31/18 00:23 Item Value Date Time Bedside Blood Glucose 175 mg/dl H 06/01/18 0615 Bedside Blood Glucose 209 mg/dl H 05/31/18 2106 Bedside Blood Glucose 211 mg/dl H 05/31/18 1657 Bedside Blood Glucose 162 mg/dl H 05/31/18 1142 Bedside Blood Glucose 135 mg/dl H 05/31/18 0630 Willard Bonds MD Jun 01, 2018 06:48
[2018-06-01 06:55] LABS: ANION GAP 12 mmol/L (5-15); BLOOD UREA NITROGEN 69 mg/dL (7-18); CALCIUM 7.4 MG/DL (8.5-10.1); CARBON DIOXIDE 28 MMOL/L (21-32); CHLORIDE 97 MMOL/L (98-107); CREATININE 9.6 MG/DL (0.55-1.30); PHOSPHORUS 4.4 MG/DL (2.5-4.9); POTASSIUM 4.6 MMOL/L (3.5-5.1); SODIUM 137 MMOL/L (136-145)
[2018-06-01] MEDS: Lactulose 20gm/30ml UDC ORAL SCH ×2 (09:22→18:20)
[2018-06-01] MEDS: Docusate 100mg cap ORAL SCH ×4 (09:22→18:29)
[2018-06-01] MEDS: Metoprolol Tartrate 50mg tab ORAL SCH ×2 (09:23→20:58)
[2018-06-01] MEDS: Norco 5mg/325mg tab ORAL PRN (09:34)
--- NOTE | 2018-06-01 09:48 | Nephrology Progress Note ---
Assessment/Plan Problem List: (1) ESRD (end stage renal disease) on dialysis (2) Retroperitoneal hemorrhage (3) Shock (4) Anemia (5) Abdominal pain (6) Diabetes Assessment WBC lower presented with: hemorrhagic shock- Retro Peritoneal bleed Low BP on admission ESRD DM HTN transfused multiple times Plan HD next 06/01 WBCs lower Transfuse as needed, manage pain Per consultants / Urologist discussed with RN meds adjusted CBC STABLE ? DC HOME IN AM? Subjective ROS Limited/Unobtainable: No Objective Objective Last 24 Hour Vital Signs Date Time Temp Pulse Resp B/P (MAP) Pulse Ox O2 Delivery O2 Flow Rate FiO2 06/01/18 09:23 70 166/84 06/01/18 06:11 171/88 06/01/18 05:10 171/88 06/01/18 04:26 97.3 68 18 170/87 (114) 98 06/01/18 01:52 71 155/82 (106) 06/01/18 00:48 98.1 06/01/18 00:19 172/83 06/01/18 00:08 98.1 86 19 172/83 (112) 95 05/31/18 22:48 Room Air 05/31/18 22:20 72 171/91 (117) 05/31/18 22:00 171/91 05/31/18 21:39 97.7 05/31/18 20:43 72 181/91 05/31/18 20:11 97.7 72 19 181/91 (121) 92 05/31/18 16:55 174/91 05/31/18 15:51 97.9 70 20 174/91 (118) 97 05/31/18 14:00 158/72 05/31/18 12:33 97.4 70 21 193/92 (125) 97 05/31/18 11:39 192/95 Intake and Output 05/31/18 06/01/18 18:59 06:59 Intake Total 480 ml 240 ml Balance 480 ml 240 ml Intake Oral 480 ml 240 ml # Voids 1 1 # Bowel Movements 1 Current Medications Medications (Trade) Dose Ordered Sig/Santos Route PRN Reason Start Time Stop Time Status Last Admin Dose Admin Acetaminophen/ Hydrocodone Bitart ([place] 5/325) 1 tab Q4H PRN ORAL Moderate Pain (Pain Scale 4-6) 05/29/18 01:15 06/01/18 13:14 06/01/18 09:34 Clonidine HCl (Catapres Tab) 0.1 mg Q8HR ORAL 05/29/18 14:00 06/28/18 13:59 05/30/18 14:25 Dextrose (Dextrose 50%) 25 ml Q30M PRN IV Hypoglycemia 05/28/18 23:30 06/27/18 06:59 Dextrose (Dextrose 50%) 50 ml Q30M PRN IV Hypoglycemia 05/28/18 23:30 06/27/18 06:59 Docusate Sodium (Colace) 100 mg THREE TIMES A DAY ORAL 05/29/18 09:00 06/19/18 12:59 06/01/18 09:22 Epoetin Jayme (Procrit (for ESRD on dialysis)) 10,000 units MON- SUBQ 05/30/18 21:00 06/22/18 20:59 05/30/18 21:38 Hydralazine HCl (Apresoline) 25 mg Q4H PRN ORAL BP 160 and above 05/29/18 02:30 06/23/18 10:29 06/01/18 06:11 Insulin Aspart (NovoLOG) BEFORE MEALS AND HS SUBQ 05/29/18 06:30 06/19/18 06:29 06/01/18 06:15 Insulin Aspart (NovoLOG) 3 units NOVOTIAC SUBQ 05/29/18 06:30 06/27/18 11:49 06/01/18 06:15 Insulin Detemir (Levemir) 12 units QHS SUBQ 05/30/18 21:00 06/20/18 11:59 05/31/18 21:04 Lactulose (Cephulac) 20 gm TWICE A DAY ORAL 05/29/18 09:00 06/20/18 05:59 06/01/18 09:22 Lorazepam (Ativan) 0.5 mg TIDPRN PRN ORAL For Anxiety 05/29/18 09:00 06/05/18 08:59 Metoprolol Tartrate (Lopressor) 50 mg Q12HR ORAL 05/29/18 09:00 06/23/18 20:59 06/01/18 09:23 Morphine Sulfate (Morphine Sulfate) 2 mg Q4H PRN IVP FOR SEVERE PAIN 05/29/18 02:45 11/18/18 06:44 06/01/18 00:18 Ondansetron HCl (Zofran) 4 mg TIDPRN PRN IVP Nausea & Vomiting 05/29/18 09:00 06/21/18 08:59 Pantoprazole (Protonix) 40 mg BID ORAL 05/29/18 09:00 06/22/18 17:59 06/01/18 09:22 Promethazine HCl/ Dextromethorphan (Phenergan DM) 6.25 mg Q6H PRN ORAL For Cough 05/29/18 00:00 06/23/18 11:59 Sevelamer Carbonate (Renvela) 1,600 mg THREE TIMES A DAY ORAL 05/29/18 09:00 06/20/18 12:59 06/01/18 09:22 Sodium Chloride 500 ml @ 999 mls/hr Q4H PRN IV SBP less than 100mmhg 05/29/18 01:00 06/19/18 08:59 Zolpidem Tartrate (Ambien) 5 mg HSPRN PRN ORAL Insomnia 05/29/18 19:45 06/04/18 19:44 05/31/18 00:23 Laboratory Tests 06/01/18 04:58: White Blood Count 11.3H, Red Blood Count 2.83L, Hemoglobin 9.0L, Hematocrit 26.9L, Mean Corpuscular Volume 95, Mean Corpuscular Hemoglobin 31.7H, Mean Corpuscular Hemoglobin Concent 33.3, Red Cell Distribution Width 19.4H, Platelet Count 233, Mean Platelet Volume 8.2, Neutrophils (%) (Auto) 79.7H, Lymphocytes (%) (Auto) 6.3L, Monocytes (%) (Auto) 6.8, Eosinophils (%) (Auto) 6.7H, Basophils (%) (Auto) 0.6, Sodium Level 137, Potassium Level 4.6, Chloride Level 97L, Carbon Dioxide Level 28, Anion Gap 12, Blood Urea Nitrogen 69H, Creatinine 9.6H, Estimat Glomerular Filtration Rate 5.8, Glucose Level 208H, Calcium Level 7.4L, Phosphorus Level 4.4, Magnesium Level 2.7H Height (Feet): 5 Height (Inches): 6.00 Weight (Pounds): 172 General Appearance: no apparent distress Cardiovascular: normal rate Respiratory/Chest: lungs clear Abdomen: soft Objective no change Dm Lopez MD Jun 01, 2018 09:48
--- NOTE | 2018-06-01 11:07 | GI Progress Note ---
Assessment/Plan Problems: (1) Retroperitoneal hemorrhage ICD Codes: R58 - Hemorrhage, not elsewhere classified SNOMED: 82992519 (2) Anemia ICD Codes: D64.9 - Anemia, unspecified SNOMED: 861323318 (3) Diabetes ICD Codes: E11.9 - Type 2 diabetes mellitus without complications SNOMED: 79020341 (4) Abdominal pain ICD Codes: R10.9 - Unspecified abdominal pain SNOMED: 92963734 (5) Shock ICD Codes: R57.9 - Shock, unspecified SNOMED: 20977259 (6) ESRD (end stage renal disease) on dialysis ICD Codes: N18.6 - End stage renal disease; Z99.2 - Dependence on renal dialysis SNOMED: 249714249 Status: stable Status Narrative Discussed with Dr. Mcgee. Assessment/Plan CT AP reviewed >> Large complex hemorrhage/hemorrhagic mass occupying majority of the right kidney with extensive perinephric fluid/blood extending into the retroperitoneum and pelvis. iron deficiency OB stool negative x2 Anemia, most likely due to chronic disease renal diet venofer ppi BID prn transfusions abx fu surgical recommendations fu labs dc planning The patient was seen and examined at bedside and all new and available data was reviewed in the patients chart. I agree with the above findings, impression and plan. (Patient seen earlier today. Signature stamp does not reflect patient encounter time.). - Elvis Mcgee MD Subjective Subjective limited Objective Last 24 Hour Vital Signs Date Time Temp Pulse Resp B/P (MAP) Pulse Ox O2 Delivery O2 Flow Rate FiO2 06/01/18 09:23 70 166/84 06/01/18 06:11 171/88 06/01/18 05:10 171/88 06/01/18 04:26 97.3 68 18 170/87 (114) 98 06/01/18 01:52 71 155/82 (106) 06/01/18 00:48 98.1 06/01/18 00:19 172/83 06/01/18 00:08 98.1 86 19 172/83 (112) 95 05/31/18 22:48 Room Air 05/31/18 22:20 72 171/ (117) 05/31/18 22:00 17105/31/18 21:39 97.7 05/31/18 20:43 72 181/91 05/31/18 20:11 97.7 72 19 181/91 (121) 92 05/31/18 16:55 174/91 05/31/18 15:51 97.9 70 20 174/91 (118) 97 05/31/18 14:00 158/72 05/31/18 12:33 97.4 70 21 193/92 (125) 97 05/31/18 11:39 192/95 Intake and Output 05/31/18 06/01/18 19:00 07:00 Intake Total 480 ml 240 ml Balance 480 ml 240 ml Intake Oral 480 ml 240 ml # Voids 1 1 # Bowel Movements 1 Laboratory Tests Test 06/01/18 04:58 White Blood Count 11.3 K/UL (4.8-10.8) H Red Blood Count 2.83 M/UL (4.70-6.10) L Hemoglobin 9.0 G/DL (14.2-18.0) L Hematocrit 26.9 % (42.0-52.0) L Mean Corpuscular Volume 95 FL (80-99) Mean Corpuscular Hemoglobin 31.7 PG (27.0-31.0) H Mean Corpuscular Hemoglobin Concent 33.3 G/DL (32.0-36.0) Red Cell Distribution Width 19.4 % (11.6-14.8) H Platelet Count 233 K/UL (150-450) Mean Platelet Volume 8.2 FL (6.5-10.1) Neutrophils (%) (Auto) 79.7 % (45.0-75.0) H Lymphocytes (%) (Auto) 6.3 % (20.0-45.0) L Monocytes (%) (Auto) 6.8 % (1.0-10.0) Eosinophils (%) (Auto) 6.7 % (0.0-3.0) H Basophils (%) (Auto) 0.6 % (0.0-2.0) Sodium Level 137 MMOL/L (136-145) Potassium Level 4.6 MMOL/L (3.5-5.1) Chloride Level 97 MMOL/L (98-107) L Carbon Dioxide Level 28 MMOL/L (21-32) Anion Gap 12 mmol/L (5-15) Blood Urea Nitrogen 69 mg/dL (7-18) H Creatinine 9.6 MG/DL (0.55-1.30) H Estimat Glomerular Filtration Rate 5.8 mL/min (>60) Glucose Level 208 MG/DL (74-106) H Calcium Level 7.4 MG/DL (8.5-10.1) L Phosphorus Level 4.4 MG/DL (2.5-4.9) Magnesium Level 2.7 MG/DL (1.8-2.4) H Height (Feet): 5 Height (Inches): 6.00 Weight (Pounds): 172 General Appearance: WD/WN, no apparent distress, alert Cardiovascular: normal rate Respiratory/Chest: normal breath sounds, no respiratory distress Abdominal Exam: normal bowel sounds, non tender, soft Extremities: normal range of motion, non-tender Mansoor Allen NP Jun 01, 2018 11:07
--- NOTE | 2018-06-01 11:50 | General Progress Note ---
Assessment/Plan Assessment/Plan S: I am ok and my flank pain is ok O: appears in No distress. Complains of mild right sided abdominal pain . no Nausea. No gross visible bleeding reported PHYSICAL EXAMINATION: HEAD AND NECK: Atraumatic and normocephalic. CHEST: Clear to auscultation. No wheezing. No crackles. HEART: S1 and S2. Regular rate and rhythm. ABDOMEN: Tender noted. Negative for rebound tenderness. NEUROLOGIC: The patient is awake, alert, and oriented x3. PSYCHIATRIC: Mood and affect are appropriate and normal. MUSCULOSKELETAL: No gross lateralized motor deficit. Left arm AV F/G is noted, with no erythma or tenderness Meds: reviewed and reconciled, including Lnatus 9 u qhs plus Fixed meal time insulin IMAGING: CT scan of abdomen and pelvis dated May 28, 2018 reviewed showing intervan incraese in the right perinephric hematoma. the repeat CT is pending ASSESSMENT AND PLAN: 1. Acute Right Perinephric Hemorrhage 3. Acute anemia. 4. Diabetes type 5 Hypovolemic Shock : Stable 6. GI-DVT prophylaxis 7. HTN: uncontrolled 8. Leukocytosis: with no evidence of acute Active infection Plan: will monitor HH, Will proceed with PRBC transfusion with Hgb < 7.3 Notes from Urology , Nephro, Endo, Critical specialist are reviewed Stable appearance of right perinephric hematoma by imaging Optimization of BP meds No evidence for active acute infection. Will monitor per ID Discussed the care with Dr Damon , urology. Serious but Stable cnd at this time D/w urology. In view of continued decline in Hgb level and interval increase in Hematoma. Agreed to transfer to higher level of care. will monitor HH in the interim CM for followup on Accepting Higher Level of care Subjective Allergies: Coded Allergies: No Known Allergies (Unverified , 05/20/18) Objective Last 24 Hour Vital Signs Date Time Temp Pulse Resp B/P (MAP) Pulse Ox O2 Delivery O2 Flow Rate FiO2 06/01/18 09:23 70 166/84 06/01/18 06:11 171/88 06/01/18 05:10 171/88 06/01/18 04:26 97.3 68 18 170/87 (114) 98 06/01/18 01:52 71 155/82 (106) 06/01/18 00:48 98.1 06/01/18 00:19 172/83 06/01/18 00:08 98.1 86 19 172/83 (112) 95 05/31/18 22:48 Room Air 05/31/18 22:20 72 171/91 (117) 05/31/18 22:00 171/91 05/31/18 21:39 97.7 05/31/18 20:43 72 181/91 05/31/18 20:11 97.7 72 19 181/91 (121) 92 05/31/18 16:55 174/91 05/31/18 15:51 97.9 70 20 174/91 (118) 97 05/31/18 14:00 158/72 05/31/18 12:33 97.4 70 21 193/92 (125) 97 Intake and Output 05/31/18 06/01/18 19:00 07:00 Intake Total 480 ml 240 ml Balance 480 ml 240 ml Intake Oral 480 ml 240 ml # Voids 1 1 # Bowel Movements 1 Laboratory Tests 06/01/18 04:58: White Blood Count 11.3H, Red Blood Count 2.83L, Hemoglobin 9.0L, Hematocrit 26.9L, Mean Corpuscular Volume 95, Mean Corpuscular Hemoglobin 31.7H, Mean Corpuscular Hemoglobin Concent 33.3, Red Cell Distribution Width 19.4H, Platelet Count 233, Mean Platelet Volume 8.2, Neutrophils (%) (Auto) 79.7H, Lymphocytes (%) (Auto) 6.3L, Monocytes (%) (Auto) 6.8, Eosinophils (%) (Auto) 6.7H, Basophils (%) (Auto) 0.6, Sodium Level 137, Potassium Level 4.6, Chloride Level 97L, Carbon Dioxide Level 28, Anion Gap 12, Blood Urea Nitrogen 69H, Creatinine 9.6H, Estimat Glomerular Filtration Rate 5.8, Glucose Level 208H, Calcium Level 7.4L, Phosphorus Level 4.4, Magnesium Level 2.7H Height (Feet): 5 Height (Inches): 6.00 Weight (Pounds): 172 Baljit Flores MD Jun 01, 2018 11:50
--- NOTE | 2018-06-01 11:50 | General Progress Note ---
Assessment/Plan Assessment/Plan anxiety d/o ativan prn provided ro/st Subjective Date patient seen: Jun 01, 2018 Neurologic/Psychiatric: Reports: anxiety, depressed Allergies: Coded Allergies: No Known Allergies (Unverified , 05/20/18) Subjective the pt is the same has episodes of anxiety Objective Last 24 Hour Vital Signs Date Time Temp Pulse Resp B/P (MAP) Pulse Ox O2 Delivery O2 Flow Rate FiO2 06/01/18 09:23 70 166/84 06/01/18 06:11 171/88 06/01/18 05:10 171/88 06/01/18 04:26 97.3 68 18 170/87 (114) 98 06/01/18 01:52 71 155/82 (106) 06/01/18 00:48 98.1 06/01/18 00:19 172/83 06/01/18 00:08 98.1 86 19 172/83 (112) 95 05/31/18 22:48 Room Air 05/31/18 22:20 72 171/91 (117) 05/31/18 22:00 171/91 05/31/18 21:39 97.7 05/31/18 20:43 72 181/91 05/31/18 20:11 97.7 72 19 181/91 (121) 92 05/31/18 16:55 174/91 05/31/18 15:51 97.9 70 20 174/91 (118) 97 05/31/18 14:00 158/72 05/31/18 12:33 97.4 70 21 193/92 (125) 97 Intake and Output 05/31/18 06/01/18 19:00 07:00 Intake Total 480 ml 240 ml Balance 480 ml 240 ml Intake Oral 480 ml 240 ml # Voids 1 1 # Bowel Movements 1 Laboratory Tests 06/01/18 04:58: White Blood Count 11.3H, Red Blood Count 2.83L, Hemoglobin 9.0L, Hematocrit 26.9L, Mean Corpuscular Volume 95, Mean Corpuscular Hemoglobin 31.7H, Mean Corpuscular Hemoglobin Concent 33.3, Red Cell Distribution Width 19.4H, Platelet Count 233, Mean Platelet Volume 8.2, Neutrophils (%) (Auto) 79.7H, Lymphocytes (%) (Auto) 6.3L, Monocytes (%) (Auto) 6.8, Eosinophils (%) (Auto) 6.7H, Basophils (%) (Auto) 0.6, Sodium Level 137, Potassium Level 4.6, Chloride Level 97L, Carbon Dioxide Level 28, Anion Gap 12, Blood Urea Nitrogen 69H, Creatinine 9.6H, Estimat Glomerular Filtration Rate 5.8, Glucose Level 208H, Calcium Level 7.4L, Phosphorus Level 4.4, Magnesium Level 2.7H Height (Feet): 5 Height (Inches): 6.00 Weight (Pounds): 172 General Appearance: no apparent distress, alert Neurologic: oriented x 3, responsive, depressed affect Chris Driscoll MD Jun 01, 2018 11:50
[2018-06-01 15:25] VITALS: BP 166/84
--- NOTE | 2018-06-01 17:53 | Infectious Diseases Prog Note ---
Assessment/Plan Problems: (1) Leukocytosis Assessment & Plan: suspect due to recurrent bleeding which he required multiple transfusion for , S/P zosyn for 6 days , doubt infectious etiology with no fever and negative cultures . CT abd/pelvis yesterday showed increasing in the size of the right side hematoma , which is most likely the source , repeated blood culture is negative. continue to monitor off antibiotics. (2) Renal hematoma, right Assessment & Plan: with extension to the retroperitoneal area , continue close monitor of H/H and serial images for follow up, watch out for abscess formation. CT abd/pelvis done lately showed increasing in the size of the right side hematoma. will need arterial embolization by IR, pending transfer to [facility] (3) Retroperitoneal hemorrhage Assessment & Plan: continue H/H monitoring with blood transfusion , and serial imaging for follow up, avoid anticoagulation (4) ESRD (end stage renal disease) on dialysis Assessment & Plan: on HD, renal is following (5) Diabetes Assessment & Plan: recommend tight glycemic control to keep blood glucose between 100-140 Subjective Constitutional: Reports: no symptoms HEENT: Reports: no symptoms Respiratory: Reports: no symptoms Breasts: Reports: no symptoms Cardiovascular: Reports: no symptoms Gastrointestinal/Abdominal: Reports: no symptoms Genitourinary: Reports: no symptoms Neurologic: Reports: no symptoms Psychiatric: Reports: no symptoms Skin: Reports: no symptoms Endocrine: Reports: no symptoms Hematologic: Reports: no symptoms Musculoskeletal: Reports: no symptoms Allergies: Coded Allergies: No Known Allergies (Unverified , 05/20/18) Subjective he has mild flank pain today and discomfort, no fever or chills, no cough or SOB , getting blood transfusion Objective Vital Signs Last 24 Hour Vital Signs Date Time Temp Pulse Resp B/P (MAP) Pulse Ox O2 Delivery O2 Flow Rate FiO2 06/01/18 15:25 97.8 70 18 166/84 (111) 99 06/01/18 14:04 198/95 06/01/18 13:57 198/95 06/01/18 09:23 70 166/84 06/01/18 06:11 171/88 06/01/18 05:10 171/88 06/01/18 04:26 97.3 68 18 170/87 (114) 98 06/01/18 01:52 71 155/82 (106) 06/01/18 00:48 98.1 06/01/18 00:19 172/83 06/01/18 00:08 98.1 86 19 172/83 (112) 95 05/31/18 22:48 Room Air 05/31/18 22:20 72 171/91 (117) 05/31/18 22:00 171/91 05/31/18 21:39 97.7 05/31/18 20:43 72 181/91 05/31/18 20:11 97.7 72 19 181/ (121) 92 Height (Feet): 5 Height (Inches): 6.00 Weight (Pounds): 172 General Appearance: WD/WN, no acute distress HEENT: normocephalic, atraumatic, anicteric, mucous membranes moist, PERRL, EOMI, pharynx normal, supple, no JVD Respiratory/Chest: chest wall non-tender, lungs clear, normal breath sounds, no respiratory distress, no accessory muscle use Cardiovascular: normal peripheral pulses, normal rate, regular rhythm, no gallop/murmur, no JVD Abdomen: normal bowel sounds, soft, non tender, no organomegaly, non distended , no mass, no scars Genitourinary: normal external genitalia Extremities: no cyanosis, no clubbing Skin: no rash, no lesions, no ulcers Neurologic/Psychiatric: screed operator II-XII grossly normal, no motor/sensory deficits, alert, oriented x 3, responsive Lymphatic: no neck adenopathy, no groin adenopathy Musculoskeletal: normal muscle bulk, no effusion Laboratory Tests Test 06/01/18 04:58 White Blood Count 11.3 K/UL (4.8-10.8) H Red Blood Count 2.83 M/UL (4.70-6.10) L Hemoglobin 9.0 G/DL (14.2-18.0) L Hematocrit 26.9 % (42.0-52.0) L Mean Corpuscular Volume 95 FL (80-99) Mean Corpuscular Hemoglobin 31.7 PG (27.0-31.0) H Mean Corpuscular Hemoglobin Concent 33.3 G/DL (32.0-36.0) Red Cell Distribution Width 19.4 % (11.6-14.8) H Platelet Count 233 K/UL (150-450) Mean Platelet Volume 8.2 FL (6.5-10.1) Neutrophils (%) (Auto) 79.7 % (45.0-75.0) H Lymphocytes (%) (Auto) 6.3 % (20.0-45.0) L Monocytes (%) (Auto) 6.8 % (1.0-10.0) Eosinophils (%) (Auto) 6.7 % (0.0-3.0) H Basophils (%) (Auto) 0.6 % (0.0-2.0) Sodium Level 137 MMOL/L (136-145) Potassium Level 4.6 MMOL/L (3.5-5.1) Chloride Level 97 MMOL/L (98-107) L Carbon Dioxide Level 28 MMOL/L (21-32) Anion Gap 12 mmol/L (5-15) Blood Urea Nitrogen 69 mg/dL (7-18) H Creatinine 9.6 MG/DL (0.55-1.30) H Estimat Glomerular Filtration Rate 5.8 mL/min (>60) Glucose Level 208 MG/DL (74-106) H Calcium Level 7.4 MG/DL (8.5-10.1) L Phosphorus Level 4.4 MG/DL (2.5-4.9) Magnesium Level 2.7 MG/DL (1.8-2.4) H Current Medications Medications (Trade) Dose Ordered Sig/Santos Route PRN Reason Start Time Stop Time Status Last Admin Dose Admin Clonidine HCl (Catapres Tab) 0.1 mg Q8HR ORAL 05/29/18 14:00 06/28/18 13:59 06/01/18 13:57 Dextrose (Dextrose 50%) 25 ml Q30M PRN IV Hypoglycemia 05/28/18 23:30 06/27/18 06:59 Dextrose (Dextrose 50%) 50 ml Q30M PRN IV Hypoglycemia 05/28/18 23:30 06/27/18 06:59 Docusate Sodium (Colace) 100 mg THREE TIMES A DAY ORAL 05/29/18 09:00 06/19/18 12:59 06/01/18 09:22 Epoetin Jayme (Procrit (for ESRD on dialysis)) 10,000 units MON-MON-MON SUBQ 05/30/18 21:00 06/22/18 20:59 05/30/18 21:38 Hydralazine HCl (Apresoline) 25 mg Q4H PRN ORAL BP 160 and above 05/29/18 02:30 06/23/18 10:29 06/01/18 14:04 Hydralazine HCl (Apresoline) 25 mg Q4HR PRN ORAL For High Blood Pressure 06/01/18 17:30 07/01/18 17:29 UNV Insulin Aspart (NovoLOG) BEFORE MEALS AND HS SUBQ 05/29/18 06:30 06/19/18 06:29 06/01/18 06:15 Insulin Aspart (NovoLOG) 3 units NOVOTIAC SUBQ 05/29/18 06:30 06/27/18 11:49 06/01/18 12:49 Insulin Detemir (Levemir) 12 units QHS SUBQ 05/30/18 21:00 06/20/18 11:59 05/31/18 21:04 Lactulose (Cephulac) 20 gm TWICE A DAY ORAL 05/29/18 09:00 06/20/18 05:59 06/01/18 09:22 Lorazepam (Ativan) 0.5 mg TIDPRN PRN ORAL For Anxiety 05/29/18 09:00 06/05/18 08:59 Metoprolol Tartrate (Lopressor) 50 mg Q12HR ORAL 05/29/18 09:00 06/23/18 20:59 06/01/18 09:23 Morphine Sulfate (Morphine Sulfate) 2 mg Q4H PRN IVP FOR SEVERE PAIN 05/29/18 02:45 06/03/18 06:44 06/01/18 00:18 Ondansetron HCl (Zofran) 4 mg TIDPRN PRN IVP Nausea & Vomiting 05/29/18 09:00 06/21/18 08:59 Pantoprazole (Protonix) 40 mg BID ORAL 05/29/18 09:00 06/22/18 17:59 06/01/18 09:22 Promethazine HCl/ Dextromethorphan (Phenergan DM) 6.25 mg Q6H PRN ORAL For Cough 05/29/18 00:00 06/23/18 11:59 Sevelamer Carbonate (Renvela) 1,600 mg THREE TIMES A DAY ORAL 05/29/18 09:00 06/20/18 12:59 06/01/18 09:22 Sodium Chloride 500 ml @ 999 mls/hr Q4H PRN IV SBP less than 100mmhg 05/29/18 01:00 06/19/18 08:59 Zolpidem Tartrate (Ambien) 5 mg HSPRN PRN ORAL Insomnia 05/29/18 19:45 06/04/18 19:44 05/31/18 00:23 Rowena Garcia M.D. Jun 01, 2018 17:53
[2018-06-01 20:56] VITALS: BP 176/94
[2018-06-01] MEDS: Levemir Flexpen SUBQ SCH (21:51)
[2018-06-01] MEDS: Epogen (for ESRD on dialysis) SUBQ SCH (22:25)
[2018-06-01 22:26] VITALS: BP 160/82
--- NOTE | 2018-06-01 23:14 | Pulmonology Progress Note ---
Assessment/Plan Assessment/Plan Pulmonary Progress Note Patient with: (1) Previous Shock (2) Diabetes (3) ESRD (end stage renal disease) on dialysis (4) Retroperitoneal hemorrhage involving right kidney (5) Anemia persists Assessment/Plan No new complaints CXR noted PRN anti-tussives PRN HHN's Monitor CBC, transfuse as needed Monitor hemodynamics and volumes HD per renal F/U recs, no plan for operation at this time Zosyn per ID, F/U Cx's DVT Px: SCD's SSI Pain control/supportive care Subjective Allergies: Coded Allergies: No Known Allergies (Unverified , 05/20/18) Subjective HH stable AFVSS on 2L, getting HD Less flank abd pain + cough, no SOB no F/C Objective Vital Signs Noted Laboratory Tests 05/24/18 03:00: White Blood Count 9.6, Red Blood Count 2.62L, Hemoglobin 8.1L, Hematocrit 23.7L , Mean Corpuscular Volume 90, Mean Corpuscular Hemoglobin 30.9, Mean Corpuscular Hemoglobin Concent 34.1, Red Cell Distribution Width 13.6, Platelet Count 139L, Mean Platelet Volume 10.5H, Neutrophils (%) (Auto) 83.4H, Lymphocytes (%) (Auto) 6.7L, Monocytes (%) (Auto) 7.6, Eosinophils (%) (Auto) 1.7, Basophils (%) (Auto) 0.6, Sodium Level 139, Potassium Level 3.6, Chloride Level 97L, Carbon Dioxide Level 30, Anion Gap 12, Blood Urea Nitrogen 50H, Creatinine 6.8H, Estimat Glomerular Filtration Rate 8.6, Glucose Level 138H, Calcium Level 8.0L, Phosphorus Level 3.0, Magnesium Level 2.5H, Total Bilirubin 0.9, Aspartate Amino Transf (AST/SGOT) 31, Alanine Aminotransferase (ALT/SGPT) 35, Alkaline Phosphatase 61, Total Protein 7.6, Albumin 2.6L, Globulin 5.0, Albumin/Globulin Ratio 0.5L 05/24/18 11:10: Stool Occult Blood [Pending] 05/24/18 15:00: Stool Occult Blood [Pending] Current Medications Medications (Trade) Dose Ordered Sig/Santos Route PRN Reason Start Time Stop Time Status Last Admin Dose Admin Acetaminophen/ Hydrocodone Bitart (Mil[place] 5/325) 1 tab TIDPRN PRN ORAL Moderate Pain (Pain Scale 4-6) 05/22/18 09:00 05/29/18 08:59 05/24/18 16:35 Dextrose (Dextrose 50%) 25 ml Q30M PRN IV Hypoglycemia 05/22/18 09:00 06/19/18 08:59 Dextrose (Dextrose 50%) 50 ml Q30M PRN IV Hypoglycemia 05/22/18 09:00 06/19/18 08:59 Docusate Sodium (Colace) 100 mg THREE TIMES A DAY ORAL 05/22/18 09:00 06/19/18 12:59 05/24/18 12:57 Epoetin Jayme (Procrit (for ESRD on dialysis)) 10,000 units MON-MON-MON SUBQ 05/23/18 21:00 06/22/18 20:59 05/23/18 21:25 Hydralazine HCl (Apresoline) 25 mg Q4H PRN ORAL BP 160 and above 05/24/18 10:30 06/23/18 10:29 05/24/18 12:57 Insulin Aspart (NovoLOG) BEFORE MEALS AND HS SUBQ 05/22/18 11:30 06/19/18 06:29 05/24/18 12:10 Insulin Detemir (Levemir) 6 units DAILY SUBQ 05/22/18 09:00 06/20/18 11:59 05/24/18 09:03 Iron Sucrose 100 mg/Sodium Chloride 55 ml @ 200 mls/hr BEDTIME IV 05/24/18 21:00 05/27/18 21:17 Lactulose (Cephulac) 20 gm TWICE A DAY ORAL 05/22/18 09:00 06/20/18 05:59 05/24/18 08:55 Lorazepam (Ativan) 0.5 mg TIDPRN PRN ORAL For Anxiety 05/22/18 09:00 05/29/18 08:59 Metoprolol Tartrate (Lopressor) 12.5 mg Q12HR ORAL 05/24/18 21:00 06/23/18 20:59 Ondansetron HCl (Zofran) 4 mg TIDPRN PRN IVP Nausea & Vomiting 05/22/18 09:00 06/21/18 08:59 Pantoprazole (Protonix) 40 mg BID ORAL 05/23/18 18:00 06/22/18 17:59 05/24/18 08:58 Piperacillin Sod/ Tazobactam Sod 2.25 gm/Dextrose 55 ml @ 110 mls/hr Q8HR IVPB 05/22/18 15:00 05/27/18 14:59 05/24/18 13:59 Promethazine HCl/ Dextromethorphan (Phenergan DM) 6.25 mg Q6H PRN ORAL For Cough 05/24/18 12:00 06/23/18 11:59 05/24/18 12:16 Sevelamer Carbonate (Renvela) 1,600 mg THREE TIMES A DAY ORAL 05/23/18 13:00 06/20/18 12:59 05/24/18 12:57 Sodium Chloride 500 ml @ 999 mls/hr Q4H PRN IV SBP less than 100mmhg 05/22/18 09:00 06/19/18 08:59 Subjective ROS Limited/Unobtainable: No Allergies: Coded Allergies: No Known Allergies (Unverified , 05/20/18) Objective Last 24 Hour Vital Signs Date Time Temp Pulse Resp B/P (MAP) Pulse Ox O2 Delivery O2 Flow Rate FiO2 06/01/18 22:26 75 18 160/82 (108) 06/01/18 22:00 160/82 06/01/18 21:09 Room Air 06/01/18 20:58 79 176/94 06/01/18 20:56 98.3 79 18 176/94 (121) 93 06/01/18 15:25 97.8 70 18 166/84 (111) 99 06/01/18 14:04 198/95 06/01/18 13:57 198/95 06/01/18 09:23 70 166/84 06/01/18 09:00 Room Air 06/01/18 06:11 171/88 06/01/18 05:10 171/88 06/01/18 04:26 97.3 68 18 170/87 (114) 98 06/01/18 01:52 71 155/82 (106) 06/01/18 00:48 98.1 06/01/18 00:19 172/83 06/01/18 00:08 98.1 86 19 172/83 (112) 95 Intake and Output 05/31/18 06/01/18 18:59 06:59 Intake Total 480 ml 240 ml Balance 480 ml 240 ml Intake Oral 480 ml 240 ml # Voids 1 1 # Bowel Movements 1 Laboratory Tests 06/01/18 04:58: White Blood Count 11.3H, Red Blood Count 2.83L, Hemoglobin 9.0L, Hematocrit 26.9L, Mean Corpuscular Volume 95, Mean Corpuscular Hemoglobin 31.7H, Mean Corpuscular Hemoglobin Concent 33.3, Red Cell Distribution Width 19.4H, Platelet Count 233, Mean Platelet Volume 8.2, Neutrophils (%) (Auto) 79.7H, Lymphocytes (%) (Auto) 6.3L, Monocytes (%) (Auto) 6.8, Eosinophils (%) (Auto) 6.7H, Basophils (%) (Auto) 0.6, Sodium Level 137, Potassium Level 4.6, Chloride Level 97L, Carbon Dioxide Level 28, Anion Gap 12, Blood Urea Nitrogen 69H, Creatinine 9.6H, Estimat Glomerular Filtration Rate 5.8, Glucose Level 208H, Calcium Level 7.4L, Phosphorus Level 4.4, Magnesium Level 2.7H Current Medications Medications (Trade) Dose Ordered Sig/Santos Route PRN Reason Start Time Stop Time Status Last Admin Dose Admin Clonidine HCl (Catapres Tab) 0.1 mg Q8HR ORAL 05/29/18 14:00 06/28/18 13:59 06/01/18 13:57 Dextrose (Dextrose 50%) 25 ml Q30M PRN IV Hypoglycemia 05/28/18 23:30 06/27/18 06:59 Dextrose (Dextrose 50%) 50 ml Q30M PRN IV Hypoglycemia 05/28/18 23:30 06/27/18 06:59 Docusate Sodium (Colace) 100 mg THREE TIMES A DAY ORAL 05/29/18 09:00 06/19/18 12:59 06/01/18 18:29 Epoetin Jayme (Procrit (for ESRD on dialysis)) 10,000 units MON-MON-MON SUBQ 05/30/18 21:00 06/22/18 20:59 06/01/18 22:25 Hydralazine HCl (Apresoline) 25 mg Q4H PRN ORAL For High Blood Pressure 06/01/18 18:00 07/01/18 17:59 Insulin Aspart (NovoLOG) BEFORE MEALS AND HS SUBQ 05/29/18 06:30 06/19/18 06:29 06/01/18 21:52 Insulin Aspart (NovoLOG) 3 units NOVOTIAC SUBQ 05/29/18 06:30 06/27/18 11:49 06/01/18 18:25 Insulin Detemir (Levemir) 12 units QHS SUBQ 05/30/18 21:00 06/20/18 11:59 06/01/18 21:51 Lactulose (Cephulac) 20 gm TWICE A DAY ORAL 05/29/18 09:00 06/20/18 05:59 06/01/18 18:20 Lorazepam (Ativan) 0.5 mg TIDPRN PRN ORAL For Anxiety 05/29/18 09:00 06/05/18 08:59 Metoprolol Tartrate (Lopressor) 50 mg Q12HR ORAL 05/29/18 09:00 06/23/18 20:59 06/01/18 20:58 Morphine Sulfate (Morphine Sulfate) 2 mg Q4H PRN IVP FOR SEVERE PAIN 05/29/18 02:45 06/03/18 06:44 06/01/18 00:18 Ondansetron HCl (Zofran) 4 mg TIDPRN PRN IVP Nausea & Vomiting 05/29/18 09:00 06/21/18 08:59 Pantoprazole (Protonix) 40 mg BID ORAL 05/29/18 09:00 06/22/18 17:59 06/01/18 18:25 Promethazine HCl/ Dextromethorphan (Phenergan DM) 6.25 mg Q6H PRN ORAL For Cough 05/29/18 00:00 06/23/18 11:59 Sevelamer Carbonate (Renvela) 1,600 mg THREE TIMES A DAY ORAL 05/29/18 09:00 06/20/18 12:59 06/01/18 18:28 Sodium Chloride 500 ml @ 999 mls/hr Q4H PRN IV SBP less than 100mmhg 05/29/18 01:00 06/19/18 08:59 Zolpidem Tartrate (Ambien) 5 mg HSPRN PRN ORAL Insomnia 05/29/18 19:45 06/04/18 19:44 11/15/18 00:23 Tae Velazco MD Jun 01, 2018 23:14
[2018-06-02 04:20] VITALS: BP 178/85
[2018-06-02] MEDS: HydrALAZINE 25mg tab ORAL PRN ×2 (04:20→17:20)
[2018-06-02] MEDS: NovoLOG Insulin Flexpen SUBQ SCH ×7 (06:09→21:30)
[2018-06-02 06:10] VITALS: BP 164/83
[2018-06-02 06:18] LABS: BASOPHILS % (AUTO) 0.8 % (0.0-2.0); HEMATOCRIT 27.2 % (42.0-52.0); HEMOGLOBIN 8.8 G/DL (14.2-18.0); LYMPHOCYTES % (AUTO) 6.1 % (20.0-45.0); MEAN CORPUSCULAR VOLUME 94 FL (80-99); MONOCYTES % (AUTO) 7.4 % (1.0-10.0); NEUTROPHILS % (AUTO) 77.6 % (45.0-75.0); PLATELET COUNT 220 K/UL (150-450); RED BLOOD COUNT 2.88 M/UL (4.70-6.10); WHITE BLOOD COUNT 9.4 K/UL (4.8-10.8)
[2018-06-02 06:38] LABS: ANION GAP 12 mmol/L (5-15); BLOOD UREA NITROGEN 53 mg/dL (7-18); CALCIUM 7.7 MG/DL (8.5-10.1); CARBON DIOXIDE 26 MMOL/L (21-32); CHLORIDE 100 MMOL/L (98-107); CREATININE 8.4 MG/DL (0.55-1.30); POTASSIUM 4.8 MMOL/L (3.5-5.1); SODIUM 138 MMOL/L (136-145)
[2018-06-02 08:00] VITALS: BP 158/78
[2018-06-02] MEDS: Metoprolol Tartrate 50mg tab ORAL SCH ×2 (08:53→21:26)
[2018-06-02] MEDS: Lactulose 20gm/30ml UDC ORAL SCH ×2 (08:54→17:18)
[2018-06-02] MEDS: Docusate 100mg cap ORAL SCH ×3 (08:54→17:18)
--- NOTE | 2018-06-02 10:19 | Nephrology Progress Note ---
Assessment/Plan Problem List: (1) ESRD (end stage renal disease) on dialysis (2) Retroperitoneal hemorrhage (3) Shock (4) Anemia (5) Abdominal pain (6) Diabetes Assessment WBC lower presented with: hemorrhagic shock- Retro Peritoneal bleed Low BP on admission ESRD DM HTN transfused multiple times Plan HD next 06/04 WBCs lower Transfuse as needed, manage pain Per consultants / Urologist discussed with RN meds adjusted CBC STABLE ? DC HOME Subjective ROS Limited/Unobtainable: No Objective Objective Last 24 Hour Vital Signs Date Time Temp Pulse Resp B/P (MAP) Pulse Ox O2 Delivery O2 Flow Rate FiO2 06/02/18 09:00 Room Air 06/02/18 08:53 72 158/78 06/02/18 08:00 97.5 72 16 158/78 (104) 95 06/02/18 06:10 75 164/83 (110) 06/02/18 06:00 164/83 06/02/18 04:20 98.0 72 19 178/85 (116) 97 06/02/18 04:20 178/85 06/01/18 22:26 75 18 160/82 (108) 06/01/18 22:00 160/82 06/01/18 21:09 Room Air 06/01/18 20:58 79 176/94 06/01/18 20:56 98.3 79 18 176/94 (121) 93 06/01/18 15:25 97.8 70 18 166/84 (111) 99 06/01/18 14:04 198/95 06/01/18 13:57 198/95 Intake and Output 06/01/18 06/02/18 19:00 07:00 Intake Total 360 ml 240 ml Balance 360 ml 240 ml Intake Oral 360 ml 240 ml Laboratory Tests 06/02/18 04:50: White Blood Count 9.4, Red Blood Count 2.88L, Hemoglobin 8.8L, Hematocrit 27.2L , Mean Corpuscular Volume 94, Mean Corpuscular Hemoglobin 30.5, Mean Corpuscular Hemoglobin Concent 32.3, Red Cell Distribution Width 18.0H, Platelet Count 220, Mean Platelet Volume 8.2, Neutrophils (%) (Auto) 77.6H, Lymphocytes (%) (Auto) 6.1L, Monocytes (%) (Auto) 7.4, Eosinophils (%) (Auto) 8.0H, Basophils (%) (Auto) 0.8, Sodium Level 138, Potassium Level 4.8, Chloride Level 100, Carbon Dioxide Level 26, Anion Gap 12, Blood Urea Nitrogen 53H, Creatinine 8.4H, Estimat Glomerular Filtration Rate 6.7, Glucose Level 194H, Calcium Level 7.7L Height (Feet): 5 Height (Inches): 6.00 Weight (Pounds): 172 General Appearance: no apparent distress Objective no change Dm Lopez MD Jun 02, 2018 10:19
[2018-06-02] MEDS: Morphine Sulfate 2mg/ml Inj IVP PRN (11:40)
[2018-06-02 12:00] VITALS: BP 172/86
--- NOTE | 2018-06-02 13:56 | Infectious Diseases Prog Note ---
Assessment/Plan Problems: (1) Leukocytosis Assessment & Plan: suspect due to recurrent bleeding which he required multiple transfusion for , S/P zosyn for 6 days , doubt infectious etiology with no fever and negative cultures . repeated CT abd/pelvis showed increasing in the size of the right side hematoma , which is most likely the source , repeated blood culture is negative. continue to monitor off antibiotics, with close monitor of H/H . (2) Renal hematoma, right Assessment & Plan: with extension to the retroperitoneal area , continue close monitor of H/H and serial images for follow up, watch out for abscess formation. CT abd/pelvis done lately showed increasing in the size of the right side hematoma. will need arterial embolization by IR, if recurrent bleeding again . (3) Retroperitoneal hemorrhage Assessment & Plan: continue H/H monitoring with blood transfusion , and serial imaging for follow up, avoid anticoagulation (4) ESRD (end stage renal disease) on dialysis Assessment & Plan: on HD, renal is following (5) Diabetes Assessment & Plan: recommend tight glycemic control to keep blood glucose between 100-140 Subjective Constitutional: Reports: no symptoms HEENT: Reports: no symptoms Respiratory: Reports: no symptoms Breasts: Reports: no symptoms Cardiovascular: Reports: no symptoms Gastrointestinal/Abdominal: Reports: no symptoms Genitourinary: Reports: no symptoms Neurologic: Reports: no symptoms Psychiatric: Reports: no symptoms Skin: Reports: no symptoms Endocrine: Reports: no symptoms Hematologic: Reports: no symptoms Musculoskeletal: Reports: pain - in the left flank area Allergies: Coded Allergies: No Known Allergies (Unverified , 05/20/18) Subjective he has mild flank pain today and discomfort, no fever or chills, no cough or SOB , getting blood transfusion Objective Vital Signs Last 24 Hour Vital Signs Date Time Temp Pulse Resp B/P (MAP) Pulse Ox O2 Delivery O2 Flow Rate FiO2 06/02/18 13:49 172/86 06/02/18 12:00 97.7 67 16 172/86 (114) 97 06/02/18 09:00 Room Air 06/02/18 08:53 72 158/78 06/02/18 08:00 97.5 72 16 158/78 (104) 95 06/02/18 06:10 75 164/83 (110) 06/02/18 06:00 164/83 06/02/18 04:20 98.0 72 19 178/85 (116) 97 06/02/18 04:20 178/85 06/01/18 22:26 75 18 160/82 (108) 06/01/18 22:00 160/82 06/01/18 21:09 Room Air 06/01/18 20:58 79 176/94 06/01/18 20:56 98.3 79 18 176/94 (121) 93 06/01/18 15:25 97.8 70 18 166/84 (111) 99 06/01/18 14:04 198/95 06/01/18 13:57 198/95 Height (Feet): 5 Height (Inches): 6.00 Weight (Pounds): 172 General Appearance: WD/WN, no acute distress HEENT: normocephalic, atraumatic, anicteric, mucous membranes moist, PERRL, EOMI, pharynx normal, supple, no JVD Respiratory/Chest: chest wall non-tender, lungs clear, normal breath sounds, no respiratory distress, no accessory muscle use Cardiovascular: normal peripheral pulses, normal rate, regular rhythm, no gallop/murmur, no JVD Abdomen: normal bowel sounds, soft, non tender, no organomegaly, non distended , no mass, no scars Extremities: no cyanosis, no clubbing Skin: no rash, no lesions, no ulcers Neurologic/Psychiatric: alert, oriented x 3, responsive Lymphatic: no neck adenopathy, no groin adenopathy Musculoskeletal: normal muscle bulk, no effusion Laboratory Tests Test 06/02/18 04:50 White Blood Count 9.4 K/UL (4.8-10.8) Red Blood Count 2.88 M/UL (4.70-6.10) L Hemoglobin 8.8 G/DL (14.2-18.0) L Hematocrit 27.2 % (42.0-52.0) L Mean Corpuscular Volume 94 FL (80-99) Mean Corpuscular Hemoglobin 30.5 PG (27.0-31.0) Mean Corpuscular Hemoglobin Concent 32.3 G/DL (32.0-36.0) Red Cell Distribution Width 18.0 % (11.6-14.8) H Platelet Count 220 K/UL (150-450) Mean Platelet Volume 8.2 FL (6.5-10.1) Neutrophils (%) (Auto) 77.6 % (45.0-75.0) H Lymphocytes (%) (Auto) 6.1 % (20.0-45.0) L Monocytes (%) (Auto) 7.4 % (1.0-10.0) Eosinophils (%) (Auto) 8.0 % (0.0-3.0) H Basophils (%) (Auto) 0.8 % (0.0-2.0) Sodium Level 138 MMOL/L (136-145) Potassium Level 4.8 MMOL/L (3.5-5.1) Chloride Level 100 MMOL/L (98-107) Carbon Dioxide Level 26 MMOL/L (21-32) Anion Gap 12 mmol/L (5-15) Blood Urea Nitrogen 53 mg/dL (7-18) H Creatinine 8.4 MG/DL (0.55-1.30) H Estimat Glomerular Filtration Rate 6.7 mL/min (>60) Glucose Level 194 MG/DL (74-106) H Calcium Level 7.7 MG/DL (8.5-10.1) L Current Medications Medications (Trade) Dose Ordered Sig/Santos Route PRN Reason Start Time Stop Time Status Last Admin Dose Admin Clonidine HCl (Catapres Tab) 0.1 mg Q8HR ORAL 05/29/18 14:00 06/28/18 13:59 06/02/18 13:49 Dextrose (Dextrose 50%) 25 ml Q30M PRN IV Hypoglycemia 05/28/18 23:30 06/27/18 06:59 Dextrose (Dextrose 50%) 50 ml Q30M PRN IV Hypoglycemia 05/28/18 23:30 06/27/18 06:59 Docusate Sodium (Colace) 100 mg THREE TIMES A DAY ORAL 05/29/18 09:00 06/19/18 12:59 06/01/18 18:29 Epoetin Jayme (Procrit (for ESRD on dialysis)) 10,000 units MON-MON-MON SUBQ 05/30/18 21:00 06/22/18 20:59 06/01/18 22:25 Hydralazine HCl (Apresoline) 25 mg Q4H PRN ORAL For High Blood Pressure 06/01/18 18:00 07/01/18 17:59 06/02/18 04:20 Insulin Aspart (NovoLOG) BEFORE MEALS AND HS SUBQ 05/29/18 06:30 06/19/18 06:29 06/02/18 11:45 Insulin Aspart (NovoLOG) 3 units NOVOTIAC SUBQ 05/29/18 06:30 06/27/18 11:49 06/02/18 11:44 Insulin Detemir (Levemir) 12 units QHS SUBQ 05/30/18 21:00 06/20/18 11:59 06/01/18 21:51 Lactulose (Cephulac) 20 gm TWICE A DAY ORAL 05/29/18 09:00 06/20/18 05:59 06/01/18 18:20 Lorazepam (Ativan) 0.5 mg TIDPRN PRN ORAL For Anxiety 05/29/18 09:00 06/05/18 08:59 Metoprolol Tartrate (Lopressor) 50 mg Q12HR ORAL 05/29/18 09:00 06/23/18 20:59 06/02/18 08:53 Morphine Sulfate (Morphine Sulfate) 2 mg Q4H PRN IVP FOR SEVERE PAIN 05/29/18 02:45 06/03/18 06:44 06/02/18 11:40 Ondansetron HCl (Zofran) 4 mg TIDPRN PRN IVP Nausea & Vomiting 05/29/18 09:00 06/21/18 08:59 Pantoprazole (Protonix) 40 mg BID ORAL 05/29/18 09:00 06/22/18 17:59 06/02/18 08:53 Promethazine HCl/ Dextromethorphan (Phenergan DM) 6.25 mg Q6H PRN ORAL For Cough 05/29/18 00:00 06/23/18 11:59 Sevelamer Carbonate (Renvela) 1,600 mg THREE TIMES A DAY ORAL 05/29/18 09:00 06/20/18 12:59 06/02/18 13:49 Sodium Chloride 500 ml @ 999 mls/hr Q4H PRN IV SBP less than 100mmhg 05/29/18 01:00 06/19/18 08:59 Zolpidem Tartrate (Ambien) 5 mg HSPRN PRN ORAL Insomnia 05/29/18 19:45 06/04/18 19:44 05/31/18 00:23 Rowena Garcia M.D. Jun 02, 2018 13:56
[2018-06-02] MEDS ORDERED: NS Irrig 1000ml ONE (14:37)
--- NOTE | 2018-06-02 15:03 | General Progress Note ---
Assessment/Plan Problem List: (1) Retroperitoneal hemorrhage ICD Codes: R58 - Hemorrhage, not elsewhere classified SNOMED: 21922268 (2) ESRD (end stage renal disease) on dialysis ICD Codes: N18.6 - End stage renal disease; Z99.2 - Dependence on renal dialysis SNOMED: 437446501 (3) Diabetes ICD Codes: E11.9 - Type 2 diabetes mellitus without complications SNOMED: 58380532 Assessment/Plan continue Levemir 12 units qhs continue Novolog 3 units ac tid continue NISS ac / hs Subjective Allergies: Coded Allergies: No Known Allergies (Unverified , 05/20/18) All Systems: reviewed and negative except above Subjective events noted Objective Last 24 Hour Vital Signs Date Time Temp Pulse Resp B/P (MAP) Pulse Ox O2 Delivery O2 Flow Rate FiO2 06/02/18 13:49 172/86 06/02/18 12:00 97.7 67 16 172/86 (114) 97 06/02/18 09:00 Room Air 06/02/18 08:53 72 158/78 06/02/18 08:00 97.5 72 16 158/78 (104) 95 06/02/18 06:10 75 164/83 (110) 06/02/18 06:00 164/83 06/02/18 04:20 98.0 72 19 178/85 (116) 97 06/02/18 04:20 178/85 06/01/18 22:26 75 18 160/82 (108) 06/01/18 22:00 160/82 06/01/18 21:09 Room Air 06/01/18 20:58 79 176/94 06/01/18 20:56 98.3 79 18 176/94 (121) 93 06/01/18 15:25 97.8 70 18 166/84 (111) 99 Intake and Output 06/01/18 06/02/18 19:00 07:00 Intake Total 360 ml 240 ml Balance 360 ml 240 ml Intake Oral 360 ml 240 ml Laboratory Tests 06/02/18 04:50: White Blood Count 9.4, Red Blood Count 2.88L, Hemoglobin 8.8L, Hematocrit 27.2L , Mean Corpuscular Volume 94, Mean Corpuscular Hemoglobin 30.5, Mean Corpuscular Hemoglobin Concent 32.3, Red Cell Distribution Width 18.0H, Platelet Count 220, Mean Platelet Volume 8.2, Neutrophils (%) (Auto) 77.6H, Lymphocytes (%) (Auto) 6.1L, Monocytes (%) (Auto) 7.4, Eosinophils (%) (Auto) 8.0H, Basophils (%) (Auto) 0.8, Sodium Level 138, Potassium Level 4.8, Chloride Level 100, Carbon Dioxide Level 26, Anion Gap 12, Blood Urea Nitrogen 53H, Creatinine 8.4H, Estimat Glomerular Filtration Rate 6.7, Glucose Level 194H, Calcium Level 7.7L Height (Feet): 5 Height (Inches): 6.00 Weight (Pounds): 172 General Appearance: no apparent distress Neck: normal alignment Cardiovascular: normal rate Respiratory/Chest: lungs clear Abdomen: normal bowel sounds Pelvis: normal external exam Edema: no edema noted Arm (L), no edema noted Arm (R), no edema noted Leg (L), no edema noted Leg (R), no edema noted Pedal (L), no edema noted Pedal (R), no edema noted Generalized Objective Current Medications Medications (Trade) Dose Ordered Sig/Santos Route PRN Reason Start Time Stop Time Status Last Admin Dose Admin Clonidine HCl (Catapres Tab) 0.1 mg Q8HR ORAL 05/29/18 14:00 06/28/18 13:59 06/02/18 13:49 Dextrose (Dextrose 50%) 25 ml Q30M PRN IV Hypoglycemia 05/28/18 23:30 06/27/18 06:59 Dextrose (Dextrose 50%) 50 ml Q30M PRN IV Hypoglycemia 05/28/18 23:30 06/27/18 06:59 Docusate Sodium (Colace) 100 mg THREE TIMES A DAY ORAL 05/29/18 09:00 06/19/18 12:59 06/01/18 18:29 Epoetin Jayme (Procrit (for ESRD on dialysis)) 10,000 units MON-MON-MON SUBQ 05/30/18 21:00 06/22/18 20:59 06/01/18 22:25 Hydralazine HCl (Apresoline) 25 mg Q4H PRN ORAL For High Blood Pressure 06/01/18 18:00 07/01/18 17:59 06/02/18 04:20 Insulin Aspart (NovoLOG) BEFORE MEALS AND HS SUBQ 05/29/18 06:30 06/19/18 06:29 06/02/18 11:45 Insulin Aspart (NovoLOG) 3 units NOVOTIAC SUBQ 05/29/18 06:30 06/27/18 11:49 06/02/18 11:44 Insulin Detemir (Levemir) 12 units QHS SUBQ 05/30/18 21:00 06/20/18 11:59 06/01/18 21:51 Lactulose (Cephulac) 20 gm TWICE A DAY ORAL 05/29/18 09:00 06/20/18 05:59 06/01/18 18:20 Lorazepam (Ativan) 0.5 mg TIDPRN PRN ORAL For Anxiety 05/29/18 09:00 06/05/18 08:59 Metoprolol Tartrate (Lopressor) 50 mg Q12HR ORAL 05/29/18 09:00 06/23/18 20:59 06/02/18 08:53 Morphine Sulfate (Morphine Sulfate) 2 mg Q4H PRN IVP FOR SEVERE PAIN 05/29/18 02:45 06/03/18 06:44 06/02/18 11:40 Ondansetron HCl (Zofran) 4 mg TIDPRN PRN IVP Nausea & Vomiting 05/29/18 09:00 06/21/18 08:59 Pantoprazole (Protonix) 40 mg BID ORAL 05/29/18 09:00 06/22/18 17:59 06/02/18 08:53 Promethazine HCl/ Dextromethorphan (Phenergan DM) 6.25 mg Q6H PRN ORAL For Cough 05/29/18 00:00 06/23/18 11:59 Sevelamer Carbonate (Renvela) 1,600 mg THREE TIMES A DAY ORAL 05/29/18 09:00 06/20/18 12:59 06/02/18 13:49 Sodium Chloride 500 ml @ 999 mls/hr Q4H PRN IV SBP less than 100mmhg 05/29/18 01:00 06/19/18 08:59 Zolpidem Tartrate (Ambien) 5 mg HSPRN PRN ORAL Insomnia 05/29/18 19:45 06/04/18 19:44 11/15/18 00:23 Item Value Date Time Bedside Blood Glucose 111 mg/dl 06/02/18 1145 Bedside Blood Glucose 186 mg/dl H 06/02/18 0610 Bedside Blood Glucose 225 mg/dl H 06/01/18 2152 Bedside Blood Glucose 185 mg/dl H 06/01/18 1837 Bedside Blood Glucose 156 mg/dl H 06/01/18 1249 Willard Bonds MD Jun 02, 2018 15:03
[2018-06-02 16:00] VITALS: BP 174/83
--- NOTE | 2018-06-02 18:58 | Pulmonology Progress Note ---
Assessment/Plan Assessment/Plan Pulmonary Progress Note Patient with: (1) Previous Shock (2) Diabetes (3) ESRD (end stage renal disease) on dialysis (4) Retroperitoneal hemorrhage involving right kidney (5) Anemia persists Assessment/Plan No new complaints, not SOB, on RA CXR noted PRN anti-tussives PRN HHN's HD per renal ID following DVT Px: SCD's SSI Pain control/supportive care OK for DC from Pulmonary Perspective Subjective Allergies: Coded Allergies: No Known Allergies (Unverified , 05/20/18) Subjective HH stable AFVSS on 2L, getting HD Less flank abd pain + cough, no SOB no F/C Objective Vital Signs Noted Laboratory Tests 05/24/18 03:00: White Blood Count 9.6, Red Blood Count 2.62L, Hemoglobin 8.1L, Hematocrit 23.7L , Mean Corpuscular Volume 90, Mean Corpuscular Hemoglobin 30.9, Mean Corpuscular Hemoglobin Concent 34.1, Red Cell Distribution Width 13.6, Platelet Count 139L, Mean Platelet Volume 10.5H, Neutrophils (%) (Auto) 83.4H, Lymphocytes (%) (Auto) 6.7L, Monocytes (%) (Auto) 7.6, Eosinophils (%) (Auto) 1.7, Basophils (%) (Auto) 0.6, Sodium Level 139, Potassium Level 3.6, Chloride Level 97L, Carbon Dioxide Level 30, Anion Gap 12, Blood Urea Nitrogen 50H, Creatinine 6.8H, Estimat Glomerular Filtration Rate 8.6, Glucose Level 138H, Calcium Level 8.0L, Phosphorus Level 3.0, Magnesium Level 2.5H, Total Bilirubin 0.9, Aspartate Amino Transf (AST/SGOT) 31, Alanine Aminotransferase (ALT/SGPT) 35, Alkaline Phosphatase 61, Total Protein 7.6, Albumin 2.6L, Globulin 5.0, Albumin/Globulin Ratio 0.5L 05/24/18 11:10: Stool Occult Blood [Pending] 05/24/18 15:00: Stool Occult Blood [Pending] Current Medications Medications (Trade) Dose Ordered Sig/Santos Route PRN Reason Start Time Stop Time Status Last Admin Dose Admin Acetaminophen/ Hydrocodone Bitart ([place] 5/325) 1 tab TIDPRN PRN ORAL Moderate Pain (Pain Scale 4-6) 05/22/18 09:00 05/29/18 08:59 05/24/18 16:35 Dextrose (Dextrose 50%) 25 ml Q30M PRN IV Hypoglycemia 05/22/18 09:00 06/19/18 08:59 Dextrose (Dextrose 50%) 50 ml Q30M PRN IV Hypoglycemia 05/22/18 09:00 06/19/18 08:59 Docusate Sodium (Colace) 100 mg THREE TIMES A DAY ORAL 05/22/18 09:00 06/19/18 12:59 05/24/18 12:57 Epoetin Jayme (Procrit (for ESRD on dialysis)) 10,000 units MON-MON-MON SUBQ 05/23/18 21:00 06/22/18 20:59 05/23/18 21:25 Hydralazine HCl (Apresoline) 25 mg Q4H PRN ORAL BP 160 and above 05/24/18 10:30 06/23/18 10:29 05/24/18 12:57 Insulin Aspart (NovoLOG) BEFORE MEALS AND HS SUBQ 05/22/18 11:30 06/19/18 06:29 05/24/18 12:10 Insulin Detemir (Levemir) 6 units DAILY SUBQ 05/22/18 09:00 06/20/18 11:59 05/24/18 09:03 Iron Sucrose 100 mg/Sodium Chloride 55 ml @ 200 mls/hr BEDTIME IV 05/24/18 21:00 05/27/18 21:17 Lactulose (Cephulac) 20 gm TWICE A DAY ORAL 05/22/18 09:00 06/20/18 05:59 05/24/18 08:55 Lorazepam (Ativan) 0.5 mg TIDPRN PRN ORAL For Anxiety 05/22/18 09:00 05/29/18 08:59 Metoprolol Tartrate (Lopressor) 12.5 mg Q12HR ORAL 05/24/18 21:00 06/23/18 20:59 Ondansetron HCl (Zofran) 4 mg TIDPRN PRN IVP Nausea & Vomiting 05/22/18 09:00 06/21/18 08:59 Pantoprazole (Protonix) 40 mg BID ORAL 05/23/18 18:00 06/22/18 17:59 05/24/18 08:58 Piperacillin Sod/ Tazobactam Sod 2.25 gm/Dextrose 55 ml @ 110 mls/hr Q8HR IVPB 05/22/18 15:00 05/27/18 14:59 05/24/18 13:59 Promethazine HCl/ Dextromethorphan (Phenergan DM) 6.25 mg Q6H PRN ORAL For Cough 05/24/18 12:00 06/23/18 11:59 05/24/18 12:16 Sevelamer Carbonate (Renvela) 1,600 mg THREE TIMES A DAY ORAL 05/23/18 13:00 06/20/18 12:59 05/24/18 12:57 Sodium Chloride 500 ml @ 999 mls/hr Q4H PRN IV SBP less than 100mmhg 05/22/18 09:00 06/19/18 08:59 Subjective ROS Limited/Unobtainable: No Allergies: Coded Allergies: No Known Allergies (Unverified , 05/20/18) Objective Last 24 Hour Vital Signs Date Time Temp Pulse Resp B/P (MAP) Pulse Ox O2 Delivery O2 Flow Rate FiO2 06/02/18 17:20 174/83 06/02/18 16:00 98.8 67 16 174/83 (113) 97 06/02/18 13:49 172/86 06/02/18 12:00 97.7 67 16 172/86 (114) 97 06/02/18 09:00 Room Air 06/02/18 08:53 72 158/78 06/02/18 08:00 97.5 72 16 158/78 (104) 95 06/02/18 06:10 75 164/83 (110) 06/02/18 06:00 164/83 06/02/18 04:20 98.0 72 19 178/85 (116) 97 06/02/18 04:20 178/85 06/01/18 22:26 75 18 160/82 (108) 06/01/18 22:00 160/82 06/01/18 21:09 Room Air 06/01/18 20:58 79 176/94 06/01/18 20:56 98.3 79 18 176/94 (121) 93 Intake and Output 06/01/18 06/02/18 19:00 07:00 Intake Total 360 ml 240 ml Balance 360 ml 240 ml Intake Oral 360 ml 240 ml Laboratory Tests 06/02/18 04:50: White Blood Count 9.4, Red Blood Count 2.88L, Hemoglobin 8.8L, Hematocrit 27.2L , Mean Corpuscular Volume 94, Mean Corpuscular Hemoglobin 30.5, Mean Corpuscular Hemoglobin Concent 32.3, Red Cell Distribution Width 18.0H, Platelet Count 220, Mean Platelet Volume 8.2, Neutrophils (%) (Auto) 77.6H, Lymphocytes (%) (Auto) 6.1L, Monocytes (%) (Auto) 7.4, Eosinophils (%) (Auto) 8.0H, Basophils (%) (Auto) 0.8, Sodium Level 138, Potassium Level 4.8, Chloride Level 100, Carbon Dioxide Level 26, Anion Gap 12, Blood Urea Nitrogen 53H, Creatinine 8.4H, Estimat Glomerular Filtration Rate 6.7, Glucose Level 194H, Calcium Level 7.7L Current Medications Medications (Trade) Dose Ordered Sig/Santos Route PRN Reason Start Time Stop Time Status Last Admin Dose Admin Clonidine HCl (Catapres Tab) 0.1 mg Q8HR ORAL 05/29/18 14:00 06/28/18 13:59 06/02/18 13:49 Dextrose (Dextrose 50%) 25 ml Q30M PRN IV Hypoglycemia 05/28/18 23:30 06/27/18 06:59 Dextrose (Dextrose 50%) 50 ml Q30M PRN IV Hypoglycemia 05/28/18 23:30 06/27/18 06:59 Docusate Sodium (Colace) 100 mg THREE TIMES A DAY ORAL 05/29/18 09:00 06/19/18 12:59 06/01/18 18:29 Epoetin Jayme (Procrit (for ESRD on dialysis)) 10,000 units MON-MON-MON SUBQ 05/30/18 21:00 06/22/18 20:59 06/01/18 22:25 Hydralazine HCl (Apresoline) 25 mg Q4H PRN ORAL For High Blood Pressure 06/01/18 18:00 07/01/18 17:59 06/02/18 17:20 Insulin Aspart (NovoLOG) BEFORE MEALS AND HS SUBQ 05/29/18 06:30 06/19/18 06:29 06/02/18 16:52 Insulin Aspart (NovoLOG) 3 units NOVOTIAC SUBQ 05/29/18 06:30 06/27/18 11:49 06/02/18 16:51 Insulin Detemir (Levemir) 12 units QHS SUBQ 05/30/18 21:00 06/20/18 11:59 06/01/18 21:51 Lactulose (Cephulac) 20 gm TWICE A DAY ORAL 05/29/18 09:00 06/20/18 05:59 06/01/18 18:20 Lorazepam (Ativan) 0.5 mg TIDPRN PRN ORAL For Anxiety 05/29/18 09:00 06/05/18 08:59 Metoprolol Tartrate (Lopressor) 50 mg Q12HR ORAL 05/29/18 09:00 06/23/18 20:59 06/02/18 08:53 Morphine Sulfate (Morphine Sulfate) 2 mg Q4H PRN IVP FOR SEVERE PAIN 05/29/18 02:45 06/03/18 06:44 06/02/18 11:40 Ondansetron HCl (Zofran) 4 mg TIDPRN PRN IVP Nausea & Vomiting 05/29/18 09:00 06/21/18 08:59 Pantoprazole (Protonix) 40 mg BID ORAL 05/29/18 09:00 06/22/18 17:59 06/02/18 17:20 Promethazine HCl/ Dextromethorphan (Phenergan DM) 6.25 mg Q6H PRN ORAL For Cough 05/29/18 00:00 06/23/18 11:59 Sevelamer Carbonate (Renvela) 1,600 mg THREE TIMES A DAY ORAL 05/29/18 09:00 06/20/18 12:59 06/02/18 17:20 Sodium Chloride 500 ml @ 999 mls/hr Q4H PRN IV SBP less than 100mmhg 05/29/18 01:00 06/19/18 08:59 Zolpidem Tartrate (Ambien) 5 mg HSPRN PRN ORAL Insomnia 05/29/18 19:45 06/04/18 19:44 05/31/18 00:23 Tae Velazco MD Jun 02, 2018 18:58
[2018-06-02 20:00] VITALS: BP 150/81
[2018-06-02] MEDS: Levemir Flexpen SUBQ SCH (21:31)
--- NOTE | 2018-06-02 22:38 | General Progress Note ---
Assessment/Plan Assessment/Plan anxiety d/o ativan prn provided ro/st Subjective Neurologic/Psychiatric: Reports: anxiety, depressed Allergies: Coded Allergies: No Known Allergies (Unverified , 05/20/18) Subjective the pt is in nad Objective Last 24 Hour Vital Signs Date Time Temp Pulse Resp B/P (MAP) Pulse Ox O2 Delivery O2 Flow Rate FiO2 06/02/18 21:26 70 150/81 06/02/18 20:00 98.8 70 18 150/81 (104) 95 06/02/18 17:20 174/83 06/02/18 16:00 98.8 67 16 174/83 (113) 97 06/02/18 13:49 172/86 06/02/18 12:00 97.7 67 16 172/86 (114) 97 06/02/18 09:00 Room Air 06/02/18 08:53 72 158/78 06/02/18 08:00 97.5 72 16 158/78 (104) 95 06/02/18 06:10 75 164/83 (110) 06/02/18 06:00 164/83 06/02/18 04:20 98.0 72 19 178/85 (116) 97 06/02/18 04:20 178/85 Intake and Output 06/01/18 06/02/18 18:59 06:59 Intake Total 360 ml 240 ml Balance 360 ml 240 ml Intake Oral 360 ml 240 ml Laboratory Tests 06/02/18 04:50: White Blood Count 9.4, Red Blood Count 2.88L, Hemoglobin 8.8L, Hematocrit 27.2L , Mean Corpuscular Volume 94, Mean Corpuscular Hemoglobin 30.5, Mean Corpuscular Hemoglobin Concent 32.3, Red Cell Distribution Width 18.0H, Platelet Count 220, Mean Platelet Volume 8.2, Neutrophils (%) (Auto) 77.6H, Lymphocytes (%) (Auto) 6.1L, Monocytes (%) (Auto) 7.4, Eosinophils (%) (Auto) 8.0H, Basophils (%) (Auto) 0.8, Sodium Level 138, Potassium Level 4.8, Chloride Level 100, Carbon Dioxide Level 26, Anion Gap 12, Blood Urea Nitrogen 53H, Creatinine 8.4H, Estimat Glomerular Filtration Rate 6.7, Glucose Level 194H, Calcium Level 7.7L Height (Feet): 5 Height (Inches): 6.00 Weight (Pounds): 172 General Appearance: no apparent distress, alert Neurologic: oriented x 3, responsive, depressed affect Chris Driscoll MD Jun 02, 2018 22:38
[2018-06-02] MEDS: Zolpidem 5mg tab ORAL PRN (22:59)
[2018-06-03] VITALS (8 sets, daily range): BP systolic 159–183; BP diastolic 80–98
[2018-06-03] MEDS: NovoLOG Insulin Flexpen SUBQ SCH ×7 (06:07→20:26)
--- NOTE | 2018-06-03 08:32 | General Progress Note ---
Assessment/Plan Problem List: (1) Retroperitoneal hemorrhage ICD Codes: R58 - Hemorrhage, not elsewhere classified SNOMED: 97619576 (2) ESRD (end stage renal disease) on dialysis ICD Codes: N18.6 - End stage renal disease; Z99.2 - Dependence on renal dialysis SNOMED: 209396513 (3) Diabetes ICD Codes: E11.9 - Type 2 diabetes mellitus without complications SNOMED: 31128366 Assessment/Plan reduce Levemir to 10 units qhs continue Novolog 3 units ac tid continue NISS ac / hs Subjective Allergies: Coded Allergies: No Known Allergies (Unverified , 05/20/18) All Systems: reviewed and negative except above Subjective events noted Objective Last 24 Hour Vital Signs Date Time Temp Pulse Resp B/P (MAP) Pulse Ox O2 Delivery O2 Flow Rate FiO2 06/03/18 08:00 97.6 68 22 161/80 (107) 94 06/03/18 06:06 165/87 06/03/18 04:00 97.8 70 18 165/87 (113) 95 06/03/18 00:00 98.9 67 18 159/80 (106) 96 06/02/18 22:59 162/84 06/02/18 21:26 70 150/81 06/02/18 21:00 Room Air 06/02/18 20:00 98.8 70 18 150/81 (104) 95 06/02/18 17:20 174/83 06/02/18 16:00 98.8 67 16 174/83 (113) 97 06/02/18 13:49 172/86 06/02/18 12:00 97.7 67 16 172/86 (114) 97 06/02/18 09:00 Room Air 06/02/18 08:53 72 158/78 Intake and Output 06/02/18 06/03/18 19:00 07:00 Intake Total 480 ml 480 ml Balance 480 ml 480 ml Intake Oral 480 ml Other 480 ml # Voids 1 Height (Feet): 5 Height (Inches): 6.00 Weight (Pounds): 190 General Appearance: no apparent distress Neck: normal alignment Cardiovascular: normal rate Respiratory/Chest: lungs clear Abdomen: normal bowel sounds Objective Current Medications Medications (Trade) Dose Ordered Sig/Santos Route PRN Reason Start Time Stop Time Status Last Admin Dose Admin Clonidine HCl (Catapres Tab) 0.1 mg Q8HR ORAL 05/29/18 14:00 06/28/18 13:59 06/03/18 06:06 Dextrose (Dextrose 50%) 25 ml Q30M PRN IV Hypoglycemia 05/28/18 23:30 06/27/18 06:59 Dextrose (Dextrose 50%) 50 ml Q30M PRN IV Hypoglycemia 05/28/18 23:30 06/27/18 06:59 Docusate Sodium (Colace) 100 mg THREE TIMES A DAY ORAL 05/29/18 09:00 06/19/18 12:59 06/01/18 18:29 Epoetin Jayme (Procrit (for ESRD on dialysis)) 10,000 units MON-MON-MON SUBQ 05/30/18 21:00 06/22/18 20:59 06/01/18 22:25 Hydralazine HCl (Apresoline) 25 mg Q4H PRN ORAL For High Blood Pressure 06/01/18 18:00 07/01/18 17:59 06/02/18 17:20 Insulin Aspart (NovoLOG) BEFORE MEALS AND HS SUBQ 05/29/18 06:30 06/19/18 06:29 06/02/18 21:30 Insulin Aspart (NovoLOG) 3 units NOVOTIAC SUBQ 05/29/18 06:30 06/27/18 11:49 06/03/18 06:07 Insulin Detemir (Levemir) 12 units QHS SUBQ 05/30/18 21:00 06/20/18 11:59 06/02/18 21:31 Lactulose (Cephulac) 20 gm TWICE A DAY ORAL 05/29/18 09:00 06/20/18 05:59 06/01/18 18:20 Lorazepam (Ativan) 0.5 mg TIDPRN PRN ORAL For Anxiety 05/29/18 09:00 06/05/18 08:59 Metoprolol Tartrate (Lopressor) 50 mg Q12HR ORAL 05/29/18 09:00 06/23/18 20:59 06/02/18 21:26 Ondansetron HCl (Zofran) 4 mg TIDPRN PRN IVP Nausea & Vomiting 05/29/18 09:00 06/21/18 08:59 Pantoprazole (Protonix) 40 mg BID ORAL 05/29/18 09:00 06/22/18 17:59 06/02/18 17:20 Promethazine HCl/ Dextromethorphan (Phenergan DM) 6.25 mg Q6H PRN ORAL For Cough 05/29/18 00:00 06/23/18 11:59 Sevelamer Carbonate (Renvela) 1,600 mg THREE TIMES A DAY ORAL 05/29/18 09:00 06/20/18 12:59 06/02/18 17:20 Sodium Chloride 500 ml @ 999 mls/hr Q4H PRN IV SBP less than 100mmhg 05/29/18 01:00 06/19/18 08:59 Zolpidem Tartrate (Ambien) 5 mg HSPRN PRN ORAL Insomnia 05/29/18 19:45 06/04/18 19:44 06/02/18 22:59 Item Value Date Time Bedside Blood Glucose 69 mg/dl L 06/03/18 0611 Bedside Blood Glucose 131 mg/dl H 06/02/18 2131 Bedside Blood Glucose 260 mg/dl H 06/02/18 1652 Bedside Blood Glucose 111 mg/dl 06/02/18 1145 Bedside Blood Glucose 186 mg/dl H 06/02/18 0610 Willard Bonds MD Jun 03, 2018 08:32
[2018-06-03] MEDS: Lactulose 20gm/30ml UDC ORAL SCH ×3 (09:00→17:51)
[2018-06-03] MEDS: Docusate 100mg cap ORAL SCH ×3 (09:17→17:50)
[2018-06-03] MEDS: Metoprolol Tartrate 50mg tab ORAL SCH ×2 (09:18→20:20)
[2018-06-03] MEDS: HydrALAZINE 25mg tab ORAL PRN ×2 (11:12→15:40)
--- NOTE | 2018-06-03 13:12 | Nephrology Progress Note ---
Assessment/Plan Problem List: (1) ESRD (end stage renal disease) on dialysis (2) Retroperitoneal hemorrhage (3) Shock (4) Anemia (5) Abdominal pain (6) Diabetes Assessment WBC lower presented with: hemorrhagic shock- Retro Peritoneal bleed Low BP on admission ESRD DM HTN transfused multiple times Plan HD next 06/04 WBCs lower Transfuse as needed, manage pain Per consultants / Urologist discussed with RN meds adjusted CBC STABLE ? DC HOME Subjective ROS Limited/Unobtainable: No Objective Objective Last 24 Hour Vital Signs Date Time Temp Pulse Resp B/P (MAP) Pulse Ox O2 Delivery O2 Flow Rate FiO2 06/03/18 11:13 178/98 (124) 06/03/18 11:12 178/98 06/03/18 09:18 68 161/80 06/03/18 09:00 Room Air 06/03/18 08:00 97.6 68 22 161/80 (107) 94 06/03/18 06:06 165/87 06/03/18 04:00 97.8 70 18 165/87 (113) 95 06/03/18 00:00 98.9 67 18 159/80 (106) 96 06/02/18 22:59 162/84 06/02/18 21:26 70 150/81 06/02/18 21:00 Room Air 06/02/18 20:00 98.8 70 18 150/81 (104) 95 06/02/18 17:20 174/83 06/02/18 16:00 98.8 67 16 174/83 (113) 97 06/02/18 13:49 172/86 Intake and Output 06/02/18 06/03/18 19:00 07:00 Intake Total 480 ml 480 ml Balance 480 ml 480 ml Intake Oral 480 ml Other 480 ml # Voids 1 Height (Feet): 5 Height (Inches): 6.00 Weight (Pounds): 190 General Appearance: no apparent distress Objective no change Dm Lopez MD Jun 03, 2018 13:12
--- NOTE | 2018-06-03 14:01 | General Progress Note ---
Assessment/Plan Status: stable Assessment/Plan S: I am ok and my flank pain is ok O: appears in No distress. Denies any abdominal pain . PHYSICAL EXAMINATION: HEAD AND NECK: Atraumatic and normocephalic. CHEST: Clear to auscultation. No wheezing. No crackles. HEART: S1 and S2. Regular rate and rhythm. ABDOMEN: Tender noted. Negative for rebound tenderness. NEUROLOGIC: The patient is awake, alert, and oriented x3. PSYCHIATRIC: Mood and affect are appropriate and normal. MUSCULOSKELETAL: No gross lateralized motor deficit. Left arm AV F/G is noted, with no erythma or tenderness Meds: reviewed and reconciled, including Lnatus 9 u qhs plus Fixed meal time insulin IMAGING: CT scan of abdomen and pelvis dated May 28, 2018 reviewed showing intervan incraese in the right perinephric hematoma. the repeat CT is pending ASSESSMENT AND PLAN: 1. Acute Right Perinephric Hemorrhage 3. Acute anemia. 4. Diabetes type 5 Hypovolemic Shock : Stable 6. GI-DVT prophylaxis 7. HTN: uncontrolled 8. Leukocytosis: with no evidence of acute Active infection Plan: will monitor HH, Will proceed with PRBC transfusion with Hgb < 7.3 Notes from Urology , Nephro, Endo, Critical specialist are reviewed Stable appearance of right perinephric hematoma by imaging Optimization of BP meds No evidence for active acute infection. Will monitor per ID Discussed the care with Dr Damon , urology. agreed for outpatient followup[ Serious but Stable cnd at this time Medically stable for followup outpatient I called medications to pharmacy. Given the limitation of medication availability in this ([place] speaking pharmacy ), I hold the discharge to Monday for SAFE DISCHARGE Subjective Allergies: Coded Allergies: No Known Allergies (Unverified , 05/20/18) Objective Last 24 Hour Vital Signs Date Time Temp Pulse Resp B/P (MAP) Pulse Ox O2 Delivery O2 Flow Rate FiO2 06/03/18 12:00 97.4 65 20 183/90 (121) 06/03/18 11:13 178/98 (124) 06/03/18 11:12 178/98 06/03/18 09:18 68 161/80 06/03/18 09:00 Room Air 06/03/18 08:00 97.6 68 22 161/80 (107) 94 06/03/18 06:06 165/87 06/03/18 04:00 97.8 70 18 165/87 (113) 95 06/03/18 00:00 98.9 67 18 159/80 (106) 96 06/02/18 22:59 162/84 06/02/18 21:26 70 150/81 06/02/18 21:00 Room Air 06/02/18 20:00 98.8 70 18 150/81 (104) 95 06/02/18 17:20 174/83 06/02/18 16:00 98.8 67 16 174/83 (113) 97 Intake and Output 06/02/18 06/03/18 19:00 07:00 Intake Total 480 ml 480 ml Balance 480 ml 480 ml Intake Oral 480 ml Other 480 ml # Voids 1 Height (Feet): 5 Height (Inches): 6.00 Weight (Pounds): 190 Baljit Flores MD Jun 03, 2018 14:01
--- NOTE | 2018-06-03 16:38 | Infectious Diseases Prog Note ---
Assessment/Plan Problems: (1) Leukocytosis Assessment & Plan: suspect due to recurrent bleeding which he required multiple transfusion for , S/P zosyn for 6 days , doubt infectious etiology with no fever and negative cultures . repeated CT abd/pelvis showed increasing in the size of the right side hematoma , which is most likely the source , repeated blood culture is negative. will continue to monitor patient daily since high risk and keep off antibiotics for now , with close monitor of H/H . (2) Renal hematoma, right Assessment & Plan: with extension to the retroperitoneal area , continue close monitor of H/H and serial images for follow up, watch out for abscess formation. CT abd/pelvis done lately showed increasing in the size of the right side hematoma. will need arterial embolization by IR, if recurrent bleeding again . (3) Retroperitoneal hemorrhage Assessment & Plan: continue H/H monitoring with blood transfusion , and serial imaging for follow up, avoid anticoagulation (4) ESRD (end stage renal disease) on dialysis Assessment & Plan: on HD, renal is following (5) Diabetes Assessment & Plan: recommend tight glycemic control to keep blood glucose between 100-140 Subjective Constitutional: Reports: no symptoms HEENT: Reports: no symptoms Respiratory: Reports: no symptoms Breasts: Reports: no symptoms Cardiovascular: Reports: no symptoms Gastrointestinal/Abdominal: Reports: no symptoms Genitourinary: Reports: no symptoms Neurologic: Reports: no symptoms Psychiatric: Reports: no symptoms Skin: Reports: no symptoms Endocrine: Reports: no symptoms Hematologic: Reports: no symptoms Musculoskeletal: Reports: no symptoms Allergies: Coded Allergies: No Known Allergies (Unverified , 05/20/18) Subjective he has mild flank pain today and discomfort, no fever or chills, no cough or SOB , getting blood transfusion Objective Vital Signs Last 24 Hour Vital Signs Date Time Temp Pulse Resp B/P (MAP) Pulse Ox O2 Delivery O2 Flow Rate FiO2 06/03/18 16:00 97.4 67 22 179/89 (119) 93 06/03/18 15:40 168/86 06/03/18 15:36 168/86 (113) 06/03/18 13:57 183/90 06/03/18 12:00 97.4 65 20 183/90 (121) 06/03/18 11:13 178/98 (124) 06/03/18 11:12 178/98 06/03/18 09:18 68 161/80 06/03/18 09:00 Room Air 06/03/18 08:00 97.6 68 22 161/80 (107) 94 06/03/18 06:06 165/87 06/03/18 04:00 97.8 70 18 165/87 (113) 95 06/03/18 00:00 98.9 67 18 159/80 (106) 96 06/02/18 22:59 162/84 06/02/18 21:26 70 150/81 06/02/18 21:00 Room Air 06/02/18 20:00 98.8 70 18 150/81 (104) 95 06/02/18 17:20 174/83 Height (Feet): 5 Height (Inches): 6.00 Weight (Pounds): 190 General Appearance: WD/WN, no acute distress HEENT: normocephalic, atraumatic, anicteric, mucous membranes moist, PERRL, EOMI, pharynx normal, supple, no JVD Respiratory/Chest: chest wall non-tender, lungs clear, normal breath sounds, no respiratory distress, no accessory muscle use Cardiovascular: normal peripheral pulses, normal rate, regular rhythm, no gallop/murmur, no JVD Abdomen: normal bowel sounds, soft, non tender, no organomegaly, non distended , no mass, no scars Extremities: no cyanosis, no clubbing Skin: no rash, no lesions, no ulcers Neurologic/Psychiatric: alert, oriented x 3, responsive Lymphatic: no neck adenopathy, no groin adenopathy Musculoskeletal: normal muscle bulk, no effusion Current Medications Medications (Trade) Dose Ordered Sig/Santos Route PRN Reason Start Time Stop Time Status Last Admin Dose Admin Clonidine HCl (Catapres Tab) 0.1 mg Q8HR ORAL 05/29/18 14:00 06/28/18 13:59 06/03/18 13:57 Dextrose (Dextrose 50%) 25 ml Q30M PRN IV Hypoglycemia 05/28/18 23:30 06/27/18 06:59 Dextrose (Dextrose 50%) 50 ml Q30M PRN IV Hypoglycemia 05/28/18 23:30 06/27/18 06:59 Docusate Sodium (Colace) 100 mg THREE TIMES A DAY ORAL 05/29/18 09:00 06/19/18 12:59 06/03/18 13:57 Epoetin Jayme (Procrit (for ESRD on dialysis)) 10,000 units MON-MON-MON SUBQ 05/30/18 21:00 06/22/18 20:59 06/01/18 22:25 Hydralazine HCl (Apresoline) 25 mg Q4H PRN ORAL For High Blood Pressure 06/01/18 18:00 07/01/18 17:59 06/03/18 15:40 Insulin Aspart (NovoLOG) BEFORE MEALS AND HS SUBQ 05/29/18 06:30 06/19/18 06:29 06/03/18 11:50 Insulin Aspart (NovoLOG) 3 units NOVOTIAC SUBQ 05/29/18 06:30 06/27/18 11:49 06/03/18 06:07 Insulin Detemir (Levemir) 10 units QHS SUBQ 06/03/18 21:00 06/20/18 11:59 Lactulose (Cephulac) 20 gm TWICE A DAY ORAL 05/29/18 09:00 06/20/18 05:59 06/01/18 18:20 Lorazepam (Ativan) 0.5 mg TIDPRN PRN ORAL For Anxiety 05/29/18 09:00 06/05/18 08:59 Metoprolol Tartrate (Lopressor) 50 mg Q12HR ORAL 05/29/18 09:00 06/23/18 20:59 06/03/18 09:18 Ondansetron HCl (Zofran) 4 mg TIDPRN PRN IVP Nausea & Vomiting 05/29/18 09:00 06/21/18 08:59 Pantoprazole (Protonix) 40 mg BID ORAL 05/29/18 09:00 06/22/18 17:59 06/03/18 09:17 Promethazine HCl/ Dextromethorphan (Phenergan DM) 6.25 mg Q6H PRN ORAL For Cough 05/29/18 00:00 06/23/18 11:59 Sevelamer Carbonate (Renvela) 1,600 mg THREE TIMES A DAY ORAL 05/29/18 09:00 06/20/18 12:59 06/03/18 13:57 Sodium Chloride 500 ml @ 999 mls/hr Q4H PRN IV SBP less than 100mmhg 05/29/18 01:00 06/19/18 08:59 Zolpidem Tartrate (Ambien) 5 mg HSPRN PRN ORAL Insomnia 05/29/18 19:45 06/04/18 19:44 06/02/18 22:59 Rowena Garcia M.D. Jun 03, 2018 16:37
[2018-06-03] MEDS ORDERED: cloNIDine 0.2mg Tab ORAL PRN (17:15)
--- NOTE | 2018-06-03 18:10 | Pulmonology Progress Note ---
Assessment/Plan Assessment/Plan Pulmonary Progress Note Patient with: (1) Previous Shock (2) Diabetes (3) ESRD (end stage renal disease) on dialysis (4) Retroperitoneal hemorrhage involving right kidney (5) Anemia persists Assessment/Plan No new complaints, not SOB, on RA Off antibiotics CXR noted PRN anti-tussives PRN HHN's HD per renal ID following DVT Px: SCD's SSI Pain control/supportive care OK for DC from Pulmonary Perspective Subjective Allergies: Coded Allergies: No Known Allergies (Unverified , 05/20/18) Subjective HH stable AFVSS on 2L, getting HD Less flank abd pain + cough, no SOB no F/C Objective Vital Signs Noted Laboratory Tests 05/24/18 03:00: White Blood Count 9.6, Red Blood Count 2.62L, Hemoglobin 8.1L, Hematocrit 23.7L , Mean Corpuscular Volume 90, Mean Corpuscular Hemoglobin 30.9, Mean Corpuscular Hemoglobin Concent 34.1, Red Cell Distribution Width 13.6, Platelet Count 139L, Mean Platelet Volume 10.5H, Neutrophils (%) (Auto) 83.4H, Lymphocytes (%) (Auto) 6.7L, Monocytes (%) (Auto) 7.6, Eosinophils (%) (Auto) 1.7, Basophils (%) (Auto) 0.6, Sodium Level 139, Potassium Level 3.6, Chloride Level 97L, Carbon Dioxide Level 30, Anion Gap 12, Blood Urea Nitrogen 50H, Creatinine 6.8H, Estimat Glomerular Filtration Rate 8.6, Glucose Level 138H, Calcium Level 8.0L, Phosphorus Level 3.0, Magnesium Level 2.5H, Total Bilirubin 0.9, Aspartate Amino Transf (AST/SGOT) 31, Alanine Aminotransferase (ALT/SGPT) 35, Alkaline Phosphatase 61, Total Protein 7.6, Albumin 2.6L, Globulin 5.0, Albumin/Globulin Ratio 0.5L 05/24/18 11:10: Stool Occult Blood [Pending] 05/24/18 15:00: Stool Occult Blood [Pending] Current Medications Medications (Trade) Dose Ordered Sig/Santos Route PRN Reason Start Time Stop Time Status Last Admin Dose Admin Acetaminophen/ Hydrocodone Bitart ([place] 5/325) 1 tab TIDPRN PRN ORAL Moderate Pain (Pain Scale 4-6) 05/22/18 09:00 11/13/18 08:59 05/24/18 16:35 Dextrose (Dextrose 50%) 25 ml Q30M PRN IV Hypoglycemia 05/22/18 09:00 06/19/18 08:59 Dextrose (Dextrose 50%) 50 ml Q30M PRN IV Hypoglycemia 05/22/18 09:00 06/19/18 08:59 Docusate Sodium (Colace) 100 mg THREE TIMES A DAY ORAL 05/22/18 09:00 06/19/18 12:59 05/24/18 12:57 Epoetin Jayme (Procrit (for ESRD on dialysis)) 10,000 units MON-MON-MON SUBQ 05/23/18 21:00 06/22/18 20:59 05/23/18 21:25 Hydralazine HCl (Apresoline) 25 mg Q4H PRN ORAL BP 160 and above 05/24/18 10:30 06/23/18 10:29 05/24/18 12:57 Insulin Aspart (NovoLOG) BEFORE MEALS AND HS SUBQ 05/22/18 11:30 06/19/18 06:29 05/24/18 12:10 Insulin Detemir (Levemir) 6 units DAILY SUBQ 05/22/18 09:00 06/20/18 11:59 05/24/18 09:03 Iron Sucrose 100 mg/Sodium Chloride 55 ml @ 200 mls/hr BEDTIME IV 05/24/18 21:00 05/27/18 21:17 Lactulose (Cephulac) 20 gm TWICE A DAY ORAL 05/22/18 09:00 06/20/18 05:59 05/24/18 08:55 Lorazepam (Ativan) 0.5 mg TIDPRN PRN ORAL For Anxiety 05/22/18 09:00 05/29/18 08:59 Metoprolol Tartrate (Lopressor) 12.5 mg Q12HR ORAL 05/24/18 21:00 06/23/18 20:59 Ondansetron HCl (Zofran) 4 mg TIDPRN PRN IVP Nausea & Vomiting 05/22/18 09:00 06/21/18 08:59 Pantoprazole (Protonix) 40 mg BID ORAL 05/23/18 18:00 06/22/18 17:59 05/24/18 08:58 Piperacillin Sod/ Tazobactam Sod 2.25 gm/Dextrose 55 ml @ 110 mls/hr Q8HR IVPB 05/22/18 15:00 05/27/18 14:59 05/24/18 13:59 Promethazine HCl/ Dextromethorphan (Phenergan DM) 6.25 mg Q6H PRN ORAL For Cough 05/24/18 12:00 06/23/18 11:59 05/24/18 12:16 Sevelamer Carbonate (Renvela) 1,600 mg THREE TIMES A DAY ORAL 05/23/18 13:00 06/20/18 12:59 05/24/18 12:57 Sodium Chloride 500 ml @ 999 mls/hr Q4H PRN IV SBP less than 100mmhg 05/22/18 09:00 06/19/18 08:59 Subjective ROS Limited/Unobtainable: No Allergies: Coded Allergies: No Known Allergies (Unverified , 05/20/18) Objective Last 24 Hour Vital Signs Date Time Temp Pulse Resp B/P (MAP) Pulse Ox O2 Delivery O2 Flow Rate FiO2 06/03/18 17:50 179/89 06/03/18 16:00 97.4 67 22 179/89 (119) 93 06/03/18 15:40 168/86 06/03/18 15:36 168/86 (113) 06/03/18 13:57 183/90 06/03/18 12:00 97.4 65 20 183/90 (121) 06/03/18 11:13 178/98 (124) 06/03/18 11:12 178/98 06/03/18 09:18 68 161/80 06/03/18 09:00 Room Air 06/03/18 08:00 97.6 68 22 161/80 (107) 94 06/03/18 06:06 165/87 06/03/18 04:00 97.8 70 18 165/87 (113) 95 06/03/18 00:00 98.9 67 18 159/80 (106) 96 06/02/18 22:59 162/84 06/02/18 21:26 70 150/81 06/02/18 21:00 Room Air 06/02/18 20:00 98.8 70 18 150/81 (104) 95 Intake and Output 11/17/18 11/18/18 19:00 07:00 Intake Total 480 ml 480 ml Balance 480 ml 480 ml Intake Oral 480 ml Other 480 ml # Voids 1 Current Medications Medications (Trade) Dose Ordered Sig/Santos Route PRN Reason Start Time Stop Time Status Last Admin Dose Admin Clonidine HCl (Catapres Tab) 0.1 mg Q8HR ORAL 05/29/18 14:00 06/28/18 13:59 06/03/18 13:57 Clonidine HCl (Catapres tab) 0.2 mg Q6HR PRN ORAL For High Blood Pressure 06/03/18 17:15 07/03/18 17:14 06/03/18 17:50 Dextrose (Dextrose 50%) 25 ml Q30M PRN IV Hypoglycemia 05/28/18 23:30 06/27/18 06:59 Dextrose (Dextrose 50%) 50 ml Q30M PRN IV Hypoglycemia 05/28/18 23:30 06/27/18 06:59 Docusate Sodium (Colace) 100 mg THREE TIMES A DAY ORAL 05/29/18 09:00 06/19/18 12:59 06/03/18 17:50 Epoetin Jayme (Procrit (for ESRD on dialysis)) 10,000 units MON-MON-MON SUBQ 05/30/18 21:00 06/22/18 20:59 06/01/18 22:25 Hydralazine HCl (Apresoline) 25 mg Q4H PRN ORAL For High Blood Pressure 06/01/18 18:00 07/01/18 17:59 06/03/18 15:40 Insulin Aspart (NovoLOG) BEFORE MEALS AND HS SUBQ 05/29/18 06:30 06/19/18 06:29 06/03/18 16:48 Insulin Aspart (NovoLOG) 3 units NOVOTIAC SUBQ 05/29/18 06:30 06/27/18 11:49 06/03/18 06:07 Insulin Detemir (Levemir) 10 units QHS SUBQ 06/03/18 21:00 06/20/18 11:59 Lactulose (Cephulac) 20 gm TWICE A DAY ORAL 05/29/18 09:00 06/20/18 05:59 06/03/18 17:51 Lorazepam (Ativan) 0.5 mg TIDPRN PRN ORAL For Anxiety 05/29/18 09:00 06/05/18 08:59 Metoprolol Tartrate (Lopressor) 50 mg Q12HR ORAL 05/29/18 09:00 06/23/18 20:59 06/03/18 09:18 Ondansetron HCl (Zofran) 4 mg TIDPRN PRN IVP Nausea & Vomiting 05/29/18 09:00 06/21/18 08:59 Pantoprazole (Protonix) 40 mg BID ORAL 05/29/18 09:00 06/22/18 17:59 06/03/18 17:50 Promethazine HCl/ Dextromethorphan (Phenergan DM) 6.25 mg Q6H PRN ORAL For Cough 05/29/18 00:00 06/23/18 11:59 Sevelamer Carbonate (Renvela) 1,600 mg THREE TIMES A DAY ORAL 05/29/18 09:00 06/20/18 12:59 06/03/18 17:50 Sodium Chloride 500 ml @ 999 mls/hr Q4H PRN IV SBP less than 100mmhg 05/29/18 01:00 06/19/18 08:59 Zolpidem Tartrate (Ambien) 5 mg HSPRN PRN ORAL Insomnia 05/29/18 19:45 06/04/18 19:44 06/02/18 22:59 Tae Velazco MD Jun 03, 2018 18:10
[2018-06-03] MEDS: Morphine Sulfate 2mg/ml Inj IVP PRN (19:50)
[2018-06-03] MEDS: Levemir Flexpen SUBQ SCH (20:27)
[2018-06-03] MEDS: Zolpidem 5mg tab ORAL PRN (22:35)
--- NOTE | 2018-06-03 23:57 | General Progress Note ---
Assessment/Plan Assessment/Plan anxiety d/o ativan prn provided ro/st Subjective Neurologic/Psychiatric: Reports: anxiety, depressed, emotional problems Allergies: Coded Allergies: No Known Allergies (Unverified , 05/20/18) Subjective the pt is in nad Objective Last 24 Hour Vital Signs Date Time Temp Pulse Resp B/P (MAP) Pulse Ox O2 Delivery O2 Flow Rate FiO2 06/03/18 22:33 154/82 06/03/18 21:00 Room Air 06/03/18 20:20 91 183/90 06/03/18 20:00 97.9 91 18 183/90 (121) 92 06/03/18 17:50 179/89 06/03/18 16:00 97.4 67 22 179/89 (119) 93 06/03/18 15:40 168/86 06/03/18 15:36 168/86 (113) 06/03/18 13:57 183/90 06/03/18 12:00 97.4 65 20 183/90 (121) 06/03/18 11:13 178/98 (124) 06/03/18 11:12 178/98 06/03/18 09:18 68 161/80 06/03/18 09:00 Room Air 06/03/18 08:00 97.6 68 22 161/80 (107) 94 06/03/18 06:06 165/87 06/03/18 04:00 97.8 70 18 165/87 (113) 95 06/03/18 00:00 98.9 67 18 159/80 (106) 96 Intake and Output 06/02/18 06/03/18 19:00 07:00 Intake Total 480 ml 480 ml Balance 480 ml 480 ml Intake Oral 480 ml Other 480 ml # Voids 1 Height (Feet): 5 Height (Inches): 6.00 Weight (Pounds): 190 General Appearance: no apparent distress, alert Neurologic: depressed affect Chris Driscoll MD Jun 03, 2018 23:57
[2018-06-04] VITALS (7 sets, daily range): BP systolic 151–188; BP diastolic 75–96
[2018-06-04 04:37] LABS: EOSINOPHILS % (AUTO) 7.3 % (0.0-3.0); HEMATOCRIT 25.8 % (42.0-52.0); HEMOGLOBIN 8.5 G/DL (14.2-18.0); LYMPHOCYTES % (AUTO) 7.2 % (20.0-45.0); MEAN CORPUSCULAR VOLUME 94 FL (80-99); MONOCYTES % (AUTO) 8.1 % (1.0-10.0); NEUTROPHILS % (AUTO) 76.3 % (45.0-75.0); PLATELET COUNT 242 K/UL (150-450); RED BLOOD COUNT 2.74 M/UL (4.70-6.10); RED CELL DISTRIBUTION WIDTH 17.6 % (11.6-14.8); WHITE BLOOD COUNT 8.4 K/UL (4.8-10.8)
[2018-06-04 04:58] LABS: ALANINE AMINOTRANSFERASE 19 U/L (12-78); ALBUMIN 2.6 G/DL (3.4-5.0); ALBUMIN/GLOBULIN RATIO 0.6 (1.0-2.7); ALKALINE PHOSPHATASE 89 U/L (46-116); ANION GAP 11 mmol/L (5-15); ASPARTATE AMINO TRANSFERASE 24 U/L (15-37); BILIRUBIN,TOTAL 0.9 MG/DL (0.2-1.0); BLOOD UREA NITROGEN 72 mg/dL (7-18); CALCIUM 7.4 MG/DL (8.5-10.1); CARBON DIOXIDE 25 MMOL/L (21-32); CHLORIDE 100 MMOL/L (98-107); CREATININE 11.5 MG/DL (0.55-1.30); PHOSPHORUS 5.3 MG/DL (2.5-4.9); POTASSIUM 5.5 MMOL/L (3.5-5.1); SODIUM 136 MMOL/L (136-145)
[2018-06-04] MEDS: NovoLOG Insulin Flexpen SUBQ SCH ×7 (06:24→20:53)
--- NOTE | 2018-06-04 07:29 | General Progress Note ---
Assessment/Plan Problem List: (1) Retroperitoneal hemorrhage ICD Codes: R58 - Hemorrhage, not elsewhere classified SNOMED: 84679141 (2) ESRD (end stage renal disease) on dialysis ICD Codes: N18.6 - End stage renal disease; Z99.2 - Dependence on renal dialysis SNOMED: 233485674 (3) Diabetes ICD Codes: E11.9 - Type 2 diabetes mellitus without complications SNOMED: 75386721 Assessment/Plan continue Levemir 10 units qhs continue Novolog 3 units ac tid continue NISS ac / hs Subjective Allergies: Coded Allergies: No Known Allergies (Unverified , 05/20/18) All Systems: reviewed and negative except above Subjective events noted Objective Last 24 Hour Vital Signs Date Time Temp Pulse Resp B/P (MAP) Pulse Ox O2 Delivery O2 Flow Rate FiO2 06/04/18 06:21 152/75 06/04/18 04:00 98.0 68 18 152/75 (100) 96 06/04/18 00:00 98.1 63 20 167/82 (110) 94 06/03/18 22:33 154/82 06/03/18 21:00 Room Air 06/03/18 20:20 91 183/90 06/03/18 20:00 97.9 91 18 183/90 (121) 92 06/03/18 17:50 179/89 06/03/18 16:00 97.4 67 22 179/89 (119) 93 06/03/18 15:40 168/86 06/03/18 15:36 168/86 (113) 06/03/18 13:57 183/90 06/03/18 12:00 97.4 65 20 183/90 (121) 06/03/18 11:13 178/98 (124) 06/03/18 11:12 178/98 06/03/18 09:18 68 161/80 06/03/18 09:00 Room Air 06/03/18 08:00 97.6 68 22 161/80 (107) 94 Intake and Output 06/03/18 06/04/18 18:59 06:59 Intake Total 400 ml Balance 400 ml Intake Oral 400 ml Laboratory Tests 06/04/18 04:15: White Blood Count 8.4, Red Blood Count 2.74L, Hemoglobin 8.5L, Hematocrit 25.8L , Mean Corpuscular Volume 94, Mean Corpuscular Hemoglobin 31.0, Mean Corpuscular Hemoglobin Concent 32.9, Red Cell Distribution Width 17.6H, Platelet Count 242, Mean Platelet Volume 8.9, Neutrophils (%) (Auto) 76.3H, Lymphocytes (%) (Auto) 7.2L, Monocytes (%) (Auto) 8.1, Eosinophils (%) (Auto) 7.3H, Basophils (%) (Auto) 1.0, Sodium Level 136, Potassium Level 5.5H, Chloride Level 100, Carbon Dioxide Level 25, Anion Gap 11, Blood Urea Nitrogen 72H, Creatinine 11.5H, Estimat Glomerular Filtration Rate 4.7, Glucose Level 141H, Calcium Level 7.4L, Phosphorus Level 5.3H, Magnesium Level 2.9H, Total Bilirubin 0.9, Aspartate Amino Transf (AST/SGOT) 24, Alanine Aminotransferase ( ALT/SGPT) 19, Alkaline Phosphatase 89, Total Protein 7.3, Albumin 2.6L, Globulin 4.7, Albumin/Globulin Ratio 0.6L Height (Feet): 5 Height (Inches): 6.00 Weight (Pounds): 184 General Appearance: no apparent distress Neck: normal alignment Cardiovascular: normal rate Respiratory/Chest: lungs clear Abdomen: normal bowel sounds, non tender Objective Current Medications Medications (Trade) Dose Ordered Sig/Santos Route PRN Reason Start Time Stop Time Status Last Admin Dose Admin Clonidine HCl (Catapres Tab) 0.1 mg Q8HR ORAL 05/29/18 14:00 06/28/18 13:59 06/04/18 06:21 Clonidine HCl (Catapres tab) 0.2 mg Q6HR PRN ORAL For High Blood Pressure 06/03/18 17:15 07/03/18 17:14 06/03/18 17:50 Dextrose (Dextrose 50%) 25 ml Q30M PRN IV Hypoglycemia 05/28/18 23:30 06/27/18 06:59 Dextrose (Dextrose 50%) 50 ml Q30M PRN IV Hypoglycemia 05/28/18 23:30 06/27/18 06:59 Docusate Sodium (Colace) 100 mg THREE TIMES A DAY ORAL 05/29/18 09:00 06/19/18 12:59 06/03/18 17:50 Epoetin Jayme (Procrit (for ESRD on dialysis)) 10,000 units MON-MON-MON SUBQ 05/30/18 21:00 06/22/18 20:59 06/01/18 22:25 Hydralazine HCl (Apresoline) 25 mg Q4H PRN ORAL For High Blood Pressure 06/01/18 18:00 07/01/18 17:59 06/03/18 15:40 Insulin Aspart (NovoLOG) BEFORE MEALS AND HS SUBQ 05/29/18 06:30 06/19/18 06:29 06/04/18 06:24 Insulin Aspart (NovoLOG) 3 units NOVOTIAC SUBQ 05/29/18 06:30 06/27/18 11:49 06/04/18 06:25 Insulin Detemir (Levemir) 10 units QHS SUBQ 06/03/18 21:00 06/20/18 11:59 06/03/18 20:27 Lactulose (Cephulac) 20 gm TWICE A DAY ORAL 05/29/18 09:00 06/20/18 05:59 06/03/18 17:51 Lorazepam (Ativan) 0.5 mg TIDPRN PRN ORAL For Anxiety 05/29/18 09:00 06/05/18 08:59 Metoprolol Tartrate (Lopressor) 50 mg Q12HR ORAL 05/29/18 09:00 06/23/18 20:59 06/03/18 20:20 Morphine Sulfate (Morphine Sulfate) 2 mg Q4H PRN IVP Severe Pain (Pain Scale 7-10) 06/03/18 19:15 06/10/18 19:14 06/03/18 19:50 Ondansetron HCl (Zofran) 4 mg TIDPRN PRN IVP Nausea & Vomiting 05/29/18 09:00 06/21/18 08:59 Pantoprazole (Protonix) 40 mg BID ORAL 05/29/18 09:00 06/22/18 17:59 06/03/18 17:50 Promethazine HCl/ Dextromethorphan (Phenergan DM) 6.25 mg Q6H PRN ORAL For Cough 05/29/18 00:00 06/23/18 11:59 Sevelamer Carbonate (Renvela) 1,600 mg THREE TIMES A DAY ORAL 05/29/18 09:00 06/20/18 12:59 11/18/18 17:50 Sodium Chloride 500 ml @ 999 mls/hr Q4H PRN IV SBP less than 100mmhg 05/29/18 01:00 06/19/18 08:59 Zolpidem Tartrate (Ambien) 5 mg HSPRN PRN ORAL Insomnia 05/29/18 19:45 06/04/18 19:44 06/03/18 22:35 Item Value Date Time Bedside Blood Glucose 126 mg/dl H 06/04/18 0625 Bedside Blood Glucose 223 mg/dl H 06/03/182027 Bedside Blood Glucose 202 mg/dl H 06/03/18 1650 Bedside Blood Glucose 119 mg/dl 06/03/18 1246 Bedside Blood Glucose 69 mg/dl L 06/03/18 0611 Willard Bonds MD Jun 04, 2018 07:29
[2018-06-04] MEDS: Docusate 100mg cap ORAL SCH ×3 (09:17→17:26)
[2018-06-04] MEDS: Metoprolol Tartrate 50mg tab ORAL SCH ×2 (09:17→20:48)
[2018-06-04] MEDS: Lactulose 20gm/30ml UDC ORAL SCH ×2 (09:18→17:29)
--- NOTE | 2018-06-04 10:46 | GI Progress Note ---
Assessment/Plan Problems: (1) Retroperitoneal hemorrhage ICD Codes: R58 - Hemorrhage, not elsewhere classified SNOMED: 89380164 (2) Anemia ICD Codes: D64.9 - Anemia, unspecified SNOMED: 640936556 (3) Diabetes ICD Codes: E11.9 - Type 2 diabetes mellitus without complications SNOMED: 36100146 (4) Abdominal pain ICD Codes: R10.9 - Unspecified abdominal pain SNOMED: 52064627 (5) Shock ICD Codes: R57.9 - Shock, unspecified SNOMED: 58595366 (6) ESRD (end stage renal disease) on dialysis ICD Codes: N18.6 - End stage renal disease; Z99.2 - Dependence on renal dialysis SNOMED: 977094462 Status: stable Status Narrative Discussed with Dr. Mcgee. Assessment/Plan CT AP reviewed >> Large complex hemorrhage/hemorrhagic mass occupying majority of the right kidney with extensive perinephric fluid/blood extending into the retroperitoneum and pelvis. iron deficiency OB stool negative x2 Anemia, most likely due to chronic disease renal diet venofer ppi BID prn transfusions abx fu surgical recommendations fu labs dc planning The patient was seen and examined at bedside and all new and available data was reviewed in the patients chart. I agree with the above findings, impression and plan. (Patient seen earlier today. Signature stamp does not reflect patient encounter time.). - Elvis Mcgee MD Subjective Subjective limited Objective Last 24 Hour Vital Signs Date Time Temp Pulse Resp B/P (MAP) Pulse Ox O2 Delivery O2 Flow Rate FiO2 06/04/18 09:17 63 151/81 06/04/18 09:00 Room Air 06/04/18 08:00 97.5 63 20 151/81 (104) 94 06/04/18 06:21 152/75 06/04/18 04:00 98.0 68 18 152/75 (100) 96 06/04/18 00:00 98.1 63 20 167/82 (110) 94 06/03/18 22:33 154/82 06/03/18 21:00 Room Air 06/03/18 20:20 91 183/90 06/03/18 20:00 97.9 91 18 183/90 (121) 92 06/03/18 17:50 179/89 06/03/18 16:00 97.4 67 22 179/89 (119) 93 06/03/18 15:40 168/86 06/03/18 15:36 168/86 (113) 06/03/18 13:57 183/90 06/03/18 12:00 97.4 65 20 183/90 (121) 06/03/18 11:13 178/98 (124) 06/03/18 11:12 178/98 Intake and Output 06/03/18 06/04/18 19:00 07:00 Intake Total 400 ml Balance 400 ml Intake Oral 400 ml Laboratory Tests Test 06/04/18 04:15 White Blood Count 8.4 K/UL (4.8-10.8) Red Blood Count 2.74 M/UL (4.70-6.10) L Hemoglobin 8.5 G/DL (14.2-18.0) L Hematocrit 25.8 % (42.0-52.0) L Mean Corpuscular Volume 94 FL (80-99) Mean Corpuscular Hemoglobin 31.0 PG (27.0-31.0) Mean Corpuscular Hemoglobin Concent 32.9 G/DL (32.0-36.0) Red Cell Distribution Width 17.6 % (11.6-14.8) H Platelet Count 242 K/UL (150-450) Mean Platelet Volume 8.9 FL (6.5-10.1) Neutrophils (%) (Auto) 76.3 % (45.0-75.0) H Lymphocytes (%) (Auto) 7.2 % (20.0-45.0) L Monocytes (%) (Auto) 8.1 % (1.0-10.0) Eosinophils (%) (Auto) 7.3 % (0.0-3.0) H Basophils (%) (Auto) 1.0 % (0.0-2.0) Sodium Level 136 MMOL/L (136-145) Potassium Level 5.5 MMOL/L (3.5-5.1) H Chloride Level 100 MMOL/L (98-107) Carbon Dioxide Level 25 MMOL/L (21-32) Anion Gap 11 mmol/L (5-15) Blood Urea Nitrogen 72 mg/dL (7-18) H Creatinine 11.5 MG/DL (0.55-1.30) H Estimat Glomerular Filtration Rate 4.7 mL/min (>60) Glucose Level 141 MG/DL (74-106) H Calcium Level 7.4 MG/DL (8.5-10.1) L Phosphorus Level 5.3 MG/DL (2.5-4.9) H Magnesium Level 2.9 MG/DL (1.8-2.4) H Total Bilirubin 0.9 MG/DL (0.2-1.0) Aspartate Amino Transf (AST/SGOT) 24 U/L (15-37) Alanine Aminotransferase (ALT/SGPT) 19 U/L (12-78) Alkaline Phosphatase 89 U/L (46-116) Total Protein 7.3 G/DL (6.4-8.2) Albumin 2.6 G/DL (3.4-5.0) L Globulin 4.7 g/dL Albumin/Globulin Ratio 0.6 (1.0-2.7) L Height (Feet): 5 Height (Inches): 6.00 Weight (Pounds): 184 General Appearance: WD/WN, no apparent distress, alert Cardiovascular: normal rate Respiratory/Chest: normal breath sounds, no respiratory distress Abdominal Exam: normal bowel sounds, non tender, soft Extremities: normal range of motion, non-tender Mansoor Allen NP Jun 04, 2018 10:46
--- NOTE | 2018-06-04 11:02 | Nephrology Progress Note ---
Assessment/Plan Problem List: (1) ESRD (end stage renal disease) on dialysis (2) Retroperitoneal hemorrhage (3) Shock (4) Anemia (5) Abdominal pain (6) Diabetes Assessment WBC lower presented with: hemorrhagic shock- Retro Peritoneal bleed Low BP on admission ESRD DM HTN transfused multiple times Plan HD next 06/04 WBCs lower Transfuse as needed, manage pain Per consultants / Urologist discussed with RN meds adjusted CBC STABLE ? DC HOME Subjective ROS Limited/Unobtainable: No Constitutional: Reports: malaise Objective Objective Last 24 Hour Vital Signs Date Time Temp Pulse Resp B/P (MAP) Pulse Ox O2 Delivery O2 Flow Rate FiO2 06/04/18 09:17 63 151/81 06/04/18 09:00 Room Air 06/04/18 08:00 97.5 63 20 151/81 (104) 94 06/04/18 06:21 152/75 06/04/18 04:00 98.0 68 18 152/75 (100) 96 06/04/18 00:00 98.1 63 20 167/82 (110) 94 06/03/18 22:33 154/82 06/03/18 21:00 Room Air 06/03/18 20:20 91 183/90 06/03/18 20:00 97.9 91 18 183/90 (121) 92 06/03/18 17:50 179/89 06/03/18 16:00 97.4 67 22 179/89 (119) 93 06/03/18 15:40 168/86 06/03/18 15:36 168/86 (113) 06/03/18 13:57 183/90 06/03/18 12:00 97.4 65 20 183/90 (121) 06/03/18 11:13 178/98 (124) 06/03/18 11:12 178/98 Intake and Output 06/03/18 06/04/18 19:00 07:00 Intake Total 400 ml Balance 400 ml Intake Oral 400 ml Laboratory Tests 06/04/18 04:15: White Blood Count 8.4, Red Blood Count 2.74L, Hemoglobin 8.5L, Hematocrit 25.8L , Mean Corpuscular Volume 94, Mean Corpuscular Hemoglobin 31.0, Mean Corpuscular Hemoglobin Concent 32.9, Red Cell Distribution Width 17.6H, Platelet Count 242, Mean Platelet Volume 8.9, Neutrophils (%) (Auto) 76.3H, Lymphocytes (%) (Auto) 7.2L, Monocytes (%) (Auto) 8.1, Eosinophils (%) (Auto) 7.3H, Basophils (%) (Auto) 1.0, Sodium Level 136, Potassium Level 5.5H, Chloride Level 100, Carbon Dioxide Level 25, Anion Gap 11, Blood Urea Nitrogen 72H, Creatinine 11.5H, Estimat Glomerular Filtration Rate 4.7, Glucose Level 141H, Calcium Level 7.4L, Phosphorus Level 5.3H, Magnesium Level 2.9H, Total Bilirubin 0.9, Aspartate Amino Transf (AST/SGOT) 24, Alanine Aminotransferase ( ALT/SGPT) 19, Alkaline Phosphatase 89, Total Protein 7.3, Albumin 2.6L, Globulin 4.7, Albumin/Globulin Ratio 0.6L Height (Feet): 5 Height (Inches): 6.00 Weight (Pounds): 184 General Appearance: no apparent distress Objective no change Dm Lopez MD Jun 04, 2018 11:02
--- NOTE | 2018-06-04 11:07 | General Progress Note ---
Assessment/Plan Assessment/Plan S: I am ok and my flank pain is ok O: appears in No distress. Denies any abdominal pain . PHYSICAL EXAMINATION: HEAD AND NECK: Atraumatic and normocephalic. CHEST: Clear to auscultation. No wheezing. No crackles. HEART: S1 and S2. Regular rate and rhythm. ABDOMEN: Tender noted. Negative for rebound tenderness. NEUROLOGIC: The patient is awake, alert, and oriented x3. PSYCHIATRIC: Mood and affect are appropriate and normal. MUSCULOSKELETAL: No gross lateralized motor deficit. Left arm AV F/G is noted, with no erythma or tenderness Meds: reviewed and reconciled, including Lnatus 9 u qhs plus Fixed meal time insulin IMAGING: CT scan of abdomen and pelvis dated May 28, 2018 reviewed showing intervan incraese in the right perinephric hematoma. the repeat CT is pending ASSESSMENT AND PLAN: 1. Acute Right Perinephric Hemorrhage 3. Acute anemia. 4. Diabetes type 5 Hypovolemic Shock : Stable 6. GI-DVT prophylaxis 7. HTN: uncontrolled 8. Leukocytosis: with no evidence of acute Active infection Plan: will monitor HH, Will proceed with PRBC transfusion with Hgb < 7.3 Notes from Urology , Nephro, Endo, Critical specialist are reviewed Stable appearance of right perinephric hematoma by imaging Optimization of BP meds No evidence for active acute infection. Will monitor per ID Discussed the care with Dr Damon , urology. agreed for outpatient followup[ Serious but Stable cnd at this time Medically stable for followup outpatient I called medications to pharmacy. Given the limitation of medication availability in this ([place] speaking pharmacy ), I hold the discharge to Monday for SAFE DISCHARGE Subjective Allergies: Coded Allergies: No Known Allergies (Unverified , 05/20/18) Objective Last 24 Hour Vital Signs Date Time Temp Pulse Resp B/P (MAP) Pulse Ox O2 Delivery O2 Flow Rate FiO2 06/04/18 09:17 63 151/81 06/04/18 09:00 Room Air 06/04/18 08:00 97.5 63 20 151/81 (104) 94 06/04/18 06:21 152/75 06/04/18 04:00 98.0 68 18 152/75 (100) 96 06/04/18 00:00 98.1 63 20 167/82 (110) 94 06/03/18 22:33 154/82 06/03/18 21:00 Room Air 06/03/18 20:20 91 183/90 06/03/18 20:00 97.9 91 18 183/90 (121) 92 06/03/18 17:50 179/89 06/03/18 16:00 97.4 67 22 179/89 (119) 93 06/03/18 15:40 168/86 06/03/18 15:36 168/86 (113) 06/03/18 13:57 183/90 06/03/18 12:00 97.4 65 20 183/90 (121) 06/03/18 11:13 178/98 (124) 06/03/18 11:12 178/98 Intake and Output 06/03/18 06/04/18 19:00 07:00 Intake Total 400 ml Balance 400 ml Intake Oral 400 ml Laboratory Tests 06/04/18 04:15: White Blood Count 8.4, Red Blood Count 2.74L, Hemoglobin 8.5L, Hematocrit 25.8L , Mean Corpuscular Volume 94, Mean Corpuscular Hemoglobin 31.0, Mean Corpuscular Hemoglobin Concent 32.9, Red Cell Distribution Width 17.6H, Platelet Count 242, Mean Platelet Volume 8.9, Neutrophils (%) (Auto) 76.3H, Lymphocytes (%) (Auto) 7.2L, Monocytes (%) (Auto) 8.1, Eosinophils (%) (Auto) 7.3H, Basophils (%) (Auto) 1.0, Sodium Level 136, Potassium Level 5.5H, Chloride Level 100, Carbon Dioxide Level 25, Anion Gap 11, Blood Urea Nitrogen 72H, Creatinine 11.5H, Estimat Glomerular Filtration Rate 4.7, Glucose Level 141H, Calcium Level 7.4L, Phosphorus Level 5.3H, Magnesium Level 2.9H, Total Bilirubin 0.9, Aspartate Amino Transf (AST/SGOT) 24, Alanine Aminotransferase ( ALT/SGPT) 19, Alkaline Phosphatase 89, Total Protein 7.3, Albumin 2.6L, Globulin 4.7, Albumin/Globulin Ratio 0.6L Height (Feet): 5 Height (Inches): 6.00 Weight (Pounds): 184 Baljit Flores MD Jun 04, 2018 11:07
--- NOTE | 2018-06-04 12:49 | General Progress Note ---
Assessment/Plan Assessment/Plan anxiety d/o ativan prn provided ro/st Subjective Neurologic/Psychiatric: Reports: anxiety, depressed, emotional problems Allergies: Coded Allergies: No Known Allergies (Unverified , 05/20/18) Subjective the pt is in nad has episodes of anxiety Objective Last 24 Hour Vital Signs Date Time Temp Pulse Resp B/P (MAP) Pulse Ox O2 Delivery O2 Flow Rate FiO2 06/04/18 12:07 171/90 06/04/18 12:00 96.4 66 20 171/90 (117) 96 06/04/18 09:17 63 151/81 06/04/18 09:00 Room Air 06/04/18 08:00 97.5 63 20 151/81 (104) 94 06/04/18 06:21 152/75 06/04/18 04:00 98.0 68 18 152/75 (100) 96 06/04/18 00:00 98.1 63 20 167/82 (110) 94 06/03/18 22:33 154/82 06/03/18 21:00 Room Air 06/03/18 20:20 91 183/90 06/03/18 20:00 97.9 91 18 183/90 (121) 92 06/03/18 17:50 179/89 06/03/18 16:00 97.4 67 22 179/89 (119) 93 06/03/18 15:40 168/86 06/03/18 15:36 168/86 (113) 06/03/18 13:57 183/90 Intake and Output 06/03/18 06/04/18 19:00 07:00 Intake Total 400 ml Balance 400 ml Intake Oral 400 ml Laboratory Tests 06/04/18 04:15: White Blood Count 8.4, Red Blood Count 2.74L, Hemoglobin 8.5L, Hematocrit 25.8L , Mean Corpuscular Volume 94, Mean Corpuscular Hemoglobin 31.0, Mean Corpuscular Hemoglobin Concent 32.9, Red Cell Distribution Width 17.6H, Platelet Count 242, Mean Platelet Volume 8.9, Neutrophils (%) (Auto) 76.3H, Lymphocytes (%) (Auto) 7.2L, Monocytes (%) (Auto) 8.1, Eosinophils (%) (Auto) 7.3H, Basophils (%) (Auto) 1.0, Sodium Level 136, Potassium Level 5.5H, Chloride Level 100, Carbon Dioxide Level 25, Anion Gap 11, Blood Urea Nitrogen 72H, Creatinine 11.5H, Estimat Glomerular Filtration Rate 4.7, Glucose Level 141H, Calcium Level 7.4L, Phosphorus Level 5.3H, Magnesium Level 2.9H, Total Bilirubin 0.9, Aspartate Amino Transf (AST/SGOT) 24, Alanine Aminotransferase ( ALT/SGPT) 19, Alkaline Phosphatase 89, Total Protein 7.3, Albumin 2.6L, Globulin 4.7, Albumin/Globulin Ratio 0.6L Height (Feet): 5 Height (Inches): 6.00 Weight (Pounds): 184 Chris Driscoll MD Jun 04, 2018 12:49
--- NOTE | 2018-06-04 13:40 | Pulmonology Progress Note ---
Assessment/Plan Problems: (1) Shock Assessment & Plan: RESOLVED (2) Diabetes (3) ESRD (end stage renal disease) on dialysis (4) Retroperitoneal hemorrhage Assessment & Plan: STABLE, BEING TREATED NON-OPERATIVELY (5) Anemia Assessment/Plan Stable Monitor HH Dispo planning PD Will sign off, please call with questions Subjective Allergies: Coded Allergies: No Known Allergies (Unverified , 05/20/18) Subjective Evetns reviewed, AFVSS on RA, HH stable No F/C, no pain, no SOB, no cough, no NVDC D/C planning underway Objective Last 24 Hour Vital Signs Date Time Temp Pulse Resp B/P (MAP) Pulse Ox O2 Delivery O2 Flow Rate FiO2 06/04/18 12:07 171/90 06/04/18 12:00 96.4 66 20 171/90 (117) 96 06/04/18 09:17 63 151/81 06/04/18 09:00 Room Air 06/04/18 08:00 97.5 63 20 151/81 (104) 94 06/04/18 06:21 152/75 06/04/18 04:00 98.0 68 18 152/75 (100) 96 06/04/18 00:00 98.1 63 20 167/82 (110) 94 06/03/18 22:33 154/82 06/03/18 21:00 Room Air 06/03/18 20:20 91 183/90 06/03/18 20:00 97.9 91 18 183/90 (121) 92 06/03/18 17:50 179/89 06/03/18 16:00 97.4 67 22 179/89 (119) 93 06/03/18 15:40 168/86 06/03/18 15:36 168/86 (113) 06/03/18 13:57 183/90 Intake and Output 06/03/18 06/04/18 19:00 07:00 Intake Total 400 ml Balance 400 ml Intake Oral 400 ml General Appearance: WD/WN, no acute distress HEENT: normocephalic, atraumatic, anicteric, mucous membranes moist Respiratory/Chest: chest wall non-tender, lungs clear, normal breath sounds, no respiratory distress, no accessory muscle use Cardiovascular: normal peripheral pulses, normal rate, regular rhythm Abdomen: normal bowel sounds, soft, non tender, no organomegaly, non distended , no mass Extremities: no cyanosis, no clubbing, no edema Laboratory Tests 06/04/18 04:15: White Blood Count 8.4, Red Blood Count 2.74L, Hemoglobin 8.5L, Hematocrit 25.8L , Mean Corpuscular Volume 94, Mean Corpuscular Hemoglobin 31.0, Mean Corpuscular Hemoglobin Concent 32.9, Red Cell Distribution Width 17.6H, Platelet Count 242, Mean Platelet Volume 8.9, Neutrophils (%) (Auto) 76.3H, Lymphocytes (%) (Auto) 7.2L, Monocytes (%) (Auto) 8.1, Eosinophils (%) (Auto) 7.3H, Basophils (%) (Auto) 1.0, Sodium Level 136, Potassium Level 5.5H, Chloride Level 100, Carbon Dioxide Level 25, Anion Gap 11, Blood Urea Nitrogen 72H, Creatinine 11.5H, Estimat Glomerular Filtration Rate 4.7, Glucose Level 141H, Calcium Level 7.4L, Phosphorus Level 5.3H, Magnesium Level 2.9H, Total Bilirubin 0.9, Aspartate Amino Transf (AST/SGOT) 24, Alanine Aminotransferase ( ALT/SGPT) 19, Alkaline Phosphatase 89, Total Protein 7.3, Albumin 2.6L, Globulin 4.7, Albumin/Globulin Ratio 0.6L Current Medications Medications (Trade) Dose Ordered Sig/Santos Route PRN Reason Start Time Stop Time Status Last Admin Dose Admin Clonidine HCl (Catapres Tab) 0.1 mg Q4H PRN ORAL For SBP greater than 160 06/04/18 11:30 07/04/18 11:29 06/04/18 12:07 Clonidine HCl (Catapres Tab) 0.1 mg Q8HR ORAL 05/29/18 14:00 06/28/18 13:59 06/04/18 06:21 Dextrose (Dextrose 50%) 25 ml Q30M PRN IV Hypoglycemia 05/28/18 23:30 06/27/18 06:59 Dextrose (Dextrose 50%) 50 ml Q30M PRN IV Hypoglycemia 05/28/18 23:30 06/27/18 06:59 Docusate Sodium (Colace) 100 mg THREE TIMES A DAY ORAL 05/29/18 09:00 06/19/18 12:59 06/04/18 13:26 Epoetin Jayme (Procrit (for ESRD on dialysis)) 10,000 units MON-MON-MON SUBQ 05/30/18 21:00 06/22/18 20:59 06/01/18 22:25 Hydralazine HCl (Apresoline) 25 mg Q4H PRN ORAL For High Blood Pressure 06/01/18 18:00 07/01/18 17:59 06/03/18 15:40 Insulin Aspart (NovoLOG) BEFORE MEALS AND HS SUBQ 05/29/18 06:30 06/19/18 06:29 06/04/18 11:56 Insulin Aspart (NovoLOG) 3 units NOVOTIAC SUBQ 05/29/18 06:30 06/27/18 11:49 06/04/18 06:25 Insulin Detemir (Levemir) 10 units QHS SUBQ 06/03/18 21:00 06/20/18 11:59 06/03/18 20:27 Lactulose (Cephulac) 20 gm TWICE A DAY ORAL 05/29/18 09:00 06/20/18 05:59 06/04/18 09:18 Lorazepam (Ativan) 0.5 mg TIDPRN PRN ORAL For Anxiety 05/29/18 09:00 06/05/18 08:59 Metoprolol Tartrate (Lopressor) 50 mg Q12HR ORAL 05/29/18 09:00 06/23/18 20:59 06/04/18 09:17 Morphine Sulfate (Morphine Sulfate) 2 mg Q4H PRN IVP Severe Pain (Pain Scale 7-10) 06/03/18 19:15 06/10/18 19:14 06/03/18 19:50 Ondansetron HCl (Zofran) 4 mg TIDPRN PRN IVP Nausea & Vomiting 05/29/18 09:00 06/21/18 08:59 Pantoprazole (Protonix) 40 mg BID ORAL 05/29/18 09:00 06/22/18 17:59 06/04/18 09:17 Promethazine HCl/ Dextromethorphan (Phenergan DM) 6.25 mg Q6H PRN ORAL For Cough 05/29/18 00:00 06/23/18 11:59 Sevelamer Carbonate (Renvela) 1,600 mg THREE TIMES A DAY ORAL 05/29/18 09:00 06/20/18 12:59 06/04/18 13:26 Sodium Chloride 500 ml @ 999 mls/hr Q4H PRN IV SBP less than 100mmhg 05/29/18 01:00 06/19/18 08:59 Zolpidem Tartrate (Ambien) 5 mg HSPRN PRN ORAL Insomnia 05/29/18 19:45 06/04/18 19:44 06/03/18 22:35 Bay Marte MD Jun 04, 2018 13:40
--- NOTE | 2018-06-04 14:50 | Infectious Diseases Prog Note ---
Assessment/Plan Problems: (1) Leukocytosis Assessment & Plan: suspect due to recurrent bleeding which he required multiple transfusion for , S/P zosyn for 6 days , doubt infectious etiology with no fever and negative cultures . repeated CT abd/pelvis showed increasing in the size of the right side hematoma , which is most likely the source , repeated blood culture is negative. will continue to monitor patient daily since high risk and keep off antibiotics for now , with close monitor of H/H . (2) Renal hematoma, right Assessment & Plan: with extension to the retroperitoneal area , continue close monitor of H/H and serial images for follow up, watch out for abscess formation. CT abd/pelvis done lately showed increasing in the size of the right side hematoma. will need arterial embolization by IR, if recurrent bleeding again . (3) Retroperitoneal hemorrhage Assessment & Plan: continue H/H monitoring with blood transfusion , and serial imaging for follow up, avoid anticoagulation (4) ESRD (end stage renal disease) on dialysis Assessment & Plan: on HD, renal is following (5) Diabetes Assessment & Plan: recommend tight glycemic control to keep blood glucose between 100-140 Subjective Constitutional: Reports: no symptoms HEENT: Reports: no symptoms Respiratory: Reports: no symptoms Breasts: Reports: no symptoms Cardiovascular: Reports: no symptoms Gastrointestinal/Abdominal: Reports: no symptoms Genitourinary: Reports: no symptoms Neurologic: Reports: no symptoms Psychiatric: Reports: no symptoms Skin: Reports: no symptoms Endocrine: Reports: no symptoms Hematologic: Reports: no symptoms Musculoskeletal: Reports: no symptoms Allergies: Coded Allergies: No Known Allergies (Unverified , 05/20/18) Subjective he has mild flank pain today and discomfort, no fever or chills, no cough or SOB , getting blood transfusion Objective Vital Signs Last 24 Hour Vital Signs Date Time Temp Pulse Resp B/P (MAP) Pulse Ox O2 Delivery O2 Flow Rate FiO2 06/04/18 14:06 Nasal Cannula 2.0 06/04/18 14:00 171/90 06/04/18 12:07 171/90 06/04/18 12:00 96.4 66 20 171/90 (117) 96 06/04/18 09:17 63 151/81 06/04/18 09:00 Room Air 06/04/18 08:00 97.5 63 20 151/81 (104) 94 06/04/18 06:21 152/75 06/04/18 04:00 98.0 68 18 152/75 (100) 96 06/04/18 00:00 98.1 63 20 167/82 (110) 94 06/03/18 22:33 154/82 06/03/18 21:00 Room Air 06/03/18 20:20 91 183/90 06/03/18 20:00 97.9 91 18 183/90 (121) 92 06/03/18 17:50 179/89 06/03/18 16:00 97.4 67 22 179/89 (119) 93 06/03/18 15:40 168/86 06/03/18 15:36 168/86 (113) Height (Feet): 5 Height (Inches): 6.00 Weight (Pounds): 184 General Appearance: WD/WN, no acute distress HEENT: normocephalic, atraumatic, anicteric, mucous membranes moist, PERRL Respiratory/Chest: chest wall non-tender, lungs clear, normal breath sounds, no respiratory distress, no accessory muscle use Cardiovascular: normal peripheral pulses, normal rate, regular rhythm, no gallop/murmur, no JVD Abdomen: normal bowel sounds, soft, non tender, no organomegaly, non distended , no mass, no scars Extremities: no cyanosis, no clubbing Skin: no rash, no lesions, no ulcers Neurologic/Psychiatric: alert, oriented x 3, responsive Lymphatic: no neck adenopathy, no groin adenopathy Laboratory Tests Test 06/04/18 04:15 White Blood Count 8.4 K/UL (4.8-10.8) Red Blood Count 2.74 M/UL (4.70-6.10) L Hemoglobin 8.5 G/DL (14.2-18.0) L Hematocrit 25.8 % (42.0-52.0) L Mean Corpuscular Volume 94 FL (80-99) Mean Corpuscular Hemoglobin 31.0 PG (27.0-31.0) Mean Corpuscular Hemoglobin Concent 32.9 G/DL (32.0-36.0) Red Cell Distribution Width 17.6 % (11.6-14.8) H Platelet Count 242 K/UL (150-450) Mean Platelet Volume 8.9 FL (6.5-10.1) Neutrophils (%) (Auto) 76.3 % (45.0-75.0) H Lymphocytes (%) (Auto) 7.2 % (20.0-45.0) L Monocytes (%) (Auto) 8.1 % (1.0-10.0) Eosinophils (%) (Auto) 7.3 % (0.0-3.0) H Basophils (%) (Auto) 1.0 % (0.0-2.0) Sodium Level 136 MMOL/L (136-145) Potassium Level 5.5 MMOL/L (3.5-5.1) H Chloride Level 100 MMOL/L (98-107) Carbon Dioxide Level 25 MMOL/L (21-32) Anion Gap 11 mmol/L (5-15) Blood Urea Nitrogen 72 mg/dL (7-18) H Creatinine 11.5 MG/DL (0.55-1.30) H Estimat Glomerular Filtration Rate 4.7 mL/min (>60) Glucose Level 141 MG/DL (74-106) H Calcium Level 7.4 MG/DL (8.5-10.1) L Phosphorus Level 5.3 MG/DL (2.5-4.9) H Magnesium Level 2.9 MG/DL (1.8-2.4) H Total Bilirubin 0.9 MG/DL (0.2-1.0) Aspartate Amino Transf (AST/SGOT) 24 U/L (15-37) Alanine Aminotransferase (ALT/SGPT) 19 U/L (12-78) Alkaline Phosphatase 89 U/L (46-116) Total Protein 7.3 G/DL (6.4-8.2) Albumin 2.6 G/DL (3.4-5.0) L Globulin 4.7 g/dL Albumin/Globulin Ratio 0.6 (1.0-2.7) L Current Medications Medications (Trade) Dose Ordered Sig/Santos Route PRN Reason Start Time Stop Time Status Last Admin Dose Admin Clonidine HCl (Catapres Tab) 0.1 mg Q4H PRN ORAL For SBP greater than 160 06/04/18 11:30 07/04/18 11:29 06/04/18 12:07 Clonidine HCl (Catapres Tab) 0.1 mg Q8HR ORAL 05/29/18 14:00 06/28/18 13:59 06/04/18 06:21 Dextrose (Dextrose 50%) 25 ml Q30M PRN IV Hypoglycemia 05/28/18 23:30 06/27/18 06:59 Dextrose (Dextrose 50%) 50 ml Q30M PRN IV Hypoglycemia 05/28/18 23:30 06/27/18 06:59 Docusate Sodium (Colace) 100 mg THREE TIMES A DAY ORAL 05/29/18 09:00 06/19/18 12:59 06/04/18 13:26 Epoetin Jayme (Procrit (for ESRD on dialysis)) 10,000 units MON-MON-MON SUBQ 05/30/18 21:00 06/22/18 20:59 06/01/18 22:25 Hydralazine HCl (Apresoline) 25 mg Q4H PRN ORAL For High Blood Pressure 06/01/18 18:00 07/01/18 17:59 06/03/18 15:40 Insulin Aspart (NovoLOG) BEFORE MEALS AND HS SUBQ 05/29/18 06:30 06/19/18 06:29 06/04/18 11:56 Insulin Aspart (NovoLOG) 3 units NOVOTIAC SUBQ 05/29/18 06:30 06/27/18 11:49 06/04/18 06:25 Insulin Detemir (Levemir) 10 units QHS SUBQ 06/03/18 21:00 06/20/18 11:59 06/03/18 20:27 Lactulose (Cephulac) 20 gm TWICE A DAY ORAL 05/29/18 09:00 06/20/18 05:59 06/04/18 09:18 Lorazepam (Ativan) 0.5 mg TIDPRN PRN ORAL For Anxiety 05/29/18 09:00 06/05/18 08:59 Metoprolol Tartrate (Lopressor) 50 mg Q12HR ORAL 05/29/18 09:00 06/23/18 20:59 06/04/18 09:17 Morphine Sulfate (Morphine Sulfate) 2 mg Q4H PRN IVP Severe Pain (Pain Scale 7-10) 06/03/18 19:15 06/10/18 19:14 06/03/18 19:50 Ondansetron HCl (Zofran) 4 mg TIDPRN PRN IVP Nausea & Vomiting 05/29/18 09:00 06/21/18 08:59 Pantoprazole (Protonix) 40 mg BID ORAL 05/29/18 09:00 06/22/18 17:59 06/04/18 09:17 Promethazine HCl/ Dextromethorphan (Phenergan DM) 6.25 mg Q6H PRN ORAL For Cough 05/29/18 00:00 06/23/18 11:59 Sevelamer Carbonate (Renvela) 1,600 mg THREE TIMES A DAY ORAL 05/29/18 09:00 06/20/18 12:59 06/04/18 13:26 Sodium Chloride 500 ml @ 999 mls/hr Q4H PRN IV SBP less than 100mmhg 05/29/18 01:00 06/19/18 08:59 Zolpidem Tartrate (Ambien) 5 mg HSPRN PRN ORAL Insomnia 05/29/18 19:45 06/04/18 19:44 06/03/18 22:35 Rowena Garcia M.D. Jun 04, 2018 14:50
[2018-06-04] MEDS: HydrALAZINE 25mg tab ORAL PRN (16:02)
[2018-06-04] MEDS: Levemir Flexpen SUBQ SCH (20:54)
[2018-06-04] MEDS: Epogen (for ESRD on dialysis) SUBQ SCH (21:30)
[2018-06-05] VITALS: BP 162/85
[2018-06-05 04:00] VITALS: BP 152/81
[2018-06-05] MEDS: NovoLOG Insulin Flexpen SUBQ SCH ×2 (06:23→06:24)
--- NOTE | 2018-06-05 07:13 | General Progress Note ---
Assessment/Plan Problem List: (1) Retroperitoneal hemorrhage ICD Codes: R58 - Hemorrhage, not elsewhere classified SNOMED: 66425471 (2) ESRD (end stage renal disease) on dialysis ICD Codes: N18.6 - End stage renal disease; Z99.2 - Dependence on renal dialysis SNOMED: 487649664 (3) Diabetes ICD Codes: E11.9 - Type 2 diabetes mellitus without complications SNOMED: 24987190 Assessment/Plan continue Levemir 10 units qhs continue Novolog 3 units ac tid continue NISS ac / hs Subjective Allergies: Coded Allergies: No Known Allergies (Unverified , 05/20/18) All Systems: reviewed and negative except above Subjective events noted Objective Last 24 Hour Vital Signs Date Time Temp Pulse Resp B/P (MAP) Pulse Ox O2 Delivery O2 Flow Rate FiO2 06/05/18 05:57 152/81 06/05/18 04:00 98.2 67 20 152/81 (104) 92 06/05/18 00:00 98.0 62 20 162/85 (110) 95 06/04/18 21:28 170/86 06/04/18 21:00 Room Air 06/04/18 20:48 72 170/85 06/04/18 20:00 97.3 72 20 170/85 (113) 90 06/04/18 17:29 188/96 06/04/18 17:28 188/96 (126) 06/04/18 16:02 181/65 06/04/18 16:00 97.4 67 22 181/92 (121) 93 06/04/18 15:56 Nasal Cannula 2.0 06/04/18 14:06 Nasal Cannula 2.0 06/04/18 14:00 171/90 06/04/18 12:07 171/90 06/04/18 12:00 96.4 66 20 171/90 (117) 96 06/04/18 09:17 63 151/81 06/04/18 09:00 Room Air 06/04/18 08:00 97.5 63 20 151/81 (104) 94 Intake and Output 06/04/18 06/05/18 18:59 06:59 Output Total 2000 ml Balance -2000 ml Hemodialysis UF 2000 ml # Voids 1 Height (Feet): 5 Height (Inches): 6.00 Weight (Pounds): 190 General Appearance: no apparent distress Neck: normal alignment Cardiovascular: normal rate Respiratory/Chest: lungs clear Abdomen: normal bowel sounds Pelvis: normal external exam Objective Item Value Date Time Bedside Blood Glucose 120 mg/dl 06/05/18 0633 Bedside Blood Glucose 198 mg/dl H 06/04/18 2100 Bedside Blood Glucose 132 mg/dl H 06/04/18 1729 Bedside Blood Glucose 162 mg/dl H 06/04/18 1258 Bedside Blood Glucose 126 mg/dl H 06/04/18 0625 Willard Bonds MD Jun 05, 2018 07:13
[2018-06-05 07:42] LABS: BASOPHILS % (AUTO) 0.9 % (0.0-2.0); EOSINOPHILS % (AUTO) 5.1 % (0.0-3.0); HEMATOCRIT 26.9 % (42.0-52.0); HEMOGLOBIN 9.1 G/DL (14.2-18.0); LYMPHOCYTES % (AUTO) 8.5 % (20.0-45.0); MEAN CORPUSCULAR VOLUME 94 FL (80-99); MONOCYTES % (AUTO) 7.6 % (1.0-10.0); NEUTROPHILS % (AUTO) 77.9 % (45.0-75.0); PLATELET COUNT 249 K/UL (150-450); RED BLOOD COUNT 2.86 M/UL (4.70-6.10); RED CELL DISTRIBUTION WIDTH 17.1 % (11.6-14.8); WHITE BLOOD COUNT 7.5 K/UL (4.8-10.8)
[2018-06-05 07:52] LABS: ANION GAP 11 mmol/L (5-15); BLOOD UREA NITROGEN 48 mg/dL (7-18); CALCIUM 7.8 MG/DL (8.5-10.1); CARBON DIOXIDE 28 MMOL/L (21-32); CHLORIDE 97 MMOL/L (98-107); POTASSIUM 5.1 MMOL/L (3.5-5.1); SODIUM 136 MMOL/L (136-145)
[2018-06-05 08:00] VITALS: BP 174/85
[2018-06-05] MEDS: Lactulose 20gm/30ml UDC ORAL SCH (08:18)
[2018-06-05] MEDS: Metoprolol Tartrate 50mg tab ORAL SCH (08:19)
[2018-06-05] MEDS: Docusate 100mg cap ORAL SCH (08:19)
[2018-06-05] MEDS: Morphine Sulfate 2mg/ml Inj IVP PRN (08:41)
--- NOTE | 2018-06-05 09:18 | Nephrology Progress Note ---
Assessment/Plan Problem List: (1) ESRD (end stage renal disease) on dialysis (2) Retroperitoneal hemorrhage (3) Shock (4) Anemia (5) Abdominal pain (6) Diabetes Assessment WBC lower presented with: hemorrhagic shock- Retro Peritoneal bleed Low BP on admission ESRD DM HTN transfused multiple times Plan adjust BP meds HD next 06/06 WBCs lower Transfuse as needed, manage pain Per consultants / Urologist discussed with RN meds adjusted CBC STABLE ? DC HOME Subjective ROS Limited/Unobtainable: No Objective Objective Last 24 Hour Vital Signs Date Time Temp Pulse Resp B/P (MAP) Pulse Ox O2 Delivery O2 Flow Rate FiO2 06/05/18 08:19 62 174/85 06/05/18 08:00 97.7 62 18 174/85 (114) 94 06/05/18 05:57 152/81 06/05/18 04:00 98.2 67 20 152/81 (104) 92 06/05/18 00:00 98.0 62 20 162/85 (110) 95 06/04/18 21:28 170/86 06/04/18 21:00 Room Air 06/04/18 20:48 72 170/85 06/04/18 20:00 97.3 72 20 170/85 (113) 90 06/04/18 17:29 188/96 06/04/18 17:28 188/96 (126) 06/04/18 16:02 181/65 06/04/18 16:00 97.4 67 22 181/92 (121) 93 06/04/18 15:56 Nasal Cannula 2.0 06/04/18 14:06 Nasal Cannula 2.0 06/04/18 14:00 171/90 06/04/18 12:07 171/90 06/04/18 12:00 96.4 66 20 171/90 (117) 96 Intake and Output 06/04/18 06/05/18 18:59 06:59 Output Total 2000 ml Balance -2000 ml Hemodialysis UF 2000 ml # Voids 1 Laboratory Tests 06/05/18 05:45: White Blood Count 7.5, Red Blood Count 2.86L, Hemoglobin 9.1L, Hematocrit 26.9L , Mean Corpuscular Volume 94, Mean Corpuscular Hemoglobin 31.7H, Mean Corpuscular Hemoglobin Concent 33.7, Red Cell Distribution Width 17.1H, Platelet Count 249, Mean Platelet Volume 9.2, Neutrophils (%) (Auto) 77.9H, Lymphocytes (%) (Auto) 8.5L, Monocytes (%) (Auto) 7.6, Eosinophils (%) (Auto) 5.1H, Basophils (%) (Auto) 0.9, Sodium Level 136, Potassium Level 5.1, Chloride Level 97L, Carbon Dioxide Level 28, Anion Gap 11, Blood Urea Nitrogen 48H, Creatinine 9.0H, Estimat Glomerular Filtration Rate 6.2, Glucose Level 118H, Calcium Level 7.8L Height (Feet): 5 Height (Inches): 6.00 Weight (Pounds): 190 General Appearance: no apparent distress Objective no change Dm Lopez MD Jun 05, 2018 09:18
[2018-06-05 09:47] VITALS: BP 174/85
[2018-06-05] MEDS ORDERED: HydrALAZINE 25mg tab ORAL SCH (14:00)
--- NOTE | 2018-06-05 15:24 | GI Progress Note ---
Assessment/Plan Problems: (1) Retroperitoneal hemorrhage ICD Codes: R58 - Hemorrhage, not elsewhere classified SNOMED: 14336771 (2) Anemia ICD Codes: D64.9 - Anemia, unspecified SNOMED: 776509982 (3) Diabetes ICD Codes: E11.9 - Type 2 diabetes mellitus without complications SNOMED: 56236373 (4) Abdominal pain ICD Codes: R10.9 - Unspecified abdominal pain SNOMED: 53794037 (5) Shock ICD Codes: R57.9 - Shock, unspecified SNOMED: 95903027 (6) ESRD (end stage renal disease) on dialysis ICD Codes: N18.6 - End stage renal disease; Z99.2 - Dependence on renal dialysis SNOMED: 220834993 Status: stable Status Narrative Discussed with Dr. Mcgee. Assessment/Plan CT AP reviewed >> Large complex hemorrhage/hemorrhagic mass occupying majority of the right kidney with extensive perinephric fluid/blood extending into the retroperitoneum and pelvis. iron deficiency OB stool negative x2 Anemia, most likely due to chronic disease renal diet venofer ppi BID prn transfusions abx fu surgical recommendations fu labs dc planning The patient was seen and examined at bedside and all new and available data was reviewed in the patients chart. I agree with the above findings, impression and plan. (Patient seen earlier today. Signature stamp does not reflect patient encounter time.). - Elvis Mcgee MD Subjective Gastrointestinal/Abdominal: Reports: no symptoms Subjective limited Objective Last 24 Hour Vital Signs Date Time Temp Pulse Resp B/P (MAP) Pulse Ox O2 Delivery O2 Flow Rate FiO2 06/05/18 09:47 62 174/85 06/05/18 09:44 174/85 06/05/18 09:11 97.7 06/05/18 09:00 Room Air 06/05/18 09:00 Room Air 06/05/18 08:19 62 174/85 06/05/18 08:00 97.7 62 18 174/85 (114) 94 06/05/18 05:57 152/81 06/05/18 04:00 98.2 67 20 152/81 (104) 92 06/05/18 00:00 98.0 62 20 162/85 (110) 95 06/04/18 21:28 170/86 06/04/18 21:00 Room Air 11/19/18 20:48 72 170/85 11/19/18 20:00 97.3 72 20 170/85 (113) 90 06/04/18 17:29 188/96 18 17:28 188/96 (126) 06/04/18 16:02 181/65 06/04/18 16:00 97.4 67 22 181/92 (121) 93 06/04/18 15:56 Nasal Cannula 2.0 Intake and Output 06/04/18 06/05/18 19:00 07:00 Output Total 2000 ml Balance -2000 ml Hemodialysis UF 2000 ml # Voids 1 Laboratory Tests Test 06/05/18 05:45 White Blood Count 7.5 K/UL (4.8-10.8) Red Blood Count 2.86 M/UL (4.70-6.10) L Hemoglobin 9.1 G/DL (14.2-18.0) L Hematocrit 26.9 % (42.0-52.0) L Mean Corpuscular Volume 94 FL (80-99) Mean Corpuscular Hemoglobin 31.7 PG (27.0-31.0) H Mean Corpuscular Hemoglobin Concent 33.7 G/DL (32.0-36.0) Red Cell Distribution Width 17.1 % (11.6-14.8) H Platelet Count 249 K/UL (150-450) Mean Platelet Volume 9.2 FL (6.5-10.1) Neutrophils (%) (Auto) 77.9 % (45.0-75.0) H Lymphocytes (%) (Auto) 8.5 % (20.0-45.0) L Monocytes (%) (Auto) 7.6 % (1.0-10.0) Eosinophils (%) (Auto) 5.1 % (0.0-3.0) H Basophils (%) (Auto) 0.9 % (0.0-2.0) Sodium Level 136 MMOL/L (136-145) Potassium Level 5.1 MMOL/L (3.5-5.1) Chloride Level 97 MMOL/L (98-107) L Carbon Dioxide Level 28 MMOL/L (21-32) Anion Gap 11 mmol/L (5-15) Blood Urea Nitrogen 48 mg/dL (7-18) H Creatinine 9.0 MG/DL (0.55-1.30) H Estimat Glomerular Filtration Rate 6.2 mL/min (>60) Glucose Level 118 MG/DL (74-106) H Calcium Level 7.8 MG/DL (8.5-10.1) L Height (Feet): 5 Height (Inches): 6.00 Weight (Pounds): 190 General Appearance: WD/WN, no apparent distress, alert Cardiovascular: normal rate Respiratory/Chest: normal breath sounds, no respiratory distress Abdominal Exam: normal bowel sounds, non tender, soft Extremities: normal range of motion, non-tender Mansoor Allen NP Jun 05, 2018 15:24
--- NOTE | 2018-06-05 16:34 | General Progress Note ---
Assessment/Plan Assessment/Plan anxiety d/o ativan prn provided ro/st Subjective Neurologic/Psychiatric: Reports: anxiety, depressed, emotional problems Allergies: Coded Allergies: No Known Allergies (Unverified , 05/20/18) Subjective the pt is in nad has episodes of anxiety Objective Last 24 Hour Vital Signs Date Time Temp Pulse Resp B/P (MAP) Pulse Ox O2 Delivery O2 Flow Rate FiO2 06/05/18 09:47 62 174/85 06/05/18 09:44 174/85 06/05/18 09:11 97.7 06/05/18 09:00 Room Air 06/05/18 09:00 Room Air 06/05/18 08:19 62 174/85 06/05/18 08:00 97.7 62 18 174/85 (114) 94 06/05/18 05:57 152/81 06/05/18 04:00 98.2 67 20 152/81 (104) 92 06/05/18 00:00 98.0 62 20 162/85 (110) 95 06/04/18 21:28 170/86 06/04/18 21:00 Room Air 06/04/18 20:48 72 170/85 06/04/18 20:00 97.3 72 20 170/85 (113) 90 06/04/18 17:29 188/96 06/04/18 17:28 188/96 (126) Intake and Output 06/04/18 06/05/18 19:00 07:00 Output Total 2000 ml Balance -2000 ml Hemodialysis UF 2000 ml # Voids 1 Laboratory Tests 06/05/18 05:45: White Blood Count 7.5, Red Blood Count 2.86L, Hemoglobin 9.1L, Hematocrit 26.9L , Mean Corpuscular Volume 94, Mean Corpuscular Hemoglobin 31.7H, Mean Corpuscular Hemoglobin Concent 33.7, Red Cell Distribution Width 17.1H, Platelet Count 249, Mean Platelet Volume 9.2, Neutrophils (%) (Auto) 77.9H, Lymphocytes (%) (Auto) 8.5L, Monocytes (%) (Auto) 7.6, Eosinophils (%) (Auto) 5.1H, Basophils (%) (Auto) 0.9, Sodium Level 136, Potassium Level 5.1, Chloride Level 97L, Carbon Dioxide Level 28, Anion Gap 11, Blood Urea Nitrogen 48H, Creatinine 9.0H, Estimat Glomerular Filtration Rate 6.2, Glucose Level 118H, Calcium Level 7.8L Height (Feet): 5 Height (Inches): 6.00 Weight (Pounds): 190 Chris Driscoll MD Jun 05, 2018 16:34
[2018-06-05] MEDS ORDERED: Metoprolol 25mg tab ORAL SCH (21:00)
--- NOTE | 2018-06-06 13:34 | Discharge Summary ---
Discharge Summary Discharge Summary _ DATE OF ADMISSION: 05/20/2018 DATE OF DISCHARGE: 06/05/2018 REASON FOR ADMISSION: 52 years old male with past medical history of end-stage renal disease on hemodialysis, hypertension, diabetes mellitus, presented to emergency department with acute right-sided abdominal pain. CT of the abdomen and pelvis revealed large complex hemorrhage/hemorrhagic mass occupying majority of the right kidney with extensive perinephric fluid/ blood extending into the retroperitoneum and pelvis Laboratory workup revealed leukocytosis WBC 13.6, hemoglobin was 7.0. Hematocrit 21.5. BUN 24 i, creatinine 5.1, consistent with known history of end-stage renal disease. Blood sugar 376 CXR with evidence of interstitial edema. Blood pressure was continued to drop. Patient was subsequently admitted to ICU for shock and possible need for pressors, retroperitoneal hemorrhage, anemia, end-stage renal disease , diabetes mellitus. CONSULTANTS: pulmonary Dr. Marte ID specialist Dr. Garcia wildland fire fighter specialist Dr. Lopez psychiatrist head teacher Dr. Bonds urologist Dr. Fernandez HOSPITAL COURSE: Patient admitted initially to ICU. news specialist / associate professor of automation closely followed . ABG was stable on O2 via nasal cannula. CBC was initially monitored every 6 hours with goal to transfuse to keep hemoglobin above 7. Hemodynamic status was closely monitored. Central venous catheter was placed. Patient was on cautious at 50 mL/h IV hydration , while nothing by mouth. Hemodialysis provided as per wildland fire fighter specialist's recommendations with close monitoring of volume status, renal parameters and electrolytes. DVT prophylaxis provided with SCD . Pain regimen was addressed , and supportive care provided. Echocardiogram revealed preserved ejection fraction of 65-70%. No wall motion abnormality. Small pericardial effusion. Right ventricular systolic pressure of 56 consistent with moderate pulmonary hypertension. Patient started on oral diet, and IV fluids were discontinued . Blood pressure was closely monitored. GI specialist closely followed. Stool for occult blood 2 was negative. Anemia workup was consistent with anemia of chronic disease, likely due to chronic renal failure. Patient was on Epogen. Patient was also given Venofer due to low iron. Patient was on PPI twice a day. Patient required multiply transfusion during this hospitalization, total of 9 units of packed red blood cells. ID specialist followed . Leukocytosis was likely due to recurrent bleeding. Patient status post on Zosyn IV for 6 days. Infectious disease specialist doubted infectious etiology, since patient had no fever, blood culture were negative. Repeated CT of the abdomen and pelvis showed increase in the size of the right- sided hematoma . Repeated blood culture were negative. Infectious disease doctor recommended to keep patient off antibiotic with close monitoring of hemoglobin and hematocrit. Urologist initially seen the patient. He recommended to repeat CT scan in 2-3 days to assess any change in hematoma. The patient remained stable patient will be supported with a blood transfusion and supportive measure. Per urologist, retroperitoneal hemorrhage typically managed conservatively and no surgical intervention was necessary. Blood pressure stabilized. No anticoagulation. Follow-up CT of the abdomen and pelvis revealed large right renal hematoma without significant change from the previous exam. Repeated CT on 05/28 showed increase in size of previously demonstrated large perinephric hematoma. Prior to discharge hemoglobin 9.1 hematocrit 26.9. Blood pressure stable . Urologist recommended if bleeding occurs despite the conservative measures, consider angiogram with embolization by interventional radiology , which is a better approach since less invasive and likely more quickly and readily identify the source of bleeding. Inductor Tester followed for management of diabetes. Patient was on long-acting Levemir , short-acting NovoLog pre-meal and sliding scale of insulin before meals and at nighttime as needed. Hemoglobin A1c 6.3. Psychiatrist followed . Reality orientation and supportive therapy provided. Psychiatrist diagnosed patient with anxiety disorder . Anxiolytics were on board as needed. Shock resolved . Blood pressures stabilized. Patient eventually required restart of antihypertensive medications: first beta sarah and then calcium channel sarah. GI prophylaxis provided. Pain management was addressed as needed. Bowel regimen provided. Patient clinically stabilized and was ready for discharge home. FINAL DIAGNOSES: Hemorrhagic/hypovolemic shock Acute retroperitoneal hemorrhage Anemia due to acute blood loss , requiring multiply blood transfusion End-stage renal disease ,on hemodialysis Diabetes mellitus History of hypertension Anxiety disorder DISCHARGE MEDICATIONS: List of medication was called to pharmacy by attending physician DISCHARGE INSTRUCTIONS: Patient was discharged home Follow up with primary care provider in one week. Return to ED instructions discussed I have been assigned to dictate discharge summary for this account. I was not involved in the patient's management. Yeimi Whitehead NP Jun 06, 2018 13:34
== END 2018-06-05 10:09 | disposition home or self-care (01) | DRG 314 ==
LOC: EDBD 01:58 → EDBEDREQ 02:12 → ICU 04:05 → 2W 05-22 07:30 → 4E 05-28 23:10
PROC: 30233N1 Transfusion of Nonautologous Red Blood Cells into Peripheral Vein, Percutaneous Approach (ICD-10-PCS; principal; 2018-05-20)
PROC: 5A1D70Z Performance of Urinary Filtration, Intermittent, Less than 6 Hours Per Day (ICD-10-PCS; 2018-05-21)
DX: R58 Hemorrhage, not elsewhere classified (principal); R57.8 Other shock; N18.6 End stage renal disease; D62 Acute posthemorrhagic anemia; N28.89 Other specified disorders of kidney and ureter; F41.9 Anxiety disorder, unspecified; Z99.2 Dependence on renal dialysis; E11.65 Type 2 diabetes mellitus with hyperglycemia; E11.22 Type 2 diabetes mellitus with diabetic chronic kidney disease
CPT/HCPCS: 36415; 36600; 71045; 74018; 74176; 76700; 80048; 80053; 80061; 82248; 82270; 82550; 82607; 82728; 82746; 82803; 82962; 82977; 83036; 83540; 83550; 83690; 83735; 83880; 84100; 84484; 84550; 85007; 85025; 85610; 86140; 86850; 86900; 86901; 86920; 87040; 87081; 93306; 94664; 94760; 96365; 96375; 99291; J1815; J2405; S5561